=== PATIENT | female | born 1945 | race Caucasian/White ===

== ENCOUNTER 2021-03-27 10:04 | Inpatient (IN) ==
--- NOTE | 2021-03-27 12:53 | XRay Report ---
XR chest 1V portable CLINICAL HISTORY: SOB TECHNIQUE: Single frontal radiograph of the chest was obtained. Comparison: Comparison is made to chest one view 06/23/2006 FINDINGS: No lines and tubes are seen. Cardiomegaly is noted. Prominence and cephalization of the vasculature i s seen. No evidence of pleural effusion or pneumothorax. IMPRESSION: Mild pulmonary edema. Cardiomegaly is noted. ACT 112: Negative or not required by law. Electronically signed by: Srekeanth Roche M.D. 03/27/2021 12:52 PM
[2021-03-27] MEDS ORDERED: ONDANSETRON INJ 2 MG/ML 2 ML VIAL IV STA (13:55)
[2021-03-27 14:18] LABS: INR 1.2 (0.9-1.1); Partial Thromboplastin Time 25.9 Seconds (21.0-31.0); Prothrombin Time 11.8 Seconds (9.0-12.0)
[2021-03-27 14:24] LABS: Alanine Aminotransferase 26 (12-78); Albumin Level 3.3 gm/dl (3.4-5.0); Aspartate Aminotransferase 40 U/L (15-37); BUN Creatinine Ratio 14.3 (10-20); Blood Urea Nitrogen 17 mg/dl (7-18); Calcium 8.5 mg/dl (8.5-10.1); Carbon Dioxide 21 mmol/L (21-32); Chloride 107 mmol/L (98-107); Creatinine Clr Calc Pharmacy 34.5 ml/min; Est GFR (African American) 49.6 ml/min; Est GFR (Non-African American) 42.8 ml/min; Glucose 125 mg/dl (70-99); Magnesium 1.7 mg/dl (1.8-2.4); Potassium 4.1 mmol/L (3.5-5.1); Sodium 137 mmol/L (136-145)
[2021-03-27 14:29] LABS: Albumin Globulin Ratio 0.9 (0.9-2); Alkaline Phosphatase 56 U/L (45-117); Bilirubin,Total 0.4 mg/dl (0.2-1); Globulin 3.5 gm/dl (2.5-4.0); Total Protein 6.8 gm/dl (6.4-8.2); Troponin I < 0.015 ng/ml (0-0.045)
--- NOTE | 2021-03-27 14:47 | CT Scan Report ---
CT abd pelvis wo con CLINICAL HISTORY: vomiting TECHNIQUE: Helical axial images of the abdomen and pelvis were obtained. Automated dose lowering tech niques and/or adjustment according to patient size were utilized for this exam. This exam was perfor med without intravenous contrast. COMPARISON: None available at the time of this dictation. FINDINGS: Lower chest: Scattered groundglass and consolidative opacities are partially visualized most promine nt in the right lower lobe. Atelectasis versus scarring is seen. Liver: Unremarkable. No focal lesions are seen. Gallbladder and biliary tree: Patient is status post cholecystectomy. No intra- or extrahepatic bilia ry ductal dilation. Pancreas: Unremarkable, no focal lesions. Spleen: Splenomegaly is seen, the spleen measures 2.5 cm in length. A splenule is noted. Adrenals: Unremarkable. Kidneys and ureters: Hyperdense 12 mm lesion is seen in the left kidney inferior pole and there is a subcentimeter hyperdense lesion in the right inferior pole. Renal cyst is seen in the left kidney inf erior pole as well. Bladder: Unremarkable. Reproductive organs: Unremarkable. Bowel: Diverticulosis is seen without evidence of diverticulitis. There are mildly distended loops of small bowel measuring up to 28 mm without jo dilation. Lymph nodes Retroperitoneal: Subcentimeter lymph nodes are noted. Mesenteric: Unremarkable. Pelvic: Subcentimeter lymph nodes are noted. Peritoneum: Normal Vessels: Atherosclerotic calcifications are seen. Abdominal wall: Unremarkable. Bones: Bone islands are noted in the pelvis. There is anterior wedge deformity of the T12 vertebral b surendra. IMPRESSION: 1. There is mild distention of the small bowel which may represent ileus, however no jo bowel obs truction is seen. 2. Diverticulosis is seen without diverticulitis. 3. Marked splenomegaly. 4. Hyperdense lesions in the bilateral kidneys. These are favored to represent hemorrhagic/proteinac eous cysts, however if not previously evaluated, CT or MRI renal mass protocol is recommended. ACT 112: Negative or not required by law. Electronically signed by: Sreekanth Roche M.D. 03/27/2021 2:46 PM
[2021-03-27 14:48] LABS: Hematocrit (blood only) 23.5 % (37-47); Hemoglobin 7.7 g/dL (12.0-16.0); Mean Corpuscular Hemoglobin 27.3 pg (25-34); Mean Corpuscular Hgb Conc 32.8 g/dL (32-36); Mean Corpuscular Volume 83.3 fL (80-100); Mean Platelet Volume 9.5 fL (7.4-10.4); Platelet Count 47 K/uL (130-400); RDW Coefficient of Variation 22.1 % (11.5-14.5); Red Blood Count 2.82 M/uL (4.2-5.4); White Blood Count 0.63 K/uL (4.8-10.8)
[2021-03-27 14:52] LABS: Lymphocytes # (auto) 0.22 K/uL (1.2-3.4); Lymphocytes % (auto) 34.9 %; Monocytes # (auto) 0.11 K/uL (0.11-0.59); Monocytes % (auto) 17.5 %; Neutrophils % (auto) 47.6 %; Ovalocytes 2+
[2021-03-27] MEDS ORDERED: SODIUM CHLORIDE 0.9% 1000ML 1,000 ML IV STA (14:58)
[2021-03-27] MEDS ORDERED: SODIUM CHLORIDE 0.9% 1000ML 500 ML IV ONE (14:58)
[2021-03-27] MEDS ORDERED: MAGNESIUM SULFATE / D5W 1 GM/100 ML BAG IV ONE (16:51)
[2021-03-27] MEDS: dexAMETHasone 6 MG in SYRINGE 0 ML IV SCH (17:29)
--- NOTE | 2021-03-27 17:29 | History & Physical Report ---
Date of Service March 27, 2021 Assessment & Plan (1) Ileus: Plan: -Admit to telemetry -Patient presenting from home with reports of 3 weeks of productive cough, nausea and vomiting -In the ED, CT ABD/pelvis showing signs of ileus -will treat conservatively with bowel rest and IVF -Low threshold for general surgery consult (2) Lab test positive for detection of COVID-19 virus: (3) Sarcoidosis: (4) Chronic respiratory failure with hypoxia: (5) COPD exacerbation: Plan: -Patient with history of COPD and sarcoidosis, chronically on 3 L of oxygen -Tested positive for COVID-19 however saturating well on chronic 3 L of oxygen. Vaccinated x2, due for booster. -Given wheezing on exam, will start dexamethasone 6 mg IV daily. Given duration of symptoms, does not meet criteria for remdesivir -Empiric doxycycline for COPD exacerbation -No signs of pneumonia on CXR -Check procalcitonin and CRP (6) Pancytopenia: (7) History of ITP: Plan: -WBC 0.63, Hgb 7.7, platelet count 47K, ANC 300 -Outpatient labs from 02/02 showed a mild pancytopenia -Documented history of ITP -Follows with Dr. Avendano, case discussed with him. He will see the patient in consult. -Neutropenic precautions (8) Abnormal abdominal CT scan: Plan: -CT ABD/pelvis showing splenomegaly and Hyperdense lesions in the bilateral kidneys. These are favored to represent hemorrhagic/proteinaceous cysts. -CT renal protocol ordered for follow-up (9) Paroxysmal atrial fibrillation: Plan: -Rate controlled on metoprolol, anticoagulated on Xarelto -Hold Xarelto for now due to pancytopenia (10) History of breast cancer: Plan: -History of breast cancer s/p lumpectomy and radiation -Currently on tamoxifen (11) Hypertension: Plan: -BP currently controlled, continue amlodipine/valsartan, metoprolol -Hold spironolactone due to ileus (12) Diabetes: Plan: -Unknown HgbA1c -NovoLog per protocol while hospitalized -Update A1c with a.m. labs (13) DVT prophylaxis: Plan: -SCDs due to pancytopenia History of Present Illness Chief Complaint: Cough, nausea and vomiting Primary Care Provider: Yareli Armstrong DO 76-year-old female with PMH DM type II, COPD with chronic hypoxic respiratory failure on chronic 3 L of oxygen, sarcoidosis, paroxysmal atrial fibrillation anticoagulated on Xarelto, HTN, DM type II, GERD, osteoporosis, history of ITP, history of breast cancer s/p lumpectomy and radiation currently on tamoxifen, and other problems to below who presents the ED for evaluation of cough and nausea/vomiting. Patient reports she has been sick for the past 3 weeks. Reports a worsening cough that has been productive for clear/white sputum. She reports that the cough sometimes induces nausea and vomiting. She denies hematemesis or coffee-ground emesis. Reports some worsening abdominal distention and generalized abdominal pain. Reports a normal bowel movement 2 days ago. No bright red bleeding per rectum or dark tarry stools. She reports a very poor appetite. Denies fevers and chills. No chest pain or shortness of breath. Chronically wears 3 L of oxygen. Denies lightheadedness, dizziness, diaphoresis, syncopal events. No urinary symptoms. In the ED, CT ABD/pelvis shows an ileus, splenomegaly, hyperdense lesions in both kidneys. Labs show pancytopenia. Patient also tested positive for COVID-19. She is saturating well on chronic 3 L of oxygen. She was given IVF and IV Zofran. Allergies Allergy/AdvReac Type Severity Reaction Status Date / Time No Known Drug Allergies Allergy Verified 03/27/21 14:38 Home Medications Medication Instructions Recorded Confirmed Type cholecalciferol (vitamin D3) 1,250 50,000 unit PO WK cap 11/27/18 03/27/21 History mcg (50,000 unit) capsule ipratropium 0.5 mg-albuterol 3 mg 3 ml INHALATION DAILY PRN #1 ml 11/27/18 03/27/21 History (2.5 mg base)/3 mL nebulization soln tamoxifen 20 mg tablet 20 mg PO QAM tab 11/27/18 03/27/21 History amlodipine 10 mg-valsartan 320 mg 1 tab PO DAILY tab 10/09/19 03/27/21 History tablet insulin glargine 100 unit/mL 33 units SUBCUT HS #1 ml 10/09/19 03/27/21 History subcutaneous solution Oxygen Home #1 ea 07/28/20 02/09/21 Rx famotidine 40 mg tablet (Pepcid) 40 mg PO DAILY #30 tab 07/28/20 03/27/21 Rx albuterol sulfate 90 mcg/actuation 2 puff INHALATION Q4H PRN #8.5 g 02/09/21 03/27/21 Rx aerosol inhaler budesonide-formoterol HFA 160 2 puff INHALATION BID #10.2 g 02/09/21 03/27/21 Rx mcg-4.5 mcg/actuation aerosol inhaler atorvastatin 40 mg tablet 40 mg PO QAM 03/27/21 03/27/21 History diclofenac sodium 1 % topical gel 2 g TOPICAL QID PRN 03/27/21 03/27/21 History gabapentin 300 mg capsule 300 mg PO DAILY 03/27/21 03/27/21 History metoprolol succinate 100 mg 100 mg PO BID 03/27/21 03/27/21 History tablet,extended release 24 hr omeprazole 20 mg capsule,delayed 20 mg PO QAM 03/27/21 03/27/21 History release potassium chloride 10 mEq 10 meq PO DAILY 03/27/21 03/27/21 History capsule,extended release rivaroxaban 20 mg tablet (Xarelto) 20 mg PO QAM 03/27/21 03/27/21 History ropinirole 0.25 mg tablet 0.25 mg PO QAM 03/27/21 03/27/21 History spironolactone 50 mg tablet 50 mg PO QAM 03/27/21 03/27/21 History venlafaxine 37.5 mg 37.5 mg PO DAILY 03/27/21 03/27/21 History capsule,extended release 24 hr Past Med/Surg History Medical History (Updated 03/27/21 @ 17:36 by POLLY Ramos) Arthritis BPPV (benign paroxysmal positional vertigo) Chronic anticoagulation Chronic respiratory failure with hypoxia COPD (chronic obstructive pulmonary disease) Diabetes GERD without esophagitis Hiatal hernia History of adverse effect of anesthesia on table? - Per Patient Form History of breast cancer History of Clostridioides difficile colitis History of ITP Hypertension Hypertensive heart disease Nocturnal hypoxemia On home oxygen therapy Osteoporosis Paroxysmal atrial fibrillation Pulmonary hypertension Restrictive lung disease Rheumatoid arthritis Sarcoidosis SNHL (sensorineural hearing loss) Surgical History History of appendectomy History of cholecystectomy History of hysterectomy History of tonsillectomy Family History Mother Hypertension Heart disease Father Hypertension Stroke Heart disease Other Family history of bleeding disorder No family history of adverse response to anesthesia Social History (Updated 03/27/21 @ 17:25 by POLLY Ramos) Smoking Status: Never smoker Hx Alcohol Use: No Feels Safe at Home: Yes Review of Systems Review of Systems: ROS per HPI, all other systems reviewed and negative Physical Exam Constitutional: WD/WN, vitals as above + ill appearing Eyes: PERRL, conjunctivae normal, anicteric sclerae ENMT: external ear and nose normal, oropharynx normal Respiratory: normal respiratory effort; no respiratory distress Auscultation: + diminished lung sounds and + wheezes (Scattered, expiratory) Cardiovascular: Rate/Rhythm: regular rate and regular rhythm Vessels: normal peripheral pulses Extremities: no edema Gastrointestinal (Abdomen): Inspection/Auscultation: normal bowel sounds; abdomen not distended Percussion/Palpation: + abdomen tender (Generally tender to palpation) and abdomen soft; no guarding and no hepatosplenomegaly Musculoskeletal: no cyanosis or clubbing, extremities motor strength 5/5 Skin: no rashes, warm and dry Chronic venous changes BLE Neurologic: PERRL, EOMI, accommodation nl, no face palsy, no dysarthria Involuntary facial movements noted Psychiatric: A+Ox3, euthymic affect Results & Data Results & Data ([facility]) Vital Signs (Past 12 Hours) Vital Signs Temp Pulse Pulse Resp BP BP Pulse Ox 03/27/21 13:41 78 20 144/83 H 96 03/27/21 12:07 96 03/27/21 10:17 37.5 C 71 18 127/57 L 100 Laboratory Results Short CBC 03/27/21 Range/Units 13:55 WBC 0.63 L* (4.8-10.8) K/uL Hgb 7.7 L (12.0-16.0) g/dL Hct 23.5 L (37-47) % Plt Count 47 L (130-400) K/uL BMP 03/27/21 13:55 Sodium 137 Potassium 4.1 Chloride 107 Carbon Dioxide 21 BUN 17 Creatinine 1.21 H Glucose 125 H Calcium 8.5 Cardiac Enzymes 03/27/21 Range/Units 13:55 Troponin I < 0.015 (0-0.045) ng/ml Liver Function 03/27/21 Range/Units 13:55 Total Bilirubin 0.4 (0.2-1) mg/dl AST 40 H (15-37) U/L ALT 26 (12-78) Alkaline Phosphatase 56 (45-117) U/L Albumin 3.3 L (3.4-5.0) gm/dl Diagnostic Findings Chest X-Ray 03/27/21 12:07 XR chest 1V portable CLINICAL HISTORY: SOB TECHNIQUE: Single frontal radiograph of the chest was obtained. Comparison: Comparison is made to chest one view 06/23/2006 FINDINGS: No lines and tubes are seen. Cardiomegaly is noted. Prominence and cephalization of the vasculature is seen. No evidence of pleural effusion or pneumothorax. IMPRESSION: Mild pulmonary edema. Cardiomegaly is noted. ACT 112: Negative or not required by law. Electronically signed by: Sreekanth Roche M.D. 03/27/2021 12:52 PM Abdomen/Pelvis CT 03/27/21 13:55 CT abd pelvis wo con CLINICAL HISTORY: vomiting TECHNIQUE: Helical axial images of the abdomen and pelvis were obtained. Automated dose lowering techniques and/or adjustment according to patient size were utilized for this exam. This exam was performed without intravenous contrast. COMPARISON: None available at the time of this dictation. FINDINGS: Lower chest: Scattered groundglass and consolidative opacities are partially visualized most prominent in the right lower lobe. Atelectasis versus scarring is seen. Liver: Unremarkable. No focal lesions are seen. Gallbladder and biliary tree: Patient is status post cholecystectomy. No intra- or extrahepatic biliary ductal dilation. Pancreas: Unremarkable, no focal lesions. Spleen: Splenomegaly is seen, the spleen measures 2.5 cm in length. A splenule is noted. Adrenals: Unremarkable. Kidneys and ureters: Hyperdense 12 mm lesion is seen in the left kidney inferior pole and there is a subcentimeter hyperdense lesion in the right inferior pole. Renal cyst is seen in the left kidney inferior pole as well. Bladder: Unremarkable. Reproductive organs: Unremarkable. Bowel: Diverticulosis is seen without evidence of diverticulitis. There are mildly distended loops of small bowel measuring up to 28 mm without jo dilation. Lymph nodes Retroperitoneal: Subcentimeter lymph nodes are noted. Mesenteric: Unremarkable. Pelvic: Subcentimeter lymph nodes are noted. Peritoneum: Normal Vessels: Atherosclerotic calcifications are seen. Abdominal wall: Unremarkable. Bones: Bone islands are noted in the pelvis. There is anterior wedge deformity of the T12 vertebral body. IMPRESSION: 1. There is mild distention of the small bowel which may represent ileus, however no jo bowel obstruction is seen. 2. Diverticulosis is seen without diverticulitis. 3. Marked splenomegaly. 4. Hyperdense lesions in the bilateral kidneys. These are favored to represent hemorrhagic/proteinaceous cysts, however if not previously evaluated, CT or MRI renal mass protocol is recommended. ACT 112: Negative or not required by law. Electronically signed by: Sreekanth Roche M.D. 03/27/2021 2:46 PM Code Status & VTE Plan Code Status Patient is a full code as per my discussion with her. VTE Prophylaxis Plan VTE Prophylaxis will be ordered: Yes Supervising Physician Co-Signing Physician Notes Attending addendum: The patient was seen and examined in emergency room She has been complaining of shortness of breath with cough for the last 1 month or so without any fever and/or chills Cough has been mostly at night productive of whitish-yellow sputum She denies any chest pain or palpitation She also has this abnormal movements of the face especially the eyes and the mouth that has been there for more than 1 month On examination No apparent distress at rest Hemodynamically stable with blood pressure on the upper side at 146/60 Chest-decreased breath sounds both sides without any crackles Heart-S1-S2, regular Abdomen-mildly distended and mildly tender without guarding and rigidity, bowel sound present Extremities-no edema but has chronic skin changes with bruising SENIOR ASSISTANT MANAGER-alert, awake and oriented x3. Generally weak Her admission labs, EKG and imaging studies reviewed Has significant hematologic abnormality under care of oncologist Noted to be Covid positive without significant symptoms and out of window for any specific treatment Has COPD and will start dexamethasone and doxycycline for possible bronchitis Abnormal facial movements could be secondary to Tics/Tourette syndrome Agree with assessment and plan as outlined above by Yeni Poon
[2021-03-27 17:31] LABS: C Reactive Protein 0.64 mg/dl (0-0.29)
--- NOTE | 2021-03-27 17:32 | Emergency Department Note ---
Impression & Plan COVID-19, Vomiting, Ileus, Pancytopenia ED Provider Note INFORMANT: Patient ED PROVIDER(S): Alberto Weaver MD CHIEF COMPLAINT: Shortness of breath PLAN: Disposition: Admitted Condition: Good Outpatient prescription management: none Referral: None MEDICAL DECISION MAKING: Patient presented to emergency room because of shortness of breath. She also had vomiting. There was concerns about exposure to Covid. She was tested and was positive. X-ray did not show any significant abnormality. Her blood work revealed significant pancytopenia which is worse than prior. She was neutropenic. CT imaging of her abdomen pelvis reveals an ileus and splenomegaly. The patient had an ECG showed a right bundle branch block, and PACs. No acute ischemic changes. Remainder blood work was unremarkable. Given the patient's ileus, vomiting, and generalized weakness. She was treated with normal saline hydration and Zofran. [facility] Patient was evaluated in the ER for further management. Triage Nursing notes reviewed and agree them. Vital Signs: reviewed and remarkable for no significant abnormalities Differential diagnosis: Infection, dehydration, metabolic abnormality, hypo/hyperglycemia, electrolyte disturbance, anemia, hypoxia, cardiac sources, intracerebral event, toxicologic, neurologic, as well as other pathologies. Diagnostics interpreted by me: ECG: Twelve-lead ECG reveals a sinus rhythm with PACs at 74 bpm. Bundle-branch block and left anterior fascicular block. Septal and lateral Q waves present. Cardiac Monitoring: Cardiac monitoring ordered by me: The patient was placed on continuous cardiac monitoring and observed. It revealed a sinus rhythm at 87 bpm. No dysrhythmia. Imaging studies: Chest x-ray shows some mild cardiomegaly but no focal infiltrates. HPI: The patient is a 76 year old female who presents to the Emergency Room with complaints of shortness of breath. This started several days ago and is worsening. The patient also notes the following associated symptoms, cough, nausea, vomiting, weakness. The patient has found no relieving factors. Current pain is rated as 0/10. Pt denies LOC, headache, fevers, chills, diaphoresis, visual changes, neck pain, chest pain, abdominal pain, back pain, melena, hematochezia, urinary symptoms, numbness, weakness, lymphadenopathy, rash, or other complaints. ROS: See above HPI for pertinent positives & negatives. A total of 10 systems reviewed and were otherwise negative. PAST MEDICAL HISTORY:See Below , diabetes, sarcoidosis PAST SURGICAL HISTORY:See Below, FAMILY HISTORY:See Below SOCIAL HISTORY:See Below, retired HOME MEDICATIONS:See Below ALLERGIES:See Below VITALS:See Below PHYSICAL EXAMINATION: GENERAL: Awake, alert, uncomfortable-appearing, in no distress HENT: Normocephalic, atraumatic. Oropharynx unremarkable. EYES: Normal conjunctiva. Sclera non-icteric. NECK: Inspection normal. Non-tender. Supple. No nuchal rigidity. FROM. No masses. RESPIRATORY: Clear to auscultation. No wheezes. No rales. Normal respiratory effort. CARDIAC: Normal rate. Normal rhythm. No murmurs. No rubs. Extremities warm and well perfused. Pulses equal. No JVD. GI: Soft, non-distended. Mild lower quadrant tenderness to palpation. No rebound or guarding. No masses. RECTAL: Deferred. MUSCULOSKELETAL: Atraumatic. Chest examination reveals no tenderness. The back is symmetrical on inspection without obvious abnormality. There is no CVA tenderness to palpation. No joint edema. LOWER EXTREMITIES: Calves are equal size bilaterally and non-tender. No edema. Chronic venous discoloration. NEURO: Normal sensorium. Generally weak but no focal sensory or motor deficits noted. SKIN: No rash or jaundice noted. Alberto Weaver MD Past Med/Surg History Medical History (Updated 03/27/21 @ 17:26 by POLLY Ramos) Arthritis BPPV (benign paroxysmal positional vertigo) Chronic anticoagulation Chronic respiratory failure with hypoxia COPD (chronic obstructive pulmonary disease) Diabetes GERD without esophagitis Hiatal hernia History of adverse effect of anesthesia on table? - Per Patient Form History of breast cancer History of Clostridioides difficile colitis History of ITP Hypertension Hypertensive heart disease Nocturnal hypoxemia On home oxygen therapy Osteoporosis Paroxysmal atrial fibrillation Pulmonary hypertension Restrictive lung disease Rheumatoid arthritis Sarcoidosis SNHL (sensorineural hearing loss) Surgical History History of appendectomy History of cholecystectomy History of hysterectomy History of tonsillectomy Family History Mother Hypertension Heart disease Father Hypertension Stroke Heart disease Other Family history of bleeding disorder No family history of adverse response to anesthesia Social History (Updated 03/27/21 @ 17:25 by POLLY Ramos) Smoking Status: Never smoker Hx Alcohol Use: No Feels Safe at Home: Yes Allergies Allergies Allergy/AdvReac Type Severity Reaction Status Date / Time No Known Drug Allergies Allergy Verified 03/27/21 14:38 Home Meds Home Medications Medication Instructions Recorded Confirmed cholecalciferol (vitamin D3) 1,250 50,000 unit PO WK cap 11/27/18 03/27/21 mcg (50,000 unit) capsule ipratropium 0.5 mg-albuterol 3 mg 3 ml INHALATION DAILY PRN #1 ml 11/27/18 03/27/21 (2.5 mg base)/3 mL nebulization soln tamoxifen 20 mg tablet 20 mg PO QAM tab 11/27/18 03/27/21 amlodipine 10 mg-valsartan 320 mg 1 tab PO DAILY tab 10/09/19 03/27/21 tablet insulin glargine 100 unit/mL 33 units SUBCUT HS #1 ml 10/09/19 03/27/21 subcutaneous solution atorvastatin 40 mg tablet 40 mg PO QAM 03/27/21 03/27/21 diclofenac sodium 1 % topical gel 2 g TOPICAL QID PRN 03/27/21 03/27/21 gabapentin 300 mg capsule 300 mg PO DAILY 03/27/21 03/27/21 metoprolol succinate 100 mg 100 mg PO BID 03/27/21 03/27/21 tablet,extended release 24 hr omeprazole 20 mg capsule,delayed 20 mg PO QAM 03/27/21 03/27/21 release potassium chloride 10 mEq 10 meq PO DAILY 03/27/21 03/27/21 capsule,extended release rivaroxaban 20 mg tablet (Xarelto) 20 mg PO QAM 03/27/21 03/27/21 ropinirole 0.25 mg tablet 0.25 mg PO QAM 03/27/21 03/27/21 spironolactone 50 mg tablet 50 mg PO QAM 03/27/21 03/27/21 venlafaxine 37.5 mg 37.5 mg PO DAILY 03/27/21 03/27/21 capsule,extended release 24 hr Previous Rx's Medication Instructions Recorded Oxygen Home #1 ea 07/28/20 famotidine 40 mg tablet (Pepcid) 40 mg PO DAILY #30 tab 07/28/20 albuterol sulfate 90 mcg/actuation 2 puff INHALATION Q4H PRN #8.5 g 02/09/21 aerosol inhaler budesonide-formoterol HFA 160 2 puff INHALATION BID #10.2 g 02/09/21 mcg-4.5 mcg/actuation aerosol inhaler Results & Data (ED) Vital Signs Vital Signs - 24 hr 03/27/21 10:17 03/27/21 12:07 03/27/21 13:41 Temperature 37.5 C Temperature Source Temporal Artery Scan Pulse Rate 71 Pulse Rate [Left Radial] 78 Pulse Rate from SpO2 Sensor Pulse Rhythm [Left Radial] Regular Pulse Strength [Left Radial] Normal Respiratory Rate 18 20 Respiratory Effort / Characteristics Non-Labored Non-Labored Spontaneous Respiratory Depth Normal Respiratory Pattern Regular Blood Pressure 127/57 L Blood Pressure [Right Arm] 144/83 H Blood Pressure Mean 80 Blood Pressure Mean [Right Arm] 103 Blood Pressure Position [Right Arm] Lying Pulse Oximetry 100 96 96 Oxygen Delivery Method Room Air Room Air Room Air Sepsis Recent Fever Within 48 Hours No Sepsis New/Unexplained Change in Mental Status No Sepsis Action Taken by Nursing No Action Required 03/27/21 16:07 03/27/21 16:30 03/27/21 17:00 Temperature Temperature Source Pulse Rate 80 78 87 Pulse Rate [Left Radial] Pulse Rate from SpO2 Sensor 81 78 84 Pulse Rhythm [Left Radial] Pulse Strength [Left Radial] Respiratory Rate 22 22 17 Respiratory Effort / Characteristics Respiratory Depth Respiratory Pattern Blood Pressure 146/60 H Blood Pressure [Right Arm] Blood Pressure Mean 88 Blood Pressure Mean [Right Arm] Blood Pressure Position [Right Arm] Pulse Oximetry 100 99 96 Oxygen Delivery Method Sepsis Recent Fever Within 48 Hours Sepsis New/Unexplained Change in Mental Status Sepsis Action Taken by Nursing Laboratory Data Result diagrams: 03/27/21 13:55 03/27/21 13:55 Lab Results 03/27/21 03/27/21 03/27/21 Range/Units 13:55 13:55 13:55 WBC 0.63 L* (4.8-10.8) K/uL RBC 2.82 L (4.2-5.4) M/uL Hgb 7.7 L (12.0-16.0) g/dL Hct 23.5 L (37-47) % MCV 83.3 (80-100) fL MCH 27.3 (25-34) pg MCHC 32.8 (32-36) g/dL RDW Std Deviation 66.0 H (36.4-46.3) fL RDW Coeff of Chi 22.1 H (11.5-14.5) % Plt Count 47 L (130-400) K/uL MPV 9.5 (7.4-10.4) fL Immature Gran % (Auto) 0.0 % Neut % (Auto) 47.6 % Lymph % (Auto) 34.9 % [place] % (Auto) 17.5 % Eos % (Auto) 0.0 % Baso % (Auto) 0.0 % Neut # (Auto) 0.30 L* (1.4-6.5) K/uL Lymph # (Auto) 0.22 L (1.2-3.4) K/uL [place] # (Auto) 0.11 (0.11-0.59) K/uL Eos # (Auto) 0.00 (0-0.5) K/uL Baso # (Auto) 0.00 (0-0.2) K/uL Immature Gran # (Auto) 0.00 (0.00-0.02) K/uL Ovalocytes 2+ PT 11.8 (9.0-12.0) Seconds INR 1.2 H (0.9-1.1) APTT 25.9 (21.0-31.0) Seconds PTT Ratio 1.0 Sodium 137 (136-145) mmol/L Potassium 4.1 (3.5-5.1) mmol/L Chloride 107 (98-107) mmol/L Carbon Dioxide 21 (21-32) mmol/L Anion Gap 9.0 (3-11) BUN 17 (7-18) mg/dl Creatinine 1.21 H (0.6-1.2) mg/dl Est Cr Clr Drug Dosing 34.5 ml/min Est GFR ( Amer) 49.6 ml/min Est GFR (Non-Af Amer) 42.8 ml/min BUN/Creatinine Ratio 14.3 (10-20) Glucose 125 H (70-99) mg/dl Calcium 8.5 (8.5-10.1) mg/dl Magnesium 1.7 L (1.8-2.4) mg/dl Total Bilirubin 0.4 (0.2-1) mg/dl AST 40 H (15-37) U/L ALT 26 (12-78) Alkaline Phosphatase 56 (45-117) U/L Troponin I < 0.015 (0-0.045) ng/ml C-Reactive Protein 0.64 H (0-0.29) mg/dl Total Protein 6.8 (6.4-8.2) gm/dl Albumin 3.3 L (3.4-5.0) gm/dl Globulin 3.5 (2.5-4.0) gm/dl Albumin/Globulin Ratio 0.9 (0.9-2) SARS-CoV-2, RNA, NAAT (NEGATIVE) 03/27/21 Range/Units 14:01 WBC (4.8-10.8) K/uL RBC (4.2-5.4) M/uL Hgb (12.0-16.0) g/dL Hct (37-47) % MCV (80-100) fL MCH (25-34) pg MCHC (32-36) g/dL RDW Std Deviation (36.4-46.3) fL RDW Coeff of Chi (11.5-14.5) % Plt Count (130-400) K/uL MPV (7.4-10.4) fL Immature Gran % (Auto) % Neut % (Auto) % Lymph % (Auto) % [place] % (Auto) % Eos % (Auto) % Baso % (Auto) % Neut # (Auto) (1.4-6.5) K/uL Lymph # (Auto) (1.2-3.4) K/uL [place] # (Auto) (0.11-0.59) K/uL Eos # (Auto) (0-0.5) K/uL Baso # (Auto) (0-0.2) K/uL Immature Gran # (Auto) (0.00-0.02) K/uL Ovalocytes PT (9.0-12.0) Seconds INR (0.9-1.1) APTT (21.0-31.0) Seconds PTT Ratio Sodium (136-145) mmol/L Potassium (3.5-5.1) mmol/L Chloride (98-107) mmol/L Carbon Dioxide (21-32) mmol/L Anion Gap (3-11) BUN (7-18) mg/dl Creatinine (0.6-1.2) mg/dl Est Cr Clr Drug Dosing ml/min Est GFR ( Amer) ml/min Est GFR (Non-Af Amer) ml/min BUN/Creatinine Ratio (10-20) Glucose (70-99) mg/dl Calcium (8.5-10.1) mg/dl Magnesium (1.8-2.4) mg/dl Total Bilirubin (0.2-1) mg/dl AST (15-37) U/L ALT (12-78) Alkaline Phosphatase (45-117) U/L Troponin I (0-0.045) ng/ml C-Reactive Protein (0-0.29) mg/dl Total Protein (6.4-8.2) gm/dl Albumin (3.4-5.0) gm/dl Globulin (2.5-4.0) gm/dl Albumin/Globulin Ratio (0.9-2) SARS-CoV-2, RNA, NAAT POSITIVE A* (NEGATIVE) Administered Medications Sodium Chloride (Nss 1000ml) 1,000 mls @ 125 mls/hr IV .Q8H STA Stop: 03/27/21 22:57 Last Admin: 03/27/21 15:19 Dose: 125 mls/hr Documented by: [id number] Magnesium Sulfate/Dextrose (Magnesium Sulfate / D5w) 1 gm in 100 mls @ 50 mls/hr IV ONE ONE Stop: 03/27/21 18:50 Last Admin: 03/27/21 17:30 Dose: 50 mls/hr Documented by: [id number] Dexamethasone 6 mg/ Syringe 1.5 mls @ 1 mls/min IV Q24H BLAISE Stop: 04/26/21 16:59 Last Admin: 03/27/21 17:29 Dose: 1 mls/min Documented by: [id number] Discontinued Medications Sodium Chloride (Nss 1000ml) 500 mls @ 999 mls/hr IV .Q31M ONE Stop: 03/27/21 15:28 Last Admin: 03/27/21 15:19 Dose: 999 mls/hr Documented by: [id number] Ondansetron HCl (Ondansetron Inj 2 Mg/Ml 2 Ml Vial) 4 mg IV NOW STA Stop: 03/27/21 13:56 Last Admin: 03/27/21 14:51 Dose: 4 mg Documented by: [id number] Imaging Data Radiologist's Impression: Chest X-Ray 03/27/21 12:07 XR chest 1V portable CLINICAL HISTORY: SOB TECHNIQUE: Single frontal radiograph of the chest was obtained. Comparison: Comparison is made to chest one view 06/23/2006 FINDINGS: No lines and tubes are seen. Cardiomegaly is noted. Prominence and cephalization of the vasculature is seen. No evidence of pleural effusion or pneumothorax. IMPRESSION: Mild pulmonary edema. Cardiomegaly is noted. ACT 112: Negative or not required by law. Electronically signed by: Sreekanth Roche M.D. 03/27/2021 12:52 PM Abdomen/Pelvis CT 03/27/21 13:55 CT abd pelvis wo con CLINICAL HISTORY: vomiting TECHNIQUE: Helical axial images of the abdomen and pelvis were obtained. Automated dose lowering techniques and/or adjustment according to patient size were utilized for this exam. This exam was performed without intravenous contrast. COMPARISON: None available at the time of this dictation. FINDINGS: Lower chest: Scattered groundglass and consolidative opacities are partially visualized most prominent in the right lower lobe. Atelectasis versus scarring is seen. Liver: Unremarkable. No focal lesions are seen. Gallbladder and biliary tree: Patient is status post cholecystectomy. No intra- or extrahepatic biliary ductal dilation. Pancreas: Unremarkable, no focal lesions. Spleen: Splenomegaly is seen, the spleen measures 2.5 cm in length. A splenule is noted. Adrenals: Unremarkable. Kidneys and ureters: Hyperdense 12 mm lesion is seen in the left kidney inferior pole and there is a subcentimeter hyperdense lesion in the right inferior pole. Renal cyst is seen in the left kidney inferior pole as well. Bladder: Unremarkable. Reproductive organs: Unremarkable. Bowel: Diverticulosis is seen without evidence of diverticulitis. There are mildly distended loops of small bowel measuring up to 28 mm without jo dilation. Lymph nodes Retroperitoneal: Subcentimeter lymph nodes are noted. Mesenteric: Unremarkable. Pelvic: Subcentimeter lymph nodes are noted. Peritoneum: Normal Vessels: Atherosclerotic calcifications are seen. Abdominal wall: Unremarkable. Bones: Bone islands are noted in the pelvis. There is anterior wedge deformity of the T12 vertebral body. IMPRESSION: 1. There is mild distention of the small bowel which may represent ileus, however no jo bowel obstruction is seen. 2. Diverticulosis is seen without diverticulitis. 3. Marked splenomegaly. 4. Hyperdense lesions in the bilateral kidneys. These are favored to represent hemorrhagic/proteinaceous cysts, however if not previously evaluated, CT or MRI renal mass protocol is recommended. ACT 112: Negative or not required by law. Electronically signed by: Sreekanth Roche M.D. 03/27/2021 2:46 PM Discharge Plan Visit Data Chief Complaint: Shortness of Breath/Dyspnea Stated Complaint: COVID+,SOB,COUGH X4DAYS,CHEST TIGHTNESS ED Provider: Alberto Weaver Discharge Problem: COVID-19, Vomiting, Ileus, Pancytopenia Forms Stand Alone Forms: [facility] Direct Access Software Prescriptions Prescriptions: No Action famotidine [Pepcid] 40 mg tablet 40 mg PO DAILY Qty: 30 RF: 5 cholecalciferol (vitamin D3) 50,000 unit capsule 50,000 unit PO WK RF: 0 ipratropium-albuterol 0.5 mg-3 mg(2.5 mg base)/3 mL solution for nebulization 3 ml inhalation DAILY PRN (Reason: Shortness Of Breath) Qty: 1 RF: 0 tamoxifen 20 mg tablet 20 mg PO QAM RF: 0 amlodipine-valsartan 10-320 mg tablet 1 tab PO DAILY RF: 0 insulin glargine 100 unit/mL solution 33 units subcut HS Qty: 1 RF: 0 (DME) Oxygen Home Liters Per Minute See Rx Instructions .MEDSUPPLY Qty: 1 RF: 0 albuterol sulfate 90 mcg/actuation HFA aerosol inhaler 2 puff inhalation Q4H PRN (Reason: shortness of breath or wheezing) Qty: 8.5 RF: 5 budesonide-formoterol 160-4.5 mcg/actuation HFA aerosol inhaler 2 puff inhalation BID Qty: 10.2 RF: 5 atorvastatin 40 mg tablet 40 mg PO QAM RF: 0 metoprolol succinate 100 mg tablet extended release 24 hr 100 mg PO BID RF: 0 ropinirole 0.25 mg tablet 0.25 mg PO QAM RF: 0 omeprazole 20 mg capsule,delayed release(DR/EC) 20 mg PO QAM RF: 0 spironolactone 50 mg tablet 50 mg PO QAM RF: 0 diclofenac sodium 1 % gel 2 g TOPICAL QID PRN (Reason: Pain) RF: 0 Xarelto 20 mg tablet 20 mg PO QAM RF: 0 venlafaxine 37.5 mg capsule,extended release 24hr 37.5 mg PO DAILY RF: 0 potassium chloride 10 mEq Capsule, Extended Release 10 meq PO DAILY RF: 0 gabapentin 300 mg capsule 300 mg PO DAILY RF: 0 Referrals Referrals: Yareli Armstrong DO [Primary Care Provider] -
[2021-03-27] MEDS ORDERED: OPTIRAY 320 100ml IV ONE (19:40)
[2021-03-27] MEDS ORDERED: DEXTROSE 50% 50 ML SYRINGE IV PRN (20:08)
[2021-03-27] MEDS ORDERED: GLUCAGON FOR INJ 1 MG VIAL SQ PRN (20:08)
[2021-03-27] MEDS ORDERED: CARBOHYDRATES FOR HYPOGLYCEMIA PO PRN (20:08)
[2021-03-27] MEDS ORDERED: GLUCOSE 10 TABS/TUBE PO PRN (20:08)
[2021-03-27] MEDS ORDERED: GLUCOSE 40% GEL 15 GM TUBE PO PRN (20:08)
--- NOTE | 2021-03-27 20:20 | CT Scan Report ---
CT abd pelvis IV con only CLINICAL HISTORY: Abnormal hyperdense lesion seen within the kidneys on noncontrast CT. Repeat postco ntrast CT utilizing renal protocol for further evaluation. COMPARISON STUDY: Noncontrast CT from 03/27/2021 CT DOSE: 1162.41 mGycm TECHNIQUE: Standard CT of the Abdomen and Pelvis was performed with IV contrast. A dose lowering denise hnique was utilized adhering to the principles of ALARA. Contrast Volume: Optiray 320, 94 ml. The patient did not receive oral contrast. FINDINGS: Lung base: As seen on the noncontrast CT, patchy groundglass opacities are again noted at the lung ba ses suspicious for a viral type pneumonitis and early Covid pneumonia. The heart is again enlarged st atus post previous mitral valve surgery. Abdominal cavity: There is no evidence for abdominal mass, adenopathy or ascites. Liver: There is homogeneous attenuation of the liver parenchyma. There is no evidence for enhancing m ass lesion. Spleen: There is homogeneous attenuation of the splenic parenchyma. There is no enhancing mass lesion . There is again marked splenomegaly. Pancreas: There is homogeneous attenuation of the pancreatic parenchyma. There is no evidence for mas s lesion or peripancreatic fluid collection. Gall Bladder: The gallbladder is again absent. Adrenal glands: The adrenal glands are normal in size and attenuation. There is no evidence for enhan cing mass lesion. Kidneys: Compared to the noncontrast CT, the hyperdense lesions within the inferior poles of both kid neys become less conspicuous following contrast administration. On delayed imaging, they're not seen. No enhancing mass is seen and the findings are most characteristic of hemorrhagic cysts. Additional simple cysts are also present bilaterally. There is no evidence for enhancing mass. There is no evide nce for renal calculus or hydronephrosis bilaterally. Bowel: There is again evidence for small sliding-type hiatal hernia. Nondistended fluid-filled loops of small bowel are again seen most characteristic of an ileus versus gastroenteritis. There is no lila dence for bowel loop dilatation or obstruction. There is again evidence for diverticulosis without ev idence for diverticulitis. There are no inflammatory changes present. There is no evidence for free a ir. Bladder: The bladder is within normal limits with no evidence for focal mass, calculus or diverticulu m. : There is no evidence for pelvic mass or adenopathy. There is no evidence for pelvic ascites. Vasculature: There is no evidence for aneurysmal dilatation of the abdominal aorta. Osseous structures: There is no acute osseous pathology. IMPRESSION: 1. Compared to the previous examination, patchy groundglass opacities are again seen at both lung bas es suspicious for a viral type pneumonitis and early Covid pneumonia. 2. Cardiomegaly status post mitral valve surgery. 3. The 2 hyperdense lesions within the lower poles of the kidneys become less conspicuous following c ontrast administration and are most characteristic of hemorrhagic cyst. No enhancing mass is seen. Ad ditional simple cysts are also present. Renal ultrasound on a nonemergent basis would be the study of choice for further evaluation. 4. There is again a small hiatal hernia, marked splenomegaly and diverticulosis. 5. There is also again evidence for bowel ileus versus gastroenteritis. ACT 112: Negative or not required by law. Electronically signed by: Yehuda Diane M.D. 03/27/2021 8:18 PM
[2021-03-27] MEDS ORDERED: INSULIN ASPART PER UNIT SC SCH (21:00)
[2021-03-27] MEDS: SODIUM CHLORIDE 0.9% 1000ML 1,000 ML IV SCH (22:43)
[2021-03-27] MEDS: DOXYCYCLINE HYCLATE 100 MG in DEXTROSE 5% 100 ML IV SCH (22:43)
[2021-03-27] MEDS: ACETAMINOPHEN 325 MG TAB PO PRN (22:53)
[2021-03-27] MEDS: METOPROLOL SUCC 50MG EXT REL TAB PO SCH (22:54)
[2021-03-27] MEDS: FLUTICASONE/VILANTEROL 200/25MCG 14 PUFFS/INHALER INH SCH (22:55)
[2021-03-28] MEDS ORDERED: INSULIN GLARGINE SOLOSTAR 100 UNITS/ML 3 ML PEN SC STA (00:10)
[2021-03-28] MEDS ORDERED: Nursing to Pharmacy Communication SCH (06:30)
[2021-03-28] MEDS ORDERED: CHLORASEPTIC 1.4% SOLN 180 ML BTL MT PRN (06:37)
[2021-03-28] MEDS: INSULIN ASPART PER UNIT SC SCH ×3 (06:38→18:04)
[2021-03-28 06:55] LABS: Hematocrit (blood only) 23.7 % (37-47); Hemoglobin 7.6 g/dL (12.0-16.0); Mean Corpuscular Hemoglobin 26.8 pg (25-34); Mean Corpuscular Hgb Conc 32.1 g/dL (32-36); Mean Corpuscular Volume 83.5 fL (80-100); Mean Platelet Volume 9.8 fL (7.4-10.4); Platelet Count 44 K/uL (130-400); RDW Coefficient of Variation 21.6 % (11.5-14.5); RDW Standard Deviation 64.8 fL (36.4-46.3); Red Blood Count 2.84 M/uL (4.2-5.4); White Blood Count 0.43 K/uL (4.8-10.8)
[2021-03-28 07:02] LABS: Albumin Level 2.9 gm/dl (3.4-5.0); BUN Creatinine Ratio 20.5 (10-20); Calcium 8.1 mg/dl (8.5-10.1); Creatinine Clr Calc Pharmacy 38.6 ml/min; Est GFR (African American) 56.9 ml/min; Est GFR (Non-African American) 49.1 ml/min; Magnesium 2.1 mg/dl (1.8-2.4)
[2021-03-28 07:04] LABS: Albumin Globulin Ratio 0.9 (0.9-2); Bilirubin,Total 0.4 mg/dl (0.2-1); Globulin 3.1 gm/dl (2.5-4.0); Phosphorus 4.4 mg/dl (2.5-4.9)
[2021-03-28 07:21] LABS: Estimated Average Glucose 140 mg/dl; Hemoglobin A1C 6.5 % (4.5-5.6)
[2021-03-28] MEDS: SODIUM CHLORIDE 0.9% 1000ML 1,000 ML IV SCH ×2 (08:13→17:15)
[2021-03-28] MEDS: BENZONATATE 100 MG CAPSULE PO SCH ×4 (08:13→20:29)
[2021-03-28] MEDS: METOPROLOL SUCC 50MG EXT REL TAB PO SCH ×2 (08:14→20:23)
[2021-03-28] MEDS: POTASSIUM CHLORIDE 10 MEQ TABCR PO SCH (08:14)
[2021-03-28] MEDS: ATORVASTATIN 40 MG TAB PO SCH (08:15)
[2021-03-28] MEDS: rOPINIRole HCL 0.25 MG TABLET PO SCH (08:15)
[2021-03-28] MEDS: FAMOTIDINE 40 MG TABLET PO SCH (08:15)
[2021-03-28] MEDS: GABAPENTIN 300 MG CAP PO SCH (08:15)
[2021-03-28] MEDS: TAMOXIFEN CITRATE 10 MG TABLET PO SCH (08:15)
[2021-03-28] MEDS: VALSARTAN 80 MG TAB PO SCH (08:16)
[2021-03-28] MEDS: PANTOprazole 40 MG TAB PO SCH (08:16)
[2021-03-28] MEDS: amLODIPine BESYLATE 5 MG TAB PO SCH (08:16)
[2021-03-28] MEDS: VENLAFAXINE HCL XR 37.5 MG CAPXR PO SCH (08:16)
[2021-03-28] MEDS: guaiFENesin SUGAR FREE 200 MG/10 ML UDC PO PRN ×2 (08:18→20:26)
[2021-03-28] MEDS ORDERED: ERGOCALCIFEROL 50,000 UNITS 1250 MCG CAP PO SCH (09:00)
--- NOTE | 2021-03-28 09:16 | Consultation Report ---
HEMATOLOGY CONSULTATION DATE OF SERVICE: 03/28/2021. REASON FOR CONSULTATION: Pancytopenia in a 76-year-old female patient with active COVID-19. HISTORY OF PRESENT ILLNESS: Tigist Montes is a 76-year-old female well known to me, under my care at [facility] for several issues including history of invasive ductal carcinoma of the breast, ITP, and hereditary hemochromatosis, which subsequently led to overt iron deficiency. The patient recently completed a course of Feraheme x2 on 02/13/2021, which was my last outpatient visit with Tigist. Took note of her decreasing white count at that time. The patient presents to [facility] on [address] with 3 weeks of feeling poorly consisting of semi-productive cough, nausea and vomiting, but denies any overt fevers or chills. She is COVID-19 positive. The patient is chronically oxygen dependent up to 3 liters. She is now on the COVID-19 unit and was contacted by the managing hospitalist reporting total WBC count of 630, hemoglobin 7.7, and platelet count 47,000. CT scan of the abdomen and pelvis also confirms splenomegaly. PAST MEDICAL HISTORY: Again, significant for hereditary hemochromatosis, ITP, invasive ductal carcinoma of the right breast, pancytopenia, and iron deficiency anemia. COPD, chronic anticoagulation, history of Clostridium difficile colitis, hiatal hernia, diabetes mellitus, pulmonary hypertension, sarcoidosis, rheumatoid arthritis. PAST SURGICAL HISTORY: Includes appendectomy, cholecystectomy, hysterectomy and tonsillectomy. MEDICATIONS: Include Effexor 37.5 mg p.o. daily, spironolactone 50 mg p.o. daily, ropinirole 0.25 mg p.o. daily, Xarelto 20 mg p.o. daily, potassium chloride 10 mEq p.o. daily, omeprazole 20 mg p.o. daily, metoprolol 100 mg p.o. b.i.d., gabapentin 300 mg p.o. daily, diclofenac sodium topical gel applied to affected area q.i.d. p.r.n., atorvastatin 40 mg p.o. daily, budesonide 2 puffs inhaled b.i.d., albuterol 2 puffs inhaled q. 4 hours p.r.n., famotidine 40 mg p.o. daily, insulin glargine 33 units subQ at bedtime, amlodipine 10 mg, valsartan 320 mg 1 tablet p.o. daily, tamoxifen 20 mg p.o. daily, ipratropium/albuterol nebulizer inhaled daily p.r.n., cholecalciferol 50,000 units p.o. weekly. ALLERGIES: No known drug allergies. SOCIAL HISTORY: The patient lives independently. She is a nonsmoker. Negative for alcohol or illicit substances. FAMILY HISTORY: Mother suffered from cardiac disease and hypertension. Father also suffered from heart disease, hypertension, and stroke. REVIEW OF SYSTEMS: CONSTITUTIONAL: As per HPI, most notably for generalized weakness, nausea and vomiting, semi-productive cough. Negative for fevers or chills. She is not anorexic or losing weight. SKIN: No rashes or lesions. No history of dermatoses. HEENT: She denies headaches, lightheadedness, or dizziness. No dysphagia or sore throat. LYMPHATICS: No history of lymphoproliferative disease. CARDIAC: No history of coronary artery disease. No current angina or palpitations. PULMONARY: As per HPI. GASTROINTESTINAL: Positive for nausea and vomiting. Positive for abdominal pain, which is diffuse. No diarrhea or constipation, hematochezia or melena stools. GENITOURINARY: No hematuria, dysuria, urinary incontinence. MUSCULOSKELETAL: Generalized weakness. No arthralgias or myalgias. ENDOCRINE: Positive for diabetes mellitus. NEUROLOGIC: Negative for seizure, stroke or migraine headache. HEMATOLOGIC: Positive for pancytopenia. PHYSICAL EXAMINATION: GENERAL: Very pleasant 76-year-old female, awake, alert, appropriate, in no acute distress. VITAL SIGNS: Temperature 36.4, pulse 59, respiratory rate 18, blood pressure 113/54. EXTREMITIES: Warm, dry, noncyanotic without petechiae, rash or ecchymosis. HEENT: Head is atraumatic, normocephalic. Eyes: PERRLA. EOMI. Sclerae are nonicteric. Nares patent without rhinorrhea or discharge. Throat not examined. NECK: Supple without JVD or thyromegaly. LYMPHATICS: No cervical, supraclavicular palpable nodes. HEART: Regular rate and rhythm. No clicks, rubs, murmurs or gallops. LUNGS: Clear to auscultation bilaterally. ABDOMEN: Diffusely tender. No rigidity or guarding. Palpable splenic tip. EXTREMITIES: Musculoskeletal strength and pulses are equal in all 4 quadrants. No clubbing, cyanosis or edema otherwise. NEUROLOGIC: She is awake, alert and oriented x3. Grossly intact otherwise. LABORATORY DATA: WBC count 430, hemoglobin 7.6, platelet count 44,000. PT 11.8 seconds, INR 1.2. Sodium 135, potassium 4.0, chloride 109, carbon dioxide 18, BUN 22, creatinine 1.08, albumin 2.9, COVID-19 PCR is positive. IMPRESSION: 1. Pancytopenia. 2. COVID-19. 3. History of hereditary hemochromatosis. 4. History of invasive ductal carcinoma involving right breast. 5. Idiopathic thrombocytopenic purpura. 6. Iron deficiency anemia, status post Feraheme administration. 7. Splenomegaly, etiology unclear. PLAN: In summary, Tigist is a pleasant 76-year-old female patient who contracted COVID-19 and has been symptomatic for about 3 weeks. She was admitted to [facility] on [address] with semi-productive cough. I was alerted by the hospitalist about the patient's peripheral blood counts. When I saw her in February, her white count had been faltering at that time. She also has a component of iron deficiency and thus received Feraheme x2. The new finding is the patient's enlarged spleen, for which I am not sure of origin. Differential diagnosis of splenomegaly includes chronic liver disease, vascular obstruction, hematologic malignancies such as hairy cell leukemia, large granular T-cell leukemia, splenic marginal zone lymphoma, hepatosplenic T-cell lymphoma, ALL, and CLL as well as myeloproliferative disease. She has no overt signs of any of these and truthfully cannot rule these out without bone marrow biopsy and aspiration, which will most likely be the plan moving forward; however, I will not perform procedure while the patient is ill as I believe her viral infection is also contributing to the patient's protracted cytopenias. Not in favor of incorporating granulocytic colony stimulating growth factor with an enlarged spleen as splenic rupture is a risk moving forward. I would, however, panculture her at this point to make sure we were not overlooking bacteremia or perhaps an underlying urinary tract infection. That said, I agree with transfusional support to maintain hemoglobin above 8 g/dL and if her platelet count falters, may consider IVIG or perhaps high-dose dexamethasone. Generally speaking, ITP does not need to be addressed until platelet count falls below 30,000. Advised Tigist that I would reconvene with her a week or two post discharge reevaluate her counts at that time. In the meantime, I took the liberty of ordering full anemia panel including elemental studies, reticulocyte count, peripheral smear, and serum protein electrophoresis with immunofixation. Thank you for allowing me to participate in her care. If there are any other questions or concerns, please feel free to contact me at any time. Job ID: [id number] MTDD
--- NOTE | 2021-03-28 10:30 | Electrocardiogram Report ---
Test Reason : Blood Pressure : / mmHG Vent. Rate : 074 BPM Atrial Rate : 074 BPM P-R Int : 180 ms QRS Dur : 132 ms QT Int : 440 ms P-R-T Axes : 055 -49 058 degrees QTc Int : 488 ms Sinus rhythm with Premature atrial complexes Right bundle branch block Left anterior fascicular block Bifascicular block Lateral infarct , age undetermined Abnormal ECG When compared with ECG of 09-FEB-2005 11:35, Premature atrial complexes are now Present Confirmed by Gen Ivory ([id number]) on 03/28/2021 10:29:21 AM Referred By: Confirmed By:Gen Ivory
[2021-03-28] MEDS: DOXYCYCLINE HYCLATE 100 MG in DEXTROSE 5% 100 ML IV SCH ×2 (10:33→20:23)
[2021-03-28] MEDS: ACETAMINOPHEN 325 MG TAB PO PRN ×2 (10:35→20:28)
--- NOTE | 2021-03-28 13:40 | Hospitalist Progress Note ---
Date of Service March 28, 2021 Assessment & Plan (1) Ileus: Plan: -Patient presenting from home with reports of 3 weeks of productive cough, nausea and vomiting -In the ED, CT ABD/pelvis showing signs of ileus -will treat conservatively with bowel rest and IVF -Low threshold for general surgery consult -Bowel has been moving without any abdominal distention -Back pain seems to be chronic -Highly seems to be resolving (2) COPD exacerbation: Plan: -Patient with history of COPD and sarcoidosis, chronically on 3 L of oxygen -Tested positive for COVID-19 however saturating well on chronic 3 L of oxygen. Vaccinated x2, due for booster. -Given wheezing on exam, will start dexamethasone 6 mg IV daily. Given duration of symptoms, does not meet criteria for remdesivir -Empiric doxycycline for COPD exacerbation -No signs of pneumonia on CXR-CT scan of the abdomen pelvis did show lower lung infiltration suggestive of viral pneumonia -Procalcitonin is negative and CRP is minimally high at 0.64 -We will continue steroid and oral doxycycline -Hycodan for cough (3) Pancytopenia: Plan: History of pancytopenia for some time and has been under care of bin filler Appreciate bin filler input and recommendation We will have anemia studies and advised to a blood transfusion to keep hemoglobin more than 8 We will check CBC tomorrow and if it is less than 8 we will give blood transfusion (4) History of ITP: Plan: -WBC 0.63, Hgb 7.7, platelet count 47K, ANC 300 -Outpatient labs from 02/02 showed a mild pancytopenia -Documented history of ITP -Follows with Dr. Avendano, case discussed with him. He will see the patient in consult. -Neutropenic precautions -Platelet count has not improved (5) Lab test positive for detection of COVID-19 virus: Plan: She is vaccinated Sister at home has Covid 2 Minimal bibasilar changes and has not been requiring any extra oxygen Has been getting dexamethasone for treatment of Covid (6) Sarcoidosis: Plan: Does not have any hilar adenopathy Splenomegaly could be secondary to sarcoidosis (7) Chronic respiratory failure with hypoxia: Plan: Uses 3 L of oxygen at home continuously (8) Abnormal abdominal CT scan: Plan: -CT ABD/pelvis showing splenomegaly and Hyperdense lesions in the bilateral kidneys. These are favored to represent hemorrhagic/proteinaceous cysts. -CT renal protocol ordered for [id number] dense lesions within the lower poles of the kidneys become less conspicuous following contrast administration and are most characteristic of hemorrhagic cyst. No enhancing mass lesion is seen. Additional cyst are also present. We will get a renal ultrasound tomorrow and likely to restart Xarelto following the ultrasound. (9) Paroxysmal atrial fibrillation: Plan: -Rate controlled on metoprolol, anticoagulated on Xarelto -Hold Xarelto for now due to pancytopenia (10) History of breast cancer: Plan: -History of breast cancer s/p lumpectomy and radiation -Currently on tamoxifen (11) Hypertension: Plan: -BP currently controlled, continue amlodipine/valsartan, metoprolol -Hold spironolactone due to ileus (12) Diabetes: Plan: -Unknown HgbA1c -NovoLog per protocol while hospitalized -Update A1c with a.m. labs-minimally elevated at 6.5 (13) DVT prophylaxis: Plan: -SCDs due to pancytopenia Admission and Anticipated Discharge Date Admission Date: March 27, 2021 Subjective 03/28/2021 The patient was seen and examined in telemetry unit and in the Covid room She has been generally weak and lethargic and complains to have more cough Her shortness of breath remains stable Review of Systems Review of Systems: All systems reviewed and are unremarkable except as noted below Respiratory: Has significant cough without any increasing shortness of breath Neurologic: Generalized weakness Physical Exam Physical Exam: Lying in bed with minimal distress due to shortness of breath and cough Constitutional: + ill appearing and + thin Eyes: PERRL, conjunctivae normal, anicteric sclerae ENMT: external ear and nose normal, oropharynx normal Neck: trachea midline, no thyromegaly Respiratory: + respiratory distress (Minimal distress at rest) and + cough; no labored breathing Auscultation: + diminished lung sounds, + crackles (Minimal crackles at the bases) and + wheezes (Wheezing anteriorly) Cardiovascular: Rate/Rhythm: regular rate and regular rhythm; not tachycardic Heart Sounds: normal S1 and normal S2; no murmur Extremities: no edema Gastrointestinal (Abdomen): Inspection/Auscultation: normal bowel sounds; abdomen not distended Percussion/Palpation: abdomen soft and + splenomegaly; abdomen nontender Musculoskeletal: No acute arthritis in any joint Neurologic: Alert, awake and oriented x3. No focal sensory or no motor deficit appreciated Lymphatic: no cervical or axillary lymphadenopathy Results & Data Results & Data ([facility]) Vital Signs (Past 12 Hours) Vital Signs Temp Pulse Resp BP Pulse Ox 03/28/21 12:22 36.6 C 57 L 16 112/49 L 94 03/28/21 07:50 36.4 C L 59 L 18 113/54 L 94 03/28/21 02:57 36.6 C 58 L 16 114/51 L 99 Laboratory Results Short CBC 03/27/21 03/28/21 Range/Units 13:55 05:48 WBC 0.63 L* 0.43 L* (4.8-10.8) K/uL Hgb 7.7 L 7.6 L (12.0-16.0) g/dL Hct 23.5 L 23.7 L (37-47) % Plt Count 47 L 44 L (130-400) K/uL BMP 03/27/21 03/28/21 13:55 05:48 Sodium 137 135 L Potassium 4.1 4.0 Chloride 107 109 H Carbon Dioxide 21 18 L BUN 17 22 H Creatinine 1.21 H 1.08 Glucose 125 H 233 H Calcium 8.5 8.1 L Cardiac Enzymes 03/27/21 Range/Units 13:55 Troponin I < 0.015 (0-0.045) ng/ml Liver Function 03/27/21 03/28/21 Range/Units 13:55 05:48 Total Bilirubin 0.4 0.4 (0.2-1) mg/dl AST 40 H 39 H (15-37) U/L ALT 26 28 (12-78) Alkaline Phosphatase 56 52 (45-117) U/L Albumin 3.3 L 2.9 L (3.4-5.0) gm/dl Medications Administered Current Inpatient Medications Acetaminophen (Acetaminophen 325 Mg Tab) 650 mg PO Q4H PRN PRN Reason: Pain or Fever Stop: 04/26/21 20:07 Last Admin: 03/28/21 10:35 Dose: 650 mg Documented by: Albuterol (Albuterol Hfa 8 Gm Inhaler) 2 puffs INH Q4R PRN PRN Reason: shortness of breath Stop: 04/26/21 20:07 Amlodipine Besylate (Amlodipine Besylate 5 Mg Tab) 10 mg PO DAILY BLAISE Stop: 04/27/21 08:59 Last Admin: 03/28/21 08:16 Dose: 10 mg Documented by: Atorvastatin Calcium (Atorvastatin 40 Mg Tab) 40 mg PO QAM BLAISE Stop: 04/27/21 08:59 Last Admin: 03/28/21 08:15 Dose: 40 mg Documented by: Benzonatate (Benzonatate 100 Mg Capsule) 100 mg PO TID BLAISE Stop: 04/27/21 06:39 Last Admin: 03/28/21 13:18 Dose: 100 mg Documented by: Dextrose (Dextrose 50% 50 Ml Syringe) 25 - 50 ml IV UD PRN; Protocol PRN Reason: Hypoglycemia Protocol Stop: 04/26/21 20:07 Ergocalciferol (Ergocalciferol 50,000 Units 1250 Mcg Cap) 50,000 units PO Sa [facility] Stop: 04/27/21 08:59 Last Admin: 03/28/21 08:14 Dose: 50,000 units Documented by: Famotidine (Famotidine 40 Mg Tablet) 40 mg PO DAILY [facility] Stop: 04/27/21 08:59 Last Admin: 03/28/21 08:15 Dose: 40 mg Documented by: Fluticasone/Vilanterol (Fluticasone/Vilanterol 200/25mcg 14 Puffs/Inhaler) 1 puffs INH Q24H [facility] Stop: 04/26/21 20:59 Last Admin: 03/27/21 22:55 Dose: 1 puffs Documented by: Gabapentin (Gabapentin 300 Mg Cap) 300 mg PO DAILY BLAISE Stop: 04/27/21 08:59 Last Admin: 03/28/21 08:15 Dose: 300 mg Documented by: Glucagon (Glucagon For Inj 1 Mg Vial) 1 mg SQ UD PRN; Protocol PRN Reason: Hypoglycemia Protocol Stop: 04/26/21 20:07 Glucose (Glucose 10 Tabs/Tube) 4 - 8 tabs PO UD PRN; Protocol PRN Reason: Hypoglycemia Protocol Stop: 04/26/21 20:07 Glucose (Glucose 40% Gel 15 Gm Tube) 15 - 30 gm PO UD PRN; Protocol PRN Reason: Hypoglycemia Protocol Stop: 04/26/21 20:07 Guaifenesin (Guaifenesin Sugar Free 200 Mg/10 Ml Udc) 200 mg PO Q6H PRN PRN Reason: Cough Stop: 04/27/21 06:35 Last Admin: 03/28/21 08:18 Dose: 200 mg Documented by: Hydrocodone Bit/Homatropine Methylb (Hydrocodone/Homatropine Syrup 5mg/1.5mg 5ml Udp) 5 ml PO Q6H PRN PRN Reason: Cough Stop: 04/11/21 13:12 Dexamethasone 6 mg/ Syringe 1.5 mls @ 1 mls/min IV Q24H [facility] Stop: 04/26/21 16:59 Last Admin: 03/27/21 17:29 Dose: 1 mls/min Documented by: Sodium Chloride (Nss 1000ml) 1,000 mls @ 100 mls/hr IV .Q10H [facility] Stop: 04/26/21 20:07 Last Admin: 03/28/21 08:13 Dose: 100 mls/hr Documented by: Doxycycline Hyclate 100 mg/ (Dextrose) 110 mls @ 50 mls/hr IV Q12H [facility]; Protocol Stop: 04/03/21 20:29 Last Infusion: 03/28/21 13:18 Dose: Infused Documented by: Insulin Aspart (Insulin Aspart Per Unit) 0 units SC Q6 [facility] Stop: 04/27/21 06:29 Last Admin: 03/28/21 12:06 Dose: Not Given Documented by: Insulin Glargine (Insulin Glargine Solostar 100 Units/Ml 3 Ml Pen) 10 units SC HS [facility] Stop: 04/27/21 20:59 Metoprolol Succinate (Metoprolol Succ 50mg Ext Rel Tab) 100 mg PO BID [facility] Stop: 04/26/21 20:59 Last Admin: 03/28/21 08:14 Dose: Not Given Documented by: Miscellaneous (Carbohydrates For Hypoglycemia ) 15 - 30 gm PO UD PRN PRN Reason: Hypoglycemia Protocol Stop: 04/26/21 20:07 Pantoprazole Sodium (Pantoprazole 40 Mg Tab) 40 mg PO QAM [facility] Stop: 04/27/21 08:59 Last Admin: 03/28/21 08:16 Dose: 40 mg Documented by: Phenol (Chloraseptic 1.4% Soln 180 Ml Btl) 1 sprays MT Q4H PRN PRN Reason: Sore Throat Stop: 04/27/21 06:36 Potassium Chloride (Potassium Chloride 10 Meq Tabcr) 10 meq PO DAILY [facility] Stop: 04/27/21 08:59 Last Admin: 03/28/21 08:14 Dose: 10 meq Documented by: Ropinirole HCl (Ropinirole Hcl 0.25 Mg Tablet) 0.25 mg PO QAM [facility] Stop: 04/27/21 08:59 Last Admin: 03/28/21 08:15 Dose: 0.25 mg Documented by: Tamoxifen Citrate (Tamoxifen Citrate 10 Mg Tablet) 20 mg PO QAM [facility] Stop: 04/27/21 08:59 Last Admin: 03/28/21 08:15 Dose: 20 mg Documented by: Valsartan (Valsartan 80 Mg Tab) 320 mg PO QAM [facility] Stop: 04/27/21 08:59 Last Admin: 03/28/21 08:16 Dose: 320 mg Documented by: Venlafaxine HCl (Venlafaxine Hcl Xr 37.5 Mg Capxr) 37.5 mg PO DAILY [facility] Stop: 04/27/21 08:59 Last Admin: 03/28/21 08:16 Dose: 37.5 mg Documented by:
[2021-03-28] MEDS ORDERED: SODIUM CHLORIDE 0.9% 250 ML IV PRN (13:42)
[2021-03-28] MEDS: dexAMETHasone 6 MG in SYRINGE 0 ML IV SCH (18:13)
[2021-03-28] MEDS: INSULIN GLARGINE SOLOSTAR 100 UNITS/ML 3 ML PEN SC SCH (20:24)
[2021-03-28] MEDS: FLUTICASONE/VILANTEROL 200/25MCG 14 PUFFS/INHALER INH SCH (20:25)
[2021-03-29] MEDS: INSULIN ASPART PER UNIT SC SCH ×5 (00:20→20:46)
[2021-03-29] MEDS: SODIUM CHLORIDE 0.9% 1000ML 1,000 ML IV SCH ×2 (03:08→15:54)
[2021-03-29] MEDS: guaiFENesin SUGAR FREE 200 MG/10 ML UDC PO PRN ×2 (05:57→20:00)
[2021-03-29 06:53] LABS: Albumin Level 2.8 gm/dl (3.4-5.0); BUN Creatinine Ratio 24.2 (10-20); Calcium 7.7 mg/dl (8.5-10.1); Creatinine Clr Calc Pharmacy 41.3 ml/min; Est GFR (African American) 61.7 ml/min; Est GFR (Non-African American) 53.3 ml/min; Magnesium 2.1 mg/dl (1.8-2.4); Potassium 4.4 mmol/L (3.5-5.1)
[2021-03-29 07:11] LABS: Albumin Globulin Ratio 0.9 (0.9-2); Bilirubin,Total 0.3 mg/dl (0.2-1); Ferritin 256.7 ng/ml (8-388); Globulin 3.2 gm/dl (2.5-4.0); Phosphorus 3.5 mg/dl (2.5-4.9)
[2021-03-29 07:20] LABS: Hematocrit (blood only) 25.4 % (37-47); Hemoglobin 8.1 g/dL (12.0-16.0); Mean Corpuscular Hemoglobin 26.8 pg (25-34); Mean Corpuscular Hgb Conc 31.9 g/dL (32-36); Mean Corpuscular Volume 84.1 fL (80-100); Mean Platelet Volume 9.6 fL (7.4-10.4); Platelet Count 47 K/uL (130-400); RDW Coefficient of Variation 21.6 % (11.5-14.5); Red Blood Count 3.02 M/uL (4.2-5.4); White Blood Count 0.64 K/uL (4.8-10.8)
[2021-03-29 07:23] LABS: Echinocytes 1+; Lymphocytes % (auto) 15.6 %; Monocytes # (auto) 0.02 K/uL (0.11-0.59); Monocytes % (auto) 3.1 %; Neutrophils # (auto) 0.52 K/uL (1.4-6.5); Neutrophils % (auto) 81.3 %; Ovalocytes 1+; Reticulocyte % 0.6 % (0.5-2.0); Reticulocytes # 0.02 10^6/uL (0.02-0.10)
[2021-03-29] MEDS: DOXYCYCLINE HYCLATE 100 MG in DEXTROSE 5% 100 ML IV SCH ×2 (08:19→19:45)
[2021-03-29] MEDS: amLODIPine BESYLATE 5 MG TAB PO SCH (08:22)
[2021-03-29] MEDS: ATORVASTATIN 40 MG TAB PO SCH (08:22)
[2021-03-29] MEDS: FAMOTIDINE 40 MG TABLET PO SCH (08:23)
[2021-03-29] MEDS: METOPROLOL SUCC 50MG EXT REL TAB PO SCH ×2 (08:24→20:00)
[2021-03-29] MEDS: GABAPENTIN 300 MG CAP PO SCH (08:24)
[2021-03-29] MEDS: rOPINIRole HCL 0.25 MG TABLET PO SCH (08:25)
[2021-03-29] MEDS: PANTOprazole 40 MG TAB PO SCH (08:25)
[2021-03-29] MEDS: POTASSIUM CHLORIDE 10 MEQ TABCR PO SCH (08:25)
[2021-03-29] MEDS: TAMOXIFEN CITRATE 10 MG TABLET PO SCH (08:26)
[2021-03-29] MEDS: VALSARTAN 80 MG TAB PO SCH (08:26)
[2021-03-29] MEDS: VENLAFAXINE HCL XR 37.5 MG CAPXR PO SCH (08:27)
[2021-03-29] MEDS: BENZONATATE 100 MG CAPSULE PO SCH ×3 (08:32→20:51)
[2021-03-29] MEDS ORDERED: RIVAROXABAN 20 MG TAB PO SCH (12:15)
--- NOTE | 2021-03-29 12:36 | Hospitalist Progress Note ---
Date of Service March 29, 2021 Assessment & Plan (1) Ileus: Plan: -Patient presenting from home with reports of 3 weeks of productive cough, nausea and vomiting -In the ED, CT ABD/pelvis showing signs of ileus -will treat conservatively with bowel rest and IVF -Low threshold for general surgery consult -Bowel has been moving without any abdominal distention -Back pain seems to be chronic -Highly seems to be resolving -No more evidence of an ileus (2) COPD exacerbation: Plan: -Patient with history of COPD and sarcoidosis, chronically on 3 L of oxygen -Tested positive for COVID-19 however saturating well on chronic 3 L of oxygen. Vaccinated x2, due for booster. -Given wheezing on exam, will start dexamethasone 6 mg IV daily. Given duration of symptoms, does not meet criteria for remdesivir -Empiric doxycycline for COPD exacerbation -No signs of pneumonia on CXR-CT scan of the abdomen pelvis did show lower lung infiltration suggestive of viral pneumonia -Procalcitonin is negative and CRP is minimally high at 0.64 -We will continue steroid and oral doxycycline -Hycodan for cough -Remains stable has been requiring usual oxygen for her to maintain saturation (3) Pancytopenia: Plan: History of pancytopenia for some time and has been under care of oil laboratory analyst Appreciate oil laboratory analyst input and recommendation We will have anemia studies and advised to a blood transfusion to keep hemoglobin more than 8 We will check CBC tomorrow and if it is less than 8 we will give blood transfusion Her blood counts are stable and may be slightly better Hemoglobin is 8.1 and will not give any blood transfusion Iron studies shows low iron and iron binding capacity, discussed with the oil laboratory analyst and will give IV iron (4) History of ITP: Plan: -WBC 0.63, Hgb 7.7, platelet count 47K, ANC 300 -Outpatient labs from 02/02 showed a mild pancytopenia -Documented history of ITP -Follows with Dr. Avendano, case discussed with him. He will see the patient in consult. -Neutropenic precautions -Platelet count has not improved -Reticulocyte count remains around 47 (5) Lab test positive for detection of COVID-19 virus: Plan: She is vaccinated Sister at home has Covid 2 Minimal bibasilar changes and has not been requiring any extra oxygen Has been getting dexamethasone for treatment of Covid (6) Sarcoidosis: Plan: Does not have any hilar adenopathy Splenomegaly could be secondary to sarcoidosis (7) Chronic respiratory failure with hypoxia: Plan: Uses 3 L of oxygen at home continuously (8) Abnormal abdominal CT scan: Plan: -CT ABD/pelvis showing splenomegaly and Hyperdense lesions in the bilateral kidneys. These are favored to represent hemorrhagic/proteinaceous cysts. -CT renal protocol ordered for [id number] dense lesions within the lower poles of the kidneys become less conspicuous following contrast administration and are most characteristic of hemorrhagic cyst. No enhancing mass lesion is seen. Additional cyst are also present. We will get a renal ultrasound tomorrow and likely to restart Xarelto following the ultrasound. -Can have outpatient follow-up of the hemorrhagic cyst with an ultrasound (9) Paroxysmal atrial fibrillation: Plan: -Rate controlled on metoprolol, anticoagulated on Xarelto -Hold Xarelto for now due to pancytopenia -Xarelto has been restarted from today after discussion with the oncologist (10) History of breast cancer: Plan: -History of breast cancer s/p lumpectomy and radiation -Currently on tamoxifen (11) Hypertension: Plan: -BP currently controlled, continue amlodipine/valsartan, metoprolol -Hold spironolactone due to ileus (12) Diabetes: Plan: -Unknown HgbA1c -NovoLog per protocol while hospitalized -Update A1c with a.m. labs-minimally elevated at 6.5 (13) DVT prophylaxis: Plan: -SCDs due to pancytopenia Admission and Anticipated Discharge Date Admission Date: March 27, 2021 Subjective 03/28/2021 The patient was seen and examined in telemetry unit and in the Covid room She has been generally weak and lethargic and complains to have more cough Her shortness of breath remains stable 03/29/2021 The patient was seen and examined in telemetry unit and in the Covid room She has been complaining of cough but her shortness of breath is stable Denies any more pain at the back or in the abdomen No fever and no chills PT evaluation and possible discharge tomorrow Review of Systems Review of Systems: All systems reviewed and are unremarkable except as noted below Respiratory: Has significant cough without any increasing shortness of breath Neurologic: Generalized weakness Physical Exam Physical Exam: Lying in bed with minimal distress due to shortness of breath and cough Constitutional: + ill appearing and + thin Eyes: PERRL, conjunctivae normal, anicteric sclerae ENMT: external ear and nose normal, oropharynx normal Neck: trachea midline, no thyromegaly Respiratory: + respiratory distress (Minimal distress at rest) and + cough; no labored breathing Auscultation: + diminished lung sounds, + crackles (Minimal crackles at the bases) and + wheezes (Wheezing anteriorly) Cardiovascular: Rate/Rhythm: regular rate and regular rhythm; not tachycardic Heart Sounds: normal S1 and normal S2; no murmur Extremities: no edema Gastrointestinal (Abdomen): Inspection/Auscultation: normal bowel sounds; abdomen not distended Percussion/Palpation: abdomen soft and + splenomegaly; abdomen nontender Musculoskeletal: No acute arthritis in any joint Neurologic: Awake and oriented x3. He is generally weak but no focal sensory or no motor deficit appreciated Lymphatic: no cervical or axillary lymphadenopathy Results & Data Results & Data ([facility]) Vital Signs (Past 12 Hours) Vital Signs Temp Pulse Resp BP Pulse Ox 03/29/21 11:51 36.7 C 65 26 H 111/56 L 93 03/29/21 07:49 36.3 C L 60 23 105/50 L 99 03/29/21 04:00 36.5 C 64 18 110/54 L 98 Laboratory Results Short CBC 03/29/21 Range/Units 05:41 WBC 0.64 L* (4.8-10.8) K/uL Hgb 8.1 L (12.0-16.0) g/dL Hct 25.4 L (37-47) % Plt Count 47 L (130-400) K/uL BMP 03/29/21 05:41 Sodium 139 Potassium 4.4 Chloride 113 H Carbon Dioxide 19 L BUN 24 H Creatinine 1.01 Glucose 161 H Calcium 7.7 L Liver Function 03/29/21 Range/Units 05:41 Total Bilirubin 0.3 (0.2-1) mg/dl AST 40 H (15-37) U/L ALT 26 (12-78) Alkaline Phosphatase 48 (45-117) U/L Albumin 2.8 L (3.4-5.0) gm/dl Medications Administered Current Inpatient Medications Acetaminophen (Acetaminophen 325 Mg Tab) 650 mg PO Q4H PRN PRN Reason: Pain or Fever Stop: 04/26/21 20:07 Last Admin: 03/28/21 20:28 Dose: 650 mg Documented by: Albuterol (Albuterol Hfa 8 Gm Inhaler) 2 puffs INH Q4R PRN PRN Reason: shortness of breath Stop: 04/26/21 20:07 Amlodipine Besylate (Amlodipine Besylate 5 Mg Tab) 10 mg PO DAILY [facility] Stop: 04/27/21 08:59 Last Admin: 03/29/21 08:22 Dose: 10 mg Documented by: Atorvastatin Calcium (Atorvastatin 40 Mg Tab) 40 mg PO QAM [facility] Stop: 04/27/21 08:59 Last Admin: 03/29/21 08:22 Dose: 40 mg Documented by: Benzonatate (Benzonatate 100 Mg Capsule) 100 mg PO TID [facility] Stop: 04/27/21 06:39 Last Admin: 03/29/21 08:32 Dose: 100 mg Documented by: Dextrose (Dextrose 50% 50 Ml Syringe) 25 - 50 ml IV UD PRN; Protocol PRN Reason: Hypoglycemia Protocol Stop: 04/26/21 20:07 Ergocalciferol (Ergocalciferol 50,000 Units 1250 Mcg Cap) 50,000 units PO Sa [facility] Stop: 04/27/21 08:59 Last Admin: 03/28/21 08:14 Dose: 50,000 units Documented by: Famotidine (Famotidine 40 Mg Tablet) 40 mg PO DAILY [facility] Stop: 04/27/21 08:59 Last Admin: 03/29/21 08:23 Dose: 40 mg Documented by: Fluticasone/Vilanterol (Fluticasone/Vilanterol 200/25mcg 14 Puffs/Inhaler) 1 puffs INH Q24H [facility] Stop: 04/26/21 20:59 Last Admin: 03/28/21 20:25 Dose: 1 puffs Documented by: Gabapentin (Gabapentin 300 Mg Cap) 300 mg PO DAILY [facility] Stop: 04/27/21 08:59 Last Admin: 03/29/21 08:24 Dose: 300 mg Documented by: Glucagon (Glucagon For Inj 1 Mg Vial) 1 mg SQ UD PRN; Protocol PRN Reason: Hypoglycemia Protocol Stop: 04/26/21 20:07 Glucose (Glucose 10 Tabs/Tube) 4 - 8 tabs PO UD PRN; Protocol PRN Reason: Hypoglycemia Protocol Stop: 04/26/21 20:07 Glucose (Glucose 40% Gel 15 Gm Tube) 15 - 30 gm PO UD PRN; Protocol PRN Reason: Hypoglycemia Protocol Stop: 04/26/21 20:07 Guaifenesin (Guaifenesin Sugar Free 200 Mg/10 Ml Udc) 200 mg PO Q6H PRN PRN Reason: Cough Stop: 04/27/21 06:35 Last Admin: 03/29/21 05:57 Dose: 200 mg Documented by: Hydrocodone Bit/Homatropine Methylb (Hydrocodone/Homatropine Syrup 5mg/1.5mg 5ml Udp) 5 ml PO Q6H PRN PRN Reason: Cough Stop: 04/11/21 13:12 Dexamethasone 6 mg/ Syringe 1.5 mls @ 1 mls/min IV Q24H [facility] Stop: 04/26/21 16:59 Last Admin: 03/28/21 18:13 Dose: 1 mls/min Documented by: Sodium Chloride (Nss 1000ml) 1,000 mls @ 100 mls/hr IV .Q10H [facility] Stop: 04/26/21 20:07 Last Admin: 03/29/21 03:08 Dose: 100 mls/hr Documented by: Doxycycline Hyclate 100 mg/ (Dextrose) 110 mls @ 50 mls/hr IV Q12H [facility]; Protocol Stop: 04/03/21 20:29 Last Infusion: 03/29/21 10:46 Dose: Infused Documented by: Iron Sucrose 300 mg/ Sodium (Chloride) 265 mls @ 176.667 mls/hr IV TODAY@1330 ONE Stop: 03/29/21 14:59 Insulin Aspart (Insulin Aspart Per Unit) 0 units SC Q6 [facility] Stop: 04/27/21 06:29 Last Admin: 03/29/21 12:03 Dose: Not Given Documented by: Insulin Glargine (Insulin Glargine Solostar 100 Units/Ml 3 Ml Pen) 10 units SC HS [facility] Stop: 04/27/21 20:59 Last Admin: 03/28/21 20:24 Dose: 10 units Documented by: Metoprolol Succinate (Metoprolol Succ 50mg Ext Rel Tab) 100 mg PO BID [facility] Stop: 04/26/21 20:59 Last Admin: 03/29/21 08:24 Dose: 100 mg Documented by: Miscellaneous (Carbohydrates For Hypoglycemia ) 15 - 30 gm PO UD PRN PRN Reason: Hypoglycemia Protocol Stop: 04/26/21 20:07 Pantoprazole Sodium (Pantoprazole 40 Mg Tab) [facility] [place] Stop: 04/27/21 08:59 Last Admin: 03/29/21 08:25 Dose: 40 mg Documented by: Phenol (Chloraseptic 1.4% Soln 180 Ml Btl) 1 sprays MT Q4H PRN PRN Reason: Sore Throat Stop: 04/27/21 06:36 Potassium Chloride (Potassium Chloride 10 Meq Tabcr) 10 meq PO DAILY [facility] Stop: 04/27/21 08:59 Last Admin: 03/29/21 08:25 Dose: 10 meq Documented by: Rivaroxaban (Rivaroxaban 20 Mg Tab) [facility] [place] Stop: 04/28/21 12:14 Ropinirole HCl (Ropinirole Hcl 0.25 Mg Tablet) 0.25 mg PO [facility] [place] Stop: 04/27/21 08:59 Last Admin: 03/29/21 08:25 Dose: 0.25 mg Documented by: Tamoxifen Citrate (Tamoxifen Citrate 10 Mg Tablet) 20 mg PO QAM [facility] Stop: 04/27/21 08:59 Last Admin: 03/29/21 08:26 Dose: 20 mg Documented by: Valsartan (Valsartan 80 Mg Tab) 320 [facility] [place] Stop: 04/27/21 08:59 Last Admin: 03/29/21 08:26 Dose: 320 mg Documented by: Venlafaxine HCl (Venlafaxine Hcl Xr 37.5 Mg Capxr) 37.5 mg PO DAILY [facility] Stop: 04/27/21 08:59 Last Admin: 03/29/21 08:27 Dose: 37.5 mg Documented by:
[2021-03-29] MEDS ORDERED: IRON SUCROSE 300 MG in SODIUM CHLORIDE 0.9% 250 ML IV ONE (13:30)
[2021-03-29] MEDS: dexAMETHasone 6 MG in SYRINGE 0 ML IV SCH (17:26)
[2021-03-29] MEDS: ACETAMINOPHEN 325 MG TAB PO PRN (17:29)
[2021-03-29] MEDS ORDERED: Nursing to Pharmacy Communication SCH (19:45)
[2021-03-29] MEDS: FLUTICASONE/VILANTEROL 200/25MCG 14 PUFFS/INHALER INH SCH (20:00)
[2021-03-29] MEDS: INSULIN GLARGINE SOLOSTAR 100 UNITS/ML 3 ML PEN SC SCH (20:46)
[2021-03-30] MEDS: SODIUM CHLORIDE 0.9% 1000ML 1,000 ML IV SCH ×2 (02:05→08:02)
[2021-03-30] MEDS: INSULIN ASPART PER UNIT SC SCH ×4 (08:49→20:15)
[2021-03-30] MEDS: METOPROLOL SUCC 50MG EXT REL TAB PO SCH ×2 (08:55→20:17)
[2021-03-30] MEDS: POTASSIUM CHLORIDE 10 MEQ TABCR PO SCH (08:56)
[2021-03-30] MEDS: GABAPENTIN 300 MG CAP PO SCH (08:56)
[2021-03-30] MEDS: amLODIPine BESYLATE 5 MG TAB PO SCH (08:56)
[2021-03-30] MEDS: rOPINIRole HCL 0.25 MG TABLET PO SCH (08:57)
[2021-03-30] MEDS: ATORVASTATIN 40 MG TAB PO SCH (08:57)
[2021-03-30] MEDS: FAMOTIDINE 40 MG TABLET PO SCH (08:57)
[2021-03-30] MEDS: PANTOprazole 40 MG TAB PO SCH (08:57)
[2021-03-30] MEDS: VENLAFAXINE HCL XR 37.5 MG CAPXR PO SCH (08:57)
[2021-03-30] MEDS: VALSARTAN 80 MG TAB PO SCH (08:57)
[2021-03-30] MEDS: DOXYCYCLINE HYCLATE 100 MG in DEXTROSE 5% 100 ML IV SCH ×2 (08:58→20:09)
[2021-03-30] MEDS: TAMOXIFEN CITRATE 10 MG TABLET PO SCH (08:58)
[2021-03-30] MEDS: BENZONATATE 100 MG CAPSULE PO SCH ×3 (09:04→20:15)
[2021-03-30 09:36] LABS: Hematocrit (blood only) 24.5 % (37-47); Hemoglobin 7.7 g/dL (12.0-16.0); Mean Corpuscular Hemoglobin 26.8 pg (25-34); Mean Corpuscular Hgb Conc 31.4 g/dL (32-36); Mean Corpuscular Volume 85.4 fL (80-100); Mean Platelet Volume 9.5 fL (7.4-10.4); Platelet Count 53 K/uL (130-400); RDW Coefficient of Variation 21.7 % (11.5-14.5); RDW Standard Deviation 66.3 fL (36.4-46.3); Red Blood Count 2.87 M/uL (4.2-5.4); White Blood Count 0.74 K/uL (4.8-10.8)
[2021-03-30 10:11] LABS: BUN Creatinine Ratio 18.4 (10-20); Calcium 7.5 mg/dl (8.5-10.1); Creatinine Clr Calc Pharmacy 41.7 ml/min; Est GFR (African American) 62.5 ml/min; Est GFR (Non-African American) 53.9 ml/min
[2021-03-30 10:21] LABS: Anisocytosis Present; Echinocytes 1+; Lymphocytes # (auto) 0.11 K/uL (1.2-3.4); Lymphocytes % (auto) 14.9 %; Monocytes # (auto) 0.03 K/uL (0.11-0.59); Monocytes % (auto) 4.1 %; Ovalocytes 1+
[2021-03-30] MEDS: ACETAMINOPHEN 325 MG TAB PO PRN ×2 (11:11→16:29)
[2021-03-30] MEDS: ALBUTEROL HFA 8 GM INHALER INH PRN ×2 (12:14→17:30)
[2021-03-30] MEDS ORDERED: SODIUM CHLORIDE 0.9% 250 ML IV PRN (12:34)
--- NOTE | 2021-03-30 14:47 | Hospitalist Progress Note ---
Date of Service March 30, 2021 Assessment & Plan (1) Ileus: Plan: -Patient presenting from home with reports of 3 weeks of productive cough, nausea and vomiting -In the ED, CT ABD/pelvis showing signs of ileus -will treat conservatively with bowel rest and IVF -Low threshold for general surgery consult -Bowel has been moving without any abdominal distention -Back pain seems to be chronic -Highly seems to be resolving -No more evidence of an ileus -Diet advanced as tolerated (2) COPD exacerbation: Plan: -Patient with history of COPD and sarcoidosis, chronically on 3 L of oxygen -Tested positive for COVID-19 however saturating well on chronic 3 L of oxygen. Vaccinated x2, due for booster. -Given wheezing on exam, will start dexamethasone 6 mg IV daily. Given duration of symptoms, does not meet criteria for remdesivir -Empiric doxycycline for COPD exacerbation -No signs of pneumonia on CXR-CT scan of the abdomen pelvis did show lower lung infiltration suggestive of viral pneumonia -Procalcitonin is negative and CRP is minimally high at 0.64 -We will continue steroid and oral doxycycline -Hycodan for cough -Remains stable has been requiring usual oxygen for her to maintain saturation -Has been requiring up to 3 L of oxygen to maintain saturation (3) Pancytopenia: Plan: History of pancytopenia for some time and has been under care of frame hand Appreciate frame hand input and recommendation We will have anemia studies and advised to a blood transfusion to keep hemoglobin more than 8 We will check CBC tomorrow and if it is less than 8 we will give blood transfusion Her blood counts are stable and may be slightly better Hemoglobin is 8.1 and will not give any blood transfusion Iron studies shows low iron and iron binding capacity, discussed with the frame hand and will give IV iron Received IV iron yesterday and hemoglobin remains low at 7.7-we will give 1 unit of blood transfusion as planned (4) History of ITP: Plan: -WBC 0.63, Hgb 7.7, platelet count 47K, ANC 300 -Outpatient labs from 02/02 showed a mild pancytopenia -Documented history of ITP -Follows with Dr. Avendano, case discussed with him. He will see the patient in consult. -Neutropenic precautions -Platelet count has not improved -Reticulocyte count remains around 47 -Improving gradually (5) Lab test positive for detection of COVID-19 virus: Plan: She is vaccinated Sister at home has Covid 2 Minimal bibasilar changes and has not been requiring any extra oxygen Has been getting dexamethasone for treatment of Covid (6) Sarcoidosis: Plan: Does not have any hilar adenopathy Splenomegaly could be secondary to sarcoidosis (7) Chronic respiratory failure with hypoxia: Plan: Uses 3 L of oxygen at home continuously (8) Abnormal abdominal CT scan: Plan: -CT ABD/pelvis showing splenomegaly and Hyperdense lesions in the bilateral kidneys. These are favored to represent hemorrhagic/proteinaceous cysts. -CT renal protocol ordered for [id number] dense lesions within the lower poles of the kidneys become less conspicuous following contrast administration and are most characteristic of hemorrhagic cyst. No enhancing mass lesion is seen. Additional cyst are also present. We will get a renal ultrasound tomorrow and likely to restart Xarelto following the ultrasound. -Can have outpatient follow-up of the hemorrhagic cyst with an ultrasound (9) Paroxysmal atrial fibrillation: Plan: -Rate controlled on metoprolol, anticoagulated on Xarelto -Hold Xarelto for now due to pancytopenia -Xarelto has been restarted from today after discussion with the oncologist (10) History of breast cancer: Plan: -History of breast cancer s/p lumpectomy and radiation -Currently on tamoxifen (11) Hypertension: Plan: -BP currently controlled, continue amlodipine/valsartan, metoprolol -Hold spironolactone due to ileus (12) Diabetes: Plan: -Unknown HgbA1c -NovoLog per protocol while hospitalized -Update A1c with a.m. labs-minimally elevated at 6.5 (13) DVT prophylaxis: Plan: -SCDs due to pancytopenia Admission and Anticipated Discharge Date Admission Date: March 27, 2021 Anticipated date of discharge: 03/31/21 Subjective 03/28/2021 The patient was seen and examined in telemetry unit and in the Covid room She has been generally weak and lethargic and complains to have more cough Her shortness of breath remains stable 03/29/2021 The patient was seen and examined in telemetry unit and in the Covid room She has been complaining of cough but her shortness of breath is stable Denies any more pain at the back or in the abdomen No fever and no chills PT evaluation and possible discharge tomorrow 03/30/2021 The patient was seen and examined in telemetry unit and in the Covid room She has been feeling better but requiring a little more oxygen to maintain saturation Her cough is better and she remains weak Review of Systems Review of Systems: All systems reviewed and are unremarkable except as noted below Respiratory: Has significant cough without any increasing shortness of breath Neurologic: Generalized weakness Physical Exam Physical Exam: Lying in bed with minimal distress due to shortness of breath and cough Constitutional: + ill appearing and + thin Eyes: PERRL, conjunctivae normal, anicteric sclerae ENMT: external ear and nose normal, oropharynx normal Neck: trachea midline, no thyromegaly Respiratory: + respiratory distress (Minimal distress at rest) and + cough; no labored breathing Auscultation: + diminished lung sounds, + crackles (Minimal crackles at the bases) and + wheezes (Wheezing anteriorly) Cardiovascular: Rate/Rhythm: regular rate and regular rhythm; not tachycardic Heart Sounds: normal S1 and normal S2; no murmur Extremities: no edema Gastrointestinal (Abdomen): Inspection/Auscultation: normal bowel sounds; abdomen not distended Percussion/Palpation: abdomen soft and + splenomegaly; abdomen nontender Musculoskeletal: No acute arthritis in any joint Neurologic: Alert, awake and oriented x3. Generally weak and lethargic Lymphatic: no cervical or axillary lymphadenopathy Results & Data Results & [facility]) Vital Signs (Past 12 Hours) Vital Signs Temp Pulse Pulse Resp BP BP Pulse Ox 03/30/21 14:38 36.8 C 63 20 122/53 L 91 03/30/21 14:23 38.1 C H 62 20 124/59 L 91 03/30/21 13:59 37.5 C 67 20 124/84 91 03/30/21 13:24 93 03/30/21 12:14 62 21 89 L 03/30/21 11:06 36.7 C 69 19 118/48 L 88 L 03/30/21 07:51 65 03/30/21 07:27 36.6 C 65 19 119/57 L 93 03/30/21 03:35 36.6 C 59 L 19 104/53 L 97 Laboratory Results Short CBC 03/30/21 Range/Units 09:02 WBC 0.74 L* (4.8-10.8) K/uL Hgb 7.7 L (12.0-16.0) g/dL Hct 24.5 L (37-47) % Plt Count 53 L (130-400) K/uL BMP 03/30/21 09:02 Sodium 141 Potassium 4.0 Chloride 116 H Carbon Dioxide 16 L BUN 18 Creatinine 1.00 Glucose 170 H Calcium 7.5 L Medications Administered Current Inpatient Medications Acetaminophen (Acetaminophen 325 Mg Tab) 650 mg PO Q4H PRN PRN Reason: Pain or Fever Stop: 04/26/21 20:07 Last Admin: 03/30/21 11:11 Dose: 650 mg Documented by: Albuterol (Albuterol Hfa 8 Gm Inhaler) 2 puffs INH Q4R PRN PRN Reason: shortness of breath Stop: 04/26/21 20:07 Last Admin: 03/30/21 12:14 Dose: 2 puffs Documented by: Amlodipine Besylate (Amlodipine Besylate 5 Mg Tab) 10 mg PO DAILY [facility] Stop: 04/27/21 08:59 Last Admin: 03/30/21 08:56 Dose: 10 mg Documented by: Atorvastatin Calcium (Atorvastatin 40 Mg Tab) 40 mg PO QAM [facility] Stop: 04/27/21 08:59 Last Admin: 03/30/21 08:57 Dose: 40 mg Documented by: Benzonatate (Benzonatate 100 Mg Capsule) 100 mg PO TID [facility] Stop: 04/27/21 06:39 Last Admin: 03/30/21 13:58 Dose: 100 mg Documented by: Dextrose (Dextrose 50% 50 Ml Syringe) 25 - 50 ml IV UD PRN; Protocol PRN Reason: Hypoglycemia Protocol Stop: 04/26/21 20:07 Ergocalciferol (Ergocalciferol 50,000 Units 1250 Mcg Cap) 50,000 units PO Sa [facility] Stop: 04/27/21 08:59 Last Admin: 03/28/21 08:14 Dose: 50,000 units Documented by: Famotidine (Famotidine 40 Mg Tablet) 40 mg PO DAILY [facility] Stop: 04/27/21 08:59 Last Admin: 03/30/21 08:57 Dose: 40 mg Documented by: Fluticasone/Vilanterol (Fluticasone/Vilanterol 200/25mcg 14 Puffs/Inhaler) 1 puffs INH Q24H [facility] Stop: 04/26/21 20:59 Last Admin: 03/29/21 20:00 Dose: 1 puffs Documented by: Gabapentin (Gabapentin 300 Mg Cap) 300 mg PO DAILY [facility] Stop: 04/27/21 08:59 Last Admin: 03/30/21 08:56 Dose: 300 mg Documented by: Glucagon (Glucagon For Inj 1 Mg Vial) 1 mg SQ UD PRN; Protocol PRN Reason: Hypoglycemia Protocol Stop: 04/26/21 20:07 Glucose (Glucose 10 Tabs/Tube) 4 - 8 tabs PO UD PRN; Protocol PRN Reason: Hypoglycemia Protocol Stop: 04/26/21 20:07 Glucose (Glucose 40% Gel 15 Gm Tube) 15 - 30 gm PO UD PRN; Protocol PRN Reason: Hypoglycemia Protocol Stop: 04/26/21 20:07 Guaifenesin (Guaifenesin Sugar Free 200 Mg/10 Ml Udc) 200 mg PO Q6H PRN PRN Reason: Cough Stop: 04/27/21 06:35 Last Admin: 03/29/21 20:00 Dose: 200 mg Documented by: Hydrocodone Bit/Homatropine Methylb (Hydrocodone/Homatropine Syrup 5mg/1.5mg 5ml Udp) 5 ml PO Q6H PRN PRN Reason: Cough Stop: 04/11/21 13:12 Dexamethasone 6 mg/ Syringe 1.5 mls @ 1 mls/min IV Q24H [facility] Stop: 04/26/21 16:59 Last Admin: 03/29/21 17:26 Dose: 1 mls/min Documented by: Doxycycline Hyclate 100 mg/ (Dextrose) 110 mls @ 50 mls/hr IV Q12H [facility]; Protocol Stop: 04/03/21 20:29 Last Infusion: 03/30/21 11:19 Dose: Infused Documented by: Sodium Chloride (Nss) 250 mls @ 15 mls/hr IV .[id number] PRN PRN Reason: For Transfusion Stop: 03/30/21 22:35 Insulin Aspart (Insulin Aspart Per Unit) 0 units SC ACHS [facility] Stop: 04/28/21 20:59 Last Admin: 03/30/21 12:44 Dose: Not Given Documented by: Insulin Glargine (Insulin Glargine Solostar 100 Units/Ml 3 Ml Pen) 10 units SC HS [facility] Stop: 04/27/21 20:59 Last Admin: 03/29/21 20:46 Dose: 10 units Documented by: Metoprolol Succinate (Metoprolol Succ 50mg Ext Rel Tab) 100 mg PO BID [facility] Stop: 04/26/21 20:59 Last Admin: 03/30/21 08:55 Dose: 100 mg Documented by: Miscellaneous (Carbohydrates For Hypoglycemia ) 15 - 30 gm PO UD PRN PRN Reason: Hypoglycemia Protocol Stop: 04/26/21 20:07 Pantoprazole Sodium (Pantoprazole 40 Mg Tab) 40 mg PO QAM [facility] Stop: 04/27/21 08:59 Last Admin: 03/30/21 08:57 Dose: 40 mg Documented by: Phenol (Chloraseptic 1.4% Soln 180 Ml Btl) 1 sprays MT Q4H PRN PRN Reason: Sore Throat Stop: 04/27/21 06:36 Potassium Chloride (Potassium Chloride 10 Meq Tabcr) 10 meq PO DAILY [facility] Stop: 04/27/21 08:59 Last Admin: 03/30/21 08:56 Dose: 10 meq Documented by: Rivaroxaban (Rivaroxaban 15 Mg Tab) 15 mg PO QDD [facility] Stop: 04/29/21 16:29 Ropinirole HCl (Ropinirole Hcl 0.25 Mg Tablet) 0.25 mg PO QAM [facility] Stop: 04/27/21 08:59 Last Admin: 03/30/21 08:57 Dose: 0.25 mg Documented by: Tamoxifen Citrate (Tamoxifen Citrate 10 Mg Tablet) 20 mg PO QAM [facility] Stop: 04/27/21 08:59 Last Admin: 03/30/21 08:58 Dose: 20 mg Documented by: Valsartan (Valsartan 80 Mg Tab) 320 mg PO QAM [facility] Stop: 04/27/21 08:59 Last Admin: 03/30/21 08:57 Dose: 320 mg Documented by: Venlafaxine HCl (Venlafaxine Hcl Xr 37.5 Mg Capxr) 37.5 mg PO DAILY [facility] Stop: 04/27/21 08:59 Last Admin: 03/30/21 08:57 Dose: 37.5 mg Documented by:
[2021-03-30] MEDS: dexAMETHasone 6 MG in SYRINGE 0 ML IV SCH (16:30)
[2021-03-30] MEDS: RIVAROXABAN 15 MG TAB PO SCH (16:30)
[2021-03-30] MEDS: HYDROcodone/HOMATROPINE SYRUP 5MG/1.5MG 5ML UDP PO PRN (16:40)
[2021-03-30] MEDS ORDERED: FUROSEMIDE INJ 20 MG/2 ML VIAL IV ONE (17:25)
[2021-03-30] MEDS ORDERED: ALBUT/IPRATROP 3MG/0.5MG NEB 3 ML VIAL INH PRN (17:25)
[2021-03-30] MEDS ORDERED: ONDANSETRON INJ 2 MG/ML 2 ML VIAL IV SCH (17:30)
[2021-03-30] MEDS ORDERED: ONDANSETRON INJ 2 MG/ML 2 ML VIAL IV PRN (17:46)
[2021-03-30] MEDS: INSULIN GLARGINE SOLOSTAR 100 UNITS/ML 3 ML PEN SC SCH (20:00)
[2021-03-30] MEDS: FLUTICASONE/VILANTEROL 200/25MCG 14 PUFFS/INHALER INH SCH (20:19)
[2021-03-30] MEDS: guaiFENesin SUGAR FREE 200 MG/10 ML UDC PO PRN (20:19)
[2021-03-31 06:44] LABS: Hemoglobin 9.5 g/dL (12.0-16.0); Mean Corpuscular Hemoglobin 27.4 pg (25-34); Mean Corpuscular Hgb Conc 32.8 g/dL (32-36); Mean Corpuscular Volume 83.6 fL (80-100); Mean Platelet Volume 9.4 fL (7.4-10.4); Platelet Count 54 K/uL (130-400); RDW Coefficient of Variation 20.5 % (11.5-14.5); RDW Standard Deviation 62.6 fL (36.4-46.3); Red Blood Count 3.47 M/uL (4.2-5.4); White Blood Count 0.82 K/uL (4.8-10.8)
[2021-03-31 07:03] LABS: Anisocytosis Present; Lymphocytes # (auto) 0.11 K/uL (1.2-3.4); Lymphocytes % (auto) 13.4 %; Monocytes # (auto) 0.06 K/uL (0.11-0.59); Monocytes % (auto) 7.3 %; Neutrophils # (auto) 0.65 K/uL (1.4-6.5); Neutrophils % (auto) 79.3 %; Ovalocytes 1+
[2021-03-31] MEDS: HYDROcodone/HOMATROPINE SYRUP 5MG/1.5MG 5ML UDP PO PRN ×3 (07:58→20:15)
[2021-03-31] MEDS: DOXYCYCLINE HYCLATE 100 MG in DEXTROSE 5% 100 ML IV SCH ×2 (07:58→20:15)
[2021-03-31] MEDS: ATORVASTATIN 40 MG TAB PO SCH (07:59)
[2021-03-31] MEDS: METOPROLOL SUCC 50MG EXT REL TAB PO SCH ×2 (07:59→20:17)
[2021-03-31] MEDS: VALSARTAN 80 MG TAB PO SCH (08:00)
[2021-03-31] MEDS: POTASSIUM CHLORIDE 10 MEQ TABCR PO SCH (08:00)
[2021-03-31] MEDS: amLODIPine BESYLATE 5 MG TAB PO SCH (08:00)
[2021-03-31] MEDS: INSULIN ASPART PER UNIT SC SCH ×4 (08:00→21:24)
[2021-03-31] MEDS: PANTOprazole 40 MG TAB PO SCH (08:01)
[2021-03-31] MEDS: TAMOXIFEN CITRATE 10 MG TABLET PO SCH (08:01)
[2021-03-31] MEDS: VENLAFAXINE HCL XR 37.5 MG CAPXR PO SCH (08:01)
[2021-03-31] MEDS: GABAPENTIN 300 MG CAP PO SCH (08:01)
[2021-03-31] MEDS: rOPINIRole HCL 0.25 MG TABLET PO SCH (08:01)
[2021-03-31] MEDS: BENZONATATE 100 MG CAPSULE PO SCH ×3 (08:18→20:30)
[2021-03-31] MEDS: ALBUTEROL HFA 8 GM INHALER INH PRN (09:06)
[2021-03-31] MEDS: FAMOTIDINE 40 MG TABLET PO SCH (09:33)
[2021-03-31] MEDS ORDERED: FUROSEMIDE 40 MG/4 ML VIAL IV ONE (09:48)
--- NOTE | 2021-03-31 10:54 | XRay Report ---
XR chest 1V portable CLINICAL HISTORY: Positive Covid. Difficulty breathing. Evaluate for pneumonia.. COMPARISON STUDY: 03/27/2021 TECHNIQUE: 1 view of the chest FINDINGS: Single frontal view of the chest demonstrates the cardiomediastinal silhouette to be within normal li mits. Compared to the previous examination, there are now extensive patchy interstitial and alveolar opacities present bilaterally. The findings are most characteristic of a viral type pneumonitis. Covi d 19 pneumonia should be excluded. There is no evidence for pleural effusion. There is no evidence fo r vascular congestion. There is no acute osseous pathology. IMPRESSION: Compared to the previous examination, there are now extensive patchy interstitial and rojas eolar opacities bilaterally characteristic of a viral type pneumonitis and probable Covid 19 pneumoni a. ACT 112: Negative or not required by law. Electronically signed by: Yehuda Diane M.D. 03/31/2021 10:53 AM
[2021-03-31] MEDS ORDERED: REMDESIVIR 200 MG in SODIUM CHLORIDE 0.9% 210 ML IV STA (13:06)
[2021-03-31] MEDS: ACETAMINOPHEN 325 MG TAB PO PRN (14:39)
--- NOTE | 2021-03-31 15:47 | Hospitalist Progress Note ---
Date of Service March 31, 2021 Assessment & Plan (1) Lab test positive for detection of COVID-19 virus: Plan: She is vaccinated Sister at home has Covid 2 Minimal bibasilar changes and has not been requiring any extra oxygen Has been getting dexamethasone for treatment of Covid Increasing shortness of breath since yesterday and the repeat chest x-ray did show extensive bilateral patchy alveolar interstitial infiltration suggestive of worsening Covid pneumonia Her CRP was not greatly elevated at 1.49 and normal procalcitonin She was a started with intravenous remdesivir The CODE STATUS discussed with the patient again and she does not want to be intubated and this was discussed with the daughter as well We will continue current management (2) Ileus: Plan: -Patient presenting from home with reports of 3 weeks of productive cough, nausea and vomiting -In the ED, CT ABD/pelvis showing signs of ileus -will treat conservatively with bowel rest and IVF -Low threshold for general surgery consult -Bowel has been moving without any abdominal distention -Back pain seems to be chronic -Highly seems to be resolving -No more evidence of an ileus -Diet advanced as tolerated (3) COPD exacerbation: Plan: -Patient with history of COPD and sarcoidosis, chronically on 3 L of oxygen -Tested positive for COVID-19 however saturating well on chronic 3 L of oxygen. Vaccinated x2, due for booster. -Given wheezing on exam, will start dexamethasone 6 mg IV daily. Given duration of symptoms, does not meet criteria for remdesivir -Empiric doxycycline for COPD exacerbation -No signs of pneumonia on CXR-CT scan of the abdomen pelvis did show lower lung infiltration suggestive of viral pneumonia -Procalcitonin is negative and CRP is minimally high at 0.64 -We will continue steroid and oral doxycycline -Hycodan for cough -Remains stable has been requiring usual oxygen for her to maintain saturation -Has been requiring up to 3 L of oxygen to maintain saturation -Complicated by COVID-19 pneumonia (4) Pancytopenia: Plan: History of pancytopenia for some time and has been under care of regulated program manager Appreciate regulated program manager input and recommendation We will have anemia studies and advised to a blood transfusion to keep hemoglobin more than 8 We will check CBC tomorrow and if it is less than 8 we will give blood transfusion Her blood counts are stable and may be slightly better Hemoglobin is 8.1 and will not give any blood transfusion Iron studies shows low iron and iron binding capacity, discussed with the regulated program manager and will give IV iron Received IV iron yesterday and hemoglobin remains low at 7.7-we will give 1 unit of blood transfusion as planned Overall prognosis remains poor (5) History of ITP: Plan: -WBC 0.63, Hgb 7.7, platelet count 47K, ANC 300 -Outpatient labs from 02/02 showed a mild pancytopenia -Documented history of ITP -Follows with Dr. Avendano, case discussed with him. He will see the patient in consult. -Neutropenic precautions -Platelet count has not improved -Reticulocyte count remains around 47 -Improving gradually (6) Sarcoidosis: Plan: Does not have any hilar adenopathy Splenomegaly could be secondary to sarcoidosis (7) Chronic respiratory failure with hypoxia: Plan: Uses 3 L of oxygen at home continuously (8) Abnormal abdominal CT scan: Plan: -CT ABD/pelvis showing splenomegaly and Hyperdense lesions in the bilateral kidneys. These are favored to represent hemorrhagic/proteinaceous cysts. -CT renal protocol ordered for [id number] dense lesions within the lower poles of the kidneys become less conspicuous following contrast administration and are most characteristic of hemorrhagic cyst. No enhancing mass lesion is seen. Additional cyst are also present. We will get a renal ultrasound tomorrow and likely to restart Xarelto following the ultrasound. -Can have outpatient follow-up of the hemorrhagic cyst with an ultrasound (9) Paroxysmal atrial fibrillation: Plan: -Rate controlled on metoprolol, anticoagulated on Xarelto -Hold Xarelto for now due to pancytopenia -Xarelto has been restarted from today after discussion with the oncologist -Has been on Xarelto (10) History of breast cancer: Plan: -History of breast cancer s/p lumpectomy and radiation -Currently on tamoxifen (11) Hypertension: Plan: -BP currently controlled, continue amlodipine/valsartan, metoprolol -Hold spironolactone due to ileus (12) Diabetes: Plan: -Unknown HgbA1c -NovoLog per protocol while hospitalized -Update A1c with a.m. labs-minimally elevated at 6.5 (13) DVT prophylaxis: Plan: -SCDs due to pancytopenia -Xarelto has been restarted Admission and Anticipated Discharge Date Admission Date: March 27, 2021 Subjective 03/28/2021 The patient was seen and examined in telemetry unit and in the Covid room She has been generally weak and lethargic and complains to have more cough Her shortness of breath remains stable 03/29/2021 The patient was seen and examined in telemetry unit and in the Covid room She has been complaining of cough but her shortness of breath is stable Denies any more pain at the back or in the abdomen No fever and no chills PT evaluation and possible discharge tomorrow 03/30/2021 The patient was seen and examined in telemetry unit and in the Covid room She has been feeling better but requiring a little more oxygen to maintain saturation Her cough is better and she remains weak 03/31/2021 The patient was seen and examined in telemetry unit and in the Covid room Her condition deteriorated since yesterday and she has been requiring up to 11 L of oxygen via oxygen mask to maintain saturation She received 1 unit of blood yesterday and the x-ray of the chest did show bilateral extensive patchy interstitial and alveolar opacities suggestive of COVID-19 pneumonia Review of Systems Review of Systems: All systems reviewed and are unremarkable except as noted below Respiratory: Has significant cough without any increasing shortness of breath Neurologic: Generalized weakness Physical Exam Physical Exam: Lying in bed with moderate to severe distress due to shortness of breath and cough Constitutional: + ill appearing and + thin Eyes: PERRL, conjunctivae normal, anicteric sclerae ENMT: external ear and nose normal, oropharynx normal Neck: trachea midline, no thyromegaly Respiratory: + respiratory distress (Minimal distress at rest) and + cough; no labored breathing Auscultation: + diminished lung sounds, + crackles (Minimal crackles at the bases) and + wheezes (Wheezing anteriorly) Cardiovascular: Rate/Rhythm: regular rate and regular rhythm; not tachycardic Heart Sounds: normal S1 and normal S2; no murmur Extremities: no edema Gastrointestinal (Abdomen): Inspection/Auscultation: normal bowel sounds; abdomen not distended Percussion/Palpation: abdomen soft and + splenomegaly; abdomen nontender Neurologic: Alert, awake and oriented x3. Generally very weak and lethargic Lymphatic: no cervical or axillary lymphadenopathy Results & Data Results & Data ([facility]) Vital Signs (Past 12 Hours) Vital Signs Temp Pulse Pulse Resp BP Pulse Ox 03/31/21 11:42 36.3 C L 64 22 123/52 L 90 03/31/21 09:07 72 22 91 03/31/21 07:28 36.5 C 67 25 H 136/71 89 L 03/31/21 07:20 73 03/31/21 03:43 36.7 C 65 25 H 114/57 L 91 Laboratory Results Short CBC 03/31/21 Range/Units 06:10 WBC 0.82 L* (4.8-10.8) K/uL Hgb 9.5 L (12.0-16.0) g/dL Hct 29.0 L (37-47) % Plt Count 54 L (130-400) K/uL Medications Administered Current Inpatient Medications Acetaminophen (Acetaminophen 325 Mg Tab) 650 mg PO Q4H PRN PRN Reason: Pain or Fever Stop: 04/26/21 20:07 Last Admin: 03/31/21 14:39 Dose: 650 mg Documented by: Albuterol (Albuterol Hfa 8 Gm Inhaler) 2 puffs INH Q4R PRN PRN Reason: shortness of breath Stop: 04/26/21 20:07 Last Admin: 03/31/21 09:06 Dose: 2 puffs Documented by: Albuterol (Albut/Ipratrop 3mg/0.5mg Neb 3 Ml Vial) 3 ml INH DAILY PRN; Protocol PRN Reason: Shortness Of Breath Stop: 04/29/21 17:24 Amlodipine Besylate (Amlodipine Besylate 5 Mg Tab) 10 mg PO DAILY BLAISE Stop: 04/27/21 08:59 Last Admin: 03/31/21 08:00 Dose: 10 mg Documented by: Atorvastatin Calcium (Atorvastatin 40 Mg Tab) 40 mg PO QAM BLAISE Stop: 04/27/21 08:59 Last Admin: 03/31/21 07:59 Dose: 40 mg Documented by: Benzonatate (Benzonatate 100 Mg Capsule) 100 mg PO TID BLAISE Stop: 04/27/21 06:39 Last Admin: 03/31/21 13:48 Dose: 100 mg Documented by: Dextrose (Dextrose 50% 50 Ml Syringe) 25 - 50 ml IV UD PRN; Protocol PRN Reason: Hypoglycemia Protocol Stop: 04/26/21 20:07 Ergocalciferol (Ergocalciferol 50,000 Units 1250 Mcg Cap) 50,000 units PO Sa BLAISE Stop: 04/27/21 08:59 Last Admin: 03/28/21 08:14 Dose: 50,000 units Documented by: Famotidine (Famotidine 40 Mg Tablet) 40 mg PO DAILY [facility] Stop: 04/27/21 08:59 Last Admin: 03/31/21 09:33 Dose: 40 mg Documented by: Fluticasone/Vilanterol (Fluticasone/Vilanterol 200/25mcg 14 Puffs/Inhaler) 1 puffs INH Q24H BLAISE Stop: 04/26/21 20:59 Last Admin: 03/30/21 20:19 Dose: 1 puffs Documented by: Gabapentin (Gabapentin 300 Mg Cap) 300 mg PO DAILY [facility] Stop: 04/27/21 08:59 Last Admin: 03/31/21 08:01 Dose: 300 mg Documented by: Glucagon (Glucagon For Inj 1 Mg Vial) 1 mg SQ UD PRN; Protocol PRN Reason: Hypoglycemia Protocol Stop: 04/26/21 20:07 Glucose (Glucose 10 Tabs/Tube) 4 - 8 tabs PO UD PRN; Protocol PRN Reason: Hypoglycemia Protocol Stop: 04/26/21 20:07 Glucose (Glucose 40% Gel 15 Gm Tube) 15 - 30 gm PO UD PRN; Protocol PRN Reason: Hypoglycemia Protocol Stop: 04/26/21 20:07 Guaifenesin (Guaifenesin Sugar Free 200 Mg/10 Ml Udc) 200 mg PO Q6H PRN PRN Reason: Cough Stop: 04/27/21 06:35 Last Admin: 03/30/21 20:19 Dose: 200 mg Documented by: Hydrocodone Bit/Homatropine Methylb (Hydrocodone/Homatropine Syrup 5mg/1.5mg 5ml Udp) 5 ml PO Q6H PRN PRN Reason: Cough Stop: 04/11/21 13:12 Last Admin: 03/31/21 13:48 Dose: 5 ml Documented by: Dexamethasone 6 mg/ Syringe 1.5 mls @ 1 mls/min IV Q24H [facility] Stop: 04/26/21 16:59 Last Admin: 03/30/21 16:30 Dose: 1 mls/min Documented by: Doxycycline Hyclate 100 mg/ (Dextrose) 110 mls @ 50 mls/hr IV Q12H [facility]; Protocol Stop: 04/03/21 20:29 Last Infusion: 03/31/21 10:10 Dose: Infused Documented by: Remdesivir 100 mg/ Sodium (Chloride) 250 mls @ 250 mls/hr IV Q24H [facility]; Protocol Stop: 04/04/21 12:59 Insulin Aspart (Insulin Aspart Per Unit) 0 units SC ACHS [facility] Stop: 04/28/21 20:59 Last Admin: 03/31/21 12:29 Dose: 2 units Documented by: Insulin Glargine (Insulin Glargine Solostar 100 Units/Ml 3 Ml Pen) 10 units SC HS [facility] Stop: 04/27/21 20:59 Last Admin: 03/30/21 20:00 Dose: 10 units Documented by: Metoprolol Succinate (Metoprolol Succ 50mg Ext Rel Tab) 100 mg PO BID [facility] Stop: 04/26/21 20:59 Last Admin: 03/31/21 07:59 Dose: 100 mg Documented by: Miscellaneous (Carbohydrates For Hypoglycemia ) 15 - 30 gm PO UD PRN PRN Reason: Hypoglycemia Protocol Stop: 04/26/21 20:07 Ondansetron HCl (Ondansetron Inj 2 Mg/Ml 2 Ml Vial) 4 mg IV Q6H PRN PRN Reason: Nausea And Vomiting Stop: 04/29/21 17:29 Pantoprazole Sodium (Pantoprazole 40 Mg Tab) 40 mg PO QAM [facility] Stop: 04/27/21 08:59 Last Admin: 03/31/21 08:01 Dose: 40 mg Documented by: Phenol (Chloraseptic 1.4% Soln 180 Ml Btl) 1 sprays MT Q4H PRN PRN Reason: Sore Throat Stop: 04/27/21 06:36 Potassium Chloride (Potassium Chloride 10 Meq Tabcr) 10 meq PO DAILY [facility] Stop: 04/27/21 08:59 Last Admin: 03/31/21 08:00 Dose: 10 meq Documented by: Rivaroxaban (Rivaroxaban 15 Mg Tab) 15 mg PO QDD [facility] Stop: 04/29/21 16:29 Last Admin: 03/30/21 16:30 Dose: 15 mg Documented by: Ropinirole HCl (Ropinirole Hcl 0.25 Mg Tablet) 0.25 mg PO QAM [facility] Stop: 04/27/21 08:59 Last Admin: 03/31/21 08:01 Dose: 0.25 mg Documented by: Sodium Chloride (Sodium Chloride 0.9% 10ml Flush) 30 ml IV Q24H [facility] Stop: 04/04/21 13:16 Tamoxifen Citrate (Tamoxifen Citrate 10 Mg Tablet) 20 mg PO QAM BLAISE Stop: 04/27/21 08:59 Last Admin: 03/31/21 08:01 Dose: 20 mg Documented by: Valsartan (Valsartan 80 Mg Tab) 320 mg PO QAM [facility] Stop: 04/27/21 08:59 Last Admin: 03/31/21 08:00 Dose: 320 mg Documented by: Venlafaxine HCl (Venlafaxine Hcl Xr 37.5 Mg Capxr) 37.5 mg PO DAILY [facility] Stop: 04/27/21 08:59 Last Admin: 03/31/21 08:01 Dose: 37.5 mg Documented by:
[2021-03-31] MEDS: SODIUM CHLORIDE 0.9% 10ML FLUSH IV SCH (16:05)
[2021-03-31 16:32] LABS: Albumin 2.9 g/dL (3.8-4.8); Alpha 1 Globulin 0.4 g/dL (0.2-0.3); Alpha 2 Globulin 0.7 g/dL (0.5-0.9); Beta-1-Globulin 0.3 g/dL (0.4-0.6); Beta-2-Globulin 0.2 g/dL (0.2-0.5); Gamma Globulin 0.8 g/dL (0.8-1.7); Monoclonal Protein Band 1 DNR g/dL (NONE DETECTED); Monoclonal Protein Band 2 DNR g/dL (NONE DETECTED); Monoclonal Protein Band 3 DNR g/dL (NONE DETECTED); Total Protein 5.3 g/dL (6.1-8.1)
[2021-03-31] MEDS: RIVAROXABAN 15 MG TAB PO SCH (16:51)
[2021-03-31] MEDS: dexAMETHasone 6 MG in SYRINGE 0 ML IV SCH (16:52)
[2021-03-31] MEDS: FLUTICASONE/VILANTEROL 200/25MCG 14 PUFFS/INHALER INH SCH (20:16)
[2021-03-31] MEDS: INSULIN GLARGINE SOLOSTAR 100 UNITS/ML 3 ML PEN SC SCH (21:24)
[2021-04-01 07:37] LABS: Hematocrit (blood only) 29.6 % (37-47); Hemoglobin 9.7 g/dL (12.0-16.0); Mean Corpuscular Hemoglobin 27.2 pg (25-34); Mean Corpuscular Hgb Conc 32.8 g/dL (32-36); Mean Corpuscular Volume 82.9 fL (80-100); RDW Coefficient of Variation 20.5 % (11.5-14.5); RDW Standard Deviation 61.8 fL (36.4-46.3); Red Blood Count 3.57 M/uL (4.2-5.4); White Blood Count 1.14 K/uL (4.8-10.8)
[2021-04-01 07:49] LABS: Platelet Count 57 K/uL (130-400)
[2021-04-01 08:01] LABS: Anisocytosis Present; Lymphocytes # (auto) 0.11 K/uL (1.2-3.4); Lymphocytes % (auto) 9.6 %; Monocytes # (auto) 0.08 K/uL (0.11-0.59); Neutrophils # (auto) 0.95 K/uL (1.4-6.5); Neutrophils % (auto) 83.4 %; Ovalocytes 1+
[2021-04-01 09:05] LABS: Albumin Globulin Ratio 0.9 (0.9-2); Albumin Level 2.9 gm/dl (3.4-5.0); BUN Creatinine Ratio 24.3 (10-20); Bilirubin,Total 0.5 mg/dl (0.2-1); Calcium 8.3 mg/dl (8.5-10.1); Creatinine Clr Calc Pharmacy 40.5 ml/min; Est GFR (African American) 60.3 ml/min; Globulin 3.4 gm/dl (2.5-4.0); Total Protein 6.3 gm/dl (6.4-8.2)
[2021-04-01 09:07] LABS: Phosphorus 2.6 mg/dl (2.5-4.9)
[2021-04-01] MEDS: METOPROLOL SUCC 50MG EXT REL TAB PO SCH ×2 (09:33→20:29)
[2021-04-01] MEDS: rOPINIRole HCL 0.25 MG TABLET PO SCH (09:33)
[2021-04-01] MEDS: ATORVASTATIN 40 MG TAB PO SCH (09:33)
[2021-04-01] MEDS: TAMOXIFEN CITRATE 10 MG TABLET PO SCH (09:34)
[2021-04-01] MEDS: POTASSIUM CHLORIDE 10 MEQ TABCR PO SCH (09:34)
[2021-04-01] MEDS: PANTOprazole 40 MG TAB PO SCH (09:34)
[2021-04-01] MEDS: VALSARTAN 80 MG TAB PO SCH (09:34)
[2021-04-01] MEDS: GABAPENTIN 300 MG CAP PO SCH (09:34)
[2021-04-01] MEDS: amLODIPine BESYLATE 5 MG TAB PO SCH (09:34)
[2021-04-01] MEDS: FAMOTIDINE 40 MG TABLET PO SCH (09:35)
[2021-04-01] MEDS: VENLAFAXINE HCL XR 37.5 MG CAPXR PO SCH (09:35)
[2021-04-01] MEDS: DOXYCYCLINE HYCLATE 100 MG in DEXTROSE 5% 100 ML IV SCH ×2 (09:39→20:06)
[2021-04-01] MEDS: INSULIN ASPART PER UNIT SC SCH ×4 (09:40→20:37)
[2021-04-01] MEDS: BENZONATATE 100 MG CAPSULE PO SCH ×3 (09:40→20:26)
[2021-04-01] MEDS: SPIRONOLACTONE 25 MG TAB PO SCH (10:41)
[2021-04-01] MEDS: ACETAMINOPHEN 325 MG TAB PO PRN (10:50)
[2021-04-01] MEDS: HYDROcodone/HOMATROPINE SYRUP 5MG/1.5MG 5ML UDP PO PRN (10:50)
--- NOTE | 2021-04-01 11:15 | XRay Report ---
KUB CLINICAL HISTORY: Ileus. FINDINGS: 2 AP supine abdominal radiographs are correlated with abdominal CT dated 03/27/2021. There is a nonobstructed abdominal bowel gas pattern. Gas is seen throughout the colon. No evidence of intr aperitoneal free air is identified on these supine images. There are no abnormal abdominal calcificat ions. The spleen is markedly enlarged. The skeletal structures are osteopenic and appear intact. Ther e is lumbosacral spondylosis. IMPRESSION: 1. Nonobstructed abdominal bowel gas pattern. 2. Marked splenomegaly. Electronically signed by: Arik Mas M.D. 04/01/2021 11:14 AM
[2021-04-01] MEDS: REMDESIVIR 100 MG in SODIUM CHLORIDE 0.9% 230 ML IV SCH (12:02)
[2021-04-01] MEDS: SODIUM CHLORIDE 0.9% 10ML FLUSH IV SCH (12:02)
--- NOTE | 2021-04-01 15:52 | Hospitalist Progress Note ---
Date of Service April 01, 2021 Assessment & Plan (1) Lab test positive for detection of COVID-19 virus: Plan: Acute on chronic respiratory failure with hypoxia Multifocal COVID-19 pneumonia Patient is Vaccinated CXR: Extensive patchy interstitial and alveolar opacities bilaterally characteristic of a viral type pneumonitis and probable Covid 19 pneumonia. CRP: 0.64>>1.49 Procalcitonin 0.10R Continue dexamethasone, Remdesivir Monitor renal function, LFTs Lasix as needed Encourage to prone Currently on 15 L supplemental oxygen (2) Ileus: Plan: -Patient presented with 3 weeks of productive cough, nausea and vomiting -CT ABD/pelvis showed signs of ileus -KUB on 04/01/21:Nonobstructed abdominal bowel gas pattern. -Diet advanced -Patient had BM - monitor (3) COPD exacerbation: Plan: Acute COPD Exacerbation -H/O COPD, Sarcoidosis -Chronically on 3 L of oxygen -On Steroids as above -Continue Nebs -Also on Doxycycline (4) Pancytopenia: Plan: H/O Pancytopenia, ITP Anemia of chronic disease -Multifactorial Appreciate regional sales executive input and recommendation Received IV Iron S/P PRBCs No signs of active bleeding Monitor CBC (5) History of ITP: Plan: -Follows with Dr. Avendano -Neutropenic precautions -Platelet count slowly improving (6) Sarcoidosis: Plan: Does not have any hilar adenopathy Splenomegaly likely due to sarcoidosis (7) Chronic respiratory failure with hypoxia: Plan: Uses 3 L of oxygen at home continuously (8) Abnormal abdominal CT scan: Plan: -CT ABD/pelvis showing splenomegaly and Hyperdense lesions in the bilateral kidneys. These are favored to represent hemorrhagic/proteinaceous cysts. -CT renal protocol ordered for [id number] dense lesions within the lower poles of the kidneys become less conspicuous following contrast administration and are most characteristic of hemorrhagic cyst. No enhancing mass lesion is seen. Additional cyst are also present. We will get a renal ultrasound tomorrow and likely to restart Xarelto following the ultrasound. -Needs follow up as outpatient for hemorrhagic cyst with an ultrasound (9) Paroxysmal atrial fibrillation: Plan: -Continue metoprolol On Xarelto for anticoagulation (10) History of breast cancer: Plan: -H/O breast cancer s/p lumpectomy and radiation -Currently on tamoxifen (11) Hypertension: Plan: -Continue amlodipine/valsartan, metoprolol -Also on spironolactone (12) Diabetes: Plan: -HgbA1c 6.5 -NovoLog per protocol while hospitalized (13) DVT prophylaxis: Plan: -Xarelto Admission and Anticipated Discharge Date Admission Date: March 27, 2021 Subjective Patient is seen and examined at bedside States feeling better today Still has cough, dyspnea Reports minimal abdominal discomfort No bowel movement today KUB showed no signs of obstruction Also denies chest pain, nausea, vomiting Currently on 15 L supplemental Oxygen Review of Systems Review of Systems: All systems reviewed & are unremarkable except as noted in Subjective Physical Exam Physical Exam: Physical Exam: Vitals signs as noted above General Appearance:Moderately built and nourished, no apparent distress Head: normocephalic, Atraumatic Eyes: normal inspection, EOMI Neck: supple, Trachea midline Respiratory/Chest: Decreased breath sounds, B/L scattered crackles, wheezes Cardiovascular: S1, S2, No murmur Abdomen/GI:Soft, Non tender, Bowel sounds present Extremities/Musculoskeletal:normal inspection, no edema Neurologic/Psych:AAOX3, grossly no focal neurological deficits Skin: normal color, warm Results & Data Results & Data ([facility]) Vital Signs (Past 12 Hours) Vital Signs Temp Pulse Pulse Resp BP Pulse Ox 04/01/21 15:02 36.2 C L 61 20 114/51 L 84 L 04/01/21 11:29 36.1 C L 64 20 126/51 L 94 04/01/21 08:00 66 04/01/21 07:31 36.4 C L 65 20 137/55 L 90 Laboratory Results Short CBC 04/01/21 Range/Units 06:50 WBC 1.14 L (4.8-10.8) K/uL Hgb 9.7 L (12.0-16.0) g/dL Hct 29.6 L (37-47) % Plt Count 57 L (130-400) K/uL BMP 04/01/21 06:50 Sodium 139 Potassium 4.0 Chloride 112 H Carbon Dioxide 18 L BUN 25 H Creatinine 1.03 Glucose 156 H Calcium 8.3 L Liver Function 04/01/21 Range/Units 06:50 Total Bilirubin 0.5 (0.2-1) mg/dl AST 41 H (15-37) U/L ALT 28 (12-78) Alkaline Phosphatase 52 (45-117) U/L Albumin 2.9 L (3.4-5.0) gm/dl
[2021-04-01] MEDS ORDERED: FUROSEMIDE 40 MG/4 ML VIAL IV ONE (16:00)
[2021-04-01] MEDS: RIVAROXABAN 15 MG TAB PO SCH (17:15)
[2021-04-01] MEDS: ALBUT/IPRATROP 3MG/0.5MG NEB 3 ML VIAL INH SCH ×2 (17:54→19:23)
[2021-04-01] MEDS: dexAMETHasone 6 MG in SYRINGE 0 ML IV SCH (18:42)
[2021-04-01] MEDS: FLUTICASONE/VILANTEROL 200/25MCG 14 PUFFS/INHALER INH SCH (20:27)
[2021-04-01] MEDS: INSULIN GLARGINE SOLOSTAR 100 UNITS/ML 3 ML PEN SC SCH (20:37)
[2021-04-02 00:02] LABS: Appearance Urine Clear (Clear); Bacteria Urine Automated Negative (Negative); Bilirubin Urine Negative (Negative); Blood Urine Negative (Negative); Color Urine Yellow; Glucose Urine UA Negative (Negative); Ketones Urine Negative (Negative); Leukocyte Esterase Urine Trace (Negative); Nitrite Urine Negative (Negative); Protein Urine Negative (Negative); RBC Urine Automated 0-4 /hpf (0-4); Specific Gravity Urine 1.009 (1.000-1.030); Urobilinogen Urine Negative (Negative)
[2021-04-02] MEDS: ALBUT/IPRATROP 3MG/0.5MG NEB 3 ML VIAL INH SCH ×2 (07:11→10:59)
[2021-04-02 07:52] LABS: Albumin Level 2.7 gm/dl (3.4-5.0); BUN Creatinine Ratio 30.7 (10-20); Calcium 8.3 mg/dl (8.5-10.1); Creatinine Clr Calc Pharmacy 39.7 ml/min; Est GFR (African American) 58.9 ml/min; Est GFR (Non-African American) 50.8 ml/min
[2021-04-02 07:55] LABS: Albumin Globulin Ratio 0.9 (0.9-2); Bilirubin,Total 0.6 mg/dl (0.2-1); Globulin 3.1 gm/dl (2.5-4.0); Total Protein 5.8 gm/dl (6.4-8.2)
[2021-04-02] MEDS: INSULIN ASPART PER UNIT SC SCH ×4 (08:38→21:00)
[2021-04-02] MEDS: DOXYCYCLINE HYCLATE 100 MG in DEXTROSE 5% 100 ML IV SCH ×2 (08:47→20:08)
[2021-04-02] MEDS: SPIRONOLACTONE 25 MG TAB PO SCH (08:48)
[2021-04-02] MEDS: METOPROLOL SUCC 50MG EXT REL TAB PO SCH ×2 (08:48→20:54)
[2021-04-02] MEDS: POTASSIUM CHLORIDE 10 MEQ TABCR PO SCH (08:49)
[2021-04-02] MEDS: PANTOprazole 40 MG TAB PO SCH (08:49)
[2021-04-02] MEDS: VENLAFAXINE HCL XR 37.5 MG CAPXR PO SCH (08:49)
[2021-04-02] MEDS: VALSARTAN 80 MG TAB PO SCH (08:49)
[2021-04-02] MEDS: rOPINIRole HCL 0.25 MG TABLET PO SCH (08:49)
[2021-04-02] MEDS: amLODIPine BESYLATE 5 MG TAB PO SCH (08:50)
[2021-04-02] MEDS: ATORVASTATIN 40 MG TAB PO SCH (08:51)
[2021-04-02] MEDS: GABAPENTIN 300 MG CAP PO SCH (08:51)
[2021-04-02] MEDS: TAMOXIFEN CITRATE 10 MG TABLET PO SCH (08:51)
[2021-04-02] MEDS: FAMOTIDINE 40 MG TABLET PO SCH (08:51)
[2021-04-02] MEDS: BENZONATATE 100 MG CAPSULE PO SCH ×3 (08:55→20:51)
[2021-04-02] MEDS: REMDESIVIR 100 MG in SODIUM CHLORIDE 0.9% 230 ML IV SCH (12:36)
[2021-04-02] MEDS ORDERED: ALBUT/IPRATROP 3MG/0.5MG NEB 3 ML VIAL INH PRN (13:03)
[2021-04-02] MEDS: SODIUM CHLORIDE 0.9% 10ML FLUSH IV SCH (13:39)
[2021-04-02] MEDS ORDERED: ACETAMINOPHEN 1000 MG/100 ML IV IV PRN (14:08)
[2021-04-02] MEDS: ACETAMINOPHEN 1,000 MG/100 ML VIAL IV PRN (14:51)
[2021-04-02] MEDS: dexAMETHasone 6 MG in SYRINGE 0 ML IV SCH (16:57)
[2021-04-02] MEDS: RIVAROXABAN 15 MG TAB PO SCH (17:02)
--- NOTE | 2021-04-02 19:36 | Hospitalist Progress Note ---
Date of Service April 02, 2021 Assessment & Plan (1) Lab test positive for detection of COVID-19 virus: Plan: Acute on chronic respiratory failure with hypoxia Multifocal COVID-19 pneumonia Patient is Vaccinated CXR: Extensive patchy interstitial and alveolar opacities bilaterally characteristic of a viral type pneumonitis and probable Covid 19 pneumonia. CRP: 0.64>>1.49 Procalcitonin 0.10R Continue dexamethasone, Remdesivir Monitor renal function, LFTs Lasix as needed Encourage to prone Currently on 15 L supplemental oxygen Titrate oxygen to keep saturations 88 to 92% given history of COPD We will repeat chest x-ray tomorrow (2) Ileus: Plan: -Patient presented with 3 weeks of productive cough, nausea and vomiting -CT ABD/pelvis showed signs of ileus -KUB on 04/01/21:Nonobstructed abdominal bowel gas pattern. -Tolerating low fiber diet (3) COPD exacerbation: Plan: Acute COPD Exacerbation -H/O COPD, Sarcoidosis -Chronically on 3 L of oxygen -On Steroids as above -Continue Nebs -Also on Doxycycline (4) Pancytopenia: Plan: H/O Pancytopenia, ITP Anemia of chronic disease -Multifactorial Appreciate music video producer input and recommendation Received IV Iron S/P PRBCs No signs of active bleeding Monitor CBC (5) History of ITP: Plan: -Follows with Dr. Avendano -Neutropenic precautions -Platelet count slowly improving (6) Sarcoidosis: Plan: Does not have any hilar adenopathy Splenomegaly likely due to sarcoidosis (7) Chronic respiratory failure with hypoxia: Plan: Uses 3 L of oxygen at home continuously (8) Abnormal abdominal CT scan: Plan: -CT ABD/pelvis showing splenomegaly and Hyperdense lesions in the bilateral kidneys. These are favored to represent hemorrhagic/proteinaceous cysts. -CT renal protocol ordered for [id number] dense lesions within the lower poles of the kidneys become less conspicuous following contrast administration and are most characteristic of hemorrhagic cyst. No enhancing mass lesion is seen. Additional cyst are also present. We will get a renal ultrasound tomorrow and likely to restart Xarelto following the ultrasound. -Needs follow up as outpatient for hemorrhagic cyst with an ultrasound (9) Paroxysmal atrial fibrillation: Plan: -Continue metoprolol On Xarelto for anticoagulation (10) History of breast cancer: Plan: -H/O breast cancer s/p lumpectomy and radiation -Currently on tamoxifen (11) Hypertension: Plan: -Continue amlodipine/valsartan, metoprolol -Also on spironolactone (12) Diabetes: Plan: -HgbA1c 6.5 -NovoLog per protocol while hospitalized (13) DVT prophylaxis: Plan: -Xarelto Admission and Anticipated Discharge Date Admission Date: March 27, 2021 Subjective Patient is seen and examined at bedside RN reports that patient had trouble swallowing pills this AM Patient reports lower back pain Denies any significant cough, dyspnea Also denies chest pain, nausea, vomiting Currently on 15 L supplemental Oxygen Review of Systems Review of Systems: All systems reviewed & are unremarkable except as noted in Subjective Physical Exam Physical Exam: Physical Exam: Vitals signs as noted above General Appearance:Moderately built and nourished, no apparent distress Head: normocephalic, Atraumatic Eyes: normal inspection, EOMI Neck: supple, Trachea midline Respiratory/Chest: Decreased breath sounds, B/L scattered crackles, wheezes Cardiovascular: S1, S2, No murmur Abdomen/GI:Soft, Non tender, Bowel sounds present Extremities/Musculoskeletal:normal inspection, no edema Neurologic/Psych:AAOX3, grossly no focal neurological deficits Skin: normal color, warm Results & Data Results & Data ([facility]) Vital Signs (Past 12 Hours) Vital Signs Temp Pulse Pulse Resp BP Pulse Ox 04/02/21 19:00 36.6 C 70 20 152/53 H 93 04/02/21 15:05 36.7 C 70 23 127/55 L 98 04/02/21 14:00 72 04/02/21 11:28 36.3 C L 71 25 H 134/60 95 04/02/21 11:02 68 22 90 04/02/21 07:37 36.4 C L 60 30 H 129/54 L 98 Laboratory Results [facility] 04/02/21 06:31 Sodium 138 Potassium 4.0 Chloride 111 H Carbon Dioxide 22 BUN 32 H Creatinine 1.05 Glucose 176 H Calcium 8.3 L Liver Function 04/02/21 Range/Units 06:31 Total Bilirubin 0.6 (0.2-1) mg/dl AST 33 (15-37) U/L ALT 25 (12-78) Alkaline Phosphatase 52 (45-117) U/L Albumin 2.7 L (3.4-5.0) gm/dl Urine 04/01/21 Range/Units 23:41 Urine Color Yellow Urine Appearance Clear (Clear) Urine pH 5.0 (4.5-7.5) Ur Specific [place] 1.009 (1.000-1.030) Urine Protein Negative (Negative) Urine Glucose (UA) Negative (Negative)
[2021-04-02] MEDS: FLUTICASONE/VILANTEROL 200/25MCG 14 PUFFS/INHALER INH SCH (20:52)
[2021-04-02] MEDS: INSULIN GLARGINE SOLOSTAR 100 UNITS/ML 3 ML PEN SC SCH (21:01)
[2021-04-03] MEDS: HYDROcodone/HOMATROPINE SYRUP 5MG/1.5MG 5ML UDP PO PRN (02:22)
[2021-04-03 07:01] LABS: Hematocrit (blood only) 28.1 % (37-47); Hemoglobin 9.3 g/dL (12.0-16.0); Mean Corpuscular Hemoglobin 27.1 pg (25-34); Mean Corpuscular Hgb Conc 33.1 g/dL (32-36); Mean Corpuscular Volume 81.9 fL (80-100); Mean Platelet Volume 9.6 fL (7.4-10.4); Platelet Count 66 K/uL (130-400); RDW Coefficient of Variation 20.2 % (11.5-14.5); RDW Standard Deviation 60.2 fL (36.4-46.3); Red Blood Count 3.43 M/uL (4.2-5.4); White Blood Count 0.85 K/uL (4.8-10.8)
[2021-04-03 07:03] LABS: Ovalocytes 1+
[2021-04-03 07:04] LABS: ALC (manual) 0.11 K/uL (1.2-3.4); ANC (manual) 0.68 K/uL (1.4-6.5); Lymphocytes # (manual) 0.11 K/uL (1.2-3.4); Lymphocytes % (manual) 13.3 %; Metamyelocytes # (manual) 0.01 K/uL (0-0); Metamyelocytes % (manual) 0.9 %; Monocytes # (manual) 0.05 K/uL (0.11-0.59); Monocytes % (manual) 5.3 %; Myelocytes # (manual) 0.01 K/uL (0-0); Myelocytes % (manual) 0.9 %; Neutrophils # (manual) 0.68 K/uL (1.4-6.5); Neutrophils % (manual) 79.6 %
[2021-04-03 07:14] LABS: Albumin Level 2.6 gm/dl (3.4-5.0); BUN Creatinine Ratio 37.2 (10-20); Calcium 8.6 mg/dl (8.5-10.1); Creatinine Clr Calc Pharmacy 46.4 ml/min; Est GFR (Non-African American) 61.2 ml/min; Potassium 4.5 mmol/L (3.5-5.1)
[2021-04-03 07:16] LABS: Albumin Globulin Ratio 0.8 (0.9-2); Bilirubin,Total 0.6 mg/dl (0.2-1); C Reactive Protein 2.1 mg/dl (0-0.29); Globulin 3.1 gm/dl (2.5-4.0); Total Protein 5.7 gm/dl (6.4-8.2)
--- NOTE | 2021-04-03 07:47 | XRay Report ---
XR chest 1V portable CLINICAL HISTORY: Follow up Covid pneumonia. COMPARISON STUDY: 03/31/2021 TECHNIQUE: 1 view of the chest FINDINGS: Single frontal view of the chest demonstrates the cardiomediastinal silhouette to be within normal li mits. Compared to the previous examination, there has been partial interval clearing of patchy inters titial and alveolar opacities bilaterally. There is no evidence for pleural effusion. There is no lila dence for vascular congestion. There is no acute osseous pathology. IMPRESSION: Compared to the previous examination, there has been partial interval clearing of patchy interstitial and alveolar opacities bilaterally. ACT 112: Negative or not required by law. Electronically signed by: Yehuda Diane M.D. 04/03/2021 7:46 AM
[2021-04-03] MEDS ORDERED: FUROSEMIDE INJ 20 MG/2 ML VIAL IV ONE (07:57)
[2021-04-03] MEDS: INSULIN ASPART PER UNIT SC SCH ×4 (09:09→22:00)
[2021-04-03] MEDS: DOXYCYCLINE HYCLATE 100 MG in DEXTROSE 5% 100 ML IV SCH (09:32)
[2021-04-03] MEDS: FAMOTIDINE 40 MG TABLET PO SCH (09:35)
[2021-04-03] MEDS: VALSARTAN 80 MG TAB PO SCH (09:35)
[2021-04-03] MEDS: amLODIPine BESYLATE 5 MG TAB PO SCH (09:36)
[2021-04-03] MEDS: SPIRONOLACTONE 25 MG TAB PO SCH (09:36)
[2021-04-03] MEDS: ATORVASTATIN 40 MG TAB PO SCH (09:37)
[2021-04-03] MEDS: TAMOXIFEN CITRATE 10 MG TABLET PO SCH (09:38)
[2021-04-03] MEDS: GABAPENTIN 300 MG CAP PO SCH (09:38)
[2021-04-03] MEDS: rOPINIRole HCL 0.25 MG TABLET PO SCH (09:39)
[2021-04-03] MEDS: PANTOprazole 40 MG TAB PO SCH (10:39)
[2021-04-03] MEDS: VENLAFAXINE HCL XR 37.5 MG CAPXR PO SCH (10:39)
[2021-04-03] MEDS: POTASSIUM CHLORIDE 10 MEQ TABCR PO SCH (10:39)
[2021-04-03] MEDS: METOPROLOL SUCC 50MG EXT REL TAB PO SCH ×2 (10:39→19:57)
[2021-04-03] MEDS: BENZONATATE 100 MG CAPSULE PO SCH ×3 (10:39→23:28)
[2021-04-03] MEDS: REMDESIVIR 100 MG in SODIUM CHLORIDE 0.9% 230 ML IV SCH (11:47)
[2021-04-03] MEDS: ACETAMINOPHEN 1,000 MG/100 ML VIAL IV PRN ×2 (13:26→23:27)
[2021-04-03] MEDS: SODIUM CHLORIDE 0.9% 10ML FLUSH IV SCH (14:33)
[2021-04-03] MEDS: RIVAROXABAN 15 MG TAB PO SCH (16:52)
--- NOTE | 2021-04-03 17:52 | Hospitalist Progress Note ---
Date of Service April 03, 2021 Assessment & Plan (1) Lab test positive for detection of COVID-19 virus: Plan: Acute on chronic respiratory failure with hypoxia Multifocal COVID-19 pneumonia Patient is Vaccinated CXR: Extensive patchy interstitial and alveolar opacities bilaterally characteristic of a viral type pneumonitis and probable Covid 19 pneumonia. CRP: 0.64>>1.49 Procalcitonin 0.10R Continue dexamethasone, Remdesivir Monitor renal function, LFTs Lasix as needed Encourage to prone Chest x-ray showed minimal improvement today Currently on 10 L supplemental oxygen We will recheck procalcitonin tomorrow Given 20 mg Lasix today Dysphagia Appreciate speech therapy evaluation Monitor (2) Ileus: Plan: -Patient presented with 3 weeks of productive cough, nausea and vomiting -CT ABD/pelvis showed signs of ileus -KUB on 04/01/21:Nonobstructed abdominal bowel gas pattern. -Diet advanced -Patient had BM - monitor (3) COPD exacerbation: Plan: Acute COPD Exacerbation -H/O COPD, Sarcoidosis -Chronically on 3 L of oxygen -On Steroids as above -Continue Nebs -We will complete doxycycline course today (4) Pancytopenia: Plan: H/O Pancytopenia, ITP Anemia of chronic disease -Multifactorial Appreciate structural manager input and recommendation Received IV Iron S/P PRBCs No signs of active bleeding Monitor CBC (5) History of ITP: Plan: -Follows with Dr. Avendano -Neutropenic precautions -Platelet count slowly improving (6) Sarcoidosis: Plan: Does not have any hilar adenopathy Splenomegaly likely due to sarcoidosis (7) Chronic respiratory failure with hypoxia: Plan: Uses 3 L of oxygen at home continuously (8) Abnormal abdominal CT scan: Plan: -CT ABD/pelvis showing splenomegaly and Hyperdense lesions in the bilateral kidneys. These are favored to represent hemorrhagic/proteinaceous cysts. -CT renal protocol ordered for [id number] dense lesions within the lower poles of the kidneys become less conspicuous following contrast administration and are most characteristic of hemorrhagic cyst. No enhancing mass lesion is seen. Additional cyst are also present. We will get a renal ultrasound tomorrow and likely to restart Xarelto following the ultrasound. -Needs follow up as outpatient for hemorrhagic cyst with an ultrasound (9) Paroxysmal atrial fibrillation: Plan: -Continue metoprolol On Xarelto for anticoagulation (10) History of breast cancer: Plan: -H/O breast cancer s/p lumpectomy and radiation -Currently on tamoxifen (11) Hypertension: Plan: -Continue amlodipine/valsartan, metoprolol -Also on spironolactone (12) Diabetes: Plan: -HgbA1c 6.5 -NovoLog per protocol while hospitalized (13) DVT prophylaxis: Plan: -Xarelto Admission and Anticipated Discharge Date Admission Date: March 27, 2021 Subjective Patient is seen and examined at bedside States feeling better today Reports minimal back pain Less cough, shortness of breath Currently on 10 L supplemental oxygen Denies any chest pain, dizziness, nausea, abdominal pain Review of Systems Review of Systems: All systems reviewed & are unremarkable except as noted in Subjective Physical Exam Physical Exam: Physical Exam: Vitals signs as noted above General Appearance:Moderately built and nourished, no apparent distress Head: normocephalic, Atraumatic Eyes: normal inspection, EOMI Neck: supple, Trachea midline Respiratory/Chest: Decreased breath sounds, B/L scattered crackles, wheezes Cardiovascular: S1, S2, No murmur Abdomen/GI:Soft, Non tender, Bowel sounds present Extremities/Musculoskeletal:normal inspection, no edema Neurologic/Psych:AAOX3, grossly no focal neurological deficits Skin: normal color, warm Results & Data Results & Data ([facility]) Vital Signs (Past 12 Hours) Vital Signs Temp Pulse Pulse Resp BP Pulse Ox 04/03/21 15:44 36.4 C L 60 22 145/49 H 95 04/03/21 14:48 92 04/03/21 14:47 97 04/03/21 11:18 36.3 C L 64 27 H 136/74 97 04/03/21 08:07 36.8 C 62 30 H 158/62 H 95 04/03/21 07:28 64 Laboratory Results Short CBC 04/03/21 Range/Units 05:50 WBC 0.85 L* (4.8-10.8) K/uL Hgb 9.3 L (12.0-16.0) g/dL Hct 28.1 L (37-47) % Plt Count 66 L (130-400) K/uL BMP 04/03/21 05:50 Sodium 138 Potassium 4.5 Chloride 110 H Carbon Dioxide 23 BUN 33 H Creatinine 0.90 Glucose 147 H Calcium 8.6 Liver Function 12/31/21 Range/Units 05:50 Total Bilirubin 0.6 (0.2-1) mg/dl AST 31 (15-37) U/L ALT 24 (12-78) Alkaline Phosphatase 57 (45-117) U/L Albumin 2.6 L (3.4-5.0) gm/dl
[2021-04-03] MEDS: dexAMETHasone 6 MG in SYRINGE 0 ML IV SCH (19:57)
[2021-04-03] MEDS: INSULIN GLARGINE SOLOSTAR 100 UNITS/ML 3 ML PEN SC SCH (20:40)
[2021-04-04] MEDS: FLUTICASONE/VILANTEROL 200/25MCG 14 PUFFS/INHALER INH SCH ×2 (06:00→21:05)
[2021-04-04 07:15] LABS: Hematocrit (blood only) 29.1 % (37-47); Hemoglobin 9.4 g/dL (12.0-16.0); Mean Corpuscular Hemoglobin 26.6 pg (25-34); Mean Corpuscular Hgb Conc 32.3 g/dL (32-36); Mean Corpuscular Volume 82.2 fL (80-100); Mean Platelet Volume 9.5 fL (7.4-10.4); Platelet Count 64 K/uL (130-400); RDW Coefficient of Variation 20.2 % (11.5-14.5); Red Blood Count 3.54 M/uL (4.2-5.4); White Blood Count 0.67 K/uL (4.8-10.8)
[2021-04-04 07:37] LABS: Albumin Level 2.6 gm/dl (3.4-5.0); BUN Creatinine Ratio 43.1 (10-20); Calcium 8.4 mg/dl (8.5-10.1); Creatinine Clr Calc Pharmacy 46.4 ml/min; Est GFR (Non-African American) 61.2 ml/min; Potassium 4.1 mmol/L (3.5-5.1)
[2021-04-04 07:40] LABS: Albumin Globulin Ratio 0.9 (0.9-2); Globulin 2.9 gm/dl (2.5-4.0); Total Protein 5.5 gm/dl (6.4-8.2)
[2021-04-04 07:48] LABS: Immature Granulocytes # (auto) 0.01 K/uL (0.00-0.02); Immature Granulocytes % (auto) 1.5 %; Lymphocytes # (auto) 0.16 K/uL (1.2-3.4); Lymphocytes % (auto) 23.9 %; Monocytes # (auto) 0.04 K/uL (0.11-0.59); Neutrophils # (auto) 0.46 K/uL (1.4-6.5); Neutrophils % (auto) 68.6 %
[2021-04-04] MEDS ORDERED: FUROSEMIDE INJ 20 MG/2 ML VIAL IV SCH (09:00)
[2021-04-04] MEDS: INSULIN ASPART PER UNIT SC SCH ×4 (09:00→21:21)
[2021-04-04] MEDS: VALSARTAN 80 MG TAB PO SCH (09:52)
[2021-04-04] MEDS: PANTOprazole 40 MG in SYRINGE 0 ML IV SCH (09:52)
[2021-04-04] MEDS: VENLAFAXINE HCL 37.5 MG TAB PO SCH ×2 (09:53→21:12)
[2021-04-04] MEDS: METOPROLOL TARTRATE 50 MG TAB PO SCH ×3 (09:54→21:12)
[2021-04-04] MEDS: FAMOTIDINE 20 MG in SYRINGE 3 ML IV SCH (09:55)
[2021-04-04] MEDS: VENLAFAXINE HCL XR 37.5 MG CAPXR PO SCH (09:56)
[2021-04-04] MEDS: POTASSIUM CHLORIDE 10 MEQ TABCR PO SCH (09:56)
[2021-04-04] MEDS: rOPINIRole HCL 0.25 MG TABLET PO SCH (09:57)
[2021-04-04] MEDS: amLODIPine BESYLATE 5 MG TAB PO SCH (09:58)
[2021-04-04] MEDS: ATORVASTATIN 40 MG TAB PO SCH (09:58)
[2021-04-04] MEDS: GABAPENTIN 250 MG/5 ML 470 ML BTL PO SCH (10:09)
[2021-04-04] MEDS: FUROSEMIDE 40 MG/4 ML VIAL IV SCH (10:09)
[2021-04-04] MEDS: TAMOXIFEN CITRATE 10 MG TABLET PO SCH (10:22)
[2021-04-04 11:31] LABS: Bilirubin,Total 0.5 mg/dl (0.2-1)
[2021-04-04] MEDS: REMDESIVIR 100 MG in SODIUM CHLORIDE 0.9% 230 ML IV SCH (12:36)
[2021-04-04] MEDS: SODIUM CHLORIDE 0.9% 10ML FLUSH IV SCH (13:40)
--- NOTE | 2021-04-04 15:14 | Hospitalist Progress Note ---
Date of Service April 04, 2021 Assessment & Plan (1) Lab test positive for detection of COVID-19 virus: Plan: Acute on chronic respiratory failure with hypoxia Multifocal COVID-19 pneumonia Patient is Vaccinated CXR: Extensive patchy interstitial and alveolar opacities bilaterally characteristic of a viral type pneumonitis and probable Covid 19 pneumonia. CRP: 0.64>>1.49 Procalcitonin 0.15 Completed remdesivir course Continue dexamethasone to complete 10-day course Monitor renal function, LFTs Lasix as needed Encourage to prone Currently on 3-6 L supplemental oxygen Continue current management Will need 2 step prior to discharge Dysphagia Appreciate speech therapy evaluation Patient admits to having chronic intermittent dysphagia Will need GI evaluation likely as outpatient Monitor (2) Ileus: Plan: -Patient presented with 3 weeks of productive cough, nausea and vomiting -CT ABD/pelvis showed signs of ileus -KUB on 04/01/21:Nonobstructed abdominal bowel gas pattern. -Diet advanced -Patient had BM - monitor (3) COPD exacerbation: Plan: Acute COPD Exacerbation -H/O COPD, Sarcoidosis -Chronically on 3 L of oxygen -On Steroids as above -Continue Nebs -Completed doxycycline course (4) Pancytopenia: Plan: H/O Pancytopenia, ITP Anemia of chronic disease -Multifactorial Appreciate director agricultural services input and recommendation Likely viral infection contributing to worsening of blood counts Received IV Iron S/P PRBCs No signs of active bleeding Monitor CBC (5) History of ITP: Plan: -Follows with Dr. Avendano -Neutropenic precautions -Monitor Platelet count (6) Sarcoidosis: Plan: Does not have any hilar adenopathy Splenomegaly likely due to sarcoidosis (7) Chronic respiratory failure with hypoxia: Plan: Uses 3 L of oxygen at home continuously (8) Abnormal abdominal CT scan: Plan: -CT ABD/pelvis showing splenomegaly and Hyperdense lesions in the bilateral kidneys. These are favored to represent hemorrhagic/proteinaceous cysts. -CT renal protocol ordered for [id number] dense lesions within the lower poles of the kidneys become less conspicuous following contrast administration and are most characteristic of hemorrhagic cyst. No enhancing mass lesion is seen. Additional cyst are also present. We will get a renal ultrasound tomorrow and likely to restart Xarelto following the ultrasound. -Needs follow up as outpatient for hemorrhagic cyst with an ultrasound (9) Paroxysmal atrial fibrillation: Plan: -Continue metoprolol On Xarelto for anticoagulation (10) History of breast cancer: Plan: -H/O breast cancer s/p lumpectomy and radiation -Currently on tamoxifen (11) Hypertension: Plan: -Continue amlodipine/valsartan, metoprolol -Also on spironolactone (12) Diabetes: Plan: -HgbA1c 6.5 -NovoLog per protocol while hospitalized (13) DVT prophylaxis: Plan: -Xarelto on Hold -On Lovenox therapeutic dose Admission and Anticipated Discharge Date Admission Date: March 27, 2021 Subjective Patient is seen and examined at bedside States feeling well today Currently on 3 L supplemental oxygen Denies any cough, dyspnea currently Admits to having intermittent dysphagia but able to swallow pills today Also reports chronic intermittent abdominal pain since childhood Denies any chest pain, dizziness, nausea Review of Systems Review of Systems: All systems reviewed & are unremarkable except as noted in Subjective Physical Exam Physical Exam: Physical Exam: Vitals signs as noted above General Appearance:Moderately built and nourished, no apparent distress Head: normocephalic, Atraumatic Eyes: normal inspection, EOMI Neck: supple, Trachea midline Respiratory/Chest: Decreased breath sounds, B/L scattered wheezes Cardiovascular: S1, S2, No murmur Abdomen/GI:Soft, Non tender, Bowel sounds present Extremities/Musculoskeletal:normal inspection, no edema Neurologic/Psych:AAOX3, grossly no focal neurological deficits Skin: normal color, warm Results & Data Results & Data ([facility]) Vital Signs (Past 12 Hours) Vital Signs Temp Pulse Pulse Resp BP Pulse Ox 04/04/21 11:28 36.5 C 64 19 149/62 H 98 04/04/21 10:46 60 04/04/21 07:23 36.6 C 63 19 154/55 H 94 04/04/21 03:23 36.9 C 60 27 H 126/44 L 96 Laboratory Results Short CBC 04/04/21 Range/Units 06:08 WBC 0.67 L* (4.8-10.8) K/uL Hgb 9.4 L (12.0-16.0) g/dL Hct 29.1 L (37-47) % Plt Count 64 L (130-400) K/uL BMP 04/04/21 06:08 Sodium 139 Potassium 4.1 Chloride 108 H Carbon Dioxide 23 BUN 39 H Creatinine 0.90 Glucose 142 H Calcium 8.4 L Liver Function 01/01/22 Range/Units 06:08 Total Bilirubin 0.5 (0.2-1) mg/dl AST 29 (15-37) U/L ALT 20 (12-78) Alkaline Phosphatase 66 (45-117) U/L Albumin 2.6 L (3.4-5.0) gm/dl
[2021-04-04] MEDS: ENOXAPARIN 80 MG/0.8 ML SYR SQ SCH (17:12)
[2021-04-04] MEDS: dexAMETHasone 6 MG in SYRINGE 0 ML IV SCH (17:13)
[2021-04-04] MEDS: INSULIN GLARGINE SOLOSTAR 100 UNITS/ML 3 ML PEN SC SCH (21:20)
[2021-04-05] MEDS: BENZONATATE 100 MG CAPSULE PO PRN (02:31)
[2021-04-05] MEDS: METOPROLOL TARTRATE 50 MG TAB PO SCH ×4 (03:12→19:52)
[2021-04-05] MEDS: ENOXAPARIN 80 MG/0.8 ML SYR SQ SCH ×2 (05:38→17:34)
[2021-04-05 06:38] LABS: Hematocrit (blood only) 30.8 % (37-47); Hemoglobin 10.2 g/dL (12.0-16.0); Mean Corpuscular Hgb Conc 33.1 g/dL (32-36); Mean Corpuscular Volume 81.5 fL (80-100); RDW Coefficient of Variation 20.2 % (11.5-14.5); RDW Standard Deviation 59.8 fL (36.4-46.3); Red Blood Count 3.78 M/uL (4.2-5.4); White Blood Count 1.24 K/uL (4.8-10.8)
[2021-04-05 06:39] LABS: Mean Platelet Volume 10.2 fL (7.4-10.4); Platelet Count 76 K/uL (130-400)
[2021-04-05 07:02] LABS: Albumin Level 2.6 gm/dl (3.4-5.0); Calcium 8.4 mg/dl (8.5-10.1); Creatinine Clr Calc Pharmacy 46.9 ml/min; Est GFR (African American) 71.9 ml/min; Est GFR (Non-African American) 62.1 ml/min; Potassium 3.8 mmol/L (3.5-5.1)
[2021-04-05 07:05] LABS: Albumin Globulin Ratio 0.9 (0.9-2); Bilirubin,Total 0.6 mg/dl (0.2-1); Total Protein 5.6 gm/dl (6.4-8.2)
[2021-04-05 07:06] LABS: Anisocytosis Present; Immature Granulocytes # (auto) 0.01 K/uL (0.00-0.02); Immature Granulocytes % (auto) 0.8 %; Lymphocytes # (auto) 0.17 K/uL (1.2-3.4); Lymphocytes % (auto) 13.7 %; Monocytes # (auto) 0.09 K/uL (0.11-0.59); Monocytes % (auto) 7.3 %; Neutrophils # (auto) 0.97 K/uL (1.4-6.5); Neutrophils % (auto) 78.2 %; Ovalocytes 1+
[2021-04-05] MEDS: VALSARTAN 80 MG TAB PO SCH (08:55)
[2021-04-05] MEDS: VENLAFAXINE HCL XR 37.5 MG CAPXR PO SCH (08:55)
[2021-04-05] MEDS: TAMOXIFEN CITRATE 10 MG TABLET PO SCH (08:56)
[2021-04-05] MEDS: POTASSIUM CHLORIDE 10 MEQ TABCR PO SCH (08:56)
[2021-04-05] MEDS: rOPINIRole HCL 0.25 MG TABLET PO SCH (08:57)
[2021-04-05] MEDS: ATORVASTATIN 40 MG TAB PO SCH (08:57)
[2021-04-05] MEDS: amLODIPine BESYLATE 5 MG TAB PO SCH (08:57)
[2021-04-05] MEDS: PANTOprazole 40 MG in SYRINGE 0 ML IV SCH (08:57)
[2021-04-05] MEDS: FAMOTIDINE 20 MG in SYRINGE 3 ML IV SCH (08:58)
[2021-04-05] MEDS: FUROSEMIDE 40 MG/4 ML VIAL IV SCH (08:58)
[2021-04-05] MEDS: VENLAFAXINE HCL 37.5 MG TAB PO SCH ×2 (08:58→19:52)
[2021-04-05] MEDS: INSULIN ASPART PER UNIT SC SCH ×4 (08:59→19:57)
[2021-04-05] MEDS: GABAPENTIN 250 MG/5 ML 470 ML BTL PO SCH (09:14)
[2021-04-05] MEDS: ACETAMINOPHEN SUSP 325 MG/10.15 ML UDC PO PRN (11:10)
[2021-04-05] MEDS: dexAMETHasone 6 MG in SYRINGE 0 ML IV SCH (17:34)
--- NOTE | 2021-04-05 19:06 | Hospitalist Progress Note ---
Date of Service April 05, 2021 Assessment & Plan (1) Lab test positive for detection of COVID-19 virus: Plan: Acute on chronic respiratory failure with hypoxia Multifocal COVID-19 pneumonia Patient is Vaccinated CXR: Extensive patchy interstitial and alveolar opacities bilaterally characteristic of a viral type pneumonitis and probable Covid 19 pneumonia. CRP: 0.64>>1.49 Procalcitonin 0.15 Completed remdesivir course Continue dexamethasone to complete 10-day course Monitor renal function, LFTs Lasix as needed Encourage to prone Currently on 3L supplemental oxygen Will order 2 step tomorrow Likely plan to discharge in next 24 to 48 hours if stable Dysphagia Appreciate speech therapy evaluation Patient admits to having chronic intermittent dysphagia Will need GI evaluation likely as outpatient Able to swallow pills today with no issues (2) Ileus: Plan: -Patient presented with 3 weeks of productive cough, nausea and vomiting -CT ABD/pelvis showed signs of ileus -KUB on 04/01/21:Nonobstructed abdominal bowel gas pattern. -Diet advanced -Patient had BM - monitor (3) COPD exacerbation: Plan: Acute COPD Exacerbation -H/O COPD, Sarcoidosis -Chronically on 3 L of oxygen -On Steroids as above -Continue Nebs -Completed doxycycline course (4) Pancytopenia: Plan: H/O Pancytopenia, ITP Anemia of chronic disease -Multifactorial Appreciate browning processor input and recommendation Likely viral infection contributing to worsening of blood counts Received IV Iron S/P PRBCs No signs of active bleeding Monitor CBC (5) History of ITP: Plan: -Follows with Dr. Avendano -Neutropenic precautions -Monitor Platelet count (6) Sarcoidosis: Plan: Does not have any hilar adenopathy Splenomegaly likely due to sarcoidosis (7) Chronic respiratory failure with hypoxia: Plan: Uses 3 L of oxygen at home continuously (8) Abnormal abdominal CT scan: Plan: -CT ABD/pelvis showing splenomegaly and Hyperdense lesions in the bilateral kidneys. These are favored to represent hemorrhagic/proteinaceous cysts. -CT renal protocol ordered for [id number] dense lesions within the lower poles of the kidneys become less conspicuous following contrast administration and are most characteristic of hemorrhagic cyst. No enhancing mass lesion is seen. Additional cyst are also present. We will get a renal ultrasound tomorrow and likely to restart Xarelto following the ultrasound. -Needs follow up as outpatient for hemorrhagic cyst with an ultrasound (9) Paroxysmal atrial fibrillation: Plan: -Continue metoprolol On Xarelto for anticoagulation (10) History of breast cancer: Plan: -H/O breast cancer s/p lumpectomy and radiation -Currently on tamoxifen (11) Hypertension: Plan: -Continue amlodipine/valsartan, metoprolol -Also on spironolactone (12) Diabetes: Plan: -HgbA1c 6.5 -NovoLog per protocol while hospitalized (13) DVT prophylaxis: Plan: -Xarelto on Hold -On Lovenox therapeutic dose Admission and Anticipated Discharge Date Admission Date: March 27, 2021 Subjective Patient is seen and examined at bedside Doing well today No new complaint Currently on 3 L supplemental oxygen Denies any cough, dyspnea currently On dysphagia with pills today Denies any chest pain, dizziness, nausea Review of Systems Review of Systems: All systems reviewed & are unremarkable except as noted in Subjective Physical Exam Physical Exam: Physical Exam: Vitals signs as noted above General Appearance:Moderately built and nourished, no apparent distress Head: normocephalic, Atraumatic Eyes: normal inspection, EOMI Neck: supple, Trachea midline Respiratory/Chest: Decreased breath sounds, B/L mild basal crackles Cardiovascular: S1, S2, No murmur Abdomen/GI:Soft, Non tender, Bowel sounds present Extremities/Musculoskeletal:normal inspection, no edema Neurologic/Psych:AAOX3, grossly no focal neurological deficits Skin: normal color, warm Results & Data Results & Data ([facility]) Vital Signs (Past 12 Hours) Vital Signs Temp Pulse Pulse Resp BP Pulse Ox 04/05/21 16:42 58 L 04/05/21 15:48 36.5 C 58 L 19 127/49 L 94 04/05/21 11:39 36.6 C 58 L 17 139/57 L 95 04/05/21 09:00 59 L 04/05/21 07:45 36.4 C L 61 20 152/60 H 93 Laboratory Results Short CBC 04/05/21 Range/Units 05:47 WBC 1.24 L (4.8-10.8) K/uL Hgb 10.2 L (12.0-16.0) g/dL Hct 30.8 L (37-47) % Plt Count 76 L (130-400) K/uL BMP 04/05/21 05:47 Sodium 138 Potassium 3.8 Chloride 106 Carbon Dioxide 26 BUN 43 H Creatinine 0.89 Glucose 142 H Calcium 8.4 L Liver Function 04/05/21 Range/Units 05:47 Total Bilirubin 0.6 (0.2-1) mg/dl AST 31 (15-37) U/L ALT 23 (12-78) Alkaline Phosphatase 78 (45-117) U/L Albumin 2.6 L (3.4-5.0) gm/dl
[2021-04-05] MEDS: INSULIN GLARGINE SOLOSTAR 100 UNITS/ML 3 ML PEN SC SCH (19:57)
[2021-04-05] MEDS: FLUTICASONE/VILANTEROL 200/25MCG 14 PUFFS/INHALER INH SCH (21:59)
[2021-04-06] MEDS: METOPROLOL TARTRATE 50 MG TAB PO SCH ×3 (04:22→15:02)
[2021-04-06] MEDS: ENOXAPARIN 80 MG/0.8 ML SYR SQ SCH (06:46)
[2021-04-06 08:13] LABS: Hematocrit (blood only) 31.5 % (37-47); Hemoglobin 10.3 g/dL (12.0-16.0); Mean Corpuscular Hgb Conc 32.7 g/dL (32-36); Mean Corpuscular Volume 82.7 fL (80-100); Mean Platelet Volume 9.3 fL (7.4-10.4); Platelet Count 76 K/uL (130-400); RDW Coefficient of Variation 20.2 % (11.5-14.5); RDW Standard Deviation 60.7 fL (36.4-46.3); Red Blood Count 3.81 M/uL (4.2-5.4); White Blood Count 0.93 K/uL (4.8-10.8)
[2021-04-06 08:32] LABS: Eosinophils # (auto) 0.01 K/uL (0-0.5); Eosinophils % (auto) 1.1 %; Lymphocytes # (auto) 0.15 K/uL (1.2-3.4); Lymphocytes % (auto) 16.1 %; Monocytes # (auto) 0.06 K/uL (0.11-0.59); Monocytes % (auto) 6.5 %; Neutrophils # (auto) 0.71 K/uL (1.4-6.5); Neutrophils % (auto) 76.3 %; Ovalocytes 2+
[2021-04-06 08:47] LABS: BUN Creatinine Ratio 45.1 (10-20); Calcium 8.8 mg/dl (8.5-10.1); Creatinine Clr Calc Pharmacy 43.5 ml/min; Est GFR (African American) 65.7 ml/min; Est GFR (Non-African American) 56.6 ml/min
[2021-04-06] MEDS: TAMOXIFEN CITRATE 10 MG TABLET PO SCH (09:51)
[2021-04-06] MEDS: VALSARTAN 80 MG TAB PO SCH (09:51)
[2021-04-06] MEDS: VENLAFAXINE HCL XR 37.5 MG CAPXR PO SCH (09:51)
[2021-04-06] MEDS: rOPINIRole HCL 0.25 MG TABLET PO SCH (09:52)
[2021-04-06] MEDS: ATORVASTATIN 40 MG TAB PO SCH (09:52)
[2021-04-06] MEDS: amLODIPine BESYLATE 5 MG TAB PO SCH (09:52)
[2021-04-06] MEDS: POTASSIUM CHLORIDE 10 MEQ TABCR PO SCH (09:52)
[2021-04-06] MEDS: GABAPENTIN 250 MG/5 ML 470 ML BTL PO SCH (09:53)
[2021-04-06] MEDS: FAMOTIDINE 20 MG in SYRINGE 3 ML IV SCH (09:53)
[2021-04-06] MEDS: PANTOprazole 40 MG in SYRINGE 0 ML IV SCH (09:53)
[2021-04-06] MEDS: INSULIN ASPART PER UNIT SC SCH ×2 (09:53→12:59)
[2021-04-06] MEDS: FUROSEMIDE 40 MG/4 ML VIAL IV SCH (09:54)
[2021-04-06] MEDS: VENLAFAXINE HCL 37.5 MG TAB PO SCH (11:43)
--- NOTE | 2021-04-06 11:48 | Hospitalist Progress Note ---
Date of Service April 06, 2021 Assessment & Plan (1) Lab test positive for detection of COVID-19 virus: Plan: Acute on chronic respiratory failure with hypoxia Multifocal COVID-19 pneumonia Patient is Vaccinated CXR: Extensive patchy interstitial and alveolar opacities bilaterally characteristic of a viral type pneumonitis and probable Covid 19 pneumonia. CRP: 0.64>>1.49 Procalcitonin 0.15 Completed remdesivir course Completed dexamethasone 10-day course Monitor renal function, LFTs Lasix as needed Encourage to prone Currently on 3L supplemental oxygen 2 step:Needs 3 liters at rest and with activity Dysphagia Appreciate speech therapy evaluation Patient admits to having chronic intermittent dysphagia Able to swallow pills when taken one at a time Advised to follow-up with GI as outpatient (2) Ileus: Plan: -Patient presented with 3 weeks of productive cough, nausea and vomiting -CT ABD/pelvis showed signs of ileus -KUB on 04/01/21:Nonobstructed abdominal bowel gas pattern. -Diet advanced -Patient had BM Resolved (3) COPD exacerbation: Plan: Acute COPD Exacerbation -H/O COPD, Sarcoidosis -Chronically on 3 L of oxygen -On Steroids as above -Continue Nebs -Completed doxycycline course (4) Pancytopenia: Plan: H/O Pancytopenia, ITP Anemia of chronic disease -Multifactorial Appreciate expeditionary fighting vehicle crewman input and recommendation Likely viral infection contributing to worsening of blood counts Received IV Iron S/P PRBCs No signs of active bleeding Monitor CBC (5) History of ITP: Plan: -Follows with Dr. Avendano -Neutropenic precautions -Monitor Platelet count Advised to follow-up with hematology as outpatient (6) Sarcoidosis: Plan: Does not have any hilar adenopathy Splenomegaly likely due to sarcoidosis (7) Chronic respiratory failure with hypoxia: Plan: Uses 3 L of oxygen at home continuously (8) Abnormal abdominal CT scan: Plan: -CT ABD/pelvis showing splenomegaly and Hyperdense lesions in the bilateral kidneys. These are favored to represent hemorrhagic/proteinaceous cysts. -CT renal protocol ordered for [id number] dense lesions within the lower poles of the kidneys become less conspicuous following contrast administration and are most characteristic of hemorrhagic cyst. No enhancing mass lesion is seen. Additional cyst are also present. We will get a renal ultrasound tomorrow and likely to restart Xarelto following the ultrasound. -Needs follow up as outpatient for hemorrhagic cyst with an ultrasound (9) Paroxysmal atrial fibrillation: Plan: -Continue metoprolol On Xarelto for anticoagulation (10) History of breast cancer: Plan: -H/O breast cancer s/p lumpectomy and radiation -Currently on tamoxifen (11) Hypertension: Plan: -Continue amlodipine/valsartan, metoprolol -Also on spironolactone (12) Diabetes: Plan: -HgbA1c 6.5 -NovoLog per protocol while hospitalized (13) DVT prophylaxis: Plan: -Resume Xarelto DC Lovenox Admission and Anticipated Discharge Date Admission Date: March 27, 2021 Subjective Patient is seen and examined at bedside Had 2 step earlier today Minimal cough No other complaints Denies any chest pain, dizziness, nausea Plan to discharge home today Review of Systems Review of Systems: All systems reviewed & are unremarkable except as noted in Subjective Physical Exam Physical Exam: Physical Exam: Vitals signs as noted above General Appearance:Moderately built and nourished, no apparent distress Head: normocephalic, Atraumatic Eyes: normal inspection, EOMI Neck: supple, Trachea midline Respiratory/Chest: Decreased breath sounds, B/L CTA Cardiovascular: S1, S2, No murmur Abdomen/GI:Soft, Non tender, Bowel sounds present Extremities/Musculoskeletal:normal inspection, no edema Neurologic/Psych:AAOX3, grossly no focal neurological deficits Skin: normal color, warm Results & Data Results & Data ([facility]) Vital Signs (Past 12 Hours) Vital Signs Temp Pulse Pulse Pulse Pulse Pulse Pulse 04/06/21 11:07 36.4 C L 04/06/21 10:00 55 L 04/06/21 07:51 66 63 78 64 04/06/21 07:28 36.7 C 63 04/06/21 04:31 36.5 C 60 04/06/21 03:06 54 L Pulse Resp Resp Resp Resp Resp Resp 04/06/21 11:07 18 04/06/21 10:00 04/06/21 07:51 66 04/06/21 07:28 14 04/06/21 04:31 24 04/06/21 03:06 BP Pulse Ox Pulse Ox Pulse Ox Pulse Ox Pulse Ox Pulse Ox 04/06/21 11:07 144/48 H 96 04/06/21 10:00 04/06/21 07:51 86 L 92 90 90 87 L 04/06/21 07:28 148/55 H 94 04/06/21 04:31 144/51 H 92 04/06/21 03:06 Laboratory Results Short CBC 04/06/21 Range/Units 07:08 WBC 0.93 L* (4.8-10.8) K/uL Hgb 10.3 L (12.0-16.0) g/dL Hct 31.5 L (37-47) % Plt Count 76 L (130-400) K/uL BMP 04/06/21 07:08 Sodium 137 Potassium 4.0 Chloride 104 Carbon Dioxide 26 BUN 43 H Creatinine 0.96 Glucose 120 H Calcium 8.8
[2021-04-06] MEDS: BENZONATATE 100 MG CAPSULE PO PRN (13:04)
--- NOTE | 2021-04-06 14:20 | Discharge Summary ---
Date of Service April 06, 2021 Admission HPI Per Admitting Provider 76-year-old female with PMH DM type II, COPD with chronic hypoxic respiratory failure on chronic 3 L of oxygen, sarcoidosis, paroxysmal atrial fibrillation anticoagulated on Xarelto, HTN, DM type II, GERD, osteoporosis, history of ITP, history of breast cancer s/p lumpectomy and radiation currently on tamoxifen, and other problems to below who presents the ED for evaluation of cough and nausea/vomiting. Patient reports she has been sick for the past 3 weeks. Reports a worsening cough that has been productive for clear/white sputum. She reports that the cough sometimes induces nausea and vomiting. She denies hematemesis or coffee-ground emesis. Reports some worsening abdominal distention and generalized abdominal pain. Reports a normal bowel movement 2 days ago. No bright red bleeding per rectum or dark tarry stools. She reports a very poor appetite. Denies fevers and chills. No chest pain or shortness of breath. Chronically wears 3 L of oxygen. Denies lightheadedness, dizziness, diaphoresis, syncopal events. No urinary symptoms. In the ED, CT ABD/pelvis shows an ileus, splenomegaly, hyperdense lesions in both kidneys. Labs show pancytopenia. Patient also tested positive for COVID-19. She is saturating well on chronic 3 L of oxygen. She was given IVF and IV Zofran. Admission Exam Per Admitting Provider Physical Exam Constitutional: WD/WN, vitals as above + ill appearing Eyes: PERRL, conjunctivae normal, anicteric sclerae ENMT: external ear and nose normal, oropharynx normal Respiratory: normal respiratory effort; no respiratory distress Auscultation: + diminished lung sounds and + wheezes (Scattered, expiratory) Cardiovascular: Rate/Rhythm: regular rate and regular rhythm Vessels: normal peripheral pulses Extremities: no edema Gastrointestinal (Abdomen): Inspection/Auscultation: normal bowel sounds; abdomen not distended Percussion/Palpation: + abdomen tender (Generally tender to palpation) and abdomen soft; no guarding and no hepatosplenomegaly Musculoskeletal: no cyanosis or clubbing, extremities motor strength 5/5 Skin: no rashes, warm and dry Chronic venous changes BLE Neurologic: PERRL, EOMI, accommodation nl, no face palsy, no dysarthria Involuntary facial movements noted Psychiatric: A+Ox3, euthymic affect Principal Diagnosis Acute on chronic respiratory failure with hypoxia COVID-19 pneumonia Dysphagia Ileus Pancytopenia Discharge Data Allergies Allergy/AdvReac Type Severity Reaction Status Date / Time No Known Drug Allergies Allergy Verified 03/27/21 14:38 Consultations 03/27/21 17:25 ED Decision to Admit Stat 03/27/21 20:08 Consult Hematology Routine Ordered Studies 03/27/21 13:55 CT abd pelvis wo con Stat 03/27/21 17:29 CT abd pelvis IV con only Routine Hospital Course (1) Lab test positive for detection of COVID-19 virus: Acute on chronic respiratory failure with hypoxia Multifocal COVID-19 pneumonia Patient is Vaccinated CXR: Extensive patchy interstitial and alveolar opacities bilaterally characteristic of a viral type pneumonitis and probable Covid 19 pneumonia. CRP: 0.64>>1.49 Procalcitonin 0.15 Completed remdesivir course Completed dexamethasone 10-day course Monitor renal function, LFTs Lasix as needed Encourage to prone Currently on 3L supplemental oxygen 2 step:Needs 3 liters at rest and with activity Dysphagia Appreciate speech therapy evaluation Patient admits to having chronic intermittent dysphagia Able to swallow pills when taken one at a time Advised to follow-up with GI as outpatient (2) Ileus: -Patient presented with 3 weeks of productive cough, nausea and vomiting -CT ABD/pelvis showed signs of ileus -KUB on 04/01/21:Nonobstructed abdominal bowel gas pattern. -Diet advanced -Patient had BM Resolved (3) COPD exacerbation: Acute COPD Exacerbation -H/O COPD, Sarcoidosis -Chronically on 3 L of oxygen -On Steroids as above -Continue Nebs -Completed doxycycline course (4) Pancytopenia: H/O Pancytopenia, ITP Anemia of chronic disease -Multifactorial Appreciate farmworker general input and recommendation Likely viral infection contributing to worsening of blood counts Received IV Iron S/P PRBCs No signs of active bleeding Monitor CBC (5) History of ITP: -Follows with Dr. Avendano -Neutropenic precautions -Monitor Platelet count Advised to follow-up with hematology as outpatient (6) Sarcoidosis: Does not have any hilar adenopathy Splenomegaly likely due to sarcoidosis (7) Chronic respiratory failure with hypoxia: Uses 3 L of oxygen at home continuously (8) Abnormal abdominal CT scan: -CT ABD/pelvis showing splenomegaly and Hyperdense lesions in the bilateral kidneys. These are favored to represent hemorrhagic/proteinaceous cysts. -CT renal protocol ordered for [id number] dense lesions within the lower poles of the kidneys become less conspicuous following contrast administration and are most characteristic of hemorrhagic cyst. No enhancing mass lesion is seen. Additional cyst are also present. We will get a renal ultrasound tomorrow and likely to restart Xarelto following the ultrasound. -Needs follow up as outpatient for hemorrhagic cyst with an ultrasound (9) Paroxysmal atrial fibrillation: -Continue metoprolol On Xarelto for anticoagulation (10) History of breast cancer: -H/O breast cancer s/p lumpectomy and radiation -Currently on tamoxifen (11) Hypertension: -Continue amlodipine/valsartan, metoprolol -Also on spironolactone (12) Diabetes: -HgbA1c 6.5 -NovoLog per protocol while hospitalized (13) DVT prophylaxis: -Resume Xarelto DC Lovenox Total Time Total Time Spent Total Time Spent (In Minutes): 48 minutes Discharge Plan Discharge Items Patient Disposition: Home - Self-Care Reason For Visit: COVID+,SOB,COUGH X4DAYS,CHEST TIGHTNESS Discharge Diagnosis: Acute on chronic respiratory failure with hypoxia COVID-19 pneumonia Dysphagia Ileus Pancytopenia Activity: Per Instructions section Exercise/Sports: Wait until after follow-up appointment Non-emergency contact: Primary Care Provider, General Hardware Salesperson and Oncologist Call non-emergency contact if: you have any medication questions, your symptoms worsen, your pain is concerning for you and you have a fever Follow-up/Referrals: Yareli Armstrong, [Primary Care Provider] - 04/13/21 2:00 pm Diet: Carb Consistent or DM2 and Low Fiber Addtl Attending Provider Instructions: Follow-up with your primary care physician Dr. Valdez on April 13, 2022 2 PM as scheduled Follow-up with your oncologist Dr. Madden for monitoring your blood counts as advised Follow-up with your student activities director for further evaluation of difficulty swallowing and possible endoscopy as outpatient --- Use oxygen via nasal cannula 3 L at rest and with activity as advised. Further recommendations as per your primary care physician. Seek immediate medical attention if your symptoms reoccur or worsen Please take all medications as instructed on discharge list below. Please call if you have any questions or problems. You can reach a [facility] hospitalist on duty at [facility] 24 hours a day by calling [phone] Pending Studies at Discharge: No Stand-Alone Forms: My [facility] [employer] Smoking Cessation Medications and DC Order Prescriptions: Continued famotidine [Pepcid] 40 mg tablet 40 mg PO DAILY Qty: 30 RF: 5 cholecalciferol (vitamin D3) 50,000 unit capsule 50,000 unit PO WK RF: 0 ipratropium-albuterol 0.5 mg-3 mg(2.5 mg base)/3 mL solution for nebulization 3 ml inhalation DAILY PRN (Reason: Shortness Of Breath) Qty: 1 RF: 0 tamoxifen 20 mg tablet 20 mg PO QAM RF: 0 amlodipine-valsartan 10-320 mg tablet 1 tab PO DAILY RF: 0 insulin glargine 100 unit/mL solution 33 units subcut HS Qty: 1 RF: 0 (DME) Oxygen Home Liters Per Minute See Rx Instructions .MEDSUPPLY Qty: 1 RF: 0 albuterol sulfate 90 mcg/actuation HFA aerosol inhaler 2 puff inhalation Q4H PRN (Reason: shortness of breath or wheezing) Qty: 8.5 RF: 5 budesonide-formoterol 160-4.5 mcg/actuation HFA aerosol inhaler 2 puff inhalation BID Qty: 10.2 RF: 5 atorvastatin 40 mg tablet 40 mg PO QAM RF: 0 metoprolol succinate 100 mg tablet extended release 24 hr 100 mg PO BID RF: 0 ropinirole 0.25 mg tablet 0.25 mg PO QAM RF: 0 omeprazole 20 mg capsule,delayed release(DR/EC) 20 mg PO QAM RF: 0 spironolactone 50 mg tablet 50 mg PO QAM RF: 0 diclofenac sodium 1 % gel 2 g TOPICAL QID PRN (Reason: Pain) RF: 0 Xarelto 20 mg tablet 20 mg PO QAM RF: 0 venlafaxine 37.5 mg capsule,extended release 24hr 37.5 mg PO DAILY RF: 0 potassium chloride 10 mEq Capsule, Extended Release 10 meq PO DAILY RF: 0 gabapentin 300 mg capsule 300 mg PO DAILY RF: 0 Discharge Orders: Discharge Order (Routine); Ordered 04/06/21 Ordered By: Omar Aragon/Other Patient Handouts: Managing Type 2 Diabetes, Understanding Dysphagia Admission Data Admit Date/Time: 03/27/21 16:47 Attending Provider: mOar Manzano Admit Provider: Francesca Poon Primary Care Provider: Yareli Armstrong Other Providers: Francesca Poon ; Nimesh Madden V. Other Interventions: Discharge Summary Assessment (RN) Last Done: 04/06/21 13:51
[2021-04-06] MEDS: ACETAMINOPHEN SUSP 325 MG/10.15 ML UDC PO PRN (15:02)
== END 2021-04-06 17:21 | disposition home or self-care (01) | DRG 177 ==
LOC: ED 10:04 → SUATTDRO 16:47 → 2E 16:47

== ENCOUNTER 2021-04-13 11:00 | Inpatient (IN) ==
--- NOTE | 2021-04-13 11:53 | XRay Report ---
XR chest 1V portable CLINICAL HISTORY: Dyspnea TECHNIQUE: Single frontal radiograph of the chest was obtained. Comparison: Comparison is made to chest one view 04/03/2021 FINDINGS: No lines and tubes are seen. The cardiomediastinal silhouette is stable. Multifocal airspace opacitie s are again seen. No evidence of pleural effusion or pneumothorax. IMPRESSION: Redemonstration of multifocal airspace opacities compatible with history of viral pneumonia. ACT 112: Negative or not required by law. Electronically signed by: Sreekanth Roche M.D. 04/13/2021 11:52 AM
[2021-04-13 12:28] LABS: D Dimer 3260 ug/L FEU (0-500)
[2021-04-13 12:32] LABS: Alanine Aminotransferase 35 (12-78); Albumin Level 2.5 gm/dl (3.4-5.0); Aspartate Aminotransferase 30 U/L (15-37); BUN Creatinine Ratio 14.4 (10-20); Blood Urea Nitrogen 11 mg/dl (7-18); Calcium 8.5 mg/dl (8.5-10.1); Carbon Dioxide 25 mmol/L (21-32); Chloride 104 mmol/L (98-107); Creatinine Clr Calc Pharmacy 51.3 ml/min; Est GFR (African American) 84.4 ml/min; Est GFR (Non-African American) 72.8 ml/min; Glucose 105 mg/dl (70-99); Magnesium 1.8 mg/dl (1.8-2.4); Potassium 3.9 mmol/L (3.5-5.1); Sodium 135 mmol/L (136-145)
[2021-04-13 12:38] LABS: Albumin Globulin Ratio 0.7 (0.9-2); Alkaline Phosphatase 103 U/L (45-117); Bilirubin,Total 0.9 mg/dl (0.2-1); Globulin 3.6 gm/dl (2.5-4.0); NT Pro B Type Natriuretic Pept 5660 pg/ml (0-1800); Total Protein 6.1 gm/dl (6.4-8.2); Troponin I < 0.015 ng/ml (0-0.045)
[2021-04-13 13:18] LABS: Mean Corpuscular Hgb Conc 32.9 g/dL (32-36)
[2021-04-13 13:20] LABS: Hematocrit (blood only) 32.8 % (37-47); Hemoglobin 10.8 g/dL (12.0-16.0); Mean Corpuscular Hemoglobin 27.3 pg (25-34); RDW Coefficient of Variation 18.9 % (11.5-14.5); RDW Standard Deviation 58.7 fL (36.4-46.3); Red Blood Count 3.95 M/uL (4.2-5.4); White Blood Count 2.56 K/uL (4.8-10.8)
[2021-04-13 14:02] LABS: Basophils # (auto) 0.01 K/uL (0-0.2); Basophils % (auto) 0.4 %; Eosinophils # (auto) 0.05 K/uL (0-0.5); Immature Granulocytes # (auto) 0.01 K/uL (0.00-0.02); Immature Granulocytes % (auto) 0.4 %; Lymphocytes # (auto) 0.38 K/uL (1.2-3.4); Lymphocytes % (auto) 14.8 %; Monocytes % (auto) 7.8 %; Neutrophils # (auto) 1.91 K/uL (1.4-6.5); Neutrophils % (auto) 74.6 %; Ovalocytes 1+; Platelet Count 61 K/uL (130-400); Platelet Estimate Decreased (Normal)
--- NOTE | 2021-04-13 14:16 | Electrocardiogram Report ---
Test Reason : Blood Pressure : / mmHG Vent. 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
[2021-04-13 15:40] LABS: Appearance Urine Clear (Clear); Bacteria Urine Automated Negative (Negative); Blood Urine Negative (Negative); Color Urine Dark Yellow; Epithelial Cell Urine Auto >30 /lpf (0-5); Glucose Urine UA Negative (Negative); Ketones Urine 1+ (Negative); Leukocyte Esterase Urine Negative (Negative); Nitrite Urine Negative (Negative); Protein Urine 1+ (Negative); RBC Urine Automated 0-4 /hpf (0-4); Specific Gravity Urine 1.021 (1.000-1.030); Urobilinogen Urine Negative (Negative)
[2021-04-13 15:42] LABS: Bilirubin Urine 1+ (Negative)
--- NOTE | 2021-04-13 16:14 | Emergency Department Note ---
Impression & Plan SOB (shortness of breath), COVID-19, Elevated d-dimer, Elevated C-reactive protein ED Provider Note INFORMANT: Patient ED PROVIDER(S): Alberto Weaver MD CHIEF COMPLAINT: Shortness of breath PLAN: Disposition: Admitted Condition: Good Outpatient prescription management: none Referral: None MEDICAL DECISION MAKING: Patient presented back to the department after being discharged home and treated for COVID-19. She was worsening. She had increased oxygen requirements. Laboratory testing and chest x-ray performed. Chest x-ray was consistent infiltrative change consistent with her COVID-19. She was pancytopenic on her CBC. Her BNP was significant elevated and her CRP was trending upwards as well. Patient had already received 10 days of remdesivir and 10 days of steroids. T he patient had an elevated D-dimer as well. She was sent for CT imaging however had increased dyspnea with lying flat and had increased oxygen requirement. To help with this the patient had BiPAP ordered. She was given IV Lasix. Consultation was made with internal medicine. Patient was evaluated by the [facility] service and admitted for further management. Triage Nursing notes reviewed and agree them. Vital Signs: reviewed and remarkable for tachypnea Differential diagnosis: Reactive airway disease, pneumonia, pneumothorax, COPD, CHF, infections, cardiac ischemia, pulmonary embolism, musculoskeletal, gastrointestinal, as well as other pathologies. Diagnostics interpreted by me: ECG: Twelve-lead ECG reveals normal sinus rhythm at 79 bpm. Recommend block and left anterior fascicular block. Old septal Q waves. Old lateral Q waves. No acute ST elevation. Cardiac Monitoring: Cardiac monitoring ordered by me: The patient was placed on continuous cardiac monitoring and observed. It revealed a normal sinus rhythm at 98beats per minute without ectopy or evidence of dysrhythmia. Imaging studies: Chest x-ray as above. CT imaging ordered but pending. HPI: The patient is a 76 year old female who presents to the Emergency Room with complaints of shortness of breath. This started over a week ago and is worsening. The patient was admitted to the hospital secondary to COVID-19. She had increased oxygen requirements. She was discharged on 3 L. She has had increased oxygen at home. She is extremely dyspneic. The patient also notes the following associated symptoms, cough and weakness. The patient has taken no new medications for relieving factors. Current pain is rated as 0/10. Pt denies LOC, headache, fevers, chills, diaphoresis, visual changes, neck pain, ch est pain, nausea, vomiting, abdominal pain, back pain, melena, hematochezia, urinary symptoms, numbness,lymphadenopathy, rash, or other complaints. ROS: See above HPI for pertinent positives & negatives. A total of 10 systems reviewed and were otherwise negative. PAST MEDICAL HISTORY:See Below , COVID-19 PAST SURGICAL HISTORY:See Below, FAMILY HISTORY:See Below SOCIAL HISTORY:See Below, non-smoker HOME MEDICATIONS:See Below ALLERGIES:See Below VITALS:See Below PHYSICAL EXAMINATION: GENERAL: Awake, alert, dyspneic-appearing, in no distress HENT: Normocephalic, atraumatic. Oropharynx unremarkable. EYES: Normal conjunctiva. Sclera non-icteric. NECK: Inspection normal. Non-tender. Supple. No nuchal rigidity. FROM. No masses. RESPIRATORY: No wheezes. Scattered rales. Increased respiratory effort. CARDIAC: Normal rate. Normal rhythm. No murmurs. No rubs. Extremities warm and well perfused. Pulses equal. No JVD. GI: Soft, non-distended. No tenderness to palpation. No rebound or guarding. No masses. RECTAL: Deferred. MUSCULOSKELETAL: Atraumatic. Chest examination reveals no tenderness. The back is symmetrical on inspection without obvious abnormality. There is no CVA tenderness to palpation. No joint edema. LOWER EXTREMITIES: Calves are equal size bilaterally and non-tender. No edema. No discoloration. NEURO: Normal sensorium. No sensory or motor deficits noted. SKIN: No rash or jaundice noted. Alberto Weaver MD Past Med/Surg History Medical History (Updated 04/13/21 @ 16:13 by Alberto Weaver MD) Arthritis BPPV (benign paroxysmal positional vertigo) Chronic anticoagulation Chronic respiratory failure with hypoxia COPD (chronic obstructive pulmonary disease) Diabetes GERD without esophagitis Hiatal hernia History of adverse effect of anesthesia on table? - Per Patient Form History of breast cancer History of Clostridioides difficile colitis History of ITP Hypertension Hypertensive heart disease Nocturnal hypoxemia On home oxygen therapy Osteoporosis Paroxysmal atrial fibrillation Pulmonary hypertension Restrictive lung disease Rheumatoid arthritis Sarcoidosis SNHL (sensorineural hearing loss) Surgical History History of appendectomy History of cholecystectomy History of hysterectomy History of tonsillectomy Family History Mother Hypertension Heart disease Father Hypertension Stroke Heart disease Other Family history of bleeding disorder No family history of adverse response to anesthesia Social History (Updated 03/27/21 @ 17:25 by POLLY Ramos) Smoking Status: Never smoker Hx Alcohol Use: No Hx Substance Use: No Preferred Language: Latvian Communication Ability: Effective Adz Worker Required: No Beliefs That Will Affect Care: None Current Living Situation: Alone Current Living Situation Comment: sister currently staying with patient, pt has home care visiting 2x/week Feels Safe at Home: Yes Assistive Devices: Oxygen - Continuous Allergies Allergies Allergy/AdvReac Type Severity Reaction Status Date / Time No Known Drug Allergies Allergy Verified 03/27/21 14:38 Home Meds Home Medications Medication Instructions Recorded Confirmed cholecalciferol (vitamin D3) 1,250 50,000 unit PO WK cap 11/27/18 03/27/21 mcg (50,000 unit) capsule ipratropium 0.5 mg-albuterol 3 mg 3 ml INHALATION DAILY PRN #1 ml 11/27/18 03/27/21 (2.5 mg base)/3 mL nebulization soln tamoxifen 20 mg tablet 20 mg PO QAM tab 11/27/18 03/27/21 amlodipine 10 mg-valsartan 320 mg 1 tab PO DAILY tab 10/09/19 03/27/21 tablet insulin glargine 100 unit/mL 33 units SUBCUT HS #1 ml 10/09/19 03/27/21 subcutaneous solution atorvastatin 40 mg tablet 40 mg PO QAM 03/27/21 03/27/21 diclofenac sodium 1 % topical gel 2 g TOPICAL QID PRN 03/27/21 03/27/21 gabapentin 300 mg capsule 300 mg PO DAILY 03/27/21 03/27/21 metoprolol succinate 100 mg 100 mg PO BID 03/27/21 03/27/21 tablet,extended release 24 hr omeprazole 20 mg capsule,delayed 20 mg PO QAM 03/27/21 03/27/21 release potassium chloride 10 mEq 10 meq PO DAILY 03/27/21 03/27/21 capsule,extended release rivaroxaban 20 mg tablet (Xarelto) 20 mg PO QAM 03/27/21 03/27/21 ropinirole 0.25 mg tablet 0.25 mg PO QAM 03/27/21 03/27/21 spironolactone 50 mg tablet 50 mg PO QAM 03/27/21 03/27/21 venlafaxine 37.5 mg 37.5 mg PO DAILY 03/27/21 03/27/21 capsule,extended release 24 hr Previous Rx's Medication Instructions Recorded Oxygen Home #1 ea 07/28/20 famotidine 40 mg tablet (Pepcid) 40 mg PO DAILY #30 tab 07/28/20 albuterol sulfate 90 mcg/actuation 2 puff INHALATION Q4H PRN #8.5 g 02/09/21 aerosol inhaler budesonide-formoterol HFA 160 2 puff INHALATION BID #10.2 g 02/09/21 mcg-4.5 mcg/actuation aerosol inhaler Results & Data (ED) Vital Signs Vital Signs - 24 hr 04/13/21 10:46 04/13/21 11:35 04/13/21 14:00 Pulse Rate 88 77 Pulse Rate [Left Finger] 84 Respiratory Rate 30 H 18 30 H Respiratory Effort / Characteristics Respiratory Depth Respiratory Pattern Blood Pressure 134/94 Blood Pressure [Left Arm] 134/55 L Blood Pressure Mean 107 Blood Pressure Mean [Left Arm] 81 Pulse Oximetry 94 93 90 Oxygen Delivery Method Nasal Cannula Nasal Cannula Nasal Cannula Oxygen Flow Rate 5 5 5 Fraction of Inspired Oxygen Sepsis Recent Fever Within 48 Hours No Sepsis New/Unexplained Change in Mental Status No Sepsis Action Taken by Nursing No Action Required 04/13/21 16:20 04/13/21 16:32 Pulse Rate 98 H Pulse Rate [Left Finger] 96 H Respiratory Rate 38 H 38 H Respiratory Effort / Characteristics Labored Spontaneous Labored SOB on Exertion Respiratory Depth Normal Respiratory Pattern Tachypnea Blood Pressure Blood Pressure [Left Arm] 148/74 H Blood Pressure Mean Blood Pressure Mean [Left Arm] 98 Pulse Oximetry 93 98 Oxygen Delivery Method Nasal Cannula Oxygen Flow Rate 6 Fraction of Inspired Oxygen 40 Sepsis Recent Fever Within 48 Hours Sepsis New/Unexplained Change in Mental Status Sepsis Action Taken by Nursing Laboratory Data Result diagrams: 04/13/21 12:55 04/13/21 11:30 Lab Results 04/13/21 04/13/21 04/13/21 Range/Units 11:30 11:30 11:30 WBC (4.8-10.8) K/uL RBC (4.2-5.4) M/uL Hgb (12.0-16.0) g/dL Hct (37-47) % MCV (80-100) fL MCH (25-34) pg MCHC (32-36) g/dL RDW Std Deviation (36.4-46.3) fL RDW Coeff of Chi (11.5-14.5) % Plt Count (130-400) K/uL Immature Gran % (Auto) % Neut % (Auto) % Lymph % (Auto) % [place] % (Auto) % Eos % (Auto) % Baso % (Auto) % Neut # (Auto) (1.4-6.5) K/uL Lymph # (Auto) (1.2-3.4) K/uL [place] # (Auto) (0.11-0.59) K/uL Eos # (Auto) (0-0.5) K/uL Baso # (Auto) (0-0.2) K/uL Immature Gran # (Auto) (0.00-0.02) K/uL Platelet Estimate (Normal) Ovalocytes D-Dimer 3260 H* (0-500) ug/L FEU Sodium 135 L (136-145) mmol/L Potassium 3.9 (3.5-5.1) mmol/L Chloride 104 (98-107) mmol/L Carbon Dioxide 25 (21-32) mmol/L Anion Gap 6.0 (3-11) BUN 11 (7-18) mg/dl Creatinine 0.78 (0.6-1.2) mg/dl Est Cr Clr Drug Dosing 51.3 ml/min Est GFR ( Amer) 84.4 ml/min Est GFR (Non-Af Amer) 72.8 ml/min BUN/Creatinine Ratio 14.4 (10-20) Glucose 105 H (70-99) mg/dl Calcium 8.5 (8.5-10.1) mg/dl Magnesium 1.8 (1.8-2.4) mg/dl Total Bilirubin 0.9 (0.2-1) mg/dl AST 30 (15-37) U/L ALT 35 (12-78) Alkaline Phosphatase 103 (45-117) U/L Troponin I < 0.015 (0-0.045) ng/ml C-Reactive Protein 3.53 H (0-0.29) mg/dl NT-Pro-B Natriuret Pep 5660 H (0-1800) pg/ml Total Protein 6.1 L (6.4-8.2) gm/dl Albumin 2.5 L (3.4-5.0) gm/dl Globulin 3.6 (2.5-4.0) gm/dl Albumin/Globulin Ratio 0.7 L (0.9-2) Urine Color Urine Appearance (Clear) Urine pH (4.5-7.5) Ur Specific [place] (1.000-1.030) Urine Protein (Negative) Urine Glucose (UA) (Negative) Urine Ketones (Negative) Urine Blood (Negative) Urine Nitrite (Negative) Urine Bilirubin (Negative) Urine Urobilinogen (Negative) Ur Leukocyte Esterase (Negative) Urine WBC (Auto) (0-5) /hpf Urine RBC (Auto) (0-4) /hpf U Hyaline Cast (Auto) (0-5) /lpf U Epithel Cells (Auto) (0-5) /lpf Urine Bacteria (Auto) (Negative) 04/13/21 04/13/21 Range/Units 12:55 15:25 WBC 2.56 L (4.8-10.8) K/uL RBC 3.95 L (4.2-5.4) M/uL Hgb 10.8 L (12.0-16.0) g/dL Hct 32.8 L (37-47) % MCV 83.0 (80-100) fL MCH 27.3 (25-34) pg MCHC 32.9 (32-36) g/dL RDW Std Deviation 58.7 H (36.4-46.3) fL RDW Coeff of Chi 18.9 H (11.5-14.5) % Plt Count 61 L (130-400) K/uL Immature Gran % (Auto) 0.4 % Neut % (Auto) 74.6 % Lymph % (Auto) 14.8 % [place] % (Auto) 7.8 % Eos % (Auto) 2.0 % Baso % (Auto) 0.4 % Neut # (Auto) 1.91 (1.4-6.5) K/uL Lymph # (Auto) 0.38 L (1.2-3.4) K/uL [place] # (Auto) 0.20 (0.11-0.59) K/uL Eos # (Auto) 0.05 (0-0.5) K/uL Baso # (Auto) 0.01 (0-0.2) K/uL Immature Gran # (Auto) 0.01 (0.00-0.02) K/uL Platelet Estimate Decreased L (Normal) Ovalocytes 1+ D-Dimer (0-500) ug/L FEU Sodium (136-145) mmol/L Potassium (3.5-5.1) mmol/L Chloride (98-107) mmol/L Carbon Dioxide (21-32) mmol/L Anion Gap (3-11) BUN (7-18) mg/dl Creatinine (0.6-1.2) mg/dl Est Cr Clr Drug Dosing ml/min Est GFR ( Amer) ml/min Est GFR (Non-Af Amer) ml/min BUN/Creatinine Ratio (10-20) Glucose (70-99) mg/dl Calcium (8.5-10.1) mg/dl Magnesium (1.8-2.4) mg/dl Total Bilirubin (0.2-1) mg/dl AST (15-37) U/L ALT (12-78) Alkaline Phosphatase (45-117) U/L Troponin I (0-0.045) ng/ml C-Reactive Protein (0-0.29) mg/dl NT-Pro-B Natriuret Pep (0-1800) pg/ml Total Protein (6.4-8.2) gm/dl Albumin (3.4-5.0) gm/dl Globulin (2.5-4.0) gm/dl Albumin/Globulin Ratio (0.9-2) Urine Color Dark Yellow Urine Appearance Clear (Clear) Urine pH 5.0 (4.5-7.5) Ur Specific [place] 1.021 (1.000-1.030) Urine Protein 1+ H (Negative) Urine Glucose (UA) Negative (Negative) Urine Ketones 1+ H (Negative) Urine Blood Negative (Negative) Urine Nitrite Negative (Negative) Urine Bilirubin 1+ H (Negative) Urine Urobilinogen Negative (Negative) Ur Leukocyte Esterase Negative (Negative) Urine WBC (Auto) 1-5 (0-5) /hpf Urine RBC (Auto) 0-4 (0-4) /hpf U Hyaline Cast (Auto) 5-10 H (0-5) /lpf U Epithel Cells (Auto) >30 H (0-5) /lpf Urine Bacteria (Auto) Negative (Negative) Administered Medications Discontinued Medications Furosemide (Furosemide 40 Mg/4 Ml Vial) 40 mg IV ONE ONE Stop: 04/13/21 16:21 Last Admin: 04/13/21 17:06 Dose: 40 mg Documented by: [id number] Imaging Data Radiologist's Impression: Chest X-Ray 04/13/21 11:35 XR chest 1V portable CLINICAL HISTORY: Dyspnea TECHNIQUE: Single frontal radiograph of the chest was obtained. Comparison: Comparison is made to chest one view 04/03/2021 FINDINGS: No lines and tubes are seen. The cardiomediastinal silhouette is stable. Multifocal airspace opacities are again seen. No evidence of pleural effusion or pneumothorax. IMPRESSION: Redemonstration of multifocal airspace opacities compatible with history of viral pneumonia. ACT 112: Negative or not required by law. Electronically signed by: Sreekanth Roche M.D. 04/13/2021 11:52 AM Discharge Plan Visit Data Chief Complaint: Shortness of Breath/Dyspnea ED Provider: Alberto Weaver Discharge Problem: SOB (shortness of breath), COVID-19, Elevated d-dimer, Elevated C-reactive protein Forms Stand Alone Forms: My [facility] Prescriptions Prescriptions: No Action famotidine [Pepcid] 40 mg tablet 40 mg PO DAILY Qty: 30 RF: 5 cholecalciferol (vitamin D3) 50,000 unit capsule 50,000 unit PO WK RF: 0 ipratropium-albuterol 0.5 mg-3 mg(2.5 mg base)/3 mL solution for nebulization 3 ml inhalation DAILY PRN (Reason: Shortness Of Breath) Qty: 1 RF: 0 tamoxifen 20 mg tablet 20 mg PO QAM RF: 0 amlodipine-valsartan 10-320 mg tablet 1 tab PO DAILY RF: 0 insulin glargine 100 unit/mL solution 33 units subcut HS Qty: 1 RF: 0 (DME) Oxygen Home Liters Per Minute See Rx Instructions .MEDSUPPLY Qty: 1 RF: 0 albuterol sulfate 90 mcg/actuation HFA aerosol inhaler 2 puff inhalation Q4H PRN (Reason: shortness of breath or wheezing) Qty: 8.5 RF: 5 budesonide-formoterol 160-4.5 mcg/actuation HFA aerosol inhaler 2 puff inhalation BID Qty: 10.2 RF: 5 atorvastatin 40 mg tablet 40 mg PO QAM RF: 0 metoprolol succinate 100 mg tablet extended release 24 hr 100 mg PO BID RF: 0 ropinirole 0.25 mg tablet 0.25 mg PO QAM RF: 0 omeprazole 20 mg capsule,delayed release(DR/EC) 20 mg PO QAM RF: 0 spironolactone 50 mg tablet 50 mg PO QAM RF: 0 diclofenac sodium 1 % gel 2 g TOPICAL QID PRN (Reason: Pain) RF: 0 Xarelto 20 mg tablet 20 mg PO QAM RF: 0 venlafaxine 37.5 mg capsule,extended release 24hr 37.5 mg PO DAILY RF: 0 potassium chloride 10 mEq Capsule, Extended Release 10 meq PO DAILY RF: 0 gabapentin 300 mg capsule 300 mg PO DAILY RF: 0 Referrals Referrals: Yareli Armstrong DO [Primary Care Provider] -
[2021-04-13] MEDS ORDERED: FUROSEMIDE 40 MG/4 ML VIAL IV ONE (16:20)
--- NOTE | 2021-04-13 17:11 | History & Physical Report ---
Date of Service April 13, 2021 Assessment & Plan (1) Acute and chronic respiratory failure with hypoxia: Plan: #. Acute on chronic hypoxic respiratory failure #. Recent diagnosis of COVID #. COPD - stable #. Chronic Resp Failure - on 3L at home COPD with chronic hypoxic respiratory failure on chronic 3 liter oxygen Recently admitted for Covid 03/27/2021 [Recent admission 03/27/2021 to 04/06/2021] status post DEXA and remdesivir Patient reports cough at baseline, increasing shortness of breath with exertion and with movement, no wheezing on exam but dry crackles diffuse and bilateral noted. Admitting CXR: Redemonstration of multifocal airspace opacities compatible with history of viral pneumonia. No cause for worsening respiratory status clearly known as of now, but could be likely developing/worsening fibrosis from recent Covid on top of her chronic respiratory failure but will need to follow-up with CT chest. May need HRCT, consider Pulm Consult if no improvement. Also her D-dimer is elevated, CTA chest were ordered in the ER, follow-up when available. Patient was doing well on 5 L nasal cannula oxygen per discussion with ER doctor, patient desaturated while lying flat for CTA chest, needing CPAP and dose of Lasix. Follow-up with CTA chest when available. Send pro-Zay, follow-up CTA chest, use supplemental oxygen, CPAP as needed, f/u COVID test. Solumedrol, c/w home PPI/H2 brayan, prn nebs. Lasix as needed. BNP 5660 at admission. f/u ECHO #. Pancytopenia: #. ITP #. Anemia of chronic disease -Multifactorial H/o, follows Dr. Avendano. stable continue to monitor, monitor CBC needs f/u w/ Hematology as OP. #. Other chronic medical conditions: Sarcoidosis/Splenomegaly/PAF/DM2/Ho Breast Ca/HTN/HLD Resume home meds as appropriate Sliding scale for DM ? Pharmacy consult if needed, pt on steroid c/w xarelto DVT prophylaxis: Thrombocytopenic, patient on home Xarelto DNR/DNI History of Present Illness Chief Complaint: Worsening shortness of breath Primary Care Provider: Yareli Armstrong DO 76-year-old F with PMH of recent diagnosis of Covid 03/27/2021 [Recent admission 03/27/2021 to 04/06/2021] status post DEXA and remdesivir, COPD with chronic hypoxic respiratory failure on chronic 3 liter oxygen, T2DM, PAF on Xarelto, GERD, osteoporosis, ITP, breast cancer s/p lumpectomy and radiation currently on tamoxifen presented to ED 04/13/21 for worsening shortness of breath. Of note she was recently discharged on 04/06/2021 after getting treatment for Covid; on 3 L oxygen. Which is her baseline. Patient reports having worsening shortness of breath, worse with exertion, needing increasing oxygen (upto 5L) from her baseline since the day of discharge. Patient reports her cough at baseline. Patient also reports decreased appetite since the same duration associated with weakness. Reports occasional headache. Denies any dizziness or nausea or vomiting. Denies any acute changes in her bowel or bladder habit. Denies any chest pain or feeling of heart racing. Patient lives alone, per her, her sister helps if needed. Patient reported taking her Xarelto without missing doses. Patient was ordered a CTA chest in the ED, but patient could not lie flat and desaturated needing CPAP. Patient was on CPAP at bedside exam. No smoking/alcohol consumption/recreational drug use. Patient DNR/DNI per discussion with her at bedside exam. No personal or family history of blood clot. No family history of cancer. Allergies Allergy/AdvReac Type Severity Reaction Status Date / Time No Known Drug Allergies Allergy Verified 04/13/21 18:22 Home Medications Medication Instructions Recorded Confirmed Type cholecalciferol (vitamin D3) 1,250 50,000 unit PO WK cap 11/27/18 04/13/21 History mcg (50,000 unit) capsule ipratropium 0.5 mg-albuterol 3 mg 3 ml INHALATION DAILY PRN #1 ml 11/27/18 04/13/21 History (2.5 mg base)/3 mL nebulization soln tamoxifen 20 mg tablet 20 mg PO QAM tab 11/27/18 04/13/21 History amlodipine 10 mg-valsartan 320 mg 1 tab PO DAILY tab 10/09/19 04/13/21 History tablet insulin glargine 100 unit/mL 33 units SUBCUT HS #1 ml 10/09/19 04/13/21 History subcutaneous solution famotidine 40 mg tablet (Pepcid) 40 mg PO DAILY #30 tab 07/28/20 04/13/21 Rx albuterol sulfate 90 mcg/actuation 2 puff INHALATION Q4H PRN #8.5 g 02/09/21 04/13/21 Rx aerosol inhaler budesonide-formoterol HFA 160 2 puff INHALATION BID #10.2 g 02/09/21 04/13/21 Rx mcg-4.5 mcg/actuation aerosol inhaler atorvastatin 40 mg tablet 40 mg PO QAM 03/27/21 04/13/21 History diclofenac sodium 1 % topical gel 2 g TOPICAL QID PRN 03/27/21 04/13/21 History gabapentin 300 mg capsule 300 mg PO DAILY 03/27/21 04/13/21 History metoprolol succinate 100 mg 100 mg PO BID 03/27/21 04/13/21 History tablet,extended release 24 hr omeprazole 20 mg capsule,delayed 20 mg PO QAM 03/27/21 04/13/21 History release potassium chloride 10 mEq 10 meq PO DAILY 03/27/21 04/13/21 History capsule,extended release rivaroxaban 20 mg tablet (Xarelto) 20 mg PO QAM 03/27/21 04/13/21 History ropinirole 0.25 mg tablet 0.25 mg PO QAM 03/27/21 04/13/21 History spironolactone 50 mg tablet 50 mg PO QAM 03/27/21 04/13/21 History venlafaxine 37.5 mg 37.5 mg PO DAILY 03/27/21 04/13/21 History capsule,extended release 24 hr Past Med/Surg History Medical History (Updated 04/13/21 @ 17:33 by Diego Wilson MD) Arthritis BPPV (benign paroxysmal positional vertigo) Chronic anticoagulation Chronic respiratory failure with hypoxia COPD (chronic obstructive pulmonary disease) Diabetes GERD without esophagitis Hiatal hernia History of adverse effect of anesthesia on table? - Per Patient Form History of breast cancer History of Clostridioides difficile colitis History of ITP Hypertension Hypertensive heart disease Nocturnal hypoxemia On home oxygen therapy Osteoporosis Paroxysmal atrial fibrillation Pulmonary hypertension Restrictive lung disease Rheumatoid arthritis Sarcoidosis SNHL (sensorineural hearing loss) Surgical History History of appendectomy History of cholecystectomy History of hysterectomy History of tonsillectomy Family History Mother Hypertension Heart disease Father Hypertension Stroke Heart disease Other Family history of bleeding disorder No family history of adverse response to anesthesia Social History (Updated 03/27/21 @ 17:25 by POLLY Ramos) Smoking Status: Never smoker Hx Alcohol Use: No Hx Substance Use: No Preferred Language: Polish Communication Ability: Effective Oriental Medicine Practitioner Required: No Beliefs That Will Affect Care: None Current Living Situation: Alone Current Living Situation Comment: sister currently staying with patient, pt has home care visiting 2x/week Feels Safe at Home: Yes Assistive Devices: Oxygen - Continuous Physical Exam Physical Exam: GENERAL: Alert and oriented x3. NAD, on CPAP. HEENT: No pallor, no icterus. Pupils equal, round and reactive to light. Oral mucosa dry. NECK: No JVD, no neck masses. HEART: S1 and S2 heard. Regular rate and rhythm. Tachycardic, no murmur appre ciated, no gallop. RESPIRATORY SYSTEM: Normal AP diameter. No accessory muscle use. No wheezing, crackles likely dry diffuse and bilateral. ABDOMEN: Soft, bowel sounds present, nontender, no distention. CENTRAL NERVOUS SYSTEM: No facial droop. Speech is clear. Obeys simple commands. Moves extremities. EXTREMITIES: No edema, no erythema seen. Results & Data Results & Data ([facility]) Vital Signs (Past 12 Hours) Vital Signs Pulse Pulse Resp BP BP Pulse Ox 04/13/21 16:32 98 H 38 H 98 04/13/21 16:20 96 H 38 H 148/74 H 93 04/13/21 14:00 84 30 H 134/55 L 90 04/13/21 11:35 77 18 93 04/13/21 10:46 88 30 H 134/94 94 Code Status & VTE Plan VTE Prophylaxis Plan VTE Prophylaxis will be ordered: Yes
[2021-04-13] MEDS ORDERED: methylPREDNISolone 125 MG/2 ML VIAL IV STA (17:27)
[2021-04-13] MEDS ORDERED: DEXTROSE 50% 50 ML SYRINGE IV PRN (20:45)
[2021-04-13] MEDS ORDERED: CARBOHYDRATES FOR HYPOGLYCEMIA PO PRN (20:45)
[2021-04-13] MEDS ORDERED: ALBUT/IPRATROP 3MG/0.5MG NEB 3 ML VIAL INH PRN (20:45)
[2021-04-13] MEDS ORDERED: GLUCOSE 40% GEL 15 GM TUBE PO PRN (20:45)
[2021-04-13] MEDS ORDERED: GLUCAGON FOR INJ 1 MG VIAL SQ PRN (20:45)
[2021-04-13] MEDS ORDERED: ALBUTEROL HFA 8 GM INHALER INH PRN (20:45)
[2021-04-13] MEDS ORDERED: GLUCOSE 10 TABS/TUBE PO PRN (20:45)
[2021-04-13] MEDS: INSULIN ASPART PER UNIT SC SCH (21:46)
[2021-04-13] MEDS: INSULIN GLARGINE SOLOSTAR 100 UNITS/ML 3 ML PEN SC SCH (21:47)
[2021-04-13] MEDS: METOPROLOL SUCC 50MG EXT REL TAB PO SCH (22:04)
[2021-04-13] MEDS: ACETAMINOPHEN 325 MG TAB PO PRN (23:58)
[2021-04-13] MEDS: methylPREDNISolone 40 MG in SYRINGE 0 ML IV SCH (23:59)
[2021-04-14 07:20] LABS: Hematocrit (blood only) 30.6 % (37-47); Mean Corpuscular Hemoglobin 27.5 pg (25-34); Mean Corpuscular Hgb Conc 32.7 g/dL (32-36); Mean Corpuscular Volume 84.3 fL (80-100); RDW Coefficient of Variation 18.6 % (11.5-14.5); RDW Standard Deviation 58.1 fL (36.4-46.3); Red Blood Count 3.63 M/uL (4.2-5.4); White Blood Count 1.03 K/uL (4.8-10.8)
[2021-04-14 07:22] LABS: Mean Platelet Volume 9.9 fL (7.4-10.4); Platelet Count 65 K/uL (130-400)
[2021-04-14 07:54] LABS: Est GFR (African American) 69.1 ml/min
[2021-04-14 07:55] LABS: BUN Creatinine Ratio 22.8 (10-20); Calcium 8.6 mg/dl (8.5-10.1); Creatinine Clr Calc Pharmacy 43.5 ml/min; Est GFR (Non-African American) 59.6 ml/min; Phosphorus 5.3 mg/dl (2.5-4.9)
[2021-04-14] MEDS ORDERED: PNEUMOCOCCAL POLYSACCHARIDES 25 MCG/0.5 ML VIAL/SYR IM ONE (08:00)
[2021-04-14] MEDS: FLUTICASONE/VILANTEROL 100/25MCG 14 PUFFS/INHALER INH SCH (08:41)
[2021-04-14] MEDS: VENLAFAXINE HCL XR 37.5 MG CAPXR PO SCH (08:42)
[2021-04-14] MEDS: ATORVASTATIN 40 MG TAB PO SCH (08:42)
[2021-04-14] MEDS: PANTOprazole 40 MG TAB PO SCH (08:42)
[2021-04-14] MEDS: POTASSIUM CHLORIDE 10 MEQ TABCR PO SCH (08:42)
[2021-04-14] MEDS: SPIRONOLACTONE 25 MG TAB PO SCH (08:42)
[2021-04-14] MEDS: rOPINIRole HCL 0.25 MG TABLET PO SCH (08:42)
[2021-04-14] MEDS: GABAPENTIN 300 MG CAP PO SCH (08:42)
[2021-04-14] MEDS: amLODIPine BESYLATE 5 MG TAB PO SCH (08:42)
[2021-04-14] MEDS: FAMOTIDINE 40 MG TABLET PO SCH (08:42)
[2021-04-14] MEDS: VALSARTAN 80 MG TAB PO SCH (08:43)
[2021-04-14] MEDS: METOPROLOL SUCC 50MG EXT REL TAB PO SCH ×2 (08:43→20:09)
[2021-04-14] MEDS: methylPREDNISolone 40 MG in SYRINGE 0 ML IV SCH ×3 (08:43→23:28)
[2021-04-14] MEDS ORDERED: RIVAROXABAN 20 MG TAB PO SCH (09:00)
[2021-04-14] MEDS ORDERED: predniSONE 20 MG TAB PO SCH (09:00)
[2021-04-14] MEDS: INSULIN ASPART PER UNIT SC SCH ×4 (09:19→21:15)
[2021-04-14] MEDS: TAMOXIFEN CITRATE 10 MG TABLET PO SCH (09:20)
--- NOTE | 2021-04-14 11:59 | XCELERA ---
[id number]
--- NOTE | 2021-04-14 12:37 | Hospitalist Progress Note ---
Date of Service April 14, 2021 Assessment & Plan (1) Acute and chronic respiratory failure with hypoxia: Plan: #. Acute on chronic hypoxic respiratory failure #. Recent diagnosis of COVID #. COPD #. Chronic Resp Failure - on 3L at home COPD with chronic hypoxic respiratory failure on chronic 3 liter oxygen Recently admitted for Covid 03/27/2021 [Recent admission 03/27/2021 to 04/06/2021] status post DEXA and remdesivir Cough, increasing shortness of breath with exertion and with activity Admitting CXR: Redemonstration of multifocal airspace opacities compatible with history of viral pneumonia. Also her D-dimer is elevated, CTA chest unable to be obtained due to orthopnea However, patient has been on chronic anticoagulation with xarelto which makes PE less likely. However, can obtain CT PE when able BNP 5660 at admission. Echo reported noted. Procal is 0.2 Possibilities include COPD exacerbation, Development of Long COVID Continue steroid Continue IV lasix as needed Continue oxygen supplementation Hold off antibiotics at this time based on procalcitonin #. Pancytopenia: #. ITP #. Anemia of chronic disease -Multifactorial H/o, follows Dr. Avendano. Pancytopenic. CBC w/diff #. Other chronic medical conditions: Sarcoidosis/Splenomegaly/PAF/DM2/Ho Breast Ca/HTN/HLD Resume home meds as appropriate Sliding scale for DM DVT prophylaxis: Continue home xarelto. Renally dosed- reduce to 15mg daily based on CrCl DNR/DNI Admission and Anticipated Discharge Date Admission Date: April 13, 2021 Subjective Patient seen and examined Reports cough, shortness of breath and orthopnea Denied chest pain, palpitation Denied abd pain, nausea, vomiting, diarrhea Denied dysuria, freq, urgency Physical Exam Constitutional: + ill appearing and + well hydrated Elderly woman Eyes: PERRL, conjunctivae normal, anicteric sclerae ENMT: external ear and nose normal, oropharynx normal Respiratory: On oxymask, Diminished breath sounds with scattered crackles Cardiovascular: Rate/Rhythm: regular rate and regular rhythm S1 S2 Gastrointestinal (Abdomen): normal bowel sounds, soft, nontender, no hepatosplenomegaly Musculoskeletal: No pedal edema Neurologic: PERRL, EOMI, accommodation nl, no face palsy, no dysarthria Psychiatric: A+Ox3, euthymic affect Results & Data Results & Data ([place]) Vital Signs (Past 12 Hours) Vital Signs Temp Pulse Pulse Resp BP Pulse Ox 04/14/21 12:09 36.4 C L 20 116/72 89 L 04/14/21 08:40 84 134/78 04/14/21 07:37 68 Laboratory Results Abnormal lab results 04/13/21 04/13/21 04/14/21 Range/Units 15:25 21:07 06:53 WBC 1.03 L (4.8-10.8) K/uL RBC 3.63 L (4.2-5.4) M/uL Hgb 10.0 L (12.0-16.0) g/dL Hct 30.6 L (37-47) % RDW Std Deviation 58.1 H (36.4-46.3) fL RDW Coeff of Chi 18.6 H (11.5-14.5) % Plt Count 65 L (130-400) K/uL Sodium (136-145) mmol/L BUN (7-18) mg/dl BUN/Creatinine Ratio (10-20) Glucose (70-99) mg/dl POC Glucose 178 H (70-99) mg/dl Phosphorus (2.5-4.9) mg/dl Urine Protein 1+ H (Negative) Urine Ketones 1+ H (Negative) Urine Bilirubin 1+ H (Negative) U Hyaline Cast (Auto) 5-10 H (0-5) /lpf U Epithel Cells (Auto) >30 H (0-5) /lpf 04/14/21 04/14/21 04/14/21 Range/Units 06:53 07:30 11:34 WBC (4.8-10.8) K/uL RBC (4.2-5.4) M/uL Hgb (12.0-16.0) g/dL Hct (37-47) % RDW Std Deviation (36.4-46.3) fL RDW Coeff of Chi (11.5-14.5) % Plt Count (130-400) K/uL Sodium 135 L (136-145) mmol/L BUN 21 H D (7-18) mg/dl BUN/Creatinine Ratio 22.8 H (10-20) Glucose 171 H (70-99) mg/dl POC Glucose 169 H 159 H (70-99) mg/dl Phosphorus 5.3 H (2.5-4.9) mg/dl Urine Protein (Negative) Urine Ketones (Negative) Urine Bilirubin (Negative) U Hyaline Cast (Auto) (0-5) /lpf U Epithel Cells (Auto) (0-5) /lpf
[2021-04-14] MEDS ORDERED: FUROSEMIDE 40 MG/4 ML VIAL IV ONE (13:15)
[2021-04-14] MEDS: ACETAMINOPHEN 325 MG TAB PO PRN (20:09)
[2021-04-14] MEDS: INSULIN GLARGINE SOLOSTAR 100 UNITS/ML 3 ML PEN SC SCH (21:16)
[2021-04-15] MEDS ORDERED: FUROSEMIDE INJ 20 MG/2 ML VIAL IV ONE (06:28)
[2021-04-15 07:50] LABS: Hemoglobin 10.3 g/dL (12.0-16.0); Mean Corpuscular Hemoglobin 27.5 pg (25-34); Mean Corpuscular Hgb Conc 33.2 g/dL (32-36); Mean Corpuscular Volume 82.7 fL (80-100); RDW Coefficient of Variation 18.4 % (11.5-14.5); RDW Standard Deviation 56.1 fL (36.4-46.3); Red Blood Count 3.75 M/uL (4.2-5.4); White Blood Count 3.23 K/uL (4.8-10.8)
[2021-04-15 07:55] LABS: Mean Platelet Volume 9.2 fL (7.4-10.4); Platelet Count 84 K/uL (130-400)
[2021-04-15 08:14] LABS: Immature Granulocytes # (auto) 0.01 K/uL (0.00-0.02); Immature Granulocytes % (auto) 0.3 %; Lymphocytes # (auto) 0.18 K/uL (1.2-3.4); Lymphocytes % (auto) 5.6 %; Monocytes # (auto) 0.15 K/uL (0.11-0.59); Monocytes % (auto) 4.6 %; Neutrophils # (auto) 2.89 K/uL (1.4-6.5); Neutrophils % (auto) 89.5 %; Ovalocytes 1+
[2021-04-15 08:27] LABS: BUN Creatinine Ratio 36.2 (10-20); Calcium 8.2 mg/dl (8.5-10.1); Creatinine Clr Calc Pharmacy 38.1 ml/min; Est GFR (African American) 58.9 ml/min; Est GFR (Non-African American) 50.8 ml/min; Potassium 4.1 mmol/L (3.5-5.1)
[2021-04-15] MEDS: INSULIN ASPART PER UNIT SC SCH ×4 (10:04→21:15)
[2021-04-15] MEDS: amLODIPine BESYLATE 5 MG TAB PO SCH (10:04)
[2021-04-15] MEDS: ATORVASTATIN 40 MG TAB PO SCH (10:04)
[2021-04-15] MEDS: methylPREDNISolone 40 MG in SYRINGE 0 ML IV SCH ×2 (10:04→16:21)
[2021-04-15] MEDS: FAMOTIDINE 40 MG TABLET PO SCH (10:05)
[2021-04-15] MEDS: GABAPENTIN 300 MG CAP PO SCH (10:05)
[2021-04-15] MEDS: FLUTICASONE/VILANTEROL 100/25MCG 14 PUFFS/INHALER INH SCH (10:05)
[2021-04-15] MEDS: METOPROLOL SUCC 50MG EXT REL TAB PO SCH ×2 (10:05→20:25)
[2021-04-15] MEDS: PANTOprazole 40 MG TAB PO SCH (10:05)
[2021-04-15] MEDS: SPIRONOLACTONE 25 MG TAB PO SCH (10:06)
[2021-04-15] MEDS: TAMOXIFEN CITRATE 10 MG TABLET PO SCH (10:06)
[2021-04-15] MEDS: rOPINIRole HCL 0.25 MG TABLET PO SCH (10:06)
[2021-04-15] MEDS: VALSARTAN 80 MG TAB PO SCH (10:06)
[2021-04-15] MEDS: POTASSIUM CHLORIDE 10 MEQ TABCR PO SCH (10:06)
[2021-04-15] MEDS: RIVAROXABAN 15 MG TAB PO SCH (10:06)
[2021-04-15] MEDS: VENLAFAXINE HCL XR 37.5 MG CAPXR PO SCH (10:07)
[2021-04-15] MEDS: POLYETHYLENE (MIRALAX) 17 GM PACK PO SCH (14:47)
[2021-04-15] MEDS: DOCUSATE SODIUM 100 MG CAP PO SCH ×2 (14:47→20:25)
--- NOTE | 2021-04-15 15:16 | Hospitalist Progress Note ---
Date of Service April 15, 2021 Assessment & Plan (1) Acute and chronic respiratory failure with hypoxia: Plan: 76-year-old F with PMH of recent diagnosis of Covid 03/27/2021 [Recent admission 03/27/2021 to 04/06/2021] status post DEXA and remdesivir, COPD with chronic hypoxic respiratory failure on chronic 3 liter oxygen, T2DM, PAF on Xarelto, GERD, osteoporosis, ITP, breast cancer s/p lumpectomy and radiation currently on tamoxifen presented to ED 04/13/21 for worsening shortness of breath.She is being managed for the following: #. Acute on chronic hypoxic respiratory failure #. Recent diagnosis of COVID #. COPD #. Chronic Resp Failure - on 3L at home COPD with chronic hypoxic respiratory failure on chronic 3 liter oxygen Recently admitted for Covid 03/27/2021 [Recent admission 03/27/2021 to 04/06/2021] status post DEXA and remdesivir Cough, increasing shortness of breath with exertion and with activity at presentation Admitting CXR: Redemonstration of multifocal airspace opacities compatible with history of viral pneumonia. Also her D-dimer is elevated, CTA chest unable to be obtained due to orthopnea. Pro-Zay negative at admission. However, patient has been on chronic anticoagulation with xarelto which makes PE less likely. However, can obtain CT PE when able BNP 5660 at admission. 04/14 ECHO: EF 65 to 70%, grade 1 diastolic dysfunction, left ventricular systolic function normal Possibilities include COPD exacerbation, Development of Long COVID Continue steroid, wean down jenny Continue IV lasix as needed Continue oxygen supplementation #. Pancytopenia: #. ITP #. Anemia of chronic disease -Multifactorial H/o, follows Dr. Avendano. Pancytopenic. CBC w/diff #. Other chronic medical conditions: Sarcoidosis/Splenomegaly/PAF/DM2/Ho Breast Ca/HTN/HLD Resume home meds as appropriate Sliding scale for DM DVT prophylaxis: Continue home xarelto. Renally dosed- reduce to 15mg daily based on CrCl DNR/DNI Admission and Anticipated Discharge Date Admission Date: April 13, 2021 Subjective Patient was lying in bed, on 11 L high flow oxygen, NAD, patient reports no new acute events overnight. Per RN, her breakfast was held in the morning due to easy fatigability and desaturations. Patient was more or less stabilized on 10 L oxygen for her lunch. Patient reports feeling better. Patient does have dry cough. Patient reports eating okay. Patient has very poor inspiratory effort with I-S, patient seems to be not compliant with doing incentive spirometer. Patient consulted to IS every hour 10 times, communicated with the nurse as well. Patient denies fever/chills/chest pain/palpitations/other review of symptoms. Physical Exam Physical Exam: GENERAL: Alert and oriented x3. NAD, on 11L. Weak inspiratory effort (<250 mL) w/ IS. HEENT: No pallor, no icterus. Pupils equal, round and reactive to light. Oral mucosa moist. NECK: No JVD, no neck masses. HEART: S1 and S2 heard. Regular rate and rhythm. no murmur appreciated, no gallop. RESPIRATORY SYSTEM: Normal AP diameter. No accessory muscle use. No wheezing, crackles diffuse and bilateral ?? dry crackles ABDOMEN: Soft, bowel sounds present, nontender, no distention. CENTRAL NERVOUS SYSTEM: No facial droop. Speech is clear. Obeys simple commands. Moves extremities. EXTREMITIES: No edema, no erythema seen. Results & Data Results & Data ([facility]) Vital Signs (Past 12 Hours) Vital Signs Temp Pulse Pulse Resp BP Pulse Ox 04/15/21 15:15 71 04/15/21 11:52 36.9 C 72 22 127/67 86 L 04/15/21 10:44 92 04/15/21 09:32 69 130/71 04/15/21 08:02 36.7 C 73 20 128/63 93 04/15/21 07:34 72 04/15/21 05:59 70 22 92
[2021-04-15] MEDS ORDERED: FUROSEMIDE 40 MG/4 ML VIAL IV ONE (16:59)
[2021-04-15] MEDS: INSULIN GLARGINE SOLOSTAR 100 UNITS/ML 3 ML PEN SC SCH (21:15)
[2021-04-16] MEDS: methylPREDNISolone 40 MG in SYRINGE 0 ML IV SCH ×5 (01:05→20:57)
[2021-04-16 07:15] LABS: BUN Creatinine Ratio 40.2 (10-20); Calcium 8.2 mg/dl (8.5-10.1); Creatinine Clr Calc Pharmacy 37.4 ml/min; Est GFR (African American) 57.6 ml/min; Est GFR (Non-African American) 49.7 ml/min; Potassium 4.4 mmol/L (3.5-5.1)
[2021-04-16] MEDS: METOPROLOL SUCC 50MG EXT REL TAB PO SCH ×2 (07:55→20:57)
[2021-04-16] MEDS: FLUTICASONE/VILANTEROL 100/25MCG 14 PUFFS/INHALER INH SCH (07:56)
[2021-04-16] MEDS: amLODIPine BESYLATE 5 MG TAB PO SCH (07:56)
[2021-04-16] MEDS: PANTOprazole 40 MG TAB PO SCH (07:58)
[2021-04-16] MEDS: VALSARTAN 80 MG TAB PO SCH (07:58)
[2021-04-16] MEDS: RIVAROXABAN 15 MG TAB PO SCH (07:59)
[2021-04-16] MEDS: POTASSIUM CHLORIDE 10 MEQ TABCR PO SCH (07:59)
[2021-04-16] MEDS: ATORVASTATIN 40 MG TAB PO SCH (08:00)
[2021-04-16] MEDS: rOPINIRole HCL 0.25 MG TABLET PO SCH (08:00)
[2021-04-16] MEDS: SPIRONOLACTONE 25 MG TAB PO SCH (08:01)
[2021-04-16] MEDS: VENLAFAXINE HCL XR 37.5 MG CAPXR PO SCH (08:02)
[2021-04-16] MEDS: DOCUSATE SODIUM 100 MG CAP PO SCH ×2 (08:03→20:53)
[2021-04-16] MEDS: GABAPENTIN 300 MG CAP PO SCH (08:03)
[2021-04-16] MEDS: FAMOTIDINE 40 MG TABLET PO SCH (08:04)
[2021-04-16] MEDS: POLYETHYLENE (MIRALAX) 17 GM PACK PO SCH (08:07)
[2021-04-16] MEDS: TAMOXIFEN CITRATE 10 MG TABLET PO SCH (08:45)
[2021-04-16] MEDS: INSULIN ASPART PER UNIT SC SCH ×4 (08:45→21:20)
--- NOTE | 2021-04-16 10:57 | Hospitalist Progress Note ---
Date of Service April 16, 2021 Assessment & Plan (1) Acute and chronic respiratory failure with hypoxia: Plan: 76-year-old F with PMH of recent diagnosis of Covid 03/27/2021 [Recent admission 03/27/2021 to 04/06/2021] status post DEXA and remdesivir, COPD with chronic hypoxic respiratory failure on chronic 3 liter oxygen, T2DM, PAF on Xarelto, GERD, osteoporosis, ITP, breast cancer s/p lumpectomy and radiation currently on tamoxifen presented to ED 04/13/21 for worsening shortness of breath.She is being managed for the following: #. Acute on chronic hypoxic respiratory failure #. Recent diagnosis of COVID, sequelae of COVID 19 Pneumonia #. COPD #. Chronic Resp Failure - on 3L at home COPD with chronic hypoxic respiratory failure on chronic 3 liter oxygen Recently admitted for Covid 03/27/2021 [Recent admission 03/27/2021 to 04/06/2021] status post DEXA and remdesivir Cough, increasing shortness of breath with exertion and with activity at presentation Admitting CXR: Redemonstration of multifocal airspace opacities compatible with history of viral pneumonia. Per prior attending, pulm was curbside consulted and had nothing to add for the patient. Also her D-dimer is elevated, CTA chest unable to be obtained due to orthopnea. Pro-Zay negative at admission. However, patient has been on chronic anticoagulation with xarelto which makes PE less likely. However, can obtain CT PE when able BNP 5660 at admission. 04/14 ECHO: EF 65 to 70%, grade 1 diastolic dysfunction, left ventricular systolic function normal Possibilities include COPD exacerbation, Development of Long COVID Continue steroid, wean down tomorrow. Continue IV lasix as needed Continue oxygen supplementation Labs as needed, will send infl markers with morning labs for day after jenny. It might take a long time for her oxygen requirement resolved, unsure about the time and the prognosis at present, patient and her daughter made aware. #. Pancytopenia: #. ITP #. Anemia of chronic disease -Multifactorial H/o, follows Dr. Avendano. Pancytopenic. CBC w/diff #. Other chronic medical conditions: Sarcoidosis/Splenomegaly/PAF/DM2/Ho Breast Ca/HTN/HLD Resume home meds as appropriate Sliding scale for DM DVT prophylaxis: Continue home xarelto. Renally dosed- reduce to 15mg daily based on CrCl DNR/DNI Disposition: Pt will likely need LTAC. CM aware. PT/OT. CM to assist with DC planning. 04/16 --> patient's daughter Toby given phone call, updated about the current status of the patient and the long-term need for high oxygen for her and that she likely will benefit from LTAC placement. Answered all her questions. She voiced understanding and was agreeable to the plan of care. Admission and Anticipated Discharge Date Admission Date: April 13, 2021 Subjective Patient was lying in bed, on 11 Liters high flow oxygen, NAD, patient reports no new acute events overnight. Per RN, patient has been on 6 L oxygen overnight and in the morning with no acute events overnight. Patient reports eating okay. Patient reports feeling better. Patient still has weak inspiratory effort on incentive spirometer seen at the bedside exam. Patient recounseled on the importance of consistency with incentive spirometer exercises. Patient seems to be doing okay with that per RN. Patient denies fever/chills/chest pain/palpitations/other review of symptoms. Physical Exam Physical Exam: GENERAL: Alert and oriented x3. NAD, on 11L. Weak inspiratory effort (~250 mL) w/ IS. HEENT: No pallor, no icterus. Pupils equal, round and reactive to light. Oral mucosa moist. NECK: No JVD, no neck masses. HEART: S1 and S2 heard. Regular rate and rhythm. no murmur appreciated, no gallop. RESPIRATORY SYSTEM: Normal AP diameter. No accessory muscle use. No wheezing, crackles diffuse and bilateral ?? dry crackles ABDOMEN: Soft, bowel sounds present, nontender, no distention. CENTRAL NERVOUS SYSTEM: No facial droop. Speech is clear. Obeys simple com mands. Moves extremities. EXTREMITIES: No edema, no erythema seen. Results & Data Results & Data ([facility]) Vital Signs (Past 12 Hours) Vital Signs Temp Pulse Pulse Resp BP Pulse Ox 04/16/21 08:00 60 04/16/21 07:32 37.0 C 67 22 125/63 96 04/16/21 03:31 36.8 C 59 L 18 132/70 97 04/16/21 00:44 65 04/15/21 23:15 36.6 C 68 20 119/62 96
[2021-04-16] MEDS: ACETAMINOPHEN 325 MG TAB PO PRN (18:38)
[2021-04-16] MEDS: INSULIN GLARGINE SOLOSTAR 100 UNITS/ML 3 ML PEN SC SCH (21:21)
[2021-04-17] MEDS: ACETAMINOPHEN 325 MG TAB PO PRN ×2 (01:52→23:51)
[2021-04-17] MEDS ORDERED: FUROSEMIDE 40 MG/4 ML VIAL IV ONE (07:25)
[2021-04-17] MEDS: POLYETHYLENE (MIRALAX) 17 GM PACK PO SCH (07:39)
[2021-04-17] MEDS: DOCUSATE SODIUM 100 MG CAP PO SCH ×2 (07:39→20:36)
[2021-04-17] MEDS: POTASSIUM CHLORIDE 10 MEQ TABCR PO SCH (07:39)
[2021-04-17] MEDS: PANTOprazole 40 MG TAB PO SCH (07:40)
[2021-04-17] MEDS: methylPREDNISolone 40 MG in SYRINGE 0 ML IV SCH (07:40)
[2021-04-17] MEDS: rOPINIRole HCL 0.25 MG TABLET PO SCH (07:41)
[2021-04-17] MEDS: ATORVASTATIN 40 MG TAB PO SCH (07:41)
[2021-04-17] MEDS: amLODIPine BESYLATE 5 MG TAB PO SCH (07:41)
[2021-04-17] MEDS: VALSARTAN 80 MG TAB PO SCH (07:41)
[2021-04-17] MEDS: VENLAFAXINE HCL XR 37.5 MG CAPXR PO SCH (07:41)
[2021-04-17] MEDS: RIVAROXABAN 15 MG TAB PO SCH (07:42)
[2021-04-17] MEDS: METOPROLOL SUCC 50MG EXT REL TAB PO SCH ×2 (07:42→20:36)
[2021-04-17] MEDS: TAMOXIFEN CITRATE 10 MG TABLET PO SCH (07:42)
[2021-04-17] MEDS: FAMOTIDINE 40 MG TABLET PO SCH (07:42)
[2021-04-17] MEDS: GABAPENTIN 300 MG CAP PO SCH (07:42)
[2021-04-17] MEDS: FLUTICASONE/VILANTEROL 100/25MCG 14 PUFFS/INHALER INH SCH (07:42)
[2021-04-17] MEDS: SPIRONOLACTONE 25 MG TAB PO SCH (07:42)
[2021-04-17] MEDS: INSULIN ASPART PER UNIT SC SCH ×4 (07:55→20:36)
--- NOTE | 2021-04-17 16:49 | Hospitalist Progress Note ---
Date of Service April 17, 2021 Assessment & Plan (1) Acute and chronic respiratory failure with hypoxia: Plan: 76-year-old F with PMH of recent diagnosis of Covid 03/27/2021 [Recent admission 03/27/2021 to 04/06/2021] status post DEXA and remdesivir, COPD with chronic hypoxic respiratory failure on chronic 3 liter oxygen, T2DM, PAF on Xarelto, GERD, osteoporosis, ITP, breast cancer s/p lumpectomy and radiation currently on tamoxifen presented to ED 04/13/21 for worsening shortness of breath.She is being managed for the following: #. Acute on chronic hypoxic respiratory failure #. Recent diagnosis of COVID, sequelae of COVID 19 Pneumonia #. COPD #. Chronic Resp Failure - on 3L at home COPD with chronic hypoxic respiratory failure on chronic 3 liter oxygen Recently admitted for Covid 03/27/2021 [Recent admission 03/27/2021 to 04/06/2021] status post DEXA and remdesivir Cough, increasing shortness of breath with exertion and with activity at presentation Admitting CXR: Redemonstration of multifocal airspace opacities compatible with history of viral pneumonia. Per prior attending Dr Zaragoza, pulm was curbside consulted and had nothing to add for the patient. Also her D-dimer is elevated, CTA chest unable to be obtained due to orthopnea. Pro-Zay negative at admission. However, patient has been on chronic anticoagulation with xarelto which makes PE less likely. However, can obtain CT PE when able BNP 5660 at admission. 04/14 ECHO: EF 65 to 70%, grade 1 diastolic dysfunction, left ventricular systolic function normal Possibilities include COPD exacerbation, Development of Long COVID Continue steroid, to oral in few days. Continue IV lasix as needed Continue oxygen supplementation Labs as needed, will send infl markers with morning labs for jenny. It might take a long time for her oxygen requirement resolved, unsure about the time and the prognosis at present, patient and her daughter made aware. #. Pancytopenia: #. ITP #. Anemia of chronic disease -Multifactorial H/o, follows Dr. Avendano. Pancytopenic. CBC w/diff #. Other chronic medical conditions: Sarcoidosis/Splenomegaly/PAF/DM2/Ho Breast Ca/HTN/HLD Resume home meds as appropriate Sliding scale for DM DVT prophylaxis: Continue home xarelto. Renally dosed- reduce to 15mg daily based on CrCl DNR/DNI Disposition: Pt will likely need LTAC. CM aware. PT/OT. CM to assist with DC planning. 04/16 --> patient's daughter Toby given phone call, updated about the current status of the patient and the long-term need for high oxygen for her and that she likely will benefit from LTAC placement. Answered all her questions. She voiced understanding and was agreeable to the plan of care. Admission and Anticipated Discharge Date Admission Date: April 13, 2021 Subjective Patient was lying in bed, on 8 Liters high flow oxygen, NAD, patient reports no new acute events overnight. Patient reports eating okay. Patient reports feeling better. Patient still has weak inspiratory effort on incentive spirometer seen at the bedside exam (<250 ml). Patient recounseled on the importance of consistency with incentive spirometer exercises. Patient seems to be doing less and less of IS again. Patient denies fever/chills/chest pain/palpitations/other review of symptoms. Physical Exam Physical Exam: GENERAL: Alert and oriented x3. NAD, on 8L. Weak inspiratory effort (<250 mL) w/ IS. HEENT: No pallor, no icterus. Pupils equal, round and reactive to light. Oral mucosa moist. NECK: No JVD, no neck masses. HEART: S1 and S2 heard. Regular rate and rhythm. no murmur appreciated, no gallop. RESPIRATORY SYSTEM: Normal AP diameter. No accessory muscle use. No wheezing, decreased breath sounds. ABDOMEN: Soft, bowel sounds present, nontender, no distention. CENTRAL NERVOUS SYSTEM: No facial droop. Speech is clear. Obeys simple commands. Moves extremities. EXTREMITIES: No edema, no erythema seen. Results & Data Results & Data ([facility]) Vital Signs (Past 12 Hours) Vital Signs Temp Pulse Pulse Resp BP Pulse Ox Pulse Ox 04/17/21 16:00 36.9 C 64 18 120/57 L 100 04/17/21 10:56 36.7 C 58 L 20 105/65 99 04/17/21 10:42 94 04/17/21 09:40 92 04/17/21 08:00 52 L 04/17/21 07:38 36.8 C 60 18 145/65 H 97 Pulse Ox Pulse Ox 04/17/21 16:00 01/14/22 10:56 04/17/21 10:42 88 L 85 L 04/17/21 09:40 04/17/21 08:00 04/17/21 07:38
[2021-04-17] MEDS: INSULIN GLARGINE SOLOSTAR 100 UNITS/ML 3 ML PEN SC SCH (20:49)
[2021-04-18] MEDS: ACETAMINOPHEN 325 MG TAB PO PRN ×2 (04:47→14:43)
[2021-04-18 06:19] LABS: Hemoglobin 12.9 g/dL (12.0-16.0); Mean Corpuscular Hemoglobin 28.6 pg (25-34); Mean Corpuscular Hgb Conc 33.9 g/dL (32-36); Mean Corpuscular Volume 84.3 fL (80-100); Mean Platelet Volume 9.4 fL (7.4-10.4); Platelet Count 145 K/uL (130-400); RDW Coefficient of Variation 18.1 % (11.5-14.5); RDW Standard Deviation 55.7 fL (36.4-46.3); Red Blood Count 4.51 M/uL (4.2-5.4); White Blood Count 7.12 K/uL (4.8-10.8)
[2021-04-18 07:03] LABS: Anion Gap 7 (3-11); Blood Urea Nitrogen 38 mg/dl (6-23); Calcium 8.6 mg/dl (8.5-10.1); Carbon Dioxide 29 mmol/L (21-32); Chloride 100 mmol/L (98-107); Est GFR (African American) 62.5 ml/min; Est GFR (Non-African American) 53.9 ml/min; Glucose 42 mg/dl (70-99); Potassium 4.2 mmol/L (3.5-5.1); Sodium 136 mmol/L (136-145)
[2021-04-18 07:12] LABS: D Dimer 5960 ug/L FEU (0-500)
[2021-04-18] MEDS: ATORVASTATIN 40 MG TAB PO SCH (08:52)
[2021-04-18] MEDS: VENLAFAXINE HCL XR 37.5 MG CAPXR PO SCH (08:52)
[2021-04-18] MEDS: amLODIPine BESYLATE 5 MG TAB PO SCH (08:52)
[2021-04-18] MEDS: POTASSIUM CHLORIDE 10 MEQ TABCR PO SCH (08:52)
[2021-04-18] MEDS: SPIRONOLACTONE 25 MG TAB PO SCH (08:52)
[2021-04-18] MEDS: rOPINIRole HCL 0.25 MG TABLET PO SCH (08:52)
[2021-04-18] MEDS: FAMOTIDINE 40 MG TABLET PO SCH (08:52)
[2021-04-18] MEDS: VALSARTAN 80 MG TAB PO SCH (08:53)
[2021-04-18] MEDS: RIVAROXABAN 15 MG TAB PO SCH (08:53)
[2021-04-18] MEDS: GABAPENTIN 300 MG CAP PO SCH (08:53)
[2021-04-18] MEDS: DOCUSATE SODIUM 100 MG CAP PO SCH ×2 (08:54→20:39)
[2021-04-18] MEDS: METOPROLOL SUCC 50MG EXT REL TAB PO SCH ×2 (08:54→20:39)
[2021-04-18] MEDS: methylPREDNISolone 40 MG in SYRINGE 0 ML IV SCH (08:54)
[2021-04-18] MEDS: FLUTICASONE/VILANTEROL 100/25MCG 14 PUFFS/INHALER INH SCH (08:54)
[2021-04-18] MEDS: PANTOprazole 40 MG TAB PO SCH (08:55)
[2021-04-18] MEDS: TAMOXIFEN CITRATE 10 MG TABLET PO SCH (09:00)
[2021-04-18] MEDS: INSULIN ASPART PER UNIT SC SCH ×4 (09:00→21:18)
[2021-04-18] MEDS ORDERED: PHARMACY GLYCEMIC MGMT CONSULT PRN (12:35)
--- NOTE | 2021-04-18 14:10 | Pharmacy Report ---
Pharmacy Glycemic Short Note 2 - Date of Service April 18, 2021 - Glycemic Short BSG Results (Last 24 hours): 04/17/21 04/17/21 04/18/21 16:19 19:35 05:41 Glucose 42 L* POC Glucose 138 H 146 H 04/18/21 04/18/21 04/18/21 07:33 11:45 11:46 Glucose POC Glucose 83 51 L* 54 L* 04/18/21 12:22 Glucose POC Glucose 146 H OUTPATIENT ANTIDIABETIC REGIMEN: * Lantus 33 units HS ASSESSMENT: * 76 year old female, readmitted with respiratory failure, PMH of recent diagnosis of COVID-19 03/27/2021, Recent admission 03/27/2021 to 04/06/2021, status post dexamethasone and remdesivir, COPD with chronic hypoxic respiratory failure on chronic 3 liter oxygen, T2DM, PAF on Xarelto, GERD, osteoporosis, ITP, breast cancer s/p lumpectomy and radiation currently on tamoxifen. * Patient on IV Solu-Medrol, with hypoglycemia as inpatient, pharmacy consulted for glycemic control. * Patient on home dose of Lantus, given last night, will hold tonight's dose and reassess in AM, loosen CF/CR to prevent further hypoglycemia. * Patient is eating very well and having snacks and treats her family brought her. PLAN FOR INPATIENT GLYCEMIC CONTROL: * Basal insulin * Lantus 33 units SQ HS - hold tonight's dose and reassess in AM * Bolus insulin * NovoLog per scale ACHS or Q6hrs while NPO * Goal Range: Low 120 mg/dL - High 160 mg/dL - for patient with hypoglycemia * Correction Factor: 35 mg/dL/unit * Nutritional / Prandial insulin per carb ratio of 1 unit per 20 grams CHO consumed PLAN FOR DISCHARGE: * to be determined
[2021-04-18] MEDS ORDERED: OPTIRAY 320 125ml IV ONE (16:54)
--- NOTE | 2021-04-18 17:14 | CT Scan Report ---
CT ANGIOGRAPHY OF THE CHEST, PULMONARY EMBOLUS PROTOCOL CLINICAL HISTORY: Difficulty breathing. Covid. COMPARISON STUDY: Chest CT June 23, 2006. Chest radiograph April 13, 2021. TECHNIQUE: Following IV administration of 120 mL of Optiray, helical axial images of the chest were o btained utilizing the pulmonary embolus protocol. Maximal intensity projections and sagittal and cor onal reformats were viewed on an independent 3D workstation. IV contrast was administered without co mplication. Automated exposure control was utilized for the study. A dose lowering technique was ut ilized adhering to the principles of ALARA. CT DOSE: 268.47 mGy.cm FINDINGS: No pulmonary emboli are identified. There is dilatation of the central pulmonary arteries. Main pulmonary artery measures 3.7 cm in diameter. Moderate cardiomegaly is noted. There is extensiv e mitral annular calcification. There is no pericardial effusion. Numerous enlarged partially calcifi ed mediastinal and bilateral hilar lymph nodes are noted. Similar findings were shown on CT of June 23, 2006. There is no pneumothorax. There are trace bilateral pleural effusions. Moderate to extensiv e multifocal foci of consolidation groundglass opacities throughout the lungs are noted. There is no cavitation. Note is made of a 2.3 cm irregular density within the superior right breast on axial imag e 91 of 241. Splenomegaly is partially imaged. This was shown on prior abdominal CT of March 27 021. IMPRESSION: 1. No pulmonary emboli identified. Dilatation of the central pulmonary arteries suggestive of pulmona ry arterial hypertension. 2. Moderate to extensive multifocal consolidation and groundglass opacities within the lungs suggesti ve of viral pneumonia. A follow-up chest CT in 3-6 months to ensure resolution is recommended. 3. Enlarged, partially calcified mediastinal and bilateral hilar lymph nodes, similar to CT of June 23, 2006. This favors a granulomatous process such as sarcoidosis. 4. 2.3 cm irregular density within the superior right breast. This could reflect post surgical change however a breast mass could appear similar. Correlation with surgical history is recommended. Follow -up nonemergent mammogram and ultrasound are recommended. ACT 112: Negative or not required by law. Electronically signed by: Blade Acosta M.D. 04/18/2021 5:13 PM
--- NOTE | 2021-04-18 17:46 | Hospitalist Progress Note ---
Date of Service April 18, 2021 Assessment & Plan (1) Acute and chronic respiratory failure with hypoxia: Plan: 76-year-old F with PMH of recent diagnosis of Covid 03/27/2021 [Recent admission 03/27/2021 to 04/06/2021] status post DEXA and remdesivir, COPD with chronic hypoxic respiratory failure on chronic 3 liter oxygen, T2DM, PAF on Xarelto, GERD, osteoporosis, ITP, breast cancer s/p lumpectomy and radiation currently on tamoxifen presented to ED 04/13/21 for worsening shortness of breath.She is being managed for the following: #. Acute on chronic hypoxic respiratory failure #. Recent diagnosis of COVID, sequelae of COVID 19 Pneumonia #. COPD #. Chronic Resp Failure - on 3L at home COPD with chronic hypoxic respiratory failure on chronic 3 liter oxygen Recently admitted for Covid 03/27/2021 [Recent admission 03/27/2021 to 04/06/2021] status post DEXA and remdesivir Cough, increasing shortness of breath with exertion and with activity at presentation Admitting CXR: Redemonstration of multifocal airspace opacities compatible with history of viral pneumonia. Per prior attending Dr Zaragoza, pulm was curbside consulted and had nothing to add for the patient. Also her D-dimer is elevated, CTA chest unable to be obtained due to orthopnea. Pro-Zay negative at admission. However, patient has been on chronic anticoagulation with xarelto which makes PE less likely. However, can obtain CT PE when able BNP 5660 at admission. 04/14 ECHO: EF 65 to 70%, grade 1 diastolic dysfunction, left ventricular systolic function normal Possibilities include COPD exacerbation, Development of Long COVID Continue steroid, to oral jenny Continue IV lasix as needed Continue oxygen supplementation Labs as needed, infl markers as needed. CRP trending down to normal, D-dimer elevated than admission, CTA chest, can use right arm for the CTA chest purpose. Discussed with oncology Dr. Lopez. For the long-term IV need, different alternatives will need to be considered. It might take a long time for her oxygen requirement to resolve, unsure about the time and the prognosis at present, patient and her daughter made aware. #. Pancytopenia: #. ITP #. Anemia of chronic disease -Multifactorial H/o, follows Dr. Avendano. Pancytopenic. CBC w/diff #. Other chronic medical conditions: Sarcoidosis/Splenomegaly/PAF/DM2/Ho Breast Ca/HTN/HLD Resume home meds as appropriate Sliding scale for DM DVT prophylaxis: Continue home xarelto. Renally dosed- reduce to 15mg daily based on CrCl DNR/DNI Disposition: Pt will likely need LTAC. CM aware. PT/OT. CM to assist with DC planning. 04/16 --> patient's daughter Toby given phone call, updated about the current status of the patient and the long-term need for high oxygen for her and that she likely will benefit from LTAC placement. Answered all her questions. She voiced understanding and was agreeable to the plan of care. Admission and Anticipated Discharge Date Admission Date: April 13, 2021 Subjective Patient was lying in bed, on 6 Liters high flow oxygen, NAD, patient reports no new acute events overnight. Patient reports eating okay. Patient reports feeling better. Patient still has weak inspiratory effort on incentive spirometer seen at the bedside exam (<250 ml). Pt seemingly not doing IS as often. Patient recounseled on the importance of consistency with incentive spirometer exercises. Patient denies fever/chills/chest pain/palpitations/other review of symptoms. Physical Exam Physical Exam: GENERAL: Alert and oriented x3. NAD, on 6L. Weak inspiratory effort (<250 mL) w/ IS. HEENT: No pallor, no icterus. Pupils equal, round and reactive to light. Oral mucosa moist. NECK: No JVD, no neck masses. HEART: S1 and S2 heard. Regular rate and rhythm. no murmur appreciated, no gallop. RESPIRATORY SYSTEM: Normal AP diameter. No accessory muscle use. No wheezing, decreased breath sounds. ABDOMEN: Soft, bowel sounds present, nontender, no distention. CENTRAL NERVOUS SYSTEM: No facial droop. Speech is clear. Obeys simple commands. Moves extremities. EXTREMITIES: No edema, no erythema seen. Results & Data Results & Data ([facility]) Vital Signs (Past 12 Hours) Vital Signs Temp Pulse Pulse Resp BP Pulse Ox 04/18/21 15:39 36.9 C 64 20 115/62 96 04/18/21 12:11 36.4 C L 77 20 137/64 92 04/18/21 07:15 58 L
[2021-04-19] MEDS: ACETAMINOPHEN 325 MG TAB PO PRN ×3 (02:44→20:32)
[2021-04-19] MEDS: INSULIN ASPART PER UNIT SC SCH ×4 (07:56→20:39)
[2021-04-19] MEDS: TAMOXIFEN CITRATE 10 MG TABLET PO SCH (08:01)
[2021-04-19] MEDS: FLUTICASONE/VILANTEROL 100/25MCG 14 PUFFS/INHALER INH SCH (08:14)
[2021-04-19] MEDS: GABAPENTIN 300 MG CAP PO SCH (08:14)
[2021-04-19] MEDS: METOPROLOL SUCC 50MG EXT REL TAB PO SCH ×2 (08:15→20:32)
[2021-04-19] MEDS: RIVAROXABAN 15 MG TAB PO SCH (08:15)
[2021-04-19] MEDS: POTASSIUM CHLORIDE 10 MEQ TABCR PO SCH (08:15)
[2021-04-19] MEDS: DOCUSATE SODIUM 100 MG CAP PO SCH ×2 (08:15→20:32)
[2021-04-19] MEDS: FAMOTIDINE 40 MG TABLET PO SCH (08:15)
[2021-04-19] MEDS: VALSARTAN 80 MG TAB PO SCH (08:15)
[2021-04-19] MEDS: SPIRONOLACTONE 25 MG TAB PO SCH (08:15)
[2021-04-19] MEDS: amLODIPine BESYLATE 5 MG TAB PO SCH (08:15)
[2021-04-19] MEDS: PANTOprazole 40 MG TAB PO SCH (08:16)
[2021-04-19] MEDS: VENLAFAXINE HCL XR 37.5 MG CAPXR PO SCH (08:16)
[2021-04-19] MEDS: ATORVASTATIN 40 MG TAB PO SCH (08:16)
[2021-04-19] MEDS: rOPINIRole HCL 0.25 MG TABLET PO SCH (08:17)
[2021-04-19 08:27] LABS: BUN Creatinine Ratio 49.4 (10-20); Est GFR (African American) 85.7 ml/min; Potassium 4.2 mmol/L (3.5-5.1)
[2021-04-19] MEDS: dexAMETHasone 4 MG TAB PO SCH (09:19)
--- NOTE | 2021-04-19 14:45 | Pharmacy Report ---
Pharmacy Glycemic Short Note 2 - Date of Service April 19, 2021 - Glycemic Short BSG Results (Last 24 hours): 04/18/21 04/18/21 04/18/21 17:07 20:01 20:04 Glucose POC Glucose 190 H 434 H* 434 H* 04/19/21 04/19/21 04/19/21 07:17 07:30 11:47 Glucose 66 L POC Glucose 72 145 H OUTPATIENT ANTIDIABETIC REGIMEN: * Lantus 33 units HS ASSESSMENT: 04/19: * Blood sugars well controlled today, basal held last night, Solu-Medrol discontinued * Fasting 72mg/dl, continue to hold basal * Blood sugars increased yesterday with CHO intake, tighten CR 04/18: * 76 year old female, readmitted with respiratory failure, PMH of recent diagnosis of COVID-19 03/27/2021, Recent admission 03/27/2021 to 04/06/2021, status post dexamethasone and remdesivir, COPD with chronic hypoxic respiratory failure on chronic 3 liter oxygen, T2DM, PAF on Xarelto, GERD, osteoporosis, ITP, breast cancer s/p lumpectomy and radiation currently on tamoxifen. * Patient on IV Solu-Medrol, with hypoglycemia as inpatient, pharmacy consulted for glycemic control. * Patient on home dose of Lantus, given last night, will hold tonight's dose and reassess in AM, loosen CF/CR to prevent further hypoglycemia. * Patient is eating very well and having snacks and treats her family brought her. PLAN FOR INPATIENT GLYCEMIC CONTROL: * Basal insulin * Lantus 33 units SQ HS - ON HOLD * Bolus insulin * NovoLog per scale ACHS or Q6hrs while NPO * Goal Range: Low 120 mg/dL - High 160 mg/dL - for patient with hypoglycemia * Correction Factor: 35 mg/dL/unit * TIGHTEN: Nutritional / Prandial insulin per carb ratio of 1 unit per 12 grams CHO consumed PLAN FOR DISCHARGE: * to be determined
--- NOTE | 2021-04-19 16:33 | Hospitalist Progress Note ---
Date of Service April 19, 2021 Assessment & Plan (1) Acute and chronic respiratory failure with hypoxia: Plan: 76-year-old F with PMH of recent diagnosis of Covid 03/27/2021 [Recent admission 03/27/2021 to 04/06/2021] status post DEXA and remdesivir, COPD with chronic hypoxic respiratory failure on chronic 3 liter oxygen, T2DM, PAF on Xarelto, GERD, osteoporosis, ITP, breast cancer s/p lumpectomy and radiation currently on tamoxifen presented to ED 04/13/21 for worsening shortness of breath.She is being managed for the following: #. Acute on chronic hypoxic respiratory failure #. Recent diagnosis of COVID, sequelae of COVID 19 Pneumonia #. COPD #. Chronic Resp Failure - on 3L at home #. Abnormal CTA chest COPD with chronic hypoxic respiratory failure on chronic 3 liter oxygen Recently admitted for Covid 03/27/2021 [Recent admission 03/27/2021 to 04/06/2021] status post DEXA and remdesivir Cough, increasing shortness of breath with exertion and with activity at presentation Admitting CXR: Redemonstration of multifocal airspace opacities compatible with history of viral pneumonia. Per prior attending Dr Zaragoza, pulm was curbside consulted and had nothing to add for the patient. Also her D-dimer is elevated, CTA chest unable to be obtained due to orthopnea. Pro-Zay negative at admission. However, patient has been on chronic anticoagulation with xarelto which makes PE less likely. However, can obtain CT PE when able BNP 5660 at admission. 04/14 ECHO: EF 65 to 70%, grade 1 diastolic dysfunction, left ventricular systolic function normal Possibilities include COPD exacerbation, Development of Long COVID IV to oral steroid --> DC by 04/23 Continue IV lasix as needed Continue oxygen supplementation Labs as needed, infl markers as needed. CRP trending down to normal, D-dimer elevated than admission, Uptrended d-dimer 04/18 CTA chest: No PE, extensive multifocal consolidation/GGO suggestive of viral pneumonia. Follow-up CT in 3 to 6 months to ensure resolution is recommended. 2.3 cm irregular density within the superior right breast and follow-up nonemergent mammogram and ultrasound as outpatient recommended. Patient made aware. It might take a long time for her oxygen requirement to resolve, unsure about the time and the prognosis at present, patient and her daughter made aware. #. Pancytopenia: #. ITP #. Anemia of chronic disease -Multifactorial H/o, follows Dr. Avendano. Pancytopenic. CBC w/diff #. Other chronic medical conditions: Sarcoidosis/Splenomegaly/PAF/DM2/Ho Breast Ca/HTN/HLD Resume home meds as appropriate Sliding scale for DM DVT prophylaxis: Continue home xarelto. Renally dosed- reduce to 15mg daily based on CrCl DNR/DNI Disposition: Pt will likely need LTAC. CM aware. PT/OT. CM to assist with DC planning. 04/16 --> patient's daughter Toby given phone call, updated about the current status of the patient and the long-term need for high oxygen for her and that she likely will benefit from LTAC placement. Answered all her questions. She voiced understanding and was agreeable to the plan of care. Admission and Anticipated Discharge Date Admission Date: April 13, 2021 Subjective Patient was lying in bed, on 6 Liters high flow oxygen, NAD, patient reports no new acute events overnight. Patient reports eating okay. Patient reports feeling better. Patient still has somewhat better inspiratory effort on incentive spirometer seen at the bedside exam (>250 ml). Patient recounseled again on the importance of consistency with incentive spirometer exercises. Patient denies fever/chills/chest pain/palpitations/other review of symptoms. Physical Exam Physical Exam: GENERAL: Alert and oriented x3. NAD, on 6L. somewhat improved inspiratory effort (>250 mL) w/ IS. HEENT: No pallor, no icterus. Pupils equal, round and reactive to light. Oral mucosa moist. NECK: No JVD, no neck masses. HEART: S1 and S2 heard. Regular rate and rhythm. no murmur appreciated, no gallop. RESPIRATORY SYSTEM: Normal AP diameter. No accessory muscle use. No wheezing, decreased breath sounds. ABDOMEN: Soft, bowel sounds present, nontender, no distention. CENTRAL NERVOUS SYSTEM: No facial droop. Speech is clear. Obeys simple commands. Moves extremities. EXTREMITIES: No edema, no erythema seen. Results & Data Results & Data ([facility]) Vital Signs (Past 12 Hours) Vital Signs Temp Pulse Pulse Resp BP Pulse Ox 04/19/21 16:00 36.8 C 61 20 117/63 100 04/19/21 14:54 69 04/19/21 07:45 59 L 04/19/21 07:38 37.4 C 62 20 104/62 98
[2021-04-20 08:37] LABS: BUN Creatinine Ratio 40.7 (10-20); Calcium 8.2 mg/dl (8.5-10.1); Est GFR (Non-African American) 60.4 ml/min
[2021-04-20] MEDS ORDERED: INSULIN HUMAN NPH SC SCH ×2 (09:00)
[2021-04-20] MEDS: ATORVASTATIN 40 MG TAB PO SCH (09:14)
[2021-04-20] MEDS: amLODIPine BESYLATE 5 MG TAB PO SCH (09:14)
[2021-04-20] MEDS: DOCUSATE SODIUM 100 MG CAP PO SCH ×2 (09:15→21:13)
[2021-04-20] MEDS: dexAMETHasone 4 MG TAB PO SCH (09:15)
[2021-04-20] MEDS: FLUTICASONE/VILANTEROL 100/25MCG 14 PUFFS/INHALER INH SCH (09:15)
[2021-04-20] MEDS: FAMOTIDINE 40 MG TABLET PO SCH (09:16)
[2021-04-20] MEDS: GABAPENTIN 300 MG CAP PO SCH (09:16)
[2021-04-20] MEDS: METOPROLOL SUCC 50MG EXT REL TAB PO SCH ×2 (09:17→21:14)
[2021-04-20] MEDS: POTASSIUM CHLORIDE 10 MEQ TABCR PO SCH (09:17)
[2021-04-20] MEDS: PANTOprazole 40 MG TAB PO SCH (09:18)
[2021-04-20] MEDS: RIVAROXABAN 15 MG TAB PO SCH (09:18)
[2021-04-20] MEDS: rOPINIRole HCL 0.25 MG TABLET PO SCH (09:18)
[2021-04-20] MEDS: SPIRONOLACTONE 25 MG TAB PO SCH (09:18)
[2021-04-20] MEDS: VALSARTAN 80 MG TAB PO SCH (09:19)
[2021-04-20] MEDS: INSULIN ASPART PER UNIT SC SCH ×4 (09:25→21:14)
[2021-04-20] MEDS: TAMOXIFEN CITRATE 10 MG TABLET PO SCH (09:40)
[2021-04-20] MEDS: VENLAFAXINE HCL XR 37.5 MG CAPXR PO SCH (09:41)
--- NOTE | 2021-04-20 10:46 | Pharmacy Report ---
Pharmacy Glycemic Short Note 2 - Date of Service April 20, 2021 - Glycemic Short BSG Results (Last 24 hours): 04/19/21 04/19/21 04/19/21 11:47 16:17 20:22 Glucose POC Glucose 145 H 190 H 230 H 04/20/21 04/20/21 06:53 07:35 Glucose 59 L POC Glucose 73 OUTPATIENT ANTIDIABETIC REGIMEN: * Lantus 33 units HS * HbA1c: 6.5% (03/28/21) ASSESSMENT: 04/20: * BSGs yesterday of 72, 145, 190, and 230 mg/dL * Fasting BSG of 59 mg/dL this morning * Continues on dexamethasone 6 mg PO daily * Plan to add conservative NPH today with dexamethasone to help with BSG elevations as the day progressed yesterday * Will remove HS Novolog, which may have contributed to low fasting BSG * Assuming initial hypoglycemia on 04/18 was secondary to large basal dose dose on evening of 04/17 04/19: * Blood sugars well controlled today, basal held last night, Solu-Medrol discontinued * Fasting 72mg/dl, continue to hold basal * Blood sugars increased yesterday with CHO intake, tighten CR 04/18: * 76 year old female, readmitted with respiratory failure, PMH of recent diagnosis of COVID-19 03/27/2021, Recent admission 03/27/2021 to 04/06/2021, status post dexamethasone and remdesivir, COPD with chronic hypoxic respirato ry failure on chronic 3 liter oxygen, T2DM, PAF on Xarelto, GERD, osteoporosis, ITP, breast cancer s/p lumpectomy and radiation currently on tamoxifen. * Patient on IV Solu-Medrol, with hypoglycemia as inpatient, pharmacy consulted for glycemic control. * Patient on home dose of Lantus, given last night, will hold tonight's dose and reassess in AM, loosen CF/CR to prevent further hypoglycemia. * Patient is eating very well and having snacks and treats her family brought her. PLAN FOR INPATIENT GLYCEMIC CONTROL: * Basal insulin - add conservative NPH * NPH 12 units SC daily with dexamethasone (~0.2 unit/kg) * Bolus insulin * NovoLog per scale ACHS or Q6hrs while NPO * Goal Range: Low 120 mg/dL - High 160 mg/dL - for patient with hypoglycemia * Correction Factor: 35 mg/dL/unit * TIGHTEN: Nutritional / Prandial insulin per carb ratio of 1 unit per 12 grams CHO consumed * Remove HS parameters PLAN FOR DISCHARGE: * HbA1c: 6.5% is at goal for patient * Based on age and comorbidities, a less-stringent goal of less than 8% is likely reasonable for this patient in effort to reduce outpatient hypoglycemia * Obvious concern for hypoglycemia given large basal dose and need for significantly less insulin while inpatient * Reduction in outpatient basal dose is likely warranted - will follow
[2021-04-20 11:11] LABS: C Reactive Protein 1.9 mg/dl (0-0.5)
[2021-04-20 12:37] LABS: C Reactive Protein < 0.50 mg/dl (0-0.5)
--- NOTE | 2021-04-20 16:10 | Hospitalist Progress Note ---
Date of Service April 20, 2021 Assessment & Plan (1) Acute and chronic respiratory failure with hypoxia: Plan: 76-year-old F with PMH of recent diagnosis of Covid 03/27/2021 [Recent admission 03/27/2021 to 04/06/2021] status post DEXA and remdesivir, COPD with chronic hypoxic respiratory failure on chronic 3 liter oxygen, T2DM, PAF on Xarelto, GERD, osteoporosis, ITP, breast cancer s/p lumpectomy and radiation currently on tamoxifen presented to ED 04/13/21 for worsening shortness of breath.She is being managed for the following: #. Acute on chronic hypoxic respiratory failure #. Recent diagnosis of COVID, sequelae of COVID 19 Pneumonia #. COPD #. Chronic Resp Failure - on 3L at home #. Abnormal CTA chest COPD with chronic hypoxic respiratory failure on chronic 3 liter oxygen Recently admitted for Covid 03/27/2021 [Recent admission 03/27/2021 to 04/06/2021] status post DEXA and remdesivir Cough, increasing shortness of breath with exertion and with activity at presentation Admitting CXR: Redemonstration of multifocal airspace opacities compatible with history of viral pneumonia. Per prior attending Dr Zaragoza, pulm was curbside consulted and had nothing to add for the patient. Also her D-dimer is elevated, CTA chest unable to be obtained due to orthopnea. Pro-Zay negative at admission. However, patient has been on chronic anticoagulation with xarelto which makes PE less likely. However, can obtain CT PE when able BNP 5660 at admission. 04/14 ECHO: EF 65 to 70%, grade 1 diastolic dysfunction, left ventricular systolic function normal Possibilities include COPD exacerbation, Development of Long COVID IV to oral steroid --> DC by 04/23 Continue IV lasix as needed Continue oxygen supplementation Labs as needed, infl markers as needed. CRP trending down to normal, D-dimer elevated than admission, Uptrended d-dimer 04/18 CTA chest: No PE, extensive multifocal consolidation/GGO suggestive of viral pneumonia. Follow-up CT in 3 to 6 months to ensure resolution is recommended. 2.3 cm irregular density within the superior right breast and follow-up nonemergent mammogram and ultrasound as outpatient recommended. Magdalena huitron made aware. It might take a long time for her oxygen requirement to resolve, unsure about the time and the prognosis at present, patient and her daughter made aware. #. Pancytopenia: #. ITP #. Anemia of chronic disease -Multifactorial H/o, follows Dr. Avendano. Pancytopenic. CBC w/diff #. Other chronic medical conditions: Sarcoidosis/Splenomegaly/PAF/DM2/Ho Breast Ca/HTN/HLD Resume home meds as appropriate Sliding scale for DM DVT prophylaxis: Continue home xarelto. Renally dosed- reduce to 15mg daily based on CrCl DNR/DNI Disposition: Pt will likely need LTAC. CM aware. PT/OT. CM to assist with DC planning. Medically ok for DC 04/16 --> patient's daughter Toby given phone call, updated about the current status of the patient and the long-term need for high oxygen for her and that she likely will benefit from LTAC placement. Answered all her questions. She voiced understanding and was agreeable to the plan of care. Admission and Anticipated Discharge Date Admission Date: April 13, 2021 Subjective Patient was sitting up in chair, on 5 Liters high flow oxygen, NAD, patient reports no new acute events overnight. Patient reports eating okay. Patient reports feeling better. Patient has somewhat better inspiratory effort on incentive spirometer seen at the bedside exam than prior days (~500 ml). Patient recounseled again on the importance of consistency with incentive spirometer exercises. Patient denies fever/chills/chest pain/palpitations/other review of symptoms. Physical Exam Physical Exam: GENERAL: Alert and oriented x3. NAD, on 5L. somewhat improved inspiratory effort (~500 mL) w/ IS. HEENT: No pallor, no icterus. Pupils equal, round and reactive to light. Oral mucosa moist. NECK: No JVD, no neck masses. HEART: S1 and S2 heard. Regular rate and rhythm. no murmur appreciated, no gallop. RESPIRATORY SYSTEM: Normal AP diameter. No accessory muscle use. No wheezing, decreased breath sounds. ABDOMEN: Soft, bowel sounds present, nontender, no distention. CENTRAL NERVOUS SYSTEM: No facial droop. Speech is clear. Obeys simple commands. Moves extremities. EXTREMITIES: No edema, no erythema seen. Results & Data Results & Data ([facility]) Vital Signs (Past 12 Hours) Vital Signs Temp Pulse Pulse Resp BP Pulse Ox 04/20/21 15:55 60 04/20/21 11:51 36.7 C 58 L 18 103/50 L 95 04/20/21 07:39 36.7 C 72 18 112/69 96 04/20/21 04:15 37.1 C 62 16 119/68 99
[2021-04-21] MEDS: ACETAMINOPHEN 325 MG TAB PO PRN ×3 (03:57→21:19)
[2021-04-21] MEDS ORDERED: OPTIRAY 320 100ml IV ONE (05:29)
[2021-04-21 06:37] LABS: Hematocrit (blood only) 28.8 % (37-47); Hemoglobin 9.2 g/dL (12.0-16.0); Mean Corpuscular Hemoglobin 27.3 pg (25-34); Mean Corpuscular Hgb Conc 31.9 g/dL (32-36); Mean Corpuscular Volume 85.5 fL (80-100); RDW Coefficient of Variation 17.9 % (11.5-14.5); RDW Standard Deviation 55.7 fL (36.4-46.3); Red Blood Count 3.37 M/uL (4.2-5.4); White Blood Count 1.05 K/uL (4.8-10.8)
[2021-04-21 06:46] LABS: Platelet Count 84 K/uL (130-400)
--- NOTE | 2021-04-21 06:52 | Communication Note ---
Date of Service: April 21, 2021 Patient complaining of new left-sided abdominal pain. AP Left-sided abdominal pain NOAC tx Splenomegaly on previous CT N.p.o. for now CT abdomen pelvis Will relay to AM provider.
[2021-04-21 07:00] LABS: Albumin Globulin Ratio 1.3 (0.9-2); Albumin Level 2.9 gm/dl (3.4-5.0); BUN Creatinine Ratio 36.6 (10-20); Bilirubin,Total 0.4 mg/dl (0.2-1.0); Calcium 8.2 mg/dl (8.5-10.1); Creatinine Clr Calc Pharmacy 39.6 ml/min; Est GFR (African American) 61.7 ml/min; Est GFR (Non-African American) 53.3 ml/min; Globulin 2.3 gm/dl (2.5-4.0); Magnesium 1.9 mg/dl (1.7-2.4); Potassium 4.3 mmol/L (3.5-5.1); Total Protein 5.2 gm/dl (6.0-8.3)
[2021-04-21 07:09] LABS: Eosinophils # (auto) 0.03 K/uL (0-0.5); Eosinophils % (auto) 2.9 %; Immature Granulocytes # (auto) 0.01 K/uL (0.00-0.02); Lymphocytes # (auto) 0.16 K/uL (1.2-3.4); Lymphocytes % (auto) 15.2 %; Monocytes # (auto) 0.07 K/uL (0.11-0.59); Monocytes % (auto) 6.7 %; Neutrophils # (auto) 0.78 K/uL (1.4-6.5); Neutrophils % (auto) 74.2 %; Ovalocytes 1+; Tear Drop Cells 1+
[2021-04-21] MEDS: ATORVASTATIN 40 MG TAB PO SCH (08:01)
[2021-04-21] MEDS: amLODIPine BESYLATE 5 MG TAB PO SCH (08:01)
[2021-04-21] MEDS: dexAMETHasone 4 MG TAB PO SCH (08:02)
[2021-04-21] MEDS: DOCUSATE SODIUM 100 MG CAP PO SCH ×2 (08:03→20:11)
[2021-04-21] MEDS: FLUTICASONE/VILANTEROL 100/25MCG 14 PUFFS/INHALER INH SCH (08:04)
[2021-04-21] MEDS: GABAPENTIN 300 MG CAP PO SCH (08:04)
[2021-04-21] MEDS: FAMOTIDINE 40 MG TABLET PO SCH (08:04)
[2021-04-21] MEDS: PANTOprazole 40 MG TAB PO SCH (08:05)
[2021-04-21] MEDS: METOPROLOL SUCC 50MG EXT REL TAB PO SCH ×2 (08:05→20:11)
[2021-04-21] MEDS: POTASSIUM CHLORIDE 10 MEQ TABCR PO SCH (08:05)
[2021-04-21] MEDS: SPIRONOLACTONE 25 MG TAB PO SCH (08:06)
[2021-04-21] MEDS: rOPINIRole HCL 0.25 MG TABLET PO SCH (08:06)
[2021-04-21] MEDS: TAMOXIFEN CITRATE 10 MG TABLET PO SCH (08:06)
[2021-04-21] MEDS: VENLAFAXINE HCL XR 37.5 MG CAPXR PO SCH (08:07)
[2021-04-21] MEDS: VALSARTAN 80 MG TAB PO SCH (08:07)
[2021-04-21] MEDS: INSULIN ASPART PER UNIT SC SCH ×4 (08:09→20:17)
--- NOTE | 2021-04-21 08:52 | CT Scan Report ---
CT abd pelvis IV con only CLINICAL HISTORY: L abd pain, hx splenomegaly, noac TECHNIQUE: Helical axial images of the abdomen and pelvis were obtained and displayed. Automated dose lowering techniques and/or adjustment according to patient size were utilized for this exam. This e xam was performed with intravenous contrast. COMPARISON: Comparison is made to CT abdomen pelvis 03/27/2021 and CTA chest 04/18/2021 FINDINGS: Lower chest: Redemonstration of groundglass opacities and reticular interstitial changes, similar in appearance to prior CTA chest. Cardiomegaly, mitral annular calcification, and severe atheroscleroti c disease in the coronary arteries are again seen. Liver: No focal lesions are seen. Prominence of the portal vein is seen. Recanalization of the umbili gracy vein is noted. Gallbladder and biliary tree: Patient is status post cholecystectomy. Physiologic prominence of the b iliary ducts is noted. Pancreas: Unremarkable, no focal lesions. Spleen: Splenomegaly is seen, the spleen measures 21 cm in craniocaudal length. A splenule is seen. M ildly inhomogeneous perfusion is again noted in the anterior lateral aspect of the spleen. Adrenals: Unremarkable. Kidneys and ureters: A few exophytic cysts are seen in the left kidney. Bladder: Cameron catheter is seen. Reproductive organs: Patient is status post hysterectomy. Bowel: Diverticulosis is seen without evidence of diverticulitis. Lymph nodes Retroperitoneal: Unremarkable. Mesenteric: Unremarkable. Pelvic: Unremarkable. Peritoneum: Trace ascites is seen. Vessels: Atherosclerotic calcifications are seen. Abdominal wall: Unremarkable. Bones: Degenerative changes in the visualized spine. Chronic compression fracture of T12 is noted. IMPRESSION: 1. No evidence of acute abnormality. 2. Splenomegaly and prominence of the portal vein, correlation for cirrhosis is recommended. 3. Diverticulosis without evidence of diverticulitis. ACT 112: Negative or not required by law. Electronically signed by: Sreekanth Roche M.D. 04/21/2021 8:51 AM
[2021-04-21] MEDS ORDERED: INSULIN HUMAN NPH SC ONE (12:15)
--- NOTE | 2021-04-21 17:08 | Hospitalist Progress Note ---
Date of Service April 21, 2021 Assessment & Plan (1) Acute and chronic respiratory failure with hypoxia: Plan: 76-year-old F with PMH of recent diagnosis of Covid 03/27/2021 [Recent admission 03/27/2021 to 04/06/2021] status post DEXA and remdesivir, COPD with chronic hypoxic respiratory failure on chronic 3 liter oxygen, T2DM, PAF on Xarelto, GERD, osteoporosis, ITP, breast cancer s/p lumpectomy and radiation currently on tamoxifen presented to ED 04/13/21 for worsening shortness of breath.She is being managed for the following: #. Acute on chronic hypoxic respiratory failure #. Recent diagnosis of COVID, sequelae of COVID 19 Pneumonia #. COPD #. Chronic Resp Failure - on 3L at home #. Abnormal CTA chest COPD with chronic hypoxic respiratory failure on chronic 3 liter oxygen Recently admitted for Covid 03/27/2021 [Recent admission 03/27/2021 to 04/06/2021] status post DEXA and remdesivir Cough, increasing shortness of breath with exertion and with activity at presentation Admitting CXR: Redemonstration of multifocal airspace opacities compatible with history of viral pneumonia. Per prior attending Dr Zaragoza, pulm was curbside consulted and had nothing to add for the patient. Also her D-dimer is elevated, CTA chest unable to be obtained due to orthopnea. Pro-Zay negative at admission. However, patient has been on chronic anticoagulation with xarelto which makes PE less likely. However, can obtain CT PE when able BNP 5660 at admission. 04/14 ECHO: EF 65 to 70%, grade 1 diastolic dysfunction, left ventricular systolic function normal Possibilities include COPD exacerbation, Development of Long COVID IV to oral steroid --> DC by 04/23 Continue IV lasix as needed Continue oxygen supplementation Labs as needed, infl markers as needed. CRP trending down to normal, D-dimer elevated than admission, Uptrended d-dimer 04/18 CTA chest: No PE, extensive multifocal consolidation/GGO suggestive of viral pneumonia. Follow-up CT in 3 to 6 months to ensure resolution is recommended. 2.3 cm irregular density within the superior right breast and follow-up nonemergent mammogram and ultrasound as outpatient recommended. Pat ient made aware. Patient consistently improving on her oxygen requirement, also improving in her incentive spirometry effort, continue to monitor. #. Pancytopenia: #. ITP #. Anemia of chronic disease -Multifactorial H/o, follows Dr. Avendano. Pancytopenic. CBC w/diff #. Other chronic medical conditions: Sarcoidosis/Splenomegaly/PAF/DM2/Ho Breast Ca/HTN/HLD Resume home meds as appropriate Sliding scale for DM DVT prophylaxis: Continue home xarelto. Renally dosed- reduce to 15mg daily based on CrCl DNR/DNI Disposition: PT/OT. CM to assist with DC planning. Medically ok for DC 04/16 --> patient's daughter Toby given phone call, updated about the current status of the patient and the long-term need for high oxygen for her and that she likely will benefit from LTAC placement. Answered all her questions. She voiced understanding and was agreeable to the plan of care. Admission and Anticipated Discharge Date Admission Date: April 13, 2021 Subjective Patient was lying in bed, on 4 L nasal cannula oxygen, NAD, patient had belly pain overnight---> CT scan of the abdomen pelvis done with no acute findings reported. Patient denies any belly pain at bedside exam. Patient denies any fever/chills/chest pain/palpitations/other review of symptoms. Patient has better incentive spirometry effort today compared to prior days around 500 mL. Patient recounseled again on the importance of consistency with incentive spirometer exercises. Physical Exam Physical Exam: GENERAL: Alert and oriented x3. NAD, on 4L. somewhat improved inspiratory effort (~500 mL) w/ IS. HEENT: No pallor, no icterus. Pupils equal, round and reactive to light. Oral mucosa moist. NECK: No JVD, no neck masses. HEART: S1 and S2 heard. Regular rate and rhythm. no murmur appreciated, no gallop. RESPIRATORY SYSTEM: Normal AP diameter. No accessory muscle use. No wheezing, decreased breath sounds -->slightly improving ABDOMEN: Soft, bowel sounds present, nontender, no distention. CENTRAL NERVOUS SYSTEM: No facial droop. Speech is clear. Obeys simple commands. Moves extremities. EXTREMITIES: No edema, no erythema seen. Results & Data Results & Data ([facility]) Vital Signs (Past 12 Hours) Vital Signs Temp Pulse Resp BP Pulse Ox 04/21/21 16:03 36.7 C 66 20 115/63 98 04/21/21 11:22 36.7 C 63 15 90/43 L 95 04/21/21 08:02 36.7 C 58 L 18 117/61 98
[2021-04-22 05:55] LABS: Hematocrit (blood only) 26.5 % (37-47); Hemoglobin 8.9 g/dL (12.0-16.0); Mean Corpuscular Hemoglobin 28.4 pg (25-34); Mean Corpuscular Hgb Conc 33.6 g/dL (32-36); Mean Corpuscular Volume 84.7 fL (80-100); RDW Coefficient of Variation 17.8 % (11.5-14.5); RDW Standard Deviation 55.7 fL (36.4-46.3); Red Blood Count 3.13 M/uL (4.2-5.4); White Blood Count 1.14 K/uL (4.8-10.8)
[2021-04-22 06:06] LABS: Mean Platelet Volume 8.7 fL (7.4-10.4); Platelet Count 80 K/uL (130-400)
[2021-04-22 06:46] LABS: BUN Creatinine Ratio 36.6 (10-20); Calcium 8.3 mg/dl (8.5-10.1); Creatinine Clr Calc Pharmacy 43.1 ml/min; Est GFR (African American) 68.2 ml/min; Est GFR (Non-African American) 58.9 ml/min; Potassium 4.5 mmol/L (3.5-5.1)
[2021-04-22] MEDS: VENLAFAXINE HCL XR 37.5 MG CAPXR PO SCH (08:07)
[2021-04-22] MEDS: ACETAMINOPHEN 325 MG TAB PO PRN (08:07)
[2021-04-22] MEDS: DOCUSATE SODIUM 100 MG CAP PO SCH (08:07)
[2021-04-22] MEDS: SPIRONOLACTONE 25 MG TAB PO SCH (08:08)
[2021-04-22] MEDS: PANTOprazole 40 MG TAB PO SCH (08:08)
[2021-04-22] MEDS: POTASSIUM CHLORIDE 10 MEQ TABCR PO SCH (08:08)
[2021-04-22] MEDS: ATORVASTATIN 40 MG TAB PO SCH (08:08)
[2021-04-22] MEDS: dexAMETHasone 4 MG TAB PO SCH (08:08)
[2021-04-22] MEDS: FLUTICASONE/VILANTEROL 100/25MCG 14 PUFFS/INHALER INH SCH (08:09)
[2021-04-22] MEDS: rOPINIRole HCL 0.25 MG TABLET PO SCH (08:09)
[2021-04-22] MEDS: VALSARTAN 80 MG TAB PO SCH (08:09)
[2021-04-22] MEDS: FAMOTIDINE 40 MG TABLET PO SCH (08:09)
[2021-04-22] MEDS: amLODIPine BESYLATE 5 MG TAB PO SCH (08:09)
[2021-04-22] MEDS: GABAPENTIN 300 MG CAP PO SCH (08:09)
[2021-04-22] MEDS: TAMOXIFEN CITRATE 10 MG TABLET PO SCH (08:09)
[2021-04-22] MEDS: METOPROLOL SUCC 50MG EXT REL TAB PO SCH (08:10)
[2021-04-22] MEDS: INSULIN ASPART PER UNIT SC SCH ×4 (08:26→21:36)
[2021-04-22] MEDS ORDERED: INSULIN HUMAN NPH SC SCH (09:00)
--- NOTE | 2021-04-22 09:07 | Pharmacy Report ---
Pharmacy Glycemic Short Note 2 - Date of Service April 22, 2021 - Glycemic Short BSG Results (Last 24 hours): 04/21/21 04/21/21 04/21/21 12:04 16:37 16:40 Glucose POC Glucose 223 H 353 H* 349 H* 04/21/21 04/22/21 04/22/21 20:07 05:42 07:32 Glucose 86 POC Glucose 238 H 124 H OUTPATIENT ANTIDIABETIC REGIMEN: * Lantus 33 units HS * HbA1c: 6.5% (03/28/21) ASSESSMENT: 04/22: * BSGs poorly controlled yesterday, 164, 223, 349, and 238 mg/dL * Likely related to initial NPO status and subsequent inadequate NPH to cover dexamethasone * Fasting BSG of 124 mg/dL this morning * Will increase NPH and tighten Novolog carb coverage today to cover PO dexamethasone 04/20: * BSGs yesterday of 72, 145, 190, and 230 mg/dL * Fasting BSG of 59 mg/dL this morning * Continues on dexamethasone 6 mg PO daily * Plan to add conservative NPH today with dexamethasone to help with BSG elevations as the day progressed yesterday * Will remove HS Novolog, which may have contributed to low fasting BSG * Assuming initial hypoglycemia on 04/18 was secondary to large basal dose dose on evening of 04/17 04/19: * Blood sugars well controlled today, basal held last night, Solu-Medrol discontinued * Fasting 72mg/dl, continue to hold basal * Blood sugars increased yesterday with CHO intake, tighten CR 04/18: * 76 year old female, readmitted with respiratory failure, PMH of recent diagnosis of COVID-19 03/27/2021, Recent admission 03/27/2021 to 04/06/2021, status post dexamethasone and remdesivir, COPD with chronic hypoxic respiratory failure on chronic 3 liter oxygen, T2DM, PAF on Xarelto, GERD, osteoporosis, ITP, breast cancer s/p lumpectomy and radiation currently on tamoxifen. * Patient on IV Solu-Medrol, with hypoglycemia as inpatient, pharmacy consulted for glycemic control. * Patient on home dose of Lantus, given last night, will hold tonight's dose and reassess in AM, loosen CF/CR to prevent further hypoglycemia. * Patient is eating very well and having snacks and treats her family brought her. PLAN FOR INPATIENT GLYCEMIC CONTROL: * Basal insulin - increase * NPH 18 units SC daily with dexamethasone (~0.3 unit/kg) * Bolus insulin * NovoLog per scale ACHS or Q6hrs while NPO * Goal Range: Low 120 mg/dL - High 150 mg/dL * Correction Factor: 35 mg/dL/unit * TIGHTEN: Nutritional / Prandial insulin per carb ratio of 1 unit per 10 gr ams CHO consumed * No Novolog at HS PLAN FOR DISCHARGE: * HbA1c: 6.5% is at goal for patient * Based on age and comorbidities, a less-stringent goal of less than 8% is likely reasonable for this patient in effort to reduce outpatient hypoglycemia * Obvious concern for hypoglycemia given large basal dose and need for significantly less insulin while inpatient * Reduction in outpatient basal dose is likely warranted - will follow
[2021-04-22] MEDS ORDERED: COUGH DROP (SUGAR FREE) LOZ 24 LOZ/1 BOX BUCCAL ONE (09:57)
[2021-04-22] MEDS ORDERED: DICLOFENAC SOD 1% GEL 100 GM TUBE EXT PRN (10:05)
--- NOTE | 2021-04-22 10:40 | Hospitalist Progress Note ---
Date of Service April 22, 2021 Assessment & Plan (1) Acute and chronic respiratory failure with hypoxia: Plan: 76-year-old F with PMH of recent diagnosis of Covid 03/27/2021 [Recent admission 03/27/2021 to 04/06/2021] status post DEXA and remdesivir, COPD with chronic hypoxic respiratory failure on chronic 3 liter oxygen, T2DM, PAF on Xarelto, GERD, osteoporosis, ITP, breast cancer s/p lumpectomy and radiation currently on tamoxifen presented to ED 04/13/21 for worsening shortness of breath.She is being managed for the following: #. Acute on chronic hypoxic respiratory failure #. Recent diagnosis of COVID, sequelae of COVID 19 Pneumonia #. COPD #. Chronic Resp Failure - on 3L at home #. Abnormal CTA chest COPD with chronic hypoxic respiratory failure on chronic 3 liter oxygen Recently admitted for Covid 03/27/2021 [Recent admission 03/27/2021 to 04/06/2021] status post DEXA and remdesivir Cough, increasing shortness of breath with exertion and with activity at presentation Admitting CXR: Redemonstration of multifocal airspace opacities compatible with history of viral pneumonia. Also her D-dimer was elevated. Initially, CTA chest unable to be obtained due to orthopnea. Pro-Zay negative at admission. However, patient has been on chronic anticoagulation with xarelto which makes PE less likely. CT PE was later obtained which did not show any PE but showed extensive multifocal consolidation/GGO suggestive of viral pneumonia. Patient will need follow-up CT in 3 to 6 months to ensure resolution is recommended. Will also need mammogram and USS outpatient for eval of 2.3 cm irregular density within the superior right breast seen on CT BNP 5660 at admission. 04/14 ECHO: EF 65 to 70%, grade 1 diastolic dysfunction, left ventricular systolic function normal Possibilities include COPD exacerbation, Development of Long COVID Will complete steroid tomorrow Continue IV lasix as needed Continue oxygen supplementation and wean as tolerated For chronic back pain Patient reported this is chronic intermittent. She reported pain yesterday and CT abd/P done did not show any acute abnormality but showed known splenomegaly and chronic compression fracture of T12 Low back likely due to DJD Continue pain control #. Pancytopenia: #. ITP #. Anemia of chronic disease -Multifactorial H/o, follows Dr. Avendano. Pancytopenic. CBC w/diff #. Other chronic medical conditions: Sarcoidosis/Splenomegaly/PAF/DM2/Ho Breast Ca/HTN/HLD Continue home meds Sliding scale for DM DVT prophylaxis: Continue home xarelto. Renally dosed- reduce to 15mg daily based on CrCl DNR/DNI Disposition: Can dc to SNF once available Admission and Anticipated Discharge Date Admission Date: April 13, 2021 Subjective Patient seen and examined. Patient currently complaining of severe lower back pain. She reports that she has chronic low back pain that is intermittent and usually controlled at home with Voltaren gel. Reports pain is on the lower back especially towards left side of lower back constant, not referred, currently severe Denies abdominal pain, diarrhea Reports cough is improving. Denies shortness of breath Currently on 3 L/min nasal oxygen. Denied any nausea, vomiting, fevers or chills Physical Exam Constitutional: + acute distress (Painful distress) and + well hydrated Eyes: PERRL, conjunctivae normal, anicteric sclerae ENMT: external ear and nose normal, oropharynx normal Respiratory: On 3l/min nasal oxygen. No crackles, diminished breath sounds Cardiovascular: Rate/Rhythm: regular rate and regular rhythm S1 S2 Gastrointestinal (Abdomen): normal bowel sounds, soft, nontender, no hepatosplenomegaly Musculoskeletal: No pedal edema No rash or bruise noted on lower back Neurologic: PERRL, EOMI, accommodation nl, no face palsy, no dysarthria Psychiatric: A+Ox3, euthymic affect Results & Data Results & Data ([facility]) Vital Signs (Past 12 Hours) Vital Signs Temp Pulse Pulse Pulse Resp BP BP 04/22/21 08:05 64 04/22/21 07:05 36.6 C 56 L 20 122/70 04/22/21 04:23 36.5 C 52 L 122/65 04/22/21 00:00 61 04/21/21 23:19 36.6 C 58 L 131/65 Pulse Ox 04/22/21 08:05 04/22/21 07:05 94 04/22/21 04:23 99 04/22/21 00:00 04/21/21 23:19 100 Laboratory Results Abnormal lab results 04/21/21 04/21/21 04/21/21 Range/Units 16:37 16:40 20:07 WBC (4.8-10.8) K/uL RBC (4.2-5.4) M/uL Hgb (12.0-16.0) g/dL Hct (37-47) % RDW Std Deviation (36.4-46.3) fL RDW Coeff of Chi (11.5-14.5) % Plt Count (130-400) K/uL BUN (6-23) mg/dl BUN/Creatinine Ratio (-20) POC Glucose 353 H* 349 H* 238 H (70-99) mg/dl Calcium (8.5-10.1) mg/dl 04/22/21 04/22/21 04/22/21 Range/Units 05:42 05:42 07:32 WBC 1.14 L (4.8-10.8) K/uL RBC 3.13 L (4.2-5.4) M/uL Hgb 8.9 L (12.0-16.0) g/dL Hct 26.5 L (37-47) % RDW Std Deviation 55.7 H (36.4-46.3) fL RDW Coeff of Chi 17.8 H (11.5-14.5) % Plt Count 80 L (130-400) K/uL BUN 34 H (6-23) mg/dl BUN/Creatinine Ratio 36.6 H (10-20) POC Glucose 124 H (70-99) mg/dl Calcium 8.3 L (8.5-10.1) mg/dl 04/22/21 Range/Units 10:48 WBC (4.8-10.8) K/uL RBC (4.2-5.4) M/uL Hgb (12.0-16.0) g/dL Hct (37-47) % RDW Std Deviation (36.4-46.3) fL RDW Coeff of Chi (11.5-14.5) % Plt Count (130-400) K/uL BUN (6-23) mg/dl BUN/Creatinine Ratio (-20) POC Glucose 110 H (70-99) mg/dl Calcium (8.5-10.1) mg/dl
[2021-04-22] MEDS ORDERED: traMADol HCL 50 MG TABLET PO STA (11:02)
[2021-04-22] MEDS ORDERED: traMADol HCL 50 MG TABLET ONE (11:05)
[2021-04-22] MEDS: LIDOCAINE 5% 1 PATCH TD SCH (13:24)
[2021-04-22] MEDS ORDERED: MoRPHine SULFATE 2 MG/ML CARP IV STA (14:50)
[2021-04-22] MEDS: PROMETHAZINE HCL 12.5 MG in SODIUM CHLORIDE 0.9% 50 ML IV PRN (21:26)
[2021-04-23] MEDS: DOCUSATE SODIUM 100 MG CAP PO SCH ×3 (00:21→20:54)
[2021-04-23] MEDS ORDERED: METOPROLOL TARTRATE 1 MG/ML VIAL IV STA (00:37)
[2021-04-23] MEDS ORDERED: XOPENEX/ATROVENT 1.25mg/0.5MG NEB COMBO NEB PRN (00:38)
[2021-04-23] MEDS: LEVALBUTEROL 1.25MG/0.5ML NEB INH PRN (01:06)
[2021-04-23] MEDS: IPRATROPIUM BROMIDE NEB SOLN 0.02% 2.5 ML VIAL INH PRN (01:06)
[2021-04-23] MEDS: METOPROLOL SUCC 50MG EXT REL TAB PO SCH ×3 (01:06→20:54)
[2021-04-23 08:01] LABS: Hematocrit (blood only) 32.8 % (37-47); Hemoglobin 10.9 g/dL (12.0-16.0); Mean Corpuscular Hgb Conc 33.2 g/dL (32-36); Mean Corpuscular Volume 84.3 fL (80-100); RDW Coefficient of Variation 18.1 % (11.5-14.5); RDW Standard Deviation 56.4 fL (36.4-46.3); Red Blood Count 3.89 M/uL (4.2-5.4); White Blood Count 6.55 K/uL (4.8-10.8)
[2021-04-23] MEDS: INSULIN ASPART PER UNIT SC SCH ×4 (08:05→20:55)
[2021-04-23] MEDS: VENLAFAXINE HCL XR 37.5 MG CAPXR PO SCH (08:06)
[2021-04-23] MEDS: rOPINIRole HCL 0.25 MG TABLET PO SCH (08:06)
[2021-04-23] MEDS: PANTOprazole 40 MG TAB PO SCH (08:06)
[2021-04-23] MEDS: SPIRONOLACTONE 25 MG TAB PO SCH (08:06)
[2021-04-23] MEDS: FAMOTIDINE 40 MG TABLET PO SCH (08:07)
[2021-04-23] MEDS: GABAPENTIN 300 MG CAP PO SCH (08:07)
[2021-04-23] MEDS: amLODIPine BESYLATE 5 MG TAB PO SCH (08:07)
[2021-04-23] MEDS: TAMOXIFEN CITRATE 10 MG TABLET PO SCH (08:08)
[2021-04-23] MEDS: ATORVASTATIN 40 MG TAB PO SCH (08:08)
[2021-04-23] MEDS: dexAMETHasone 4 MG TAB PO SCH (08:08)
[2021-04-23] MEDS: VALSARTAN 80 MG TAB PO SCH (08:08)
[2021-04-23] MEDS: LIDOCAINE 5% 1 PATCH TD SCH (08:09)
[2021-04-23] MEDS: POTASSIUM CHLORIDE 10 MEQ TABCR PO SCH (08:09)
[2021-04-23] MEDS: FLUTICASONE/VILANTEROL 100/25MCG 14 PUFFS/INHALER INH SCH (08:11)
[2021-04-23] MEDS: RIVAROXABAN 15 MG TAB PO SCH (08:11)
[2021-04-23 08:31] LABS: BUN Creatinine Ratio 26.3 (10-20); Calcium 8.6 mg/dl (8.5-10.1); Creatinine Clr Calc Pharmacy 25.7 ml/min; Est GFR (African American) 36.5 ml/min; Est GFR (Non-African American) 31.5 ml/min; Potassium 4.8 mmol/L (3.5-5.1)
[2021-04-23 08:37] LABS: Mean Platelet Volume 9.6 fL (7.4-10.4); Platelet Count 99 K/uL (130-400)
[2021-04-23 08:38] LABS: Platelet Estimate Decreased (Normal)
--- NOTE | 2021-04-23 08:57 | Hospitalist Progress Note ---
Date of Service April 23, 2021 Assessment & Plan (1) Acute and chronic respiratory failure with hypoxia: Plan: 76-year-old F with PMH of recent diagnosis of Covid 03/27/2021 [Recent admission 03/27/2021 to 04/06/2021] status post DEXA and remdesivir, COPD with chronic hypoxic respiratory failure on chronic 3 liter oxygen, T2DM, PAF on Xarelto, GERD, osteoporosis, ITP, breast cancer s/p lumpectomy and radiation currently on tamoxifen presented to ED 04/13/21 for worsening shortness of breath.She is being managed for the following: #. Acute on chronic hypoxic respiratory failure #. Recent diagnosis of COVID, sequelae of COVID 19 Pneumonia #. COPD #. Chronic Resp Failure - on 3L at home #. Abnormal CTA chest COPD with chronic hypoxic respiratory failure on chronic 3 liter oxygen Recently admitted for Covid 03/27/2021 [Recent admission 03/27/2021 to 04/06/2021] status post DEXA and remdesivir Cough, increasing shortness of breath with exertion and with activity at presentation Admitting CXR: Redemonstration of multifocal airspace opacities compatible with history of viral pneumonia. Also her D-dimer was elevated. Initially, CTA chest unable to be obtained due to orthopnea. Pro-Zay negative at admission. However, patient has been on chronic anticoagulation with xarelto which makes PE less likely. CT PE was later obtained which did not show any PE but showed extensive multifocal consolidation/GGO suggestive of viral pneumonia. Patient will need follow-up CT in 3 to 6 months to ensure resolution is recommended. Will also need mammogram and USS outpatient for eval of 2.3 cm irregular density within the superior right breast seen on CT BNP 5660 at admission. 04/14 ECHO: EF 65 to 70%, grade 1 diastolic dysfunction, left ventricular systolic function normal Possibilities include COPD exacerbation, Development of Long COVID Completed steroid today Continue oxygen supplementation and wean as tolerated #MOISÉS #UTI Patient's Cr is 1.56 today from 0.93 yesterday MOISÉS likely due to poor intake/GI loss (from vomiting/nausea) + possible contrast induced considering patient got CTA/P w/co on 04/21/21 Give IVF Hold valsartan, aldactone for now Monitor renal function. Avoid nephrotoxins UA suggests possible UTI Start ceftriaxone. Follow up urine culture # Chronic back pain Patient reported this is chronic intermittent. CT abd/P done did not show any acute abnormality but showed known splenomegaly and chronic compression fracture of T12 Low back likely due to DJD Pain controlled #. Pancytopenia: #. ITP #. Anemia of chronic disease -Multifactorial H/o, follows Dr. Avendano. Pancytopenic. CBC w/diff #. Other chronic medical conditions: Sarcoidosis/Splenomegaly/PAF/DM2/Ho Breast Ca/HTN/HLD Continue home meds Sliding scale for DM DVT prophylaxis: Continue home xarelto. Renally dosed- reduce to 15mg daily based on CrCl DNR/DNI Disposition: Can dc to SNF once medically stable Daughter called and updated Admission and Anticipated Discharge Date Admission Date: April 13, 2021 Subjective Patient seen and examined. Patient reports low back pain is controlled. Denied any pain at this time Reports nausea. Had some vomiting yesterday and overnight Reports cough continues to improve. No shortness of breath Denied chills Has low abd pain. RN reported patient had some hematuria this morning. Patient reports chronic intermittent urinary incontinence sometimes She denied dysuria at this time. Physical Exam Constitutional: + well hydrated; no acute distress Eyes: PERRL, conjunctivae normal, anicteric sclerae ENMT: external ear and nose normal, oropharynx normal Respiratory: On 3l/min NC, Good air entry, scattered basilar crackles Cardiovascular: Rate/Rhythm: regular rate and regular rhythm S1 S2 Gastrointestinal (Abdomen): Not distended, soft, suprapubic tenderness. Normoactive Bowel sounds Musculoskeletal: No pedal edema Neurologic: PERRL, EOMI, accommodation nl, no face palsy, no dysarthria Psychiatric: A+Ox3, euthymic affect Genitourinary: No CVA tenderness Results & Data Results & Data ([facility]) Vital Signs (Past 12 Hours) Vital Signs Temp Pulse Pulse Pulse Resp BP BP 04/23/21 07:00 36.4 C L 88 14 133/74 04/23/21 03:53 37.0 C 91 H 28 H 124/57 L 04/23/21 01:17 122 H 04/23/21 01:07 117 H 26 H 04/22/21 23:40 36.7 C 110 H 34 H 161/71 H Pulse Ox 04/23/21 07:00 93 04/23/21 03:53 94 04/23/21 01:17 04/23/21 01:07 96 04/22/21 23:40 91 Laboratory Results Abnormal lab results 04/22/21 04/22/21 04/23/21 Range/Units 16:34 21:04 07:02 RBC 3.89 L (4.2-5.4) M/uL Hgb 10.9 L (12.0-16.0) g/dL Hct 32.8 L (37-47) % RDW Std Deviation 56.4 H (36.4-46.3) fL RDW Coeff of Chi 18.1 H (11.5-14.5) % Plt Count 99 L (130-400) K/uL Platelet Estimate Decreased L (Normal) Anion Gap (3-11) BUN (6-23) mg/dl Creatinine (0.6-1.2) mg/dl BUN/Creatinine Ratio (10-20) Glucose (70-99(Fasting)) mg/dl POC Glucose 233 H 144 H (70-99) mg/dl Urine Appearance (Clear) Urine pH (4.5-7.5) Urine Protein (Negative) Urine Blood (Negative) Urine Nitrite (Negative) Ur Leukocyte Esterase (Negative) Urine RBC (0-4) /hpf Urine WBC (0-5) /hpf Urine Bacteria (Negative) 04/23/21 04/23/21 04/23/21 Range/Units 07:02 07:08 10:30 RBC (4.2-5.4) M/uL Hgb (12.0-16.0) g/dL Hct (37-47) % RDW Std Deviation (36.4-46.3) fL RDW Coeff of Chi (11.5-14.5) % Plt Count (130-400) K/uL Platelet Estimate (Normal) Anion Gap 12 H (3-11) BUN 41 H (6-23) mg/dl Creatinine 1.56 H D (0.6-1.2) mg/dl BUN/Creatinine Ratio 26.3 H (10-20) Glucose 168 H (70-99(Fasting)) mg/dl POC Glucose 175 H (70-99) mg/dl Urine Appearance Cloudy A (Clear) Urine pH >= 9.0 H (4.5-7.5) Urine Protein 3+ H (Negative) Urine Blood 3+ H (Negative) Urine Nitrite Positive A (Negative) Ur Leukocyte Esterase 3+ H (Negative) Urine RBC 10-30 H (0-4) /hpf Urine WBC 10-30 H (0-5) /hpf Urine Bacteria 4+ H (Negative) 04/23/21 Range/Units 11:14 RBC (4.2-5.4) M/uL Hgb (12.0-16.0) g/dL Hct (37-47) % RDW Std Deviation (36.4-46.3) fL RDW Coeff of Chi (11.5-14.5) % Plt Count (130-400) K/uL Platelet Estimate (Normal) Anion Gap (3-11) BUN (6-23) mg/dl Creatinine (0.6-1.2) mg/dl BUN/Creatinine Ratio (10-20) Glucose (70-99(Fasting)) mg/dl POC Glucose 187 H (70-99) mg/dl Urine Appearance (Clear) Urine pH (4.5-7.5) Urine Protein (Negative) Urine Blood (Negative) Urine Nitrite (Negative) Ur Leukocyte Esterase (Negative) Urine RBC (0-4) /hpf Urine WBC (0-5) /hpf Urine Bacteria (Negative)
[2021-04-23] MEDS ORDERED: INSULIN HUMAN NPH SC SCH (09:00)
[2021-04-23] MEDS: PROMETHAZINE HCL 12.5 MG in SODIUM CHLORIDE 0.9% 50 ML IV PRN (10:28)
[2021-04-23] MEDS: SODIUM CHLORIDE 0.9% 1000ML 1,000 ML IV SCH ×2 (10:49→20:58)
[2021-04-23 11:22] LABS: Appearance Urine Cloudy (Clear); Bilirubin Urine Negative (Negative); Blood Urine 3+ (Negative); Color Urine Amber; Glucose Urine UA Negative (Negative); Ketones Urine Negative (Negative); Leukocyte Esterase Urine 3+ (Negative); Nitrite Urine Positive (Negative); Protein Urine 3+ (Negative); Urobilinogen Urine Negative (Negative); pH Urine >= 9.0 (4.5-7.5)
[2021-04-23 11:40] LABS: Bacteria Urine 4+ (Negative); Epithelial Cell Urine 0-5 /lpf (0-5)
[2021-04-23] MEDS: ACETAMINOPHEN 325 MG TAB PO PRN (12:23)
[2021-04-23] MEDS ORDERED: ACETAMINOPHEN 1000 MG/100 ML IV IV ONE (12:29)
[2021-04-23] MEDS ORDERED: cefTRIAXone SODIUM 1,000 MG in DEXTROSE 5% 50 ML IV SCH (13:00)
[2021-04-23] MEDS: ONDANSETRON INJ 2 MG/ML 2 ML VIAL IV SCH ×2 (13:14→18:45)
[2021-04-24] MEDS: ACETAMINOPHEN 325 MG TAB PO PRN ×2 (05:42→10:00)
[2021-04-24] MEDS: SODIUM CHLORIDE 0.9% 1000ML 1,000 ML IV SCH ×3 (06:04→23:59)
[2021-04-24] MEDS: INSULIN ASPART PER UNIT SC SCH ×4 (07:55→20:03)
[2021-04-24 08:25] LABS: Mean Corpuscular Hgb Conc 32.2 g/dL (32-36)
[2021-04-24] MEDS: TAMOXIFEN CITRATE 10 MG TABLET PO SCH (08:32)
[2021-04-24] MEDS: DOCUSATE SODIUM 100 MG CAP PO SCH ×2 (08:36→19:54)
[2021-04-24] MEDS: METOPROLOL SUCC 50MG EXT REL TAB PO SCH ×2 (08:37→19:54)
[2021-04-24] MEDS: RIVAROXABAN 15 MG TAB PO SCH (08:38)
[2021-04-24] MEDS: FAMOTIDINE 40 MG TABLET PO SCH (08:38)
[2021-04-24] MEDS: ATORVASTATIN 40 MG TAB PO SCH (08:38)
[2021-04-24] MEDS: FLUTICASONE/VILANTEROL 100/25MCG 14 PUFFS/INHALER INH SCH (08:38)
[2021-04-24] MEDS: PANTOprazole 40 MG TAB PO SCH (08:38)
[2021-04-24] MEDS: GABAPENTIN 300 MG CAP PO SCH (08:38)
[2021-04-24] MEDS: rOPINIRole HCL 0.25 MG TABLET PO SCH (08:39)
[2021-04-24] MEDS: VENLAFAXINE HCL XR 37.5 MG CAPXR PO SCH (08:39)
[2021-04-24 08:44] LABS: BUN Creatinine Ratio 26.1 (10-20); Calcium 7.8 mg/dl (8.5-10.1); Creatinine Clr Calc Pharmacy 22.7 ml/min; Est GFR (African American) 31.6 ml/min; Est GFR (Non-African American) 27.2 ml/min; Potassium 4.3 mmol/L (3.5-5.1)
[2021-04-24] MEDS: LIDOCAINE 5% 1 PATCH TD SCH (08:48)
[2021-04-24 09:01] LABS: Hematocrit (blood only) 29.5 % (37-47); Hemoglobin 9.5 g/dL (12.0-16.0); Mean Corpuscular Hemoglobin 27.9 pg (25-34); Mean Corpuscular Volume 86.8 fL (80-100); RDW Coefficient of Variation 18.5 % (11.5-14.5); RDW Standard Deviation 59.6 fL (36.4-46.3); White Blood Count 1.92 K/uL (4.8-10.8)
[2021-04-24 09:05] LABS: Anisocytosis Present; Dohle Bodies 1+; Echinocytes 1+; Ovalocytes 1+; Platelet Count 55 K/uL (130-400); Platelet Estimate Decreased (Normal); Toxic Granulation 1+; Toxic Vacuolation 3+
--- NOTE | 2021-04-24 09:13 | Nephrology Consultation ---
Date of Consultation April 24, 2021 Assessment & Plan (1) Acute renal failure: stage 2 nonoliguric MOISÉS on early CKD w/ baseline creatinine 0.9 and at baseline on presentation and until 04/21; then uptrend to peak today at 1.8. likely multifactorial > contast induced nephropathy, prerenal progressing to ischemic acute tubular necrosis. chemistries generally acceptable (probably w/ emerging AG acidosis but w/ normal lactate would not get ABG to est this) and intravascularly dry but w/ significant 02 needs. -daily bmp -no indication for discussion of dialysis currently; cannot rule out need -treat sepsis as below -cont to hold spironolactone, valsartan (2) Severe sepsis: from gram negative yasir L pyelonephritis/bacteremia w/ possible purulent material needing removal -for OR today to stent L ureter -agree w/ change to cefepime; f/u pending cxs -const NS at 100 ml/hr for now; may need to give bicarb rich fluid soon History of Present Illness Reason for Consultation: acute renal failure Requesting Physician: Dr Sauceda Attending Physician: Mila Sauceda MD History of Present Illness 76-year-old female whom I am asked to evaluate for acute kidney injury was admitted here April 13 with acute on chronic hypoxic respiratory failure after a recent diagnosis of COVID in the setting of COPD on 3 L chronically at home. She had been admitted here March 27 to April 06 with COVID. Other medical history includes type 2 diabetes, sarcoidosis, hypertension, paroxysmal atrial fibrillation, ITP, liver cirrhosis, breast cancer status postlumpectomy and radiation on tamoxifen, hyperlipidemia, GERD, osteoporosis. Her baseline renal function is a creatinine of 0.9-1.0, or early CKD 3. She had been at baseline until yesterday her creatinine bumped from 0.9 on April 22 to 1.6 yesterday and 1.8 today. On April [address] abdomen pelvis with IV contrast. She had also had CT angiography of the chest on April 18. Furthermore with UA concerning for UTI and today w/ GNR in both blood and urine. Her last dose of Aldactone 50 mg was yesterday morning; she had been on this daily since April 14. Her last dose of valsartan 320 mg was also yesterday morning. Also on this dose daily since April 14. Her oxygen needs have jumped from 3 L/min nasal cannula where she has been since April 21 to 10 L/min this morning. She has been having low anterior abdominal pain, more diffuse when I saw her this AM to include epigatric and periumbilical areas. Had been having poor po o ngoing; some emesis a few days back. no edema. ongoing sob. no cough; CT abd/pelvis repeat non con w/ new moderate-severe L hydronpehrosis and L collecting system full of complex fluid; urology consulted and for OR for cysto/ureteral stent. Allergies Allergy/AdvReac Type Severity Reaction Status Date / Time No Known Drug Allergies Allergy Verified 04/13/21 18:22 Home Medications Medication Instructions Recorded Confirmed Type cholecalciferol (vitamin D3) 1,250 50,000 unit PO WK cap 11/27/18 04/13/21 History mcg (50,000 unit) capsule ipratropium 0.5 mg-albuterol 3 mg 3 ml INHALATION DAILY PRN #1 ml 11/27/18 04/13/21 History (2.5 mg base)/3 mL nebulization soln tamoxifen 20 mg tablet 20 mg PO QAM tab 11/27/18 04/13/21 History amlodipine 10 mg-valsartan 320 mg 1 tab PO DAILY tab 10/09/19 04/13/21 History tablet insulin glargine 100 unit/mL 33 units SUBCUT HS #1 ml 10/09/19 04/13/21 History subcutaneous solution famotidine 40 mg tablet (Pepcid) 40 mg PO DAILY #30 tab 07/28/20 04/13/21 Rx albuterol sulfate 90 mcg/actuation 2 puff INHALATION Q4H PRN #8.5 g 02/09/21 04/13/21 Rx aerosol inhaler budesonide-formoterol HFA 160 2 puff INHALATION BID #10.2 g 02/09/21 04/13/21 Rx mcg-4.5 mcg/actuation aerosol inhaler atorvastatin 40 mg tablet 40 mg PO QAM 03/27/21 04/13/21 History diclofenac sodium 1 % topical gel 2 g TOPICAL QID PRN 03/27/21 04/13/21 History gabapentin 300 mg capsule 300 mg PO DAILY 03/27/21 04/13/21 History metoprolol succinate 100 mg 100 mg PO BID 03/27/21 04/13/21 History tablet,extended release 24 hr omeprazole 20 mg capsule,delayed 20 mg PO QAM 03/27/21 04/13/21 History release potassium chloride 10 mEq 10 meq PO DAILY 03/27/21 04/13/21 History capsule,extended release rivaroxaban 20 mg tablet (Xarelto) 20 mg PO QAM 03/27/21 04/13/21 History ropinirole 0.25 mg tablet 0.25 mg PO QAM 03/27/21 04/13/21 History spironolactone 50 mg tablet 50 mg PO QAM 03/27/21 04/13/21 History venlafaxine 37.5 mg 37.5 mg PO DAILY 03/27/21 04/13/21 History capsule,extended release 24 hr Patient History Medical History Anemia Arthritis BPPV (benign paroxysmal positional vertigo) Chronic anticoagulation Chronic respiratory failure with hypoxia COPD (chronic obstructive pulmonary disease) Diabetes GERD without esophagitis Hiatal hernia History of adverse effect of anesthesia on table? - Per Patient Form History of breast cancer History of Clostridioides difficile colitis History of ITP Hypertension Hypertensive heart disease Nocturnal hypoxemia On home oxygen therapy Osteoporosis Paroxysmal atrial fibrillation Pulmonary hypertension Renal insufficiency Restrictive lung disease Rheumatoid arthritis Sarcoidosis SNHL (sensorineural hearing loss) Thrombocytopenia Surgical History History of appendectomy History of cholecystectomy History of hysterectomy History of tonsillectomy Family History Mother Hypertension Heart disease Father Hypertension Stroke Heart disease Other Family history of bleeding disorder No family history of adverse response to anesthesia Social History Smoking Status: Smoker, status unknown Second Hand Exposure: Yes; Do You Dip or Chew Tobacco: No; Tobacco Cessation Education Requested by Patient: No Hx Alcohol Use: Yes Hx Substance Use: No Preferred Language: Turkmen Communication Ability: Effective Microbiology Teacher Required: No Beliefs That Will Affect Care: None Current Living Situation: Alone Current Living Situation Comment: sister currently staying with patient, pt has home care visiting 2x/week Other Information That Helps Us Care for You: No Feels Safe at Home: Yes Safety Concerns: Feels Safe At This Time Assistive Devices: Oxygen - Continuous Review of Systems Review of Systems: All systems reviewed & are unremarkable except as noted in HPI & below Physical Exam Constitutional: well developed, well nourished, + ill appearing and + frail appearing; no acute distress Eyes: EOM intact bilaterally ENMT: Ears: no external ear abnormality Nose: no external nose abnormality Mouth: + dry oral mucous membranes Neck: no nuchal rigidity Respiratory: normal respiratory effort Auscultation: + diminished lung sounds and + crackles (bibasilar) Cardiovascular: Rate/Rhythm: regular rate and regular rhythm Extremities: no edema Gastrointestinal (Abdomen): Inspection/Auscultation: normal bowel sounds Percussion/Palpation: + abdomen tender (diffusely including/rodríguez periumbilical and epigastrium), + guarding and abdomen soft; no fluid wave Musculoskeletal: marked generalized weakness; cannot sit up Skin: no rashes, warm and dry Neurologic: barrera, fluent speech, no tremor Psychiatric: Orientation: alert and oriented x 3 Results & Data ([facility]) Vital Signs (Past 12 Hours) Vital Signs Temp Pulse Pulse Pulse Resp BP BP 04/24/21 07:59 36.6 C 104 H 24 90/55 L 04/24/21 03:21 36.8 C 88 16 138/72 04/24/21 00:00 37 C 80 86 20 121/66 Pulse Ox 04/24/21 07:59 91 04/24/21 03:21 97 04/24/21 00:00 96 Laboratory Results 04/24/21 07:58 04/24/21 07:[address] chest PE protocol April 18 1. No pulmonary emboli identified. Dilatation of the central pulmonary arteries suggestive of pulmonary arterial hypertension. 2. Moderate to extensive multifocal consolidation and groundglass opacities within the lungs suggestive of viral pneumonia. A follow-up chest CT in 3-6 months to ensure resolution is recommended. 3. Enlarged, partially calcified mediastinal and bilateral hilar lymph nodes, similar to CT of June 23, 2006. This favors a granulomatous process such as sarcoidosis. 4. 2.3 cm irregular density within the superior right breast. This could reflect post surgical change however a breast mass could appear similar. Correlation with surgical history is recommended. Follow-up nonemergent mammogram and ultrasound are recommended. CT abdomen pelvis 04/21 Review of report notable for unremarkable adrenals and you exophytic cyst on left kidney else unremarkable kidneys and ureters. Cameron catheter noted in bladder. Impression 1. No evidence of acute abnormality. 2. Splenomegaly and prominence of the portal vein, correlation for cirrhosis is recommended. 3. Diverticulosis without evidence of diverticulitis. CT abd/pelvis 04/24 1. There is moderate to severe left-sided hydronephrosis, which is new from 04/21/2021 with associated left-sided perinephric stranding. The left ureter is normal in caliber, with no obstructing stone or lesion identified. 2. The left renal collecting system is filled with complex fluid. This is indeterminant, and could represent blood products, proteinaceous debris, or possibly infectious/purulent material. Correlate with clinical findings and urinalysis. 3. Cirrhotic liver morphology. 4. Marked splenomegaly. 5. Small volume of abdominopelvic ascites. 6. Multifocal airspace consolidation is again seen at both lung bases with architectural distortion. This suggests a viral pneumonia and clinical correlation will be required. 7. A pathologically indeterminant spiculated density is again seen in the right breast. 8. Additional findings as above.
[2021-04-24 09:18] LABS: ALC (manual) 0.03 K/uL (1.2-3.4); ANC (manual) 1.87 K/uL (1.4-6.5); Lymphocytes # (manual) 0.03 K/uL (1.2-3.4); Lymphocytes % (manual) 1.8 %; Monocytes # (manual) 0.02 K/uL (0.11-0.59); Monocytes % (manual) 0.9 %; Neutrophils # (manual) 1.87 K/uL (1.4-6.5); Neutrophils % (manual) 97.4 %
--- NOTE | 2021-04-24 10:00 | Hospitalist Progress Note ---
Date of Service April 24, 2021 Assessment & Plan (1) Acute and chronic respiratory failure with hypoxia: Plan: 76-year-old F with PMH of recent diagnosis of Covid 03/27/2021 [Recent admission 03/27/2021 to 04/06/2021] status post DEXA and remdesivir, COPD with chronic hypoxic respiratory failure on chronic 3 liter oxygen, T2DM, PAF on Xarelto, GERD, osteoporosis, ITP, breast cancer s/p lumpectomy and radiation currently on tamoxifen presented to ED 04/13/21 for worsening shortness of breath.She is being managed for the following: #. Acute on chronic hypoxic respiratory failure #. Recent diagnosis of COVID, sequelae of COVID 19 Pneumonia #. COPD #. Chronic Resp Failure - on 3L at home #. Abnormal CTA chest COPD with chronic hypoxic respiratory failure on chronic 3 liter oxygen Recently admitted for Covid 03/27/2021 [Recent admission 03/27/2021 to 04/06/2021] status post DEXA and remdesivir Cough, increasing shortness of breath with exertion and with activity at presentation Admitting CXR: Redemonstration of multifocal airspace opacities compatible with history of viral pneumonia. Also her D-dimer was elevated. Initially, CTA chest unable to be obtained due to orthopnea. Pro-Zay negative at admission. However, patient has been on chronic anticoagulation with xarelto which makes PE less likely. CT PE was later obtained which did not show any PE but showed extensive multifocal consolidation/GGO suggestive of viral pneumonia. Patient will need follow-up CT in 3 to 6 months to ensure resolution is recommended. Will also need mammogram and USS outpatient for eval of 2.3 cm irregular density within the superior right breast seen on CT BNP 5660 at admission. 04/14 ECHO: EF 65 to 70%, grade 1 diastolic dysfunction, left ventricular systolic function normal Possibilities include COPD exacerbation, Development of Long COVID Completed steroid Continue oxygen supplementation and wean as tolerated Repeat XR today showed partial interval clearing of b/l interstitial and alveolar opacities #Sepsis due to complicated urinary tract infection, Left pyelonephritis #GNR bacteremia #MOISÉS Cr continued to worsen Has Left CVA tenderness. Repeated CT abd pelvis wo co today which showed moderate - severe left hydronephrosis, left collecting system containing complex fluid Stat Urologist consult. Discussed with Urology. For possible OR today Keep NPO Considering patient has h/o pancytopenia/ITP, long hospital stay; antibiotics changed to cefepime renally dosed to cover pseudomonas Follow up cultures - Urine and blood cultures growing GNR IVF bolus Check lactate Continue to hold valsartan, aldactone for now Supervisor Shop on board Monitor renal function. Avoid nephrotoxins #. Pancytopenia: #. ITP #. Anemia of chronic disease -Multifactorial H/o, follows Dr. Avendano. Pancytopenic. CBC w/diff #. Other chronic medical conditions: Sarcoidosis/Splenomegaly/PAF/DM2/Ho Breast Ca/HTN/HLD Continue home meds Sliding scale for DM DVT prophylaxis: Hold pharmacological agent in view of OR. Also hold xarelto in view of renal function DNR/DNI Disposition: PCU for now Daughter called and updated Admission and Anticipated Discharge Date Admission Date: April 13, 2021 Subjective Patient seen and examined. Patient continues to have low back pain No nausea today. Reports anorexia and malaise Still has low abd pain. Denied constipation No hematuria today. Has chronic intermittent urinary incontinence sometimes Denied dysuria. Had temp of 38 yesterday. Patient's oxgyen requirement increased this morning. She reports no cough at this time but states she has some shortness of breath UA was suggestive of UTI and patient was started on ceftriaxone yesterday Physical Exam Constitutional: + well hydrated; no acute distress Eyes: PERRL, conjunctivae normal, anicteric sclerae ENMT: external ear and nose normal, oropharynx normal Cardiovascular: Rate/Rhythm: regular rate and regular rhythm Gastrointestinal (Abdomen): normal bowel sounds, soft, nontender, no hepatosplenomegaly Neurologic: PERRL, EOMI, accommodation nl, no face palsy, no dysarthria Psychiatric: A+Ox3, euthymic affect Results & Data Results & Data ([facility]) Vital Signs (Past 12 Hours) Vital Signs Temp Pulse Pulse Pulse Resp BP BP 04/24/21 07:59 36.6 C 104 H 24 90/55 L 04/24/21 03:21 36.8 C 88 16 138/72 04/24/21 00:00 37 C 80 86 20 121/66 Pulse Ox 04/24/21 07:59 91 04/24/21 03:21 97 04/24/21 00:00 96 Laboratory Results Abnormal lab results 04/23/21 04/23/2104/24/22 Range/Units 16:10 20:29 07:58 WBC 1.92 L (4.8-10.8) K/uL RBC 3.40 L (4.2-5.4) M/uL Hgb 9.5 L (12.0-16.0) g/dL Hct 29.5 L (37-47) % RDW Std Deviation 59.6 H (36.4-46.3) fL RDW Coeff of Chi 18.5 H (11.5-14.5) % Plt Count 55 L (130-400) K/uL Lymphocytes # (Manual) 0.03 L (1.2-3.4) K/uL Total Abs Lymphocytes 0.03 L (1.2-3.4) K/uL Monocytes # (Manual) 0.02 L (0.11-0.59) K/uL Platelet Estimate Decreased L (Normal) Sodium (136-145) mmol/L Carbon Dioxide (21-32) mmol/L Anion Gap (3-11) BUN (6-23) mg/dl Creatinine (0.6-1.2) mg/dl BUN/Creatinine Ratio (10-20) POC Glucose 205 H 163 H (70-99) mg/dl Calcium (8.5-10.1) mg/dl 04/24/21 Range/Units 07:58 WBC (4.8-10.8) K/uL RBC (4.2-5.4) M/uL Hgb (12.0-16.0) g/dL Hct (37-47) % RDW Std Deviation (36.4-46.3) fL RDW Coeff of Chi (11.5-14.5) % Plt Count (130-400) K/uL Lymphocytes # (Manual) (1.2-3.4) K/uL Total Abs Lymphocytes (1.2-3.4) K/uL Monocytes # (Manual) (0.11-0.59) K/uL Platelet Estimate (Normal) Sodium 134 L (136-145) mmol/L Carbon Dioxide 17 L (21-32) mmol/L Anion Gap 14 H (3-11) BUN 46 H (6-23) mg/dl Creatinine 1.76 H (0.6-1.2) mg/dl BUN/Creatinine Ratio 26.1 H (10-20) POC Glucose (70-99) mg/dl Calcium 7.8 L (8.5-10.1) mg/dl
[2021-04-24] MEDS ORDERED: CEFEPIME 2,000 MG in SYRINGE 0 ML IV STA (10:02)
--- NOTE | 2021-04-24 10:52 | XRay Report ---
XR chest 1V portable CLINICAL HISTORY: Worsening hypoxia. Reassess. Follow-up airspace opacities COMPARISON STUDY: Portable chest from 04/13/2021 TECHNIQUE: 1 view of the chest FINDINGS: Single frontal view of the chest demonstrates the cardiomediastinal silhouette to be within normal li mits. Compared to previous examination, there has been partial resolution of bilateral interstitial a nd alveolar opacities . There is no evidence for pleural effusion. There is no evidence for vascular congestion. There is no acute osseous pathology. IMPRESSION: Partial interval clearing of bilateral interstitial and alveolar opacities. ACT 112: Negative or not required by law. Electronically signed by: Yehuda Diane M.D. 04/24/2021 10:50 AM
--- NOTE | 2021-04-24 10:59 | CT Scan Report ---
CT SCAN OF THE ABDOMEN AND PELVIS WITHOUT IV CONTRAST CLINICAL HISTORY: Acute renal insufficiency COMPARISON STUDY: Abdominal CT dated 04/21/2021. TECHNIQUE: CT scan of the abdomen and pelvis is performed from the lung bases to the proximal femora. Images are reviewed in the axial, sagittal, and coronal planes. IV contrast was not administered for this examination. A dose lowering technique was utilized adhering to the principles of ALARA. CT DOSE: 672.33 mGycm FINDINGS: Lung bases: The heart is enlarged and without pericardial effusion. There are calcified hilar lymph n odes. The coronary arteries and mitral annulus are densely calcified. Multifocal airspace consolidati on with foci of architectural distortion and mild bronchiectasis is again seen at the lung bases. No pleural effusion is identified A 2.5 cm spiculated density is again seen in the right breast on image #4. Liver: The unenhanced liver is cirrhotic in morphology and heterogeneous in attenuation. There is hyp ertrophy of the left lobe and caudate as well as nodularity of the hepatic surface contour. There is no intrahepatic biliary ductal dilatation. Gallbladder: Unremarkable. Spleen: The spleen is markedly enlarged measuring 20.9 cm in length. Pancreas: The unenhanced pancreas is atrophic and grossly unremarkable. Adrenal glands: Unremarkable. Kidneys: The unenhanced kidneys are atrophic. There is moderate to severe left-sided hydronephrosis. The left ureter is normal in caliber, with no obstructing stone identified. The left renal pelvis is filled with complex fluid. There is associated left-sided perinephric stranding. No hydronephrosis is seen on the right. No renal calculi are identified. A 1.6 cm cyst is again noted in the interpolar l eft kidney. Abdominal vasculature: The abdominal aorta is normal in course and caliber noting moderate to advance d atherosclerotic calcification. Bowel: There is moderate colonic diverticulosis without CT evidence of acute diverticulitis. No bowel obstruction is identified. The appendix is not identified and reported surgically absent. Peritoneum: There is trace perihepatic ascites as well as a small volume of pelvic ascites. No intrap eritoneal free air is identified. Lymphadenopathy: None. Pelvic viscera: The bladder is decompressed and grossly unremarkable. The uterus is surgically absent . No adnexal lesion is seen. Skeletal structures: The skeletal structures are osteopenic. A moderate compression deformity of T12 is unchanged. There is mild lumbosacral spondylosis. Several hemangiomas are noted throughout the dash ged spine. No lytic or blastic lesions are seen. IMPRESSION: 1. There is moderate to severe left-sided hydronephrosis, which is new from 04/21/2021 with associated left-sided perinephric stranding. The left ureter is normal in caliber, with no obstructing stone or lesion identified. 2. The left renal collecting system is filled with complex fluid. This is indeterminant, and could re present blood products, proteinaceous debris, or possibly infectious/purulent material. Correlate wit h clinical findings and urinalysis. 3. Cirrhotic liver morphology. 4. Marked splenomegaly. 5. Small volume of abdominopelvic ascites. 6. Multifocal airspace consolidation is again seen at both lung bases with architectural distortion. This suggests a viral pneumonia and clinical correlation will be required. 7. A pathologically indeterminant spiculated density is again seen in the right breast. 8. Additional findings as above. ACT 112: Negative or not required by law. Electronically signed by: Arik Mas M.D. 04/24/2021 10:57 AM
--- NOTE | 2021-04-24 11:39 | Pharmacy Report ---
Pharmacy Glycemic Short Note 2 - Date of Service April 24, 2021 - Glycemic Short BSG Results (Last 24 hours): 04/23/21 04/23/21 04/24/21 16:10 20:29 07:45 Glucose POC Glucose 205 H 163 H 92 04/24/21 04/24/21 07:58 11:29 Glucose 79 POC Glucose 97 OUTPATIENT ANTIDIABETIC REGIMEN: * Lantus 33 units HS * HbA1c: 6.5% (03/28/21) ASSESSMENT: 04/24: * BSGs yesterday of 175, 187, 205, and 163 mg/dL, fasting BSG of 92 mg/dL this morning * Last dose of PO dexamethasone 6 mg given yesterday, discontinued NPH * Patient with worsening MOISÉS (SCr: 1.76 mg/dL, baseline ~0.9 mg/dL) * Now with gram-negative bacteremia, receiving cefepime 04/22: * BSGs poorly controlled yesterday, 164, 223, 349, and 238 mg/dL * Likely related to initial NPO status and subsequent inadequate NPH to cover dexamethasone * Fasting BSG of 124 mg/dL this morning * Will increase NPH and tighten Novolog carb coverage today to cover PO dexamethasone 04/20: * BSGs yesterday of 72, 145, 190, and 230 mg/dL * Fasting BSG of 59 mg/dL this morning * Continues on dexamethasone 6 mg PO daily * Plan to add conservative NPH today with dexamethasone to help with BSG elevations as the day progressed yesterday * Will remove HS Novolog, which may have contributed to low fasting BSG * Assuming initial hypoglycemia on 04/18 was secondary to large basal dose dose on evening of 04/17 04/18: * 76 year old female, readmitted with respiratory failure, PMH of recent diagnosis of COVID-19 03/27/2021, Recent admission 03/27/2021 to 04/06/2021, status post dexamethasone and remdesivir, COPD with chronic hypoxic respiratory failure on chronic 3 liter oxygen, T2DM, PAF on Xarelto, GERD, osteoporosis, ITP, breast cancer s/p lumpectomy and radiation currently on tamoxifen. * Patient on IV Solu-Medrol, with hypoglycemia as inpatient, pharmacy consulted for glycemic control. * Patient on home dose of Lantus, given last night, will hold tonight's dose and reassess in AM, loosen CF/CR to prevent further hypoglycemia. * Patient is eating very well and having snacks and treats her family brought her. PLAN FOR INPATIENT GLYCEMIC CONTROL: * Basal insulin - discontinue * Hold * Bolus insulin - loosen * NovoLog per scale ACHS or Q6hrs while NPO * Goal Range: Low 120 mg/dL - High 150 mg/dL * Correction Factor: 35 mg/dL/unit * TIGHTEN: Nutritional / Prandial insulin per carb ratio of 1 unit per 12 grams CHO consumed * No Novolog at HS PLAN FOR DISCHARGE: * HbA1c: 6.5% is at goal for patient * Based on age and comorbidities, a less-stringent goal of less than 8% is likely reasonable for this patient in effort to reduce outpatient hypoglycemia * Obvious concern for hypoglycemia given large basal dose and need for significantly less insulin while inpatient * Reduction in outpatient basal dose is likely warranted - will follow
[2021-04-24] MEDS: traMADol HCL 50 MG TABLET PO PRN (13:22)
--- NOTE | 2021-04-24 14:14 | Urology Consultation ---
Date of Consultation April 24, 2021 Assessment & Plan (1) Urinary tract infection: (2) Hydronephrosis, left: We discussed her findings on recent CT imaging. I am concerned that the hydronephrosis in the left kidney may be a nidus for ongoing urinary tract infection. We discussed potential intervention including cystoscopy, left retrograde pyelogram, left ureteral stent placement. I explained the risks and benefits of this procedure. We discussed the risk of bleeding, infection, in jury to the urinary tract, inability to place the stent. She expressed understanding would like to proceed with stent placement. Plan: NPO To the OR for cystoscopy, left retrograde pyelogram, left ureteral stent placement. Continue antibiotics History of Present Illness Reason for Consultation: Urinary tract infection, left-sided hydronephrosis Attending Physician: Mila Sauceda MD History of Present Illness This is a 76-year-old female with history of COPD, chronic respiratory failure (3 L oxygen at home) pancytopenia who was admitted to the hospital on 04/13/2021 with worsening respiratory failure. Over the past couple days, she has gotten worse clinically, and was found on urinalysis to have suspicion for UTI. Urine culture is pending but is preliminary growing gram-negative rods. CT scan was performed on 04/24/2021 which demonstrated significant left-sided hydronephrosis, which was new compared to previous scan on 04/21/2021. There is no obvious obstructing stone, but imaging raises concern for UPJ obstruction. urology was consulted for further evaluation. At the bedside, she reports that she is having abdominal pain, both in the back and in the lower abdomen. She denies fevers, but reports weakness. She reports baseline home oxygen use. She reports that she has had urinary tract infections in the past. She does not think she is ever seen a urologist before. She denies any urinary issues at baseline. She reports that she has had some right- sided pain over the past couple days, but on exam she endorses more left-sided pain. I Independently reviewed her labs. White count is notable for leukopenia at 1.92. Hemoglobin is 9.5. Platelets 55. Her creatinine has increased of the last 2 days and is 1.76 today up from a baseline close to 1. Urinalysis from 04/23/2021 demonstrated 3+ blood, positive nitrites, 3+ leukocyte esterase and 4+ bacteria -culture is not finalized, but is growing gram-negative bacilli. I independently reviewed her CT scan. She has 2 kidneys. There is marked hydronephrosis of the left kidney, but that does not extend into the ureter. This raises suspicion for UPJ obstruction. The right kidney is normal and the right ureter is normal. The bladder appears to be of normal size. Allergies Allergy/AdvReac Type Severity Reaction Status Date / Time No Known Drug Allergies Allergy Verified 04/13/21 18:22 Home Medications Medication Instructions Recorded Confirmed Type cholecalciferol (vitamin D3) 1,250 50,000 unit PO WK cap 11/27/18 04/13/21 History mcg (50,000 unit) capsule ipratropium 0.5 mg-albuterol 3 mg 3 ml INHALATION DAILY PRN #1 ml 11/27/18 04/13/21 History (2.5 mg base)/3 mL nebulization soln tamoxifen 20 mg tablet 20 mg PO QAM tab 11/27/18 04/13/21 History amlodipine 10 mg-valsartan 320 mg 1 tab PO DAILY tab 10/09/19 04/13/21 History tablet insulin glargine 100 unit/mL 33 units SUBCUT HS #1 ml 10/09/19 04/13/21 History subcutaneous solution famotidine 40 mg tablet (Pepcid) 40 mg PO DAILY #30 tab 07/28/20 04/13/21 Rx albuterol sulfate 90 mcg/actuation 2 puff INHALATION Q4H PRN #8.5 g 02/09/21 04/13/21 Rx aerosol inhaler budesonide-formoterol HFA 160 2 puff INHALATION BID #10.2 g 02/09/21 04/13/21 Rx mcg-4.5 mcg/actuation aerosol inhaler atorvastatin 40 mg tablet 40 mg PO QAM 03/27/21 04/13/21 History diclofenac sodium 1 % topical gel 2 g TOPICAL QID PRN 03/27/21 04/13/21 History gabapentin 300 mg capsule 300 mg PO DAILY 03/27/21 04/13/21 History metoprolol succinate 100 mg 100 mg PO BID 03/27/21 04/13/21 History tablet,extended release 24 hr omeprazole 20 mg capsule,delayed 20 mg PO QAM 03/27/21 04/13/21 History release potassium chloride 10 mEq 10 meq PO DAILY 03/27/21 04/13/21 History capsule,extended release rivaroxaban 20 mg tablet (Xarelto) 20 mg PO QAM 03/27/21 04/13/21 History ropinirole 0.25 mg tablet 0.25 mg PO QAM 03/27/21 04/13/21 History spironolactone 50 mg tablet 50 mg PO QAM 03/27/21 04/13/21 History venlafaxine 37.5 mg 37.5 mg PO DAILY 03/27/21 04/13/21 History capsule,extended release 24 hr Patient History Medical History Arthritis BPPV (benign paroxysmal positional vertigo) Chronic anticoagulation Chronic respiratory failure with hypoxia COPD (chronic obstructive pulmonary disease) Diabetes GERD without esophagitis Hiatal hernia History of adverse effect of anesthesia on table? - Per Patient Form History of breast cancer History of Clostridioides difficile colitis History of ITP Hypertension Hypertensive heart disease Nocturnal hypoxemia On home oxygen therapy Osteoporosis Paroxysmal atrial fibrillation Pulmonary hypertension Restrictive lung disease Rheumatoid arthritis Sarcoidosis SNHL (sensorineural hearing loss) Surgical History History of appendectomy History of cholecystectomy History of hysterectomy History of tonsillectomy Family History Mother Hypertension Heart disease Father Hypertension Stroke Heart disease Other Family history of bleeding disorder No family history of adverse response to anesthesia Social History Smoking Status: Smoker, status unknown Second Hand Exposure: Yes; Do You Dip or Chew Tobacco: No; Tobacco Cessation Education Requested by Patient: No Hx Alcohol Use: Yes Hx Substance Use: No Preferred Language: Burmese Communication Ability: Effective Hose Handler Required: No Beliefs That Will Affect Care: None Current Living Situation: Alone Current Living Situation Comment: sister currently staying with patient, pt has home care visiting 2x/week Other Information That Helps Us Care for You: No Feels Safe at Home: Yes Safety Concerns: Feels Safe At This Time Assistive Devices: Oxygen - Continuous Review of Systems Constitutional: no fever and no chills Eyes: no worsening vision Ear, Nose, Mouth, Throat: no tinnitus Respiratory: + dyspnea Cardiovascular: no chest pain Gastrointestinal: + abdominal pain; no nausea and no vomiting Musculoskeletal: no joint pain and no myalgia Integumentary: no rash and no lesions Neurologic: no localized weakness, no numbness and no paresthesia Endocrine: no fatigue Hematologic / Lymphatic: no easy bleeding and no easy bruising Physical Exam Constitutional: Alert, frail-appearing Eyes: Conjugate gaze Neck: supple Respiratory: Breathing on supplemental oxygen by nasal cannula, no audible wheezing. Cardiovascular: Well-perfused Gastrointestinal (Abdomen): Abdomen is soft, tender to palpation of the lower abdomen. Left flank tenderness. Musculoskeletal: Grossly normal Skin: Warm and dry Neurologic: Alert and oriented Genitourinary: Left flank pain Results & Data ([facility]) Vital Signs (Past 12 Hours) Vital Signs Temp Pulse Pulse Resp BP BP Pulse Ox 04/24/21 13:08 101 H 93/59 L 04/24/21 11:47 36.4 C L 102 H 22 85/42 L 91 04/24/21 07:59 36.6 C 104 H 24 90/55 L 91 04/24/21 03:21 36.8 C 88 16 138/72 97 PG Care Time/CCT Total # of Minutes Spent Total Time Spent with Patient: Total time spent is greater than 50% in coordination of care (as documented) at patient's floor/unit and/or counseling patient: Coding Level of Care Code 08140 Initial Inpt Care Lvl 2 Diagnoses Urinary tract infection N39.0 Hydronephrosis, left N13.30
[2021-04-24] MEDS ORDERED: SODIUM CHLORIDE 0.9% IV ONE (14:46)
--- NOTE | 2021-04-24 17:09 | Anesthesiology Consultation ---
Date of Service April 24, 2021 Assessment & Plan (1) Encounter for pre-operative examination: Chart Review Chart Review: Acceptable Risk for Surgery (necessary surgery) and Patient NOT seen in Pre Admission Testing Consults Requested none History Surgery Operation Date: 04/24/21 17:45 Proposed Procedures p Cystoscopy, Left Stent Insertion - Yung Villa MD Height/Weight Height: 5 ft 4 in Weight: 62.5 kg Allergies Allergy/AdvReac Type Severity Reaction Status Date / Time No Known Drug Allergies Allergy Verified 04/13/21 18:22 Medications Home Medications Medication Instructions Recorded Confirmed Last Taken cholecalciferol (vitamin D3) 1,250 50,000 unit PO WK cap 11/27/18 04/13/21 Unknown mcg (50,000 unit) capsule ipratropium 0.5 mg-albuterol 3 mg 3 ml INHALATION DAILY PRN #1 ml 11/27/18 04/13/21 Unknown (2.5 mg base)/3 mL nebulization soln tamoxifen 20 mg tablet 20 mg PO QAM tab 11/27/18 04/13/21 Unknown amlodipine 10 mg-valsartan 320 mg 1 tab PO DAILY tab 10/09/19 04/13/21 Unknown tablet insulin glargine 100 unit/mL 33 units SUBCUT HS #1 ml 10/09/19 04/13/21 Unknown subcutaneous solution famotidine 40 mg tablet (Pepcid) 40 mg PO DAILY #30 tab 07/28/20 04/13/21 Unknown albuterol sulfate 90 mcg/actuation 2 puff INHALATION Q4H PRN #8.5 g 02/09/21 04/13/21 Unknown aerosol inhaler budesonide-formoterol HFA 160 2 puff INHALATION BID #10.2 g 02/09/21 04/13/21 Unknown mcg-4.5 mcg/actuation aerosol inhaler atorvastatin 40 mg tablet 40 mg PO QAM 03/27/21 04/13/21 Unknown diclofenac sodium 1 % topical gel 2 g TOPICAL QID PRN 03/27/21 04/13/21 Unknown gabapentin 300 mg capsule 300 mg PO DAILY 03/27/21 04/13/21 Unknown metoprolol succinate 100 mg 100 mg PO BID 03/27/21 04/13/21 Unknown tablet,extended release 24 hr omeprazole 20 mg capsule,delayed 20 mg PO QAM 03/27/21 04/13/21 Unknown release potassium chloride 10 mEq 10 meq PO DAILY 03/27/21 04/13/21 Unknown capsule,extended release rivaroxaban 20 mg tablet (Xarelto) 20 mg PO QAM 03/27/21 04/13/21 Unknown ropinirole 0.25 mg tablet 0.25 mg PO QAM 03/27/21 04/13/21 Unknown spironolactone 50 mg tablet 50 mg PO QAM 03/27/21 04/13/21 Unknown venlafaxine 37.5 mg 37.5 mg PO DAILY 03/27/21 04/13/21 Unknown capsule,extended release 24 hr Active Medications Generic Name Dose Route Start Last Admin Trade Name Freq PRN Reason Stop Dose Admin Acetaminophen 650 mg 04/13/21 23:11 04/24/21 10:00 Acetaminophen 325 Mg Tab PO 05/13/21 23:10 650 mg Q4H PRN Administration Pain or Fever Amlodipine Besylate 10 mg 04/14/21 09:00 04/23/21 08:07 Amlodipine Besylate 5 Mg Tab PO 05/14/21 08:59 10 mg DAILY BLAISE Administration Atorvastatin Calcium 40 mg 04/14/21 09:00 04/24/21 08:38 Atorvastatin 40 Mg Tab PO 05/14/21 08:59 40 mg QAM BLAISE Administration Dextrose 25 - 50 ml 04/13/21 20:45 04/18/21 11:48 Dextrose 50% 50 Ml Syringe IV 05/13/21 20:44 50 ml UD PRN Administration Hypoglycemia Protocol Protocol Diclofenac Sodium 2 gm 04/22/21 10:05 04/22/21 11:08 Diclofenac Sod 1% Gel 100 Gm Tube EXT 05/22/21 12:59 2 gm QID PRN Administration Back pain Docusate Sodium 100 mg 04/15/21 14:05 04/24/21 08:36 Docusate Sodium 100 Mg Cap PO 05/15/21 14:04 100 mg BID BLAISE Administration Famotidine 40 mg 04/14/21 09:00 04/24/21 08:38 Famotidine 40 Mg Tablet PO 05/14/21 08:59 40 mg DAILY BLAISE Administration Fluticasone/Vilanterol 1 puffs 04/14/21 09:00 04/24/21 08:38 Fluticasone/Vilanterol 100/25mcg 14 Puffs/Inhaler INH 05/14/21 08:59 1 puffs DAILY BLAISE Administration Gabapentin 300 mg 04/14/21 09:00 04/24/21 08:38 Gabapentin 300 Mg Cap PO 05/14/21 08:59 300 mg DAILY BLAISE Administration Sodium Chloride 1,000 mls @ 100 mls/hr 04/23/21 10:30 04/24/21 16:36 Nss 1000ml IV 05/23/21 10:29 100 mls/hr .Q10H BLAISE Administration Insulin Aspart 0 units 04/20/21 11:30 04/24/21 16:37 Insulin Aspart Per Unit SC 05/13/21 20:59 Not Given AC BLAISE Protocol Insulin Aspart 0 units 04/20/21 21:00 04/23/21 20:55 Insulin Aspart Per Unit SC 05/20/21 20:59 1 units HS BLAISE Administration Protocol Ipratropium [place] 0.5 mg 04/23/21 01:00 04/23/21 01:06 Ipratropium [place] Neb Soln 0.02% 2.5 Ml Vial INH 05/23/21 00:59 0.5 mg Q6R PRN Administration Shortness Of Breath Or Wheezing Levalbuterol HCl 1.25 mg 04/23/21 01:00 04/23/21 01:06 Levalbuterol 1.25mg/0.5ml Neb INH 05/23/21 00:59 1.25 mg Q6R PRN Administration Shortness Of Breath Or Wheezing Lidocaine 1 patch 04/22/21 12:30 04/24/21 08:48 Lidocaine 5% 1 Patch TD 05/22/21 12:29 1 patch QAM BLAISE Administration Metoprolol Succinate 100 mg 04/13/21 21:00 04/24/21 08:37 Metoprolol Succ 50mg Ext Rel Tab PO 05/13/21 20:59 Not Given BID BLAISE Miscellaneous 15 - 30 gm 04/13/21 20:45 04/18/21 07:10 Carbohydrates For Hypoglycemia PO 05/13/21 20:44 30 gm UD PRN Administration Hypoglycemia Protocol Miscellaneous 1 ea 04/22/21 21:00 04/23/21 20:55 Remove Lidoderm Patch N/A 05/22/21 20:59 1 ea DAILY@2100 BLAISE Administration Pantoprazole Sodium 40 mg 04/14/21 09:00 04/24/21 08:38 Pantoprazole 40 Mg Tab PO 05/14/21 08:59 40 mg QAM BLAISE Administration Potassium Chloride 10 meq 04/14/21 09:00 04/23/21 08:09 Potassium Chloride 10 Meq Tabcr PO 05/14/21 08:59 10 meq DAILY BLAISE Administration Rivaroxaban 15 mg 04/15/21 09:00 04/24/21 08:38 Rivaroxaban 15 Mg Tab PO 05/15/21 08:59 15 mg QAM BLAISE Administration Ropinirole HCl 0.25 mg 04/14/21 09:00 04/24/21 08:39 Ropinirole Hcl 0.25 Mg Tablet PO 05/14/21 08:59 0.25 mg QAM BLAISE Administration Spironolactone 50 mg 04/14/21 09:00 04/23/21 08:06 Spironolactone 25 Mg Tab PO 05/14/21 08:59 50 mg QAM BLAISE Administration Tamoxifen Citrate 20 mg 04/14/21 09:00 04/24/21 08:32 Tamoxifen Citrate 10 Mg Tablet PO 05/14/21 08:59 20 mg QAM BLAISE Administration Tramadol HCl 25 mg 04/24/21 13:06 04/24/21 13:22 Tramadol Hcl 50 Mg Tablet PO 05/24/21 13:05 25 mg Q6H PRN Administration Severe Pain Valsartan 320 mg 04/14/21 09:00 04/23/21 08:08 Valsartan 80 Mg Tab PO 05/14/21 08:59 320 mg DAILY BLAISE Administration Venlafaxine HCl 37.5 mg 04/14/21 09:00 04/24/21 08:39 Venlafaxine Hcl Xr 37.5 Mg Capxr PO 05/14/21 08:59 37.5 mg DAILY BLAISE Administration Past Medical History Medical History Anemia Arthritis BPPV (benign paroxysmal positional vertigo) Chronic anticoagulation Chronic respiratory failure with hypoxia COPD (chronic obstructive pulmonary disease) Diabetes GERD without esophagitis Hiatal hernia History of adverse effect of anesthesia on table? - Per Patient Form History of breast cancer History of Clostridioides difficile colitis History of ITP Hypertension Hypertensive heart disease Nocturnal hypoxemia On home oxygen therapy Osteoporosis Paroxysmal atrial fibrillation Pulmonary hypertension Renal insufficiency Restrictive lung disease Rheumatoid arthritis Sarcoidosis SNHL (sensorineural hearing loss) Thrombocytopenia Past Family History Family History Mother Hypertension Heart disease Father Hypertension Stroke Heart disease Other Family history of bleeding disorder No family history of adverse response to anesthesia Past Surgical History Surgical History History of appendectomy History of cholecystectomy History of hysterectomy History of tonsillectomy Social History Smoking Status: Smoker, status unknown Do You Dip or Chew Tobacco: No Hx Alcohol Use: Yes alcohol intake frequency: holidays/special occasions only Hx Substance Use: No Physical Exam Vital Signs Last Vital Signs Temp 36.3 C L 04/24/21 15:26 Pulse 93 H 04/24/21 15:26 Resp 24 04/24/21 15:47 BP 92/56 L 04/24/21 15:26 Pulse Ox 96 04/24/21 15:47 Testing Laboratory Results 04/24/21 07:58 04/24/21 07:58 Urine Color [place] 04/23/21 10:30 Urine Appearance Cloudy (Clear) A 04/23/21 10:30 Urine pH >= 9.0 (4.5-7.5) H 04/23/21 10:30 Ur Specific [place] 1.010 (1.000-1.030) 04/23/21 10:30 Urine Protein 3+ (Negative) H 04/23/21 10:30 Urine Glucose (UA) Negative (Negative) 04/23/21 10:30 Urine Ketones Negative (Negative) 04/23/21 10:30 Urine Nitrite Positive (Negative) A 04/23/21 10:30 Ur Leukocyte Esterase 3+ (Negative) H 04/23/21 10:30 Urine WBC (Auto) 1-5 /hpf (0-5) 04/13/21 15:25 Urine RBC (Auto) 0-4 /hpf (0-4) 04/13/21 15:25 U Hyaline Cast (Auto) 5-10 /lpf (0-5) H 04/13/21 15:25 U Epithel Cells (Auto) >30 /lpf (0-5) H 04/13/21 15:25 Urine Bacteria (Auto) Negative (Negative) 04/13/21 15:25 Urine RBC 10-30 /hpf (0-4) H 04/23/21 10:30 Urine WBC 10-30 /hpf (0-5) H 04/23/21 10:30 Ur Epithelial Cells 0-5 /lpf (0-5) 04/23/21 10:30 04/23/21 10:30 Urine Culture - Preliminary Urine,Straight Cath Gram negative bacilli 04/23/21 12:39 Aerobic Blood Culture - Preliminary Blood Gram negative bacilli Anaerobic Blood Culture - Preliminary Gram negative bacilli 04/23/21 12:48 Aerobic Blood Culture - Preliminary Blood Gram negative bacilli 04/24/21 04/24/21 04/24/21 16:07 11:29 07:45 POC Glucose 89 97 92 Electrocardiogram Date: 04/24/21 Findings: + NSR @ (94), + LBBB (left anterior fascicle) and + RBBB left lateral infarct noted prior to 03/27/21 Chest X-Ray Date: 04/24/21 XR chest 1V portable CLINICAL HISTORY: Worsening hypoxia. Reassess. Follow-up airspace opacities COMPARISON STUDY: Portable chest from 04/13/2021 TECHNIQUE: 1 view of the chest FINDINGS: Single frontal view of the chest demonstrates the cardiomediastinal silhouette to be within normal limits. Compared to previous examination, there has been partial resolution of bilateral interstitial and alveolar opacities . There is no evidence for pleural effusion. There is no evidence for vascular congestion. There is no acute osseous pathology. IMPRESSION: Partial interval clearing of bilateral interstitial and alveolar opacities. ACT 112: Negative or not required by law. Electronically signed by: Yehuda Diane M.D. 04/24/2021 10:50 AM Echocardiogram Date: 04/14/21 EF: 65-70 Other Findings: + atrial enlargement (mild dilation left atrium), + LVH (mild concentric) and + diastolic dysfunction (grade 1) Valvular Disease: + AI (mild), + MS (mild) and + MR (mild) Other Testing CT SCAN OF THE ABDOMEN AND PELVIS WITHOUT IV CONTRAST CLINICAL HISTORY: Acute renal insufficiency COMPARISON STUDY: Abdominal CT dated 04/21/2021. TECHNIQUE: CT scan of the abdomen and pelvis is performed from the lung bases to the proximal femora. Images are reviewed in the axial, sagittal, and coronal planes. IV contrast was not administered for this examination. A dose lowering technique was utilized adhering to the principles of ALARA. CT DOSE: 672.33 mGycm FINDINGS: Lung bases: The heart is enlarged and without pericardial effusion. There are calcified hilar lymph nodes. The coronary arteries and mitral annulus are densely calcified. Multifocal airspace consolidation with foci of architectural distortion and mild bronchiectasis is again seen at the lung bases. No pleural effusion is identified A 2.5 cm spiculated density is again seen in the right br east on image #4. Liver: The unenhanced liver is cirrhotic in morphology and heterogeneous in attenuation. There is hypertrophy of the left lobe and caudate as well as nodularity of the hepatic surface contour. There is no intrahepatic biliary ductal dilatation. Gallbladder: Unremarkable. Spleen: The spleen is markedly enlarged measuring 20.9 cm in length. Pancreas: The unenhanced pancreas is atrophic and grossly unremarkable. Adrenal glands: Unremarkable. Kidneys: The unenhanced kidneys are atrophic. There is moderate to severe left- sided hydronephrosis. The left ureter is normal in caliber, with no obstructing stone identified. The left renal pelvis is filled with complex fluid. There is associated left-sided perinephric stranding. No hydronephrosis is seen on the right. No renal calculi are identified. A 1.6 cm cyst is again noted in the interpolar left kidney. Abdominal vasculature: The abdominal aorta is normal in course and caliber noting moderate to advanced atherosclerotic calcification. Bowel: There is moderate colonic diverticulosis without CT evidence of acute diverticulitis. No bowel obstruction is identified. The appendix is not identified and reported surgically absent. Peritoneum: There is trace perihepatic ascites as well as a small volume of pelvic ascites. No intraperitoneal free air is identified. Lymphadenopathy: None. Pelvic viscera: The bladder is decompressed and grossly unremarkable. The uterus is surgically absent. No adnexal lesion is seen. Skeletal structures: The skeletal structures are osteopenic. A moderate compression deformity of T12 is unchanged. There is mild lumbosacral spondylosis. Several hemangiomas are noted throughout the imaged spine. No lytic or blastic lesions are seen. IMPRESSION: 1. There is moderate to severe left-sided hydronephrosis, which is new from 04/21/2021 with associated left-sided perinephric stranding. The left ureter is normal in caliber, with no obstructing stone or lesion identified. 2. The left renal collecting system is filled with complex fluid. This is indeterminant, and could represent blood products, proteinaceous debris, or possibly infectious/purulent material. Correlate with clinical findings and urinalysis. 3. Cirrhotic liver morphology. 4. Marked splenomegaly. 5. Small volume of abdominopelvic ascites. 6. Multifocal airspace consolidation is again seen at both lung bases with architectural distortion. This suggests a viral pneumonia and clinical correlation will be required. 7. A pathologically indeterminant spiculated density is again seen in the right breast. 8. Additional findings as above. ACT 112: Negative or not required by law. Electronically signed by: Arik Mas M.D
[2021-04-24] MEDS ORDERED: fentaNYL citrate 100 MCG/2 ML VIAL IV PRN (17:15)
[2021-04-24] MEDS ORDERED: PHENYLEPHRINE 100MCG/ML 5ML SYR IV PRN (17:15)
[2021-04-24] MEDS ORDERED: ATROPINE SULFATE 0.1 MG/ML 10ML SYR IV PRN (17:15)
[2021-04-24] MEDS ORDERED: LABETALOL HCL IV 5 MG/ML 20ML IV PRN (17:15)
[2021-04-24] MEDS ORDERED: HYDROmorphone INJ 1 MG/ML SYRINGE IV PRN (17:15)
[2021-04-24] MEDS ORDERED: ePHEDrine sulfate 50 MG/ML AMP IV PRN (17:15)
[2021-04-24] MEDS ORDERED: fentaNYL citrate 100 MCG/2 ML VIAL ONE (18:37)
[2021-04-24] MEDS ORDERED: PROPOFOL IV EMULSION 10 MG/ML 20 ML VIAL IV ONE (18:38)
--- NOTE | 2021-04-24 18:55 | Electrocardiogram Report ---
Test Reason : Blood Pressure : / mmHG Vent. Rate : 094 BPM Atrial Rate : 094 BPM P-R Int : 222 ms QRS Dur : 130 ms QT Int : 390 ms P-R-T Axes : 054 -57 041 degrees QTc Int : 487 ms Sinus rhythm with 1st degree A-V block Right bundle branch block Left anterior fascicular block Bifascicular block Minimal voltage criteria for LVH, may be normal variant Lateral infarct (cited on or before 27-MAR-2021) Abnormal ECG When compared with ECG of 13-APR-2021 11:09, [place] interval has increased Criteria for Septal infarct are no longer Present Confirmed by Dave Encinas ([id number]) on 04/24/2021 6:55:22 PM Referred By: REFERRED SELF Confirmed By:Dave Encinas
[2021-04-24] MEDS ORDERED: ONDANSETRON INJ 2 MG/ML 2 ML VIAL ONE (19:01)
--- NOTE | 2021-04-24 19:15 | Operative Report ---
PG Post Operative Report Pre & Post Diagnosis Operation Date: 04/24/21 17:45 Pre-Op Diagnosis: Left Hydronephrosis; urinary tract infection Post-Op Diagnosis: Left Hydronephrosis; urinary tract infection I identified the patient and participated in the time-out.: Yes Procedure Operation Date: 04/24/21 17:45 Actual Procedures p Cystoscopy, Left Retrograde Pyelogram, Left Stent Insertion(Left) - Yung Villa MD Surgeon Yung Villa MD Radiation Engineer None Estimated Blood Loss 0 Findings See Below High insertion of ureter into renal pelvis, suspicious for UPJ obstruction. Successful left ureteral stent placement. Cameron catheter left for maximal drainage. Specimens None Drains 16 And[place]ran Cameron catheter per urethra 6 [place]ran by 26 cm double-J ureteral stent in the left ureter Anesthesia Type MAC Complications none Disposition Disposition: Recovery Room Indications This is a 76-year-old female with COPD and chronic respiratory failure, recently admitted to the hospital. She developed worsening symptoms today, prompting a CT scan. This demonstrated new left-sided hydronephrosis. Recent urinalysis and urine culture demonstrate urinary tract infection. Due to the concern for presence of obstructed hydronephrosis in the setting of a UTI, she is being brought to the OR today for left ureteral stent placement. Description of Procedure The patient was identified in the holding area and informed consent was confirmed. They were marked on the left side, then were taken to the operating room where MAC anesthesia was initiated. They were placed in the dorsal lithotomy position with all pressure points appropriately padded. They were prepped and draped in the usual sterile fashion and a preoperative timeout was performed. A well-lubricated cystoscope was inserted per urethra and panendoscopy was performed. The urine in the bladder was turbid, and the bladder was emptied and flushed with saline a couple times before the lumen could be surveyed. There were no tumors or stones appreciated, but the wall of the bladder appeared erythematous and irritated, consistent with urinary tract infection. Ureteral orifices were in orthotopic position bilaterally. The left ureteral orifice was identified and cannulated with a 5 [place]ran open- ended catheter. A retrograde pyelogram was performed demonstrating the ureter was normal in course and caliber extending up to the left kidney. At this point the ureter had a high entry point into the renal pelvis. To prevent pyelovenous backflow I tried to use minimal amount of contrast and pressure, so I did not identify pinpoint jet extending into the left renal pelvis. A 0.035 inch sensor wire was advanced through the open-ended catheter up to the renal pelvis under fluoroscopic guidance. Over the wire, a 6 [place]ran x 24 centimeter double-J ureteral stent was advanced. This reach the insertion point to the renal pelvis, but did not appear to have a good curl in the kidney. A 6 [place] by 26 cm double-J stent was then used, which had a more sufficient curl within the kidney on fluoroscopy. The distal curl was visualized in the bladder with the cystoscope, and there was efflux of some cloudy urine. A 16 [place] Cameron catheter was inserted per urethra, the balloon was inflated with 10 mL normal saline and the catheter was attached to gravity drainage. The patient was then awakened from anesthesia and was brought to the PACU in stable condition. I attest to the content of the Intraoperative Record and any orders documented therein. Any exceptions are noted below.
[2021-04-24] MEDS ORDERED: DIATRIZOATE MEGLUMINE 30% 100ML VIAL INSTIL ONE (19:22)
--- NOTE | 2021-04-24 19:27 | Fluoroscopy Report ---
FL KUB CLINICAL HISTORY: LT CYSTO STENT COMPARISON STUDY: CT of the abdomen and pelvis performed earlier today. FLUOROSCOPY TIME: 10 seconds. FLUOROSCOPIC IMAGES: 1 FINDINGS: Fluoroscopy was provided during cystoscopy and left ureteral stent placement. Proximal aspe ct of left ureteral stent projects over the left renal pelvis. IMPRESSION: Fluoroscopy provided during cystoscopy and left ureteral stent placement. ACT 112: Negative or not required by law. Electronically signed by: Blade Acosta M.D. 04/24/2021 7:26 PM
--- NOTE | 2021-04-24 19:48 | Anesthesiology Progress Note ---
Date of Service April 24, 2021 Anesthesia Post Procedure Vital Signs Vital Signs: Temp Pulse Pulse Pulse Pulse Resp BP 04/24/21 19:30 37.4 C 102 H 24 107/54 L 04/24/21 19:20 104 H 24 121/58 L 04/24/21 19:11 37.2 C 106 H 24 116/60 04/24/21 17:59 36.6 C 101 H 24 123/61 04/24/21 17:30 22 04/24/21 17:00 22 04/24/21 15:47 24 04/24/21 15:26 36.3 C L 93 H 22 04/24/21 15:17 22 04/24/21 14:47 20 04/24/21 13:08 101 H 93/59 L 04/24/21 11:47 36.4 C L 102 H 22 04/24/21 07:59 36.6 C 104 H 24 04/24/21 03:21 36.8 C 88 16 138/72 04/24/21 00:00 37 C 80 86 20 04/23/21 20:29 36.9 C 81 24 BP Pulse Ox Pulse Ox 04/24/21 19:30 94 04/24/21 19:20 94 04/24/21 19:11 94 04/24/21 17:59 99 04/24/21 17:30 95 04/24/21 17:00 95 04/24/21 15:47 96 04/24/21 15:26 92/56 L 93 04/24/21 15:17 95 04/24/21 14:47 95 95 04/24/21 13:08 04/24/21 11:47 85/42 L 91 04/24/21 07:59 90/55 L 91 04/24/21 03:21 97 04/24/21 00:00 121/66 96 04/23/21 20:29 117/68 97 Pain Intensity Back: Pain Intensity: 2 Transfer of Care Handoff Completed per policy Notes Mental Status: alert / awake / arousable Patient Amnestic to Procedure: Yes Nausea / Vomiting: adequately controlled Pain: adequately controlled Airway Patency, RR, SpO2: stable & adequate BP & HR: stable & adequate Hydration State: stable & adequate Anesthetic Complications: no major complications apparent and Pt Satisfied with anesthetic care Notes: The patient is awake and comfortable. Her vitals are at her baseline.
[2021-04-24] MEDS ORDERED: HYDROmorphone INJ 0.5 MG/0.5 ML SYR IV STA (21:52)
--- NOTE | 2021-04-24 21:53 | Electrocardiogram Report ---
Test Reason : Blood Pressure : / mmHG Vent. Rate : 094 BPM Atrial Rate : 094 BPM P-R Int : 182 ms QRS Dur : 134 ms QT Int : 388 ms P-R-T Axes : 046 -45 045 degrees QTc Int : 485 ms Normal sinus rhythm Right bundle branch block Left anterior fascicular block Bifascicular block Minimal voltage criteria for LVH, may be normal variant Lateral infarct (cited on or before 27-MAR-2021) Abnormal ECG When compared with ECG of 24-APR-2021 15:02, No significant change was found Confirmed by Dave Encinas ([id number]) on 04/24/2021 9:52:40 PM Referred By: REFERRED SELF Confirmed By:Dave Encinas
[2021-04-24] MEDS ORDERED: METOPROLOL TARTRATE 1 MG/ML VIAL IV STA (21:59)
[2021-04-24] MEDS ORDERED: levoFLOXacin/D5W 500 MG/100 ML BAG IV SCH (22:45)
[2021-04-24] MEDS ORDERED: levoFLOXacin/D5W 750 MG/150 ML BAG IV SCH (23:00)
[2021-04-24] MEDS ORDERED: SODIUM CHLORIDE 0.9% 1000ML 1,000 ML IV SCH (23:00)
[2021-04-25 00:05] LABS: Hematocrit (blood only) 23.6 % (37-47); Hemoglobin 7.6 g/dL (12.0-16.0); Mean Corpuscular Hgb Conc 32.2 g/dL (32-36); Mean Corpuscular Volume 87.1 fL (80-100); Platelet Count 23 K/uL (130-400); RDW Coefficient of Variation 19.1 % (11.5-14.5); RDW Standard Deviation 61.5 fL (36.4-46.3); Red Blood Count 2.71 M/uL (4.2-5.4); White Blood Count 4.84 K/uL (4.8-10.8)
[2021-04-25 00:06] LABS: Echinocytes 1+; Immature Granulocytes # (auto) 0.38 K/uL (0.00-0.02); Immature Granulocytes % (auto) 7.9 %; Lymphocytes # (auto) 0.15 K/uL (1.2-3.4); Lymphocytes % (auto) 3.1 %; Monocytes # (auto) 0.24 K/uL (0.11-0.59); Neutrophils # (auto) 4.07 K/uL (1.4-6.5); Platelet Estimate SIGNIFIC DECREASED (Normal)
[2021-04-25] MEDS ORDERED: SODIUM CHLORIDE 0.9% 250 ML IV PRN ×2 (00:44→02:43)
[2021-04-25] MEDS: SODIUM CHLORIDE 0.9% 1000ML 1,000 ML IV SCH (05:46)
[2021-04-25 06:49] LABS: Albumin Level 2.4 gm/dl (3.4-5.0); BUN Creatinine Ratio 25.7 (10-20); Bilirubin,Total 0.8 mg/dl (0.2-1.0); Calcium 6.9 mg/dl (8.5-10.1); Creatinine Clr Calc Pharmacy 18.7 ml/min; Est GFR (African American) 24.9 ml/min; Est GFR (Non-African American) 21.5 ml/min; Globulin 2.3 gm/dl (2.5-4.0); Potassium 4.3 mmol/L (3.5-5.1); Total Protein 4.7 gm/dl (6.0-8.3)
[2021-04-25 07:11] LABS: Hematocrit (blood only) 22.9 % (37-47); Hemoglobin 7.5 g/dL (12.0-16.0); Mean Corpuscular Hemoglobin 28.1 pg (25-34); Mean Corpuscular Hgb Conc 32.8 g/dL (32-36); Mean Corpuscular Volume 85.8 fL (80-100); Platelet Count 19 K/uL (130-400); RDW Coefficient of Variation 19.2 % (11.5-14.5); RDW Standard Deviation 61.7 fL (36.4-46.3); Red Blood Count 2.67 M/uL (4.2-5.4); White Blood Count 3.34 K/uL (4.8-10.8)
[2021-04-25 07:12] LABS: Platelet Estimate SIGNIFIC DECREASED (Normal)
--- NOTE | 2021-04-25 07:42 | Critical Care Consultation ---
Date of Consultation April 25, 2021 Assessment & Plan (1) Severe sepsis: (2) Acute renal failure: (3) Urinary tract infection: (4) Acute and chronic respiratory failure with hypoxia: (5) COPD (chronic obstructive pulmonary disease): (6) Hypertension: (7) Diabetes: (8) Paroxysmal atrial fibrillation: (9) Pancytopenia: Reason Critically Ill: 76-year-old female here with a PMHx significant for COPD, Sarcoidosis, HTN, paroxysmal a.fib on Xarelto, DM2, and recent COVID-19 infection (admitted late 03/27/22 until early Apr), GERD, osteoporosis, ITP, breast cancer s/p lumpectomy and radiation currently on tamoxifen who presented with shortness of breath. Currently with severe sepsis secondary to complicated UTI and bacteremia. Neuro CAM ICU: NEGATIVE No current neuro concerns. Patient mentating appropriately and oriented x3. Cardiac PAF -- holding metoprolol due to low BPs and Xarelto held due to symptomatic anemia currently receiving PRBCs. HTN --hold home amlodipine, metoprolol, valsartan, spironolactone due to rela tive hypotension. Currently relatively hypotensive but adequate MAP. At this time not requiring any pressure support, will observe closely and start if needed. Respiratory Acute on chronic hypoxic respiratory failure, recent COVID -Patient with oxygen dependent COPD on 3 L nasal cannula at home. Currently requiring 7 L oxygen mask with adequate saturations. She is in moderate respiratory distress. Continue supplemental oxygenation as needed, continue fluticasone/vilanterol daily, as needed rescue inhaler. Check ABG. - Ordered repeat BioFire GI Heart healthy, carb consistent, soft bite sized diet Famotidine 40 mg p.o. daily Transaminitis -- monitor Renal/Electrolytes MOISÉS --continue IV fluids. Nephrology following. Pyelonephritis being treated currently with cefepime. However her urine culture showed pansensitive Proteus, will transition to ceftriaxone. Replace lytes as needed. Now status post cystoscopy, left retrograde pyelogram, left ureteral stent placement due to left hydronephrosis. Urology following. Endo ICU hyperglycemia protocol Heme Pancytopenia -Follows with Dr. Madden -Hemoglobin 7.5 today receiving 1 unit PRBCs. -Hold anticoagulation with Xarelto -Monitor H&H ID Complicated UTI/pyelonephritis Urine culture growing pansensitive Proteus will switch cefepime to ceftriaxone. Monitor blood cultures Ordered lactic acid COVID-19 Initial diagnosis on 03/27/2021, was discharged on 04/06/2021 Patient continued to have shortness of breath throughout that timeframe until her current admission. She did have chest imaging consistent with viral pneumonia 3 to 6-month fol low-up CT recommended to ensure resolution Ordered bio fire today Monitor fever curve. Lines/IV Access - PIVs intact. DVT Prophylaxis Home Xarelto on hold secondary to anemia receiving transfusion. Dispo: Monitor in ICU for possible need of vasoactive medications and respiratory compromise. Thank you for allowing us to be part of this patient's care. Please refer to Dr. Mojica's documentation for any further recommendations. Supervising Physician Co-Signing Physician Notes Dr. Jeronimo was resident physician during care of patient. I separately evaluated patient for dee portions of the history and the exam. I was present d uring the critical portion of medical decision making, and I discussed the case with the resident. I generally agree with the findings and plan. Patient in moderate respiratory distress with tachypnea and subjective complaints of dyspnea receiving 1 unit packed red blood cells. Blood pressure adequate at this time. She is alert and oriented x3. Likely dealing with systemic inflammatory response syndrome secondary to pyelonephritis. Will check ABG and lactic acid and repeat bio fire. She has a history of ITP and chronic thrombocytopenia as well as sarcoidosis and restrictive lung disease. There is leukopenia which is likely secondary to the underlying infectious process. She has an acute kidney injury with elevated transaminitis Baseline LFTs appear within normal limits. With a history of hypertension she should probably have a higher mean arterial blood pressure her systolics are 120 and I think that would be adequate at this time however we will transfer to the unit for close observation and vasoactive medication administration should that be required. She is DNR/DNI in event of cardiac arrest. There is a Proteus bacteremia most likely secondary to the pyelonephritis, it is pansensitive and would transition back to Rocephin. It is not uncommon to see a slight worsening in patient condition after the required operative management which she has undergone. Hopefully she has started to stabilize and will continue to improve. I have personally spent 45 minutes of critical care time in the direct management of this patient. This is a life/limb threatening event. This includes time spent evaluating patient, direct bedside care, chart review, placing orders, interpretation of diagnostic studies, discussion with consultants, patient, and/or family members regarding treatment decisions, as well as other required patient management activities. This time is exclusive of all separately billable procedures, and teaching time and separate from and in addition to any other critical care service time. History of Present Illness Attending Physician: Mila Sauceda MD History of Present Illness Tigist Montes is a 76-year-old female with PMH of COPD, Sarcoidosis, HTN, paroxysmal a.fib on Xarelto, DM2, and recent COVID-19 infection (admitted late 03/27/22 until early Apr), GERD, osteoporosis, ITP, breast cancer s/p lumpectomy and radiation currently on tamoxifen who is currently admitted for severe sepsis secondary to urinary tract infection/pyelonephritis and bacteremia with pansensitive Proteus mirabilis. She is currently on day 3 of total antibiotics, initially on ceftriaxone and broadened to cefepime on 04/24/21. She also has significant SOB in the setting of her recent COVID19 infection superimposed on COPD with 3L O2 home requirement. Currently requiring 7L oxymask. Her chest CT was consistent with viral pneumonia. She developed an MOISÉS on early CKD. Abd CT showed left hydronephrosis and Urology recommended cystoscopy, left retrograde pyelogram, and left ureteral stent placement, which she underwent on 04/24/21. Hospitalist consulted ICU today due to hypotension, which was responsive to fluids overnight but recurred this morning. She has been on NSS 100cc/hr for mIVF and received 2L NSS boluses. Upon my evaluation in the room, patient's BP was 101/64 with a MAP of 76. She does have increased work of breathing and is mildly tachypneic but saturating adequately. She reports shortness of breath consistent with the last few days and feeling weak/tired but otherwise denies f/c, n/v, CP, palp, abd pain, diarrhea, neuro deficits. Her most recent Echo on 04/14/21 showed normal LV function with EF of 65-70%, grade I diastolic dysfunction, and mild mitral stenosis/mild mitral regurg. Allergies Allergy/AdvReac Type Severity Reaction Status Date / Time No Known Drug Allergies Allergy Verified 04/13/21 18:22 Home Medications Medication Instructions Recorded Confirmed Type cholecalciferol (vitamin D3) 1,250 50,000 unit PO WK cap 11/27/18 04/13/21 History mcg (50,000 unit) capsule ipratropium 0.5 mg-albuterol 3 mg 3 ml INHALATION DAILY PRN #1 ml 11/27/18 04/13/21 History (2.5 mg base)/3 mL nebulization soln tamoxifen 20 mg tablet 20 mg PO QAM tab 11/27/18 04/13/21 History amlodipine 10 mg-valsartan 320 mg 1 tab PO DAILY tab 10/09/19 04/13/21 History tablet insulin glargine 100 unit/mL 33 units SUBCUT HS #1 ml 10/09/19 04/13/21 History subcutaneous solution famotidine 40 mg tablet (Pepcid) 40 mg PO DAILY #30 tab 07/28/20 04/13/21 Rx albuterol sulfate 90 mcg/actuation 2 puff INHALATION Q4H PRN #8.5 g 02/09/21 04/13/21 Rx aerosol inhaler budesonide-formoterol HFA 160 2 puff INHALATION BID #10.2 g 02/09/21 04/13/21 Rx mcg-4.5 mcg/actuation aerosol inhaler atorvastatin 40 mg tablet 40 mg PO QAM 03/27/21 04/13/21 History diclofenac sodium 1 % topical gel 2 g TOPICAL QID PRN 03/27/21 04/13/21 History gabapentin 300 mg capsule 300 mg PO DAILY 03/27/21 04/13/21 History metoprolol succinate 100 mg 100 mg PO BID 03/27/21 04/13/21 History tablet,extended release 24 hr omeprazole 20 mg capsule,delayed 20 mg PO QAM 03/27/21 04/13/21 History release potassium chloride 10 mEq 10 meq PO DAILY 03/27/21 04/13/21 History capsule,extended release rivaroxaban 20 mg tablet (Xarelto) 20 mg PO QAM 03/27/21 04/13/21 History ropinirole 0.25 mg tablet 0.25 mg PO QAM 03/27/21 04/13/21 History spironolactone 50 mg tablet 50 mg PO QAM 03/27/21 04/13/21 History venlafaxine 37.5 mg 37.5 mg PO DAILY 03/27/21 04/13/21 History capsule,extended release 24 hr Patient History Medical History Anemia Arthritis BPPV (benign paroxysmal positional vertigo) Chronic anticoagulation Chronic respiratory failure with hypoxia COPD (chronic obstructive pulmonary disease) Diabetes GERD without esophagitis Hiatal hernia History of adverse effect of anesthesia on table? - Per Patient Form History of breast cancer History of Clostridioides difficile colitis History of ITP Hypertension Hypertensive heart disease Nocturnal hypoxemia On home oxygen therapy Osteoporosis Paroxysmal atrial fibrillation Pulmonary hypertension Renal insufficiency Restrictive lung disease Rheumatoid arthritis Sarcoidosis SNHL (sensorineural hearing loss) Thrombocytopenia Surgical History History of appendectomy History of cholecystectomy History of hysterectomy History of tonsillectomy Family History Mother Hypertension Heart disease Father Hypertension Stroke Heart disease Other Family history of bleeding disorder No family history of adverse response to anesthesia Social History Smoking Status: Smoker, status unknown Second Hand Exposure: Yes; Do You Dip or Chew Tobacco: No; Tobacco Cessation Education Requested by Patient: No Hx Alcohol Use: Yes Hx Substance Use: No Preferred Language: Maltese Communication Ability: Effective Avionics System Engineer Required: No Beliefs That Will Affect Care: None Current Living Situation: Alone Current Living Situation Comment: sister currently staying with patient, pt has home care visiting 2x/week Other Information That Helps Us Care for You: No Feels Safe at Home: Yes Safety Concerns: Feels Safe At This Time Assistive Devices: Glasses Review of Systems Review of Systems: per HPI Physical Exam Physical Exam: GENERAL: A&Ox3. Tired-appearing. NAD. HEENT: PERRL, EOMI. Moist mucous membranes. NECK: No JVD. No lymphadenopathy. CHEST/LUNGS: Bibasilar crackles. Diminished lung sounds bilaterally. No wheezes, rales, rhonchi. HEART: RRR. No m/g/r. ABDOMEN: NT/ND, soft. BS+ x4 EXTREMITIES: No cyanosis, no clubbing, no edema SKIN: Warm and dry. No rashes or lesions. PSYCHIATRIC: Euthymic affect, no SI, no pressured speech, no hallucinations NEUROLOGIC: No FND. Moves all 4 extremities equally. Results & Data Results & Data ([facility]) Vital Signs (Past 12 Hours) Vital Signs Temp Pulse Pulse Resp BP BP Pulse Ox 04/25/21 04:00 37.0 C 04/25/21 03:05 36.7 C 126 H 20 92/49 L 95 04/25/21 00:15 128 H 18 92/58 L 94 04/24/21 23:59 141 H 04/24/21 23:30 130 H 18 87/56 L 94 04/24/21 23:00 130 H 18 87/56 L 94 04/24/21 22:55 37.0 C 135 H 18 86/54 L 97 04/24/21 22:35 37.0 C 135 H 18 86/54 L 93 04/24/21 22:17 140 H 108/64 04/24/21 20:30 18 92 04/24/21 20:00 18 92 04/24/21 19:48 37.0 C 103 H 18 102/62 92 Critical Care Results & Data Vital Signs (Past 12 Hours) Vital Signs Temp Pulse Pulse Resp BP BP Pulse Ox 04/25/21 08:19 36.4 C L 85 110/72 93 04/25/21 07:43 36.7 C 81 24 102/58 L 96 04/25/21 04:00 37.0 C 04/25/21 03:05 36.7 C 126 H 20 92/49 L 95 04/25/21 00:15 128 H 18 92/58 L 94 04/24/21 23:59 141 H 04/24/21 23:30 130 H 18 87/56 L 94 04/24/21 23:00 130 H 18 87/56 L 94 04/24/21 22:55 37.0 C 135 H 18 86/54 L 97 04/24/21 22:35 37.0 C 135 H 18 86/54 L 93 04/24/21 22:17 140 H 108/64 04/24/21 20:30 18 92 Lab & Micro Results (Past 24 Hours) RBC 2.67 M/uL (4.2-5.4) L 04/25/21 WBC 3.34 K/uL (4.8-10.8) L 04/25/21 Hgb 7.5 g/dL (12.0-16.0) L 04/25/21 Hct 22.9 % (37-47) L 04/25/21 MCV 85.8 fL (80-100) 04/25/21 MCH 28.1 pg (25-34) 04/25/21 MCHC 32.8 g/dL (32-36) 04/25/21 RDW Standard Deviation 61.7 fL (36.4-46.3) H 04/25/21 RDW Coefficient of Variation 19.2 % (11.5-14.5) H 04/25/21 Plt Count 19 K/uL (130-400) L* 04/25/21 Neutrophils (%) (Auto) 84.0 % 04/24/21 Lymphocytes (%) (Auto) 3.1 % 04/24/21 Monocytes # (Auto) 0.24 K/uL (0.11-0.59) 04/24/21 Eosinophils # (Auto) 0.00 K/uL (0-0.5) 04/24/21 Immature Granulocyte % (Auto) 7.9 % 04/24/21 Neutrophils # (Auto) 4.07 K/uL (1.4-6.5) 04/24/21 Lymphocytes # (Auto) 0.15 K/uL (1.2-3.4) L 04/24/21 Monocytes # (Auto) 0.24 K/uL (0.11-0.59) 04/24/21 Eosinophils # (Auto) 0.00 K/uL (0-0.5) 04/24/21 Basophils # (Auto) 0.00 K/uL (0-0.2) 04/24/21 Immature Granulocyte # (Auto) 0.38 K/uL (0.00-0.02) H 04/24/21 Echinocytes 1+ 04/24/21 Na 134 mmol/L (136-145) L 04/25/21 K 4.3 mmol/L (3.5-5.1) 04/25/21 Cl 108 mmol/L (98-107) H 04/25/21 CO2 18 mmol/L (21-32) L 04/25/21 Anion Gap 8 (3-11) 04/25/21 BUN 55 mg/dl (6-23) H 04/25/21 Creatinine 2.14 mg/dl (0.6-1.2) H 04/25/21 Estimated GFR ( Amer) 24.9 ml/min 04/25/21 Estimated GFR (Non-Af Amer) 21.5 ml/min 04/25/21 BUN/Creatinine Ratio 25.7 (10-20) H 04/25/21 Glu 78 mg/dl (70-99(Fasting)) 04/25/21 Ca 6.9 mg/dl (8.5-10.1) L 04/25/21 Total Bilirubin 0.8 mg/dl (0.2-1.0) 04/25/21 AST 90 U/L (13-39) H 04/25/21 ALT 83 U/L (7-52) H 04/25/21 Alkaline Phosphatase 133 U/L (34-104) H 04/25/21 TP 4.7 gm/dl (6.0-8.3) L 04/25/21 Albumin 2.4 gm/dl (3.4-5.0) L 04/25/21 Globulin 2.3 gm/dl (2.5-4.0) L 04/25/21 Albumin/Globulin Ratio 1.0 (0.9-2) 04/25/21 Calcium Level 6.9 mg/dl (8.5-10.1) L 04/25/21 06:03 04/25/21 Microbiology 04/23/21 12:48 Aerobic Blood Culture - Preliminary Blood Proteus mirabilis Anaerobic Blood Culture - Final 04/23/21 12:39 Aerobic Blood Culture - Preliminary Blood Proteus mirabilis Anaerobic Blood Culture - Preliminary Proteus mirabilis 04/23/21 10:30 Urine Culture - Preliminary Urine,Straight Cath Proteus mirabilis Diagnostic Findings (Past 24 Hours) Abdomen/Pelvis CT 04/24/21 08:52 CT SCAN OF THE ABDOMEN AND PELVIS WITHOUT IV CONTRAST CLINICAL HISTORY: Acute renal insufficiency COMPARISON STUDY: Abdominal CT dated 04/21/2021. TECHNIQUE: CT scan of the abdomen and pelvis is performed from the lung bases to the proximal femora. Images are reviewed in the axial, sagittal, and coronal planes. IV contrast was not administered for this examination. A dose lowering technique was utilized adhering to the principles of ALARA. CT DOSE: 672.33 mGycm FINDINGS: Lung bases: The heart is enlarged and without pericardial effusion. There are calcified hilar lymph nodes. The coronary arteries and mitral annulus are densely calcified. Multifocal airspace consolidation with foci of architectural distortion and mild bronchiectasis is again seen at the lung bases. No pleural effusion is identified A 2.5 cm spiculated density is again seen in the right breast on image #4. Liver: The unenhanced liver is cirrhotic in morphology and heterogeneous in attenuation. There is hypertrophy of the left lobe and caudate as well as nodularity of the hepatic surface contour. There is no intrahepatic biliary ductal dilatation. Gallbladder: Unremarkable. Spleen: The spleen is markedly enlarged measuring 20.9 cm in length. Pancreas: The unenhanced pancreas is atrophic and grossly unremarkable. Adrenal glands: Unremarkable. Kidneys: The unenhanced kidneys are atrophic. There is moderate to severe left- sided hydronephrosis. The left ureter is normal in caliber, with no obstructing stone identified. The left renal pelvis is filled with complex fluid. There is associated left-sided perinephric stranding. No hydronephrosis is seen on the right. No renal calculi are identified. A 1.6 cm cyst is again noted in the interpolar left kidney. Abdominal vasculature: The abdominal aorta is normal in course and caliber noting moderate to advanced atherosclerotic calcification. Bowel: There is moderate colonic diverticulosis without CT evidence of acute diverticulitis. No bowel obstruction is identified. The appendix is not identified and reported surgically absent. Peritoneum: There is trace perihepatic ascites as well as a small volume of pelvic ascites. No intraperitoneal free air is identified. Lymphadenopathy: None. Pelvic viscera: The bladder is decompressed and grossly unremarkable. The uterus is surgically absent. No adnexal lesion is seen. Skeletal structures: The skeletal structures are osteopenic. A moderate compression deformity of T12 is unchanged. There is mild lumbosacral spondylosis. Several hemangiomas are noted throughout the imaged spine. No lytic or blastic lesions are seen. IMPRESSION: 1. There is moderate to severe left-sided hydronephrosis, which is new from 04/21/2021 with associated left-sided perinephric stranding. The left ureter is normal in caliber, with no obstructing stone or lesion identified. 2. The left renal collecting system is filled with complex fluid. This is indeterminant, and could represent blood products, proteinaceous debris, or possibly infectious/purulent material. Correlate with clinical findings and urinalysis. 3. Cirrhotic liver morphology. 4. Marked splenomegaly. 5. Small volume of abdominopelvic ascites. 6. Multifocal airspace consolidation is again seen at both lung bases with architectural distortion. This suggests a viral pneumonia and clinical correlation will be required. 7. A pathologically indeterminant spiculated density is again seen in the right breast. 8. Additional findings as above. ACT 112: Negative or not required by law. Electronically signed by: Arik Mas M.D. 04/24/2021 10:57 AM Chest X-Ray 04/24/21 09:58 XR chest 1V portable CLINICAL HISTORY: Worsening hypoxia. Reassess. Follow-up airspace opacities COMPARISON STUDY: Portable chest from 04/13/2021 TECHNIQUE: 1 view of the chest FINDINGS: Single frontal view of the chest demonstrates the cardiomediastinal silhouette to be within normal limits. Compared to previous examination, there has been partial resolution of bilateral interstitial and alveolar opacities . There is no evidence for pleural effusion. There is no evidence for vascular congestion. There is no acute osseous pathology. IMPRESSION: Partial interval clearing of bilateral interstitial and alveolar opacities. ACT 112: Negative or not required by law. Electronically signed by: Yehuda Diane M.D. 04/24/2021 10:50 AM Abdomen Fluoroscopy 04/24/21 17:00 FL KUB CLINICAL HISTORY: LT CYSTO STENT COMPARISON STUDY: CT of the abdomen and pelvis performed earlier today. FLUOROSCOPY TIME: 10 seconds. FLUOROSCOPIC IMAGES: 1 FINDINGS: Fluoroscopy was provided during cystoscopy and left ureteral stent placement. Proximal aspect of left ureteral stent projects over the left renal pelvis. IMPRESSION: Fluoroscopy provided during cystoscopy and left ureteral stent placement. ACT 112: Negative or not required by law. Electronically signed by: Blade Acosta M.D. 04/24/2021 7:26 PM I & O Totals 24 Hours 04/24/21 04/25/21 04/26/21 06:59 06:59 06:59 Intake Total 2260.5 / 2260.5 6203.667 / 6203.667 0 / 0 Output Total 200 / 200 55 / 55 Balance 2060.5 / 2060.5 6148.667 / 6148.667 0 / 0 Cumulative 04/13/21 10:45 thru 04/25/21 08:21 Intake Total 02247.667 Output Total 75108 Balance -1730.333 RT Ventilator Mngmt (Last Documented) Ventilator Ordered Settings Respiratory Rate 24 04/25/21 07:43 Fraction of Inspired Oxygen 40 04/24/21 20:30 Ventilator - PT Measurements Respiratory Rate 24 Resident Activity Tracking Resident Involvement: Resident Care Provided Care Provided: Adult Hospital Medicine
[2021-04-25] MEDS: INSULIN ASPART PER UNIT SC SCH ×4 (07:59→20:32)
[2021-04-25] MEDS: LIDOCAINE 5% 1 PATCH TD SCH (08:00)
[2021-04-25] MEDS: FLUTICASONE/VILANTEROL 100/25MCG 14 PUFFS/INHALER INH SCH (08:00)
[2021-04-25] MEDS: DOCUSATE SODIUM 100 MG CAP PO SCH ×2 (08:00→20:00)
[2021-04-25] MEDS: ATORVASTATIN 40 MG TAB PO SCH (08:45)
[2021-04-25] MEDS: rOPINIRole HCL 0.25 MG TABLET PO SCH (08:45)
[2021-04-25] MEDS: GABAPENTIN 300 MG CAP PO SCH (08:45)
[2021-04-25] MEDS: FAMOTIDINE 40 MG TABLET PO SCH (08:45)
[2021-04-25] MEDS ORDERED: HEPARIN SOD 5,000 UNIT/0.5 ML VIAL SC SCH (09:00)
[2021-04-25] MEDS: VENLAFAXINE HCL XR 37.5 MG CAPXR PO SCH (09:30)
[2021-04-25] MEDS: TAMOXIFEN CITRATE 10 MG TABLET PO SCH (09:31)
[2021-04-25] MEDS: PANTOprazole 40 MG TAB PO SCH (09:31)
--- NOTE | 2021-04-25 09:35 | Billing Data ---
Date of Service April 25, 2021 Coding Level of Care Code Critical Care 1st - mins
[2021-04-25] MEDS ORDERED: cefTRIAXone SODIUM 1,000 MG in DEXTROSE 5% 50 ML IV SCH (10:00)
[2021-04-25] MEDS ORDERED: CEFEPIME 2,000 MG in SYRINGE 0 ML IV SCH (10:00)
[2021-04-25] MEDS ORDERED: ICU PROTOCOL FOR HYPERGLYCEMIA PRN (10:03)
[2021-04-25] MEDS: IPRATROPIUM BROMIDE NEB SOLN 0.02% 2.5 ML VIAL INH PRN (10:18)
[2021-04-25] MEDS: LEVALBUTEROL 1.25MG/0.5ML NEB INH PRN (10:18)
[2021-04-25 10:28] LABS: Base Excess ABG -8.7 mEq/L (-9-1.8); HCO3 ABG 16 mmol/L (19-24); Oxygen Saturation ABG 93.9 % (90-95); PCO2 ABG 31 mmHg (35-46); PO2 ABG 69 mmHg (80-95); pH ABG 7.34 (7.35-7.45)
[2021-04-25 10:31] LABS: Allen Test Pos (Pos)
[2021-04-25 11:16] LABS: Adenovirus PCR Not Detected (NotDetected); Bordetella parapertussis PCR Not Detected (NotDetected); Bordetella pertussis PCR Not Detected (NotDetected); Chlamydia pneumoniae PCR Not Detected (NotDetected); Coronavirus 229E PCR Not Detected (NotDetected); Coronavirus HKU1 PCR Not Detected (NotDetected); Coronavirus NL63 PCR Not Detected (NotDetected); Coronavirus OC43PCR Not Detected (NotDetected); Human Metapneumovirus PCR Not Detected (NotDetected); Influenza A PCR Not Detected (NotDetected); Influenza B PCR Not Detected (NotDetected); Mycoplasma pneumoniae PCR Not Detected (NotDetected); Parainfluenza Virus 1 PCR Not Detected (NotDetected); Parainfluenza Virus 2 PCR Not Detected (NotDetected); Parainfluenza Virus 3 PCR Not Detected (NotDetected); Parainfluenza Virus 4 PCR Not Detected (NotDetected); Respiratory Syncytial VirusPCR Not Detected (NotDetected); Rhinovirus/Enterovirus PCR Not Detected (NotDetected)
[2021-04-25 11:33] LABS: Coronavirus CoV-2 (COVID19)PCR DETECTED (NotDetected)
--- NOTE | 2021-04-25 11:39 | Nephrology Progress Note ---
Date of Service April 25, 2021 Assessment & Plan Admission and Anticipated Discharge Date Admission Date: April 13, 2021 Subjective Assessment & Plan (1) Acute renal failure: stage 2 nonoliguric MOISÉS on early CKD w/ baseline creatinine 0.9 and at baseline on presentation and until 04/21; then rising and is still rising. likely multifactorial > contrast induced nephropathy, prerenal progressing to ischemic acute tubular necrosis. chemistries generally acceptable (probably w/ emerging AG acidosis but w/ normal lactate would not get ABG to est this) and intravascularly dry but w/ significant 02 needs. -daily bmp -no indication for discussion of dialysis currently; cannot rule out need as creat still rising slowly and urine output low -treat sepsis as below -cont to hold spironolactone, valsartan (2) Severe sepsis: from gram negative yasir L pyelonephritis/bacteremia w/ possible purulent material needing removal -for OR today to stent L ureter -agree w/ change to cefepime; f/u pending cxs -const NS at 100 ml/hr for now Review of Systems Review of Systems: patient too weak and confused to obtain history Physical Exam Constitutional: well developed, well nourished, + ill appearing and + frail appearing; Mild acute distress Eyes: EOM intact bilaterally ENMT: Ears: no external ear abnormality Nose: no external nose abnormality Mouth: + dry oral mucous membranes Neck: no nuchal rigidity Respiratory: normal respiratory effort Auscultation: + diminished lung sounds and + crackles (bibasilar) Cardiovascular: Rate/Rhythm: regular rate and regular rhythm Extremities: no edema Gastrointestinal (Abdomen): Inspection/Auscultation: normal bowel sounds Percussion/Palpation: + abdomen tender (diffusely including/rodríguez periumbilical and epigastrium), + guarding and abdomen soft; no fluid wave Musculoskeletal: marked generalized weakness; cannot sit up Skin: no rashes, warm and dry Neurologic: barrera, fluent speech, no tremor Psychiatric: Orientation: alert and oriented x 3 Results & Data ([facility]) Vital Signs (Past 12 Hours) Vital Signs Temp Pulse Pulse Pulse Resp BP BP 04/25/21 11:02 37.6 C H 87 23 127/77 04/25/21 10:22 36.7 C 85 23 113/70 04/25/21 10:19 86 24 04/25/21 10:04 86 04/25/21 09:57 36.7 C 86 24 126/65 04/25/21 09:22 36.7 C 93 H 18 110/62 04/25/21 08:52 36.9 C 81 18 105/66 04/25/21 08:37 36.4 C L 82 20 120/69 04/25/21 08:19 36.4 C L 85 110/72 04/25/21 07:43 36.7 C 81 24 102/58 L 04/25/21 04:00 37.0 C 04/25/21 03:05 36.7 C 126 H 20 92/49 L 04/25/21 00:15 128 H 18 92/58 L 04/24/21 23:59 141 H Pulse Ox 04/25/21 11:02 95 04/25/21 10:22 94 04/25/21 10:19 93 04/25/21 10:04 04/25/21 09:57 94 04/25/21 09:22 96 04/25/21 08:52 95 04/25/21 08:37 95 04/25/21 08:19 93 04/25/21 07:43 96 04/25/21 04:00 04/25/21 03:05 95 04/25/21 00:15 94 04/24/21 23:59
--- NOTE | 2021-04-25 11:46 | Hospitalist Progress Note ---
Date of Service April 25, 2021 Assessment & Plan (1) Acute and chronic respiratory failure with hypoxia: Plan: #Severe sepsis due to complicated urinary tract infection, Left pyelonephritis #Proteus mirabilis bacteremia #MOISÉS Cr continue to worsen Repeat CT abd pelvis wo co showed moderate - severe left hydronephrosis, left collecting system containing complex fluid Had Cystoscopy with stent placement last night Proteus mirabilis in blood and urine cultures. Pansensitive Antibiotics changed to ceftriaxone Transferred to ICU BP appear to be stable at this time Got 1 PRBC overnight for drop in Hb. Likely due to sepsis + dilutional effect of IVF boluses Monitor respiratory status sales recruitment specialist recommendations noted Continue to hold valsartan, aldactone for now Contract Associate Manager on board #. Acute on chronic hypoxic respiratory failure #. Recent diagnosis of COVID, sequelae of COVID 19 Pneumonia #. COPD #. Chronic Resp Failure - on 3L at home #. Abnormal CTA chest COPD with chronic hypoxic respiratory failure on chronic 3 liter oxygen Recently admitted for Covid 03/27/2021 [Recent admission 03/27/2021 to 04/06/2021] status post DEXA and remdesivir Cough, increasing shortness of breath with exertion and with activity at presentation Admitting CXR: Redemonstration of multifocal airspace opacities compatible with history of viral pneumonia. Also her D-dimer was elevated. Initially, CTA chest unable to be obtained due to orthopnea. Pro-Zay negative at admission. However, patient has been on chronic anticoagulation with xarelto which makes PE less likely. CT PE was later obtained which did not show any PE but showed extensive multifocal consolidation/GGO suggestive of viral pneumonia. Patient will need follow-up CT in 3 to 6 months to ensure resolution is recommended. Will also need mammogram and USS outpatient for eval of 2.3 cm irregular density within the superior right breast seen on CT BNP 5660 at admission. 04/14 ECHO: EF 65 to 70%, grade 1 diastolic dysfunction, left ventricular systolic function normal Possibilities include COPD exacerbation, Development of Long COVID Completed steroid Continue oxygen supplementation and wean as tolerated #. Pancytopenia: #. ITP #. Anemia of chronic disease -Multifactorial H/o, follows Dr. Avendano. Pancytopenic. Platelet 19 today. Monitor #. Other chronic medical conditions: Sarcoidosis/Splenomegaly/PAF/DM2/Ho Breast Ca/HTN/HLD Continue home meds Sliding scale for DM DVT prophylaxis: Hold pharmacological agent for now. Also hold xarelto in view of renal function/plt DNR/DNI Disposition: ICU Daughter called and updated Admission and Anticipated Discharge Date Admission Date: April 13, 2021 Subjective Patient seen and examined. Currently being managed for severe sepsis from complicated UTI Patient got IVF bolus yesterday and had cystoscopy and left stent placement last night with efflux of cloudy urine Was hypotensive overnight. Got IVF and 1 PRBC. Discussed with sales recruitment specialist today who evaluated and transferred to ICU for c loser monitoring Patient currently reports weakness Reports some mild cough and shortness of breath Reports anorexia. Denied nausea, vomiting, abd pain, diarrhea Denied chest pain, palpitation Review of Systems Review of Systems: All systems reviewed & are unremarkable except as noted in Subjective Physical Exam Constitutional: + well hydrated; no acute distress Eyes: PERRL, conjunctivae normal, anicteric sclerae ENMT: external ear and nose normal, oropharynx normal Respiratory: On oxymask, scattered crackles, diminished breath sounds Cardiovascular: Rate/Rhythm: regular rate and regular rhythm S1 S2 Gastrointestinal (Abdomen): normal bowel sounds, soft, nontender, no hepatosplenomegaly Neurologic: PERRL, EOMI, accommodation nl, no face palsy, no dysarthria Psychiatric: A+Ox3, euthymic affect Genitourinary: Cameron in situ Results & Data Results & Data ([facility]) Vital Signs (Past 12 Hours) Vital Signs Temp Pulse Pulse Pulse Resp BP BP 04/25/21 11:02 37.6 C H 87 23 127/77 04/25/21 10:22 36.7 C 85 23 113/70 04/25/21 10:19 86 24 04/25/21 10:04 86 04/25/21 09:57 36.7 C 86 24 126/65 04/25/21 09:22 36.7 C 93 H 18 110/62 04/25/21 08:52 36.9 C 81 18 105/66 04/25/21 08:37 36.4 C L 82 20 120/69 04/25/21 08:19 36.4 C L 85 110/72 04/25/21 07:43 36.7 C 81 24 102/58 L 04/25/21 04:00 37.0 C 04/25/21 03:05 36.7 C 126 H 20 92/49 L 04/25/21 00:15 128 H 18 92/58 L 04/24/21 23:59 141 H Pulse Ox 04/25/21 11:02 95 04/25/21 10:22 94 04/25/21 10:19 93 04/25/21 10:04 04/25/21 09:57 94 04/25/21 09:22 96 04/25/21 08:52 95 04/25/21 08:37 95 04/25/21 08:19 93 04/25/21 07:43 96 04/25/21 04:00 04/25/21 03:05 95 04/25/21 00:15 94 04/24/21 23:59 Laboratory Results Abnormal lab results 04/24/21 04/25/21 04/25/21 Range/Units 22:45 01:37 06:03 WBC 3.34 L (4.8-10.8) K/uL RBC 2.71 L 2.67 L (4.2-5.4) M/uL Hgb 7.6 L 7.5 L (12.0-16.0) g/dL Hct 23.6 L 22.9 L (37-47) % RDW Std Deviation 61.5 H 61.7 H (36.4-46.3) fL RDW Coeff of Chi 19.1 H 19.2 H (11.5-14.5) % Plt Count 23 L* D 19 L* (130-400) K/uL Lymph # (Auto) 0.15 L (1.2-3.4) K/uL Immature Gran # (Auto) 0.38 H (0.00-0.02) K/uL ABG pH (7.35-7.45) ABG pCO2 (35-46) mmHg ABG pO2 (80-95) mmHg ABG HCO3 (19-24) mmol/L Sodium (136-145) mmol/L Chloride (98-107) mmol/L Carbon Dioxide (21-32) mmol/L BUN (6-23) mg/dl Creatinine (0.6-1.2) mg/dl BUN/Creatinine Ratio (10-20) Calcium (8.5-10.1) mg/dl AST (13-39) U/L ALT (7-52) U/L Alkaline Phosphatase (34-104) U/L Total Protein (6.0-8.3) gm/dl Albumin (3.4-5.0) gm/dl Globulin (2.5-4.0) gm/dl SARS-CoV-2 (PCR) (NotDetected) Crossmatch See Detail 04/25/21 04/25/21 04/25/21 Range/Units 06:03 10:05 10:15 WBC (4.8-10.8) K/uL RBC (4.2-5.4) M/uL Hgb (12.0-16.0) g/dL Hct (37-47) % RDW Std Deviation (36.4-46.3) fL RDW Coeff of Chi (11.5-14.5) % Plt Count (130-400) K/uL Lymph # (Auto) (1.2-3.4) K/uL Immature Gran # (Auto) (0.00-0.02) K/uL ABG pH 7.34 L (7.35-7.45) ABG pCO2 31 L (35-46) mmHg ABG pO2 69 L (80-95) mmHg ABG HCO3 16 L (19-24) mmol/L Sodium 134 L (136-145) mmol/L Chloride 108 H (98-107) mmol/L Carbon Dioxide 18 L (21-32) mmol/L BUN 55 H (6-23) mg/dl Creatinine 2.14 H D (0.6-1.2) mg/dl BUN/Creatinine Ratio 25.7 H (10-20) Calcium 6.9 L (8.5-10.1) mg/dl AST 90 H (13-39) U/L ALT 83 H (7-52) U/L Alkaline Phosphatase 133 H (34-104) U/L Total Protein 4.7 L (6.0-8.3) gm/dl Albumin 2.4 L (3.4-5.0) gm/dl Globulin 2.3 L (2.5-4.0) gm/dl SARS-CoV-2 (PCR) DETECTED A* (NotDetected) Crossmatch
--- NOTE | 2021-04-25 11:58 | Urology Progress Note ---
Date of Service April 25, 2021 Assessment & Plan (1) Severe sepsis: Plan: Blood cultures and urine cultures both demonstrating Proteus -should be covered appropriately with ceftriaxone. Assuming that this is urinary in origin, she should have source control with left ureteral stent and Cameron catheter. If she continues to have positive cultures, would consider renal ultrasound to assess for any residual hydronephrosis in the left kidney. If the stent is not p roviding adequate drainage, the next step would be nephrostomy tube, however this will be challenging to coordinate with her severe thrombocytopenia, and need for transfer to a different facility where they offered interventional radiology services. For now I agree with ceftriaxone, close monitoring and supportive care. (2) Hydronephrosis, left: Plan: Findings on CT scan and fluoroscopy at the time of stent placement suspicious for UPJ obstruction. Kidney should be decompressed with ureteral stent in place, however if she has persistent fevers there may be a role for repeating renal ultrasound as above. She is likely not a good candidate for definitive surgical repair of her left UPJ, and may require chronic stent exchanges for maximal drainage, however this can be further evaluated/discussed once her condition improves. (3) Thrombocytopenia: Plan: Worsening thrombocytopenia over the last 2 days. She is not having significant hematuria at this point, although bleeding is possible with a ureteral stent in place. For now, would recommend continued monitoring for hematuria. (4) Acute renal failure: Plan: Renal failure likely multifactorial. Combination of contrast-induced ne phropathy and hypotension/ATN. Her right kidney does not appear to be obstructed on recent imaging. Left kidney with imaging concerning for UPJ obstruction, which should not be bypassed with the left ureteral. I would recommend she maintain the Cameron catheter for maximal drainage until her condition stabilizes. Plan: Continue ceftriaxone per primary team Maintain Cameron catheter for now Maintain left ureteral stent Monitor for hematuria If she has persistent positive cultures, consider renal ultrasound to assess for residual hydronephrosis Agree with supportive care per primary team. Admission and Anticipated Discharge Date Admission Date: April 13, 2021 Subjective S/P left ureteral stent placement on 04/24/2021 Patient reports she is not feeling well today She is not having any significant pain from the stent She is tolerating the catheter without any issues She has been intermittently hypotensive and tachycardic last 24 hours and has worsening oxygen requirement Physical Exam Physical Exam: Ill-appearing, frail appearing Respiratory: Breathing with supplemental oxygen by facemask Gastrointestinal (Abdomen): soft, minimally tender Genitourinary: Cameron catheter in place with some debris in the line, urine is yellow Results & Data ([facility]) Vital Signs (Past 12 Hours) Vital Signs Temp Pulse Pulse Pulse Resp BP BP 04/25/21 11:02 37.6 C H 87 23 127/77 04/25/21 10:22 36.7 C 85 23 113/70 04/25/21 10:19 86 24 04/25/21 10:04 86 04/25/21 09:57 36.7 C 86 24 126/65 04/25/21 09:22 36.7 C 93 H 18 110/62 04/25/21 08:52 36.9 C 81 18 105/66 04/25/21 08:37 36.4 C L 82 20 120/69 04/25/21 08:19 36.4 C L 85 110/72 04/25/21 07:43 36.7 C 81 24 102/58 L 04/25/21 04:00 37.0 C 04/25/21 03:05 36.7 C 126 H 20 92/49 L 04/25/21 00:15 128 H 18 92/58 L 04/24/21 23:59 141 H Pulse Ox 04/25/21 11:02 95 04/25/21 10:22 94 04/25/21 10:19 93 04/25/21 10:04 04/25/21 09:57 94 04/25/21 09:22 96 04/25/21 08:52 95 04/25/21 08:37 95 04/25/21 08:19 93 04/25/21 07:43 96 04/25/21 04:00 04/25/21 03:05 95 04/25/21 00:15 94 04/24/21 23:59 Laboratory Results Labs reviewed: CBC: She remains leukopenic with WBC 3.34. Hemoglobin slightly decreased at 7.5. Severe thrombocytopenia (platelets 19) BMP with stable electrolytes (Na 134, Cl 108, K 4.3) worsening creatinine (2.14 up from 1.76, baseline is close to 1) PG Care Time/CCT Total # of Minutes Spent Total Time Spent with Patient: Total time spent is greater than 50% in coordination of care (as documented) at patient's floor/unit and/or counseling patient: Coding Level of Care Code 82956 Subseq Hosp Care Lvl 2 Diagnoses Severe sepsis A41.9; R65.20 Hydronephrosis, left N13.30 Thrombocytopenia D69.6 Acute renal failure N17.9
[2021-04-25] MEDS: traMADol HCL 50 MG TABLET PO PRN (14:09)
[2021-04-25] MEDS ORDERED: FUROSEMIDE 40 MG/4 ML VIAL IV ONE (14:37)
--- NOTE | 2021-04-25 14:43 | Communication Note ---
Date of Service: April 25, 2021 Clinical update 1440 patient hypoxia into the high 80s on oxygen mask at 10 L transitioning to CPAP for positive pressure. Rales on auscultation suspect volume overload. Recently finished blood less likely to be transfusion reaction. Made n.p.o., discontinue additional fluids. We discussed risk benefits of intubation I do not believe that this is a terminal process and patient is agreeable with intubation and attempt to bridge over acute setting of sepsis. Also ordered stat chest x-ray and echocardiogram for further evaluation. I have personally spent 30 minutes of critical care time in the direct management of this patient. This is a life/limb threatening event. This includes time spent evaluating patient, direct bedside care, chart review, placing orders, interpretation of diagnostic studies, discussion with consultants, patient, and/or family members regarding treatment decisions, as well as other required patient management activities. This time is exclusive of all separately billable procedures, and teaching time and separate from and in addition to any other critical care service time. Coding Level of Care Code None
--- NOTE | 2021-04-25 15:05 | XRay Report ---
SINGLE VIEW CHEST CLINICAL HISTORY: Hypoxia FINDINGS: An AP, portable, upright chest radiograph is compared to study dated 04/24/2021 and correlat ed with chest CT dated 04/18/2021. The examination is degraded by portable technique and patient rotat ion. The heart is enlarged noting atherosclerotic calcification of the thoracic aorta. Multifocal air space consolidation is again seen throughout both lungs. This has worsened as compared to yesterday. No large pleural effusion or pneumothorax is identified. The skeletal structures are osteopenic. The bony thorax is grossly intact. IMPRESSION: 1. Multifocal airspace consolidation throughout both lungs has significantly worsened as compared to yesterday. 2. Cardiomegaly. ACT 112: Negative or not required by law. Electronically signed by: Arik Mas M.D. 04/25/2021 3:03 PM
[2021-04-25] MEDS: ICU ELECTROLYTE REPLACEMENT PROTOCOL SCH (16:48)
--- NOTE | 2021-04-25 17:11 | XCELERA ---
[id number]
[2021-04-26] MEDS ORDERED: METOPROLOL TARTRATE 1 MG/ML VIAL IV STA ×2 (01:16→01:39)
[2021-04-26] MEDS ORDERED: METOPROLOL TARTRATE 1 MG/ML VIAL IV ONE (01:18)
[2021-04-26] MEDS ORDERED: ALBUMIN 25% 100 mL 25 GM/100 ML VIAL IV ONE (02:00)
[2021-04-26] MEDS ORDERED: AMIODARONE / D5W 150 MG/100 ML BAG IV STA (02:03)
[2021-04-26] MEDS ORDERED: AMIODARONE IV BOLUS & DRIP IV STA (02:03)
[2021-04-26] MEDS ORDERED: STAT IV Infusion **Titration per Protocol STA ×3 (02:03→03:54)
[2021-04-26] MEDS ORDERED: AMIODARONE / D5W 360 MG/200 ML BAG IV ONE (02:14)
--- NOTE | 2021-04-26 02:14 | Communication Note ---
Date of Service: April 26, 2021 Patient was noted to develop narrow complex tachycardia with varying rates from the 120s to 150s. Patient was assessed at bedside. She is still with mild respiratory distress which is unchanged, however she is refused to wear her BiPAP for several hours. Patient was placed back on her BiPAP. She was given 2 separate doses of metoprolol as I did review the patient's record and she had previously been on metoprolol 100 mg twice daily which had been held recently secondary to transient hypotension. There was little to no response with the metoprolol. Repeat labs have been ordered as well as a chest x-ray. Chest x- ray actually showed slight improvement and no change from recent findings of significant pulmonary edema. Patient did have a slight drop in her blood pressure after the second dose of metoprolol. She was provided dose of albumin and orders were placed for amiodarone bolus and drip in an attempt to convert patient. I did have multiple discussions with the patient at bedside. She is adamant that she would not wish to be cardioverted. She does not want compressions. She does not want intubated. At this point, her respiratory status has maintained okay despite heart rate. After review of labs and chest x-ray images, patient was reevaluated. She is not complaining of low back pain after x-ray. She is without complaints of abdominal pain or chest discomfort at this time. Her breathing does appear worse with BiPAP. I did discuss providing her with some morphine to help with her pain as well as breathing. She is amenable to this and we did have a discussion again as far as CODE STATUS. She is again adamant that she would absolutely not want intubated at this time. I did offer that a possible attempt at cardioversion could be made. She declines this as well. She confirms that she is comfortable continuing with IV medications in attempt to improve heart rate. Orders placed for esmolol drip. Patient will remain on BiPAP at this time. Heart rate was somewhat improved with the esmolol. We will continue to titrate as she tolerates. I have personally spent 45 minutes of critical care time in the direct management of this patient. This is a life/limb threatening event. This includes time spent evaluating patient, direct bedside care, chart review, placing orders, interpretation of diagnostic studies, discussion with consultants, patient, and family members, as well as other required patient management activities. This time is exclusive of all separately billable procedures, and teaching time and separate from and in addition to any other critical care service time. Coding Level of Care Code Critical Care 1st 30-74 mins Time Spent (min) 45
[2021-04-26] MEDS ORDERED: AMIODARONE 360MG / 200ML D5W IV ONE (02:15)
[2021-04-26] MEDS ORDERED: AMIODARONE 150MG / 100ML D5W IV ONE (02:16)
[2021-04-26] MEDS ORDERED: 0.2 MICRON FILTER SET 1 EA IV ONE (02:20)
[2021-04-26 02:50] LABS: Albumin Level 2.7 gm/dl (3.4-5.0); BUN Creatinine Ratio 31.4 (10-20); Bilirubin,Total 0.7 mg/dl (0.2-1.0); Calcium 7.6 mg/dl (8.5-10.1); Creatinine Clr Calc Pharmacy 18.2 ml/min; Est GFR (African American) 24.1 ml/min; Est GFR (Non-African American) 20.8 ml/min; Globulin 2.7 gm/dl (2.5-4.0); Magnesium 1.5 mg/dl (1.7-2.4); Phosphorus 5.2 mg/dl (2.5-4.9); Potassium 4.5 mmol/L (3.5-5.1); Total Protein 5.4 gm/dl (6.0-8.3)
[2021-04-26 03:03] LABS: Hematocrit (blood only) 32.2 % (37-47); Hemoglobin 10.8 g/dL (12.0-16.0); Mean Corpuscular Hemoglobin 28.6 pg (25-34); Mean Corpuscular Hgb Conc 33.5 g/dL (32-36); Mean Corpuscular Volume 85.4 fL (80-100); Platelet Count 35 K/uL (130-400); RDW Coefficient of Variation 18.2 % (11.5-14.5); RDW Standard Deviation 57.7 fL (36.4-46.3); Red Blood Count 3.77 M/uL (4.2-5.4); White Blood Count 6.59 K/uL (4.8-10.8)
[2021-04-26 03:04] LABS: Platelet Estimate SIGNIFIC DECREASED (Normal)
[2021-04-26] MEDS ORDERED: FUROSEMIDE 40 MG/4 ML VIAL IV ONE ×2 (03:09→03:14)
[2021-04-26] MEDS ORDERED: PHENYLEPHRINE HCL 20 MG in DEXTROSE 5% 500 ML IV SCH (03:30)
[2021-04-26] MEDS: ESMOLOL / NSS 2,500 MG/250 ML BAG IV SCH ×2 (04:04→04:30)
[2021-04-26] MEDS ORDERED: MoRPHine SULFATE 2 MG/ML CARP IV STA ×3 (04:07→06:49)
[2021-04-26] MEDS ORDERED: MoRPHine SULFATE 2 MG/ML CARP ONE (04:12)
[2021-04-26] MEDS ORDERED: ESMOLOL BOLUS FROM BAG IV ONE (04:30)
[2021-04-26] MEDS: ICU ELECTROLYTE REPLACEMENT PROTOCOL SCH (06:14)
--- NOTE | 2021-04-26 07:43 | Death Pronouncement Note ---
Date of Service April 26, 2021 Pronouncement Note Admission Date Admission Date: April 13, 2021 Date and Time of Date of : 04/26/21 Time of : 07:35 Contributing Factors (1) Acute and chronic respiratory failure with hypoxia: (2) Severe sepsis: (3) Urinary tract infection: Summary Additional details: Called to evaluate patient No breathing movement noted No breath sounds. No heart sounds. Pupils fixed and dilated. Pronounced at 7:35AM 04/26/21 Family in the room updated Additional Data Attending physician: Mila Sauceda MD
--- NOTE | 2021-04-26 07:51 | Discharge Summary ---
Date of Service April 26, 2021 Admission HPI Per Admitting Provider 76-year-old F with PMH of recent diagnosis of Covid 03/27/2021 [Recent admission 03/27/2021 to 04/06/2021] status post DEXA and remdesivir, COPD with chronic hypoxic respiratory failure on chronic 3 liter oxygen, T2DM, PAF on Xarelto, GERD, osteoporosis, ITP, breast cancer s/p lumpectomy and radiation currently on tamoxifen presented to ED 04/13/21 for worsening shortness of breath. Of note she was recently discharged on 04/06/2021 after getting treatment for Covid; on 3 L oxygen. Which is her baseline. Patient reports having worsening shortness of breath, worse with exertion, needing increasing oxygen (upto 5L) from her baseline since the day of discharge. Patient reports her cough at baseline. Patient also reports decreased appetite since the same duration associated with weakness. Reports occasional headache. Denies any dizziness or nausea or vomiting. Denies any acute changes in her bowel or bladder habit. Denies any chest pain or feeling of heart racing. Patient lives alone, per her, her sister helps if needed. Patient reported taking her Xarelto without missing doses. Patient was ordered a CTA chest in the ED, but patient could not lie flat and desaturated needing CPAP. Patient was on CPAP at bedside exam. No smoking/alcohol consumption/recreational drug use. Patient DNR/DNI per discussion with her at bedside exam. No personal or family history of blood clot. No family history of cancer. Admission Exam Per Admitting Provider GENERAL: Alert and oriented x3. NAD, on CPAP. HEENT: No pallor, no icterus. Pupils equal, round and reactive to light. Oral mucosa dry. NECK: No JVD, no neck masses. HEART: S1 and S2 heard. Regular rate and rhythm. Tachycardic, no murmur appreciated, no gallop. RESPIRATORY SYSTEM: Normal AP diameter. No accessory muscle use. No wheezing, crackles likely dry diffuse and bilateral. ABDOMEN: Soft, bowel sounds present, nontender, no distention. CENTRAL NERVOUS SYSTEM: No facial droop. Speech is clear. Obeys simple commands. Moves extremities. EXTREMITIES: No edema, no erythema seen. Principal Diagnosis Severe sepsis Proteus mirabilis bacteremia Complicated urinary tract infection Acute kidney injury Acute on chronic respiratory failure with hypoxia Discharge Exam Patient Discharge Data Allergies Allergy/AdvReac Type Severity Reaction Status Date / Time No Known Drug Allergies Allergy Verified 04/13/21 18:22 Consultations 04/13/21 16:38 ED Decision to Admit Stat 04/24/21 08:47 Consult Nephrology Routine 04/24/21 12:52 Consult Urology Stat 04/25/21 07:25 Consult Floor Worker [place] Routine Procedures Performed Operation Date: 04/24/21 17:45 Actual Procedures p Cystoscopy, Left Retrograde Pyelogram, Left Stent Insertion(Left) - Yung Villa MD Ordered Studies 04/13/21 15:19 CT angio chest PE protocol Stat 04/18/21 12:12 CT angio chest PE protocol Routine 04/21/21 04:52 CT abd pelvis IV con only Urgent 04/24/21 08:52 CT abd pelvis wo con Urgent 04/24/21 17:00 FL KUB Routine Hospital Course (1) Acute and chronic respiratory failure with hypoxia: (2) Severe sepsis: (3) Urinary tract infection: #. Acute on chronic hypoxic respiratory failure #. Recent diagnosis of COVID, #Severe sepsis due to complicated urinary tract infection, Left pyelonephritis #Proteus mirabilis bacteremia #MOISÉS COPD with chronic hypoxic respiratory failure on chronic 3 liter oxygen Recently admitted for Covid 03/27/2021 [Recent admission 03/27/2021 to 04/06/2021] status post DEXA and remdesivir Had cough, increasing shortness of breath with exertion and with activity at presentation Admitting CXR: Redemonstration of multifocal airspace opacities compatible with history of viral pneumonia. Also her D-dimer was elevated. Initially, CTA chest unable to be obtained due to orthopnea. Pro-Zay negative at admission. However, patient has been on chronic anticoagulation with xarelto. CT PE was later obtained which did not show any PE but showed extensive multifocal consolidation/GGO suggestive of viral pneumonia. Patient treated with steroid and oxygen requirement improved. Patient developed abd pain and worsening low back pain Was evaluated and found to have complicated UTI with Pyelonephritis and Left moderate to severe hydronephrosis, complex fluid collection in collecting system with MOISÉS Was treated with antibiotics Had cystoscopy with stent placement by Urology Blood/Urine culture grew Proteus mirabilis Patient required 1 PRBC and IVF Patient's respiratory status worsened. Patient did not tolerated NIV well and declined mechanical ventilation or resuscitation Patient in ICU Was pronounced at 7;35AM on 04/26/21 Total Time Total Time Spent Total Time Spent (In Minutes): 15 Total Time Includes: Other Discharge Plan Discharge Items Patient Disposition: Other Date/Time: 04/26/21 07:35
[2021-04-26] MEDS ORDERED: AMIODARONE / D5W 360 MG/200 ML BAG IV SCH (08:15)
--- NOTE | 2021-04-26 09:15 | XRay Report ---
XR chest 1V portable CLINICAL HISTORY: sob TECHNIQUE: Single frontal radiograph of the chest was obtained. Comparison: Comparison is made to chest one view 04/25/2021 FINDINGS: No lines and tubes are seen. Cardiomegaly is noted. Multifocal airspace opacities are seen. No eviden ce of pleural effusion or pneumothorax. IMPRESSION: Stable appearance of multifocal airspace opacities. ACT 112: Negative or not required by law. Electronically signed by: Sreekanth Roche M.D. 04/26/2021 9:14 AM
== END 2021-04-26 08:31 | disposition expired | DRG 987 ==
LOC: ED 11:00 → SUATTDRO 15:47 → 2S 15:47 → 1E 04-25 09:39